=== PATIENT | male | born 1945 | race Asian ===

== ENCOUNTER 2017-04-21 18:05 | Inpatient (IN) | payer MEDICARE, MEDICAID ==
[~2017-04-21] VITALS: Ht 165.1 cm; Wt 61.7 kg
[2017-04-21 18:40] VITALS: BP 142/82
[2017-04-21 20:00] VITALS: BP 122/78
[2017-04-21 20:40] LABS: ABG PCO2 181.2 mmHg (35.0-45.0)
[2017-04-21 20:41] LABS: ABG ALLEN TEST POSITIVE; ABG BASE EXCESS 16.6
[2017-04-21 20:57] LABS: APPEARANCE,URINE CLEAR; KETONES,URINE NEGATIVE (NEGATIVE); LEUKOCYTE ESTERASE ,URINE NEGATIVE (NEGATIVE); NITRITE,URINE NEGATIVE (NEGATIVE); PH,URINE 6.5 (4.5-8.0); PROTEIN,URINE NEGATIVE (NEGATIVE); UROBILINOGEN,URINE NORMAL MG/DL (0.0-1.0)
[2017-04-21 21:00] VITALS: BP 136/78
[2017-04-21 21:08] LABS: CALCIUM 9.2 MG/DL (8.5-10.1); CHLORIDE 95 MMOL/L (98-107); CREATININE 0.5 MG/DL (0.55-1.30); POTASSIUM 5.2 MMOL/L (3.5-5.1); SODIUM 143 MMOL/L (136-145)
[2017-04-21 21:12] LABS: CARBON DIOXIDE 51 MMOL/L (21-32)
[2017-04-21 21:23] LABS: ALANINE AMINOTRANSFERASE 14 U/L (12-78); ALBUMIN/GLOBULIN RATIO 0.8 (1.0-2.7); ASPARTATE AMINO TRANSFERASE 25 U/L (15-37); CKMB 1.3 NG/ML (0.0-3.6)
[2017-04-21 21:45] VITALS: BP 105/60
[2017-04-21 22:07] LABS: MEAN CORPUSCULAR HEMOGLOBIN 33.1 PG (27.0-31.0); MEAN CORPUSCULAR HGB CONC 30.4 G/DL (32.0-36.0); MEAN CORPUSCULAR VOLUME 109 FL (80-99); MEAN PLATELET VOLUME 7.3 FL (6.5-10.1); PLATELET COUNT 98 K/UL (150-450); RED BLOOD COUNT 4.02 M/UL (4.70-6.10); RED CELL DISTRIBUTION WIDTH 11.5 % (11.6-14.8); WHITE BLOOD COUNT 8.6 K/UL (4.8-10.8)
[2017-04-21 22:10] LABS: NEUTROPHILS % (AUTO) 89.2 % (45.0-75.0)
[2017-04-21 22:11] LABS: BASOPHILS % (AUTO) 0.4 % (0.0-2.0); EOSINOPHILS % (AUTO) 0.2 % (0.0-3.0); LYMPHOCYTES % (AUTO) 5.7 % (20.0-45.0); MONOCYTES % (AUTO) 4.4 % (1.0-10.0)
[2017-04-21 22:22] LABS: ABG BASE EXCESS 11.6; ABG PCO2 85.7 mmHg (35.0-45.0)
[2017-04-21 22:23] LABS: ABG ALLEN TEST POSITIVE
[2017-04-21 22:30] VITALS: BP 91/58
[2017-04-21] MEDS ORDERED: Etomidate 40mg/20ml Inj IV ONE (22:52)
[2017-04-21] MEDS ORDERED: Zemuron 50mg/5ml Inj IV ONE (22:52)
--- NOTE | 2017-04-21 23:02 | Emergency Room Report ---
History of Present Illness General Chief Complaint: Altered Level of Consciousness Source: EMS Present Illness HPI 72-year-old male presents ED for evaluation. Patient brought by EMS for altered level of consciousness x1 day. Patient has history of COPD. Per EMS patient is more altered than usual x1 day. Patient hypoxic; EMS placed on oxygen. Upon arrival patient unable to provide any additional history at this time. No fever or chills. No reported chest pain or shortness of breath. No other aggravating or relieving factors. No other associated symptoms Allergies: Coded Allergies: No Known Allergies (Unverified , 04/21/17) Patient History Past Medical History: HTN, COPD, CVA/TIA Past Surgical History: none Pertinent Family History: none Social History: Denies: smoking, alcohol use, drug use Immunizations: UTD Reviewed Nursing Documentation: PMH: Agreed, PSxH: Agreed Nursing Documentation-PMH Hx Hypertension: Yes Hx COPD: No - PNA Hx Cerebrovascular Accident: Yes Review of Systems All Other Systems: limited Physical Exam Vital Signs Date Time Temp Pulse Resp B/P (MAP) Pulse Ox O2 Delivery O2 Flow Rate FiO2 04/21/17 18:19 97.3 104 10 140/88 98 Non-Rebreather 15.0 04/21/17 21:05 100 Sp02 EP Interpretation: reviewed, normal General Appearance: lethargic, thin Head: normocephalic Eyes: bilateral eye normal inspection, bilateral eye PERRL ENT: normal ENT inspection Neck: normal inspection Respiratory: decreased breath sounds, accessory muscle use Cardiovascular #1: regular rate, rhythm, no edema Gastrointestinal: normal inspection Rectal: deferred Genitourinary: no CVA tenderness Musculoskeletal: back normal Neurologic: other - lethargic Psychiatric: other - lethargic Skin: normal inspection Lymphatic: normal inspection Procedures Critical Care Time Critical Care Time i. I feel this is a highly complex case requiring extensive working including EKG/Rhythm strip, Xray/CT/US, Blood/urine lab work, repeat exams while in ED, and administration of strong opiates/narcotics for pain control, admission to hospital or close patient follow up. Total time: 30 min bedside evaluation and treatment excludes procedures (EKG). Reason for critical care: ALOC, hypercapnia Possible complications: hypotension, hypertension, TN, shock, arrhythmias, metabolic acidosis, end organ damage, respiratory failure. Interventions: Labs IV fluids EKG chest x-ray. ABG. Intubation. abx Course: Patient brought in with increased altered consciousness. History of COPD. ABG shows significant hypercapnia with pH of 7.1 and PCO2 greater than 180. Patient intubated. Repeat ABG shows improvement. Antibiotics given. Consultations: nursing staff, EMS, family Performed by: Dr Kirk Tolerated well condition = critical j. because of unstable vital signs this patient had a condition that could potentially threaten life or limb. I feel this is a critical patient who required my full attention while patient was considered critical. Total Critical Care Time excluding procedures was greater than 35 minutes Intubation Intubation : Consent: Emergent Intubation Method: orotracheal Tube Size (cm): 7.5 Medications: Etomidate, Rocuronium Breath Sounds after Intubation: equal Intubation Complications: no complications Post Intubation Xray: Yes Attempts: One Patient Tolerated: Well Complications: None Medical Decision Making Diagnostic Impression: Primary Impression: Altered level of consciousness Additional Impressions: COPD exacerbation Hypercapnia ER Course Hospital Course 72-year-old male presents ED with increased confusion. History of COPD Differential diagnoses include: CVA/TIA, sepsis, dehydration Clinical course Patient placed on stretcher. On quality assurance monitor body. After initial history and physical I ordered labs, IV fluids, EKG, chest x-ray, CT head. ABG. Labs - no leukocytosis, hb/hct stable, trop negative ABG - pH 7.1, pCO2 181 CXR - RLL infiltrate CT Head unremarkable Patient had difficult IV access. peripheral EJ line placed Patient intubated. Repeat ABG shows improvement. Antibiotics given Case discussed with Dr. Sams and he agreed to the patient to his service for further care and support I feel this is a highly complex case requiring extensive working including EKG/ Rhythm strip, Xray/CT/US, Blood/urine lab work, repeat exams while in ED, and administration of strong opiates/narcotics for pain control, admission to hospital or close patient follow up. Diagnosis - ALOC, COPD exacerbation, hypercapnia Patient admitted to ICU in critical condition Labs Test 04/21/17 20:15 04/21/17 20:20 04/21/17 21:45 04/21/17 22:11 Urine Color Pale yellow Urine Appearance Clear Urine pH 6.5 (4.5-8.0) Urine Specific [place] 1.005 (1.005-1.035) Urine Protein Negative (NEGATIVE) Urine Glucose (UA) Negative (NEGATIVE) Urine Ketones Negative (NEGATIVE) Urine Occult Blood Negative (NEGATIVE) Urine Nitrite Negative (NEGATIVE) Urine Bilirubin Negative (NEGATIVE) Urine Urobilinogen Normal MG/DL (0.0-1.0) Urine Leukocyte Esterase Negative (NEGATIVE) Sodium Level 143 MMOL/L (136-145) Potassium Level 5.2 MMOL/L (3.5-5.1) Chloride Level 95 MMOL/L (98-107) Carbon Dioxide Level 51 MMOL/L (21-32) Blood Urea Nitrogen 12 mg/dL (7-18) Creatinine 0.5 MG/DL (0.55-1.30) Estimat Glomerular Filtration Rate mL/min (>60) Glucose Level 157 MG/DL (74-106) Lactic Acid Level 0.70 mmol/L (0.66-2.22) Calcium Level 9.2 MG/DL (8.5-10.1) Total Bilirubin 0.6 MG/DL (0.2-1.0) Aspartate Amino Transf (AST/SGOT) 25 U/L (15-37) Alanine Aminotransferase (ALT/SGPT) 14 U/L (12-78) Alkaline Phosphatase 60 U/L (46-116) Total Creatine Kinase 63 U/L (26-140) Creatine Kinase MB 1.3 NG/ML (0.0-3.6) Creatine Kinase MB Relative Index 2.0 Troponin I 0.000 ng/mL (0.000-0.056) Pro-B-Type Natriuretic Peptide 51 pg/mL (0-125) Total Protein 9.0 G/DL (6.4-8.2) Albumin 4.0 G/DL (3.4-5.0) Globulin 5.0 g/dL Albumin/Globulin Ratio 0.8 (1.0-2.7) Arterial Blood pH 7.100 (7.350-7.450) 7.308 (7.350-7.450) Arterial Blood Partial Pressure CO2 181.2 mmHg (35.0-45.0) 85.7 mmHg (35.0-45.0) Arterial Blood Partial Pressure O2 141.8 mmHg (75.0-100.0) 99.1 mmHg (75.0-100.0) Arterial Blood HCO3 55.5 mmol/L (22.0-26.0) 42.0 mmol/L (22.0-26.0) Arterial Blood Oxygen Saturation 98.3 % (92.0-98.0) 97.4 % (92.0-98.0) Arterial Blood Base Excess 16.6 11.6 Pineda Test Positive Positive White Blood Count 8.6 K/UL (4.8-10.8) Red Blood Count 4.02 M/UL (4.70-6.10) Hemoglobin 13.3 G/DL (14.2-18.0) Hematocrit 43.8 % (42.0-52.0) Mean Corpuscular Volume 109 FL (80-99) Mean Corpuscular Hemoglobin 33.1 PG (27.0-31.0) Mean Corpuscular Hemoglobin Concent 30.4 G/DL (32.0-36.0) Red Cell Distribution Width 11.5 % (11.6-14.8) Platelet Count 98 K/UL (150-450) Mean Platelet Volume 7.3 FL (6.5-10.1) Neutrophils (%) (Auto) 89.2 % (45.0-75.0) Lymphocytes (%) (Auto) 5.7 % (20.0-45.0) Monocytes (%) (Auto) 4.4 % (1.0-10.0) Eosinophils (%) (Auto) 0.2 % (0.0-3.0) Basophils (%) (Auto) 0.4 % (0.0-2.0) EKG Diagnostic Results Rate: normal Rhythm: NSR ST Segments: no acute changes ASA given to the pt in ED: No Rhythm Strip Diag. Results EP Interpretation: yes Rhythm: NSR, no PVC's, no ectopy Chest X-Ray Diagnostic Results Chest X-Ray Diagnostic Results : Chest X-Ray Ordered: Yes # of Views/Limited/Complete: 1 View Indication: Shortness of Breath EP Interpretation: Yes Interpretation: no pneumothorax, no acute cardiopulmonary disease, other - infiltrate Impression: Other - COPD/infilrtate Electronically Signed by: Electronically signed by Deacon Kirk MD CT/MRI/US Diagnostic Results CT/MRI/US Diagnostic Results : Imaging Test Ordered: CT head Impression no acute process Last Vital Signs Date Time Temp Pulse Resp B/P (MAP) Pulse Ox O2 Delivery O2 Flow Rate FiO2 04/21/17 22:42 101 21 60 04/21/17 22:15 15.0 04/21/17 18:40 142/82 100 Non-Rebreather 04/21/17 18:19 97.3 Status: improved Disposition: ADMITTED INPATIENT Condition: Critical Referrals: NON PHYSICIAN (PCP) DEACON KIRK M.D. Apr 21, 2017 23:02
[2017-04-21] MEDS ORDERED: ATORVASTATIN CA10 MG ORAL (23:15)
[2017-04-21] MEDS ORDERED: TAMSULOSIN HCL0.4 MG ORAL (23:15)
[2017-04-21] MEDS ORDERED: METOPROLOL SUCC50 MG ORAL (23:15)
[2017-04-21] MEDS ORDERED: COLACE100 MG ORAL (23:15)
[2017-04-21] MEDS ORDERED: SENOKOT8.6 MG PO (23:15)
[2017-04-21] MEDS ORDERED: VITAMIN D400 INTLU ORAL (23:15)
[2017-04-21] MEDS ORDERED: PRO-STAT LIQUID30 ML ORAL (23:15)
[2017-04-21 23:30] VITALS: BP 96/61
[2017-04-22] VITALS (23 sets, daily range): BP systolic 86–133; BP diastolic 56–70
[2017-04-22] MEDS ORDERED: Sodium Chloride 500ML 500 ML IVPB ONE (01:30)
[2017-04-22] MEDS ORDERED: Vancomycin 1.5gm/D5W 250ml 250 ML IVPB ONE (02:00)
[2017-04-22] MEDS ORDERED: Vancomycin 1 GM in D5W 275 ML IVPB ONE (02:00)
[2017-04-22] MEDS ORDERED: Vancomycin 1gm inj IVPB ONE (02:25)
[2017-04-22] MEDS ORDERED: Zosyn 3.375gm inj ONE (02:26)
[2017-04-22] MEDS: Albuterol/Ipratropium 3ml neb HHN SCH ×4 (03:39→19:53)
[2017-04-22 04:56] LABS: MEAN CORPUSCULAR HEMOGLOBIN 35.8 PG (27.0-31.0); MEAN CORPUSCULAR HGB CONC 33.9 G/DL (32.0-36.0); MEAN CORPUSCULAR VOLUME 106 FL (80-99); MEAN PLATELET VOLUME 8.1 FL (6.5-10.1); PLATELET COUNT 92 K/UL (150-450); RED BLOOD COUNT 3.43 M/UL (4.70-6.10); RED CELL DISTRIBUTION WIDTH 11.5 % (11.6-14.8); WHITE BLOOD COUNT 7.7 K/UL (4.8-10.8)
[2017-04-22] MEDS: Piperacillin/Tazobactam 3.375 GM in D5W 55 ML IVPB SCH ×3 (05:35→21:56)
[2017-04-22 05:50] LABS: ALANINE AMINOTRANSFERASE 10 U/L (12-78); ALBUMIN/GLOBULIN RATIO 0.8 (1.0-2.7); ANION GAP 3 mmol/L (5-15); ASPARTATE AMINO TRANSFERASE 11 U/L (15-37); CALCIUM 7.9 MG/DL (8.5-10.1); CARBON DIOXIDE 37 MMOL/L (21-32); CHLORIDE 102 MMOL/L (98-107); CREATININE 0.6 MG/DL (0.55-1.30); MAGNESIUM 1.5 MG/DL (1.8-2.4); POTASSIUM 3.7 MMOL/L (3.5-5.1); SODIUM 141 MMOL/L (136-145); THYROID STIMULATING HORMONE 0.615 uiU/mL (0.358-3.740); TOTAL PROTEIN 5.8 G/DL (6.4-8.2)
[2017-04-22] MEDS: Solu-MEDROL 40mg Inj IVP SCH ×3 (09:24→21:55)
[2017-04-22] MEDS: LORazepam Inj 2mg/ml 1ml IV PRN ×2 (09:30→18:50)
[2017-04-22 09:37] LABS: ABG BASE EXCESS 4.7
[2017-04-22 09:38] LABS: ABG ALLEN TEST POSITIVE
--- NOTE | 2017-04-22 10:28 | Consultation ---
Consult Note Consult Note 72-year-old male presents to the emergency room for evaluation. Patient brought in for alteration in level of consciousness x1 day. Patient has history of COPD. He was noted to be significantly hypoxic; Patient unable to give any history. Patient required intubation and presently in the ICU. Patient is currently on the ventilator. no fevers or chills. events acute in nature overall. findings discussed and SNF care reviewed. Patient is a full code. Allergies: No Known Allergies (Unverified , 04/21/17) Patient History Past Medical History: HTN, COPD, CVA/TIA, pneumonia Past Surgical History: none Pertinent Family History: none Social History: No smoking, alcohol use, drug use; SNF patient Reviewed of systems: unable Physical exam WDWN NAD reduced breath sounds bilaterally with occasional rhonchi [id number] without MRG NABS nontender no HSM no CC mild edema poor LOC nonfocal skin noted lines noted Laboratory Tests Test 04/21/17 20:15 04/21/17 20:20 04/21/17 21:45 04/21/17 22:11 Urine Color Pale yellow Urine Appearance Clear Urine pH 6.5 (4.5-8.0) Urine Specific [place] 1.005 (1.005-1.035) Urine Protein Negative (NEGATIVE) Urine Glucose (UA) Negative (NEGATIVE) Urine Ketones Negative (NEGATIVE) Urine Occult Blood Negative (NEGATIVE) Urine Nitrite Negative (NEGATIVE) Urine Bilirubin Negative (NEGATIVE) Urine Urobilinogen Normal MG/DL (0.0-1.0) Urine Leukocyte Esterase Negative (NEGATIVE) Sodium Level 143 MMOL/L (136-145) Potassium Level 5.2 MMOL/L (3.5-5.1) H Chloride Level 95 MMOL/L (98-107) L Carbon Dioxide Level 51 MMOL/L (21-32) *H Blood Urea Nitrogen 12 mg/dL (7-18) Creatinine 0.5 MG/DL (0.55-1.30) L Estimat Glomerular Filtration Rate mL/min (>60) Glucose Level 157 MG/DL (74-106) H Lactic Acid Level 0.70 mmol/L (0.66-2.22) Calcium Level 9.2 MG/DL (8.5-10.1) Total Bilirubin 0.6 MG/DL (0.2-1.0) Aspartate Amino Transf (AST/SGOT) 25 U/L (15-37) Alanine Aminotransferase (ALT/SGPT) 14 U/L (12-78) Alkaline Phosphatase 60 U/L (46-116) Total Creatine Kinase 63 U/L (26-140) Creatine Kinase MB 1.3 NG/ML (0.0-3.6) Creatine Kinase MB Relative Index 2.0 Troponin I 0.000 ng/mL (0.000-0.056) Pro-B-Type Natriuretic Peptide 51 pg/mL (0-125) Total Protein 9.0 G/DL (6.4-8.2) H Albumin 4.0 G/DL (3.4-5.0) Globulin 5.0 g/dL Albumin/Globulin Ratio 0.8 (1.0-2.7) L Arterial Blood pH 7.100 (7.350-7.450) 7.308 (7.350-7.450) Arterial Blood Partial Pressure CO2 181.2 mmHg (35.0-45.0) *H 85.7 mmHg (35.0-45.0) *H Arterial Blood Partial Pressure O2 141.8 mmHg (75.0-100.0) H 99.1 mmHg (75.0-100.0) Arterial Blood HCO3 55.5 mmol/L (22.0-26.0) H 42.0 mmol/L (22.0-26.0) H Arterial Blood Oxygen Saturation 98.3 % (92.0-98.0) H 97.4 % (92.0-98.0) Arterial Blood Base Excess 16.6 11.6 Pineda Test Positive Positive White Blood Count 8.6 K/UL (4.8-10.8) Red Blood Count 4.02 M/UL (4.70-6.10) L Hemoglobin 13.3 G/DL (14.2-18.0) L Hematocrit 43.8 % (42.0-52.0) Mean Corpuscular Volume 109 FL (80-99) H Mean Corpuscular Hemoglobin 33.1 PG (27.0-31.0) H Mean Corpuscular Hemoglobin Concent 30.4 G/DL (32.0-36.0) L Red Cell Distribution Width 11.5 % (11.6-14.8) L Platelet Count 98 K/UL (150-450) L Mean Platelet Volume 7.3 FL (6.5-10.1) Neutrophils (%) (Auto) 89.2 % (45.0-75.0) H Lymphocytes (%) (Auto) 5.7 % (20.0-45.0) L Monocytes (%) (Auto) 4.4 % (1.0-10.0) Eosinophils (%) (Auto) 0.2 % (0.0-3.0) Basophils (%) (Auto) 0.4 % (0.0-2.0) Test 04/22/17 03:15 04/22/17 09:20 White Blood Count 7.7 K/UL (4.8-10.8) Red Blood Count 3.43 M/UL (4.70-6.10) L Hemoglobin 12.3 G/DL (14.2-18.0) L Hematocrit 36.3 % (42.0-52.0) L Mean Corpuscular Volume 106 FL (80-99) H Mean Corpuscular Hemoglobin 35.8 PG (27.0-31.0) H Mean Corpuscular Hemoglobin Concent 33.9 G/DL (32.0-36.0) Red Cell Distribution Width 11.5 % (11.6-14.8) L Platelet Count 92 K/UL (150-450) L Mean Platelet Volume 8.1 FL (6.5-10.1) Neutrophils (%) (Auto) % (45.0-75.0) Lymphocytes (%) (Auto) % (20.0-45.0) Monocytes (%) (Auto) % (1.0-10.0) Eosinophils (%) (Auto) % (0.0-3.0) Basophils (%) (Auto) % (0.0-2.0) Sodium Level 141 MMOL/L (136-145) Potassium Level 3.7 MMOL/L (3.5-5.1) Chloride Level 102 MMOL/L (98-107) Carbon Dioxide Level 37 MMOL/L (21-32) H Anion Gap 3 mmol/L (5-15) L Blood Urea Nitrogen 16 mg/dL (7-18) Creatinine 0.6 MG/DL (0.55-1.30) Estimat Glomerular Filtration Rate mL/min (>60) Glucose Level 123 MG/DL (74-106) H Calcium Level 7.9 MG/DL (8.5-10.1) L Magnesium Level 1.5 MG/DL (1.8-2.4) L Total Bilirubin 0.8 MG/DL (0.2-1.0) Aspartate Amino Transf (AST/SGOT) 11 U/L (15-37) L Alanine Aminotransferase (ALT/SGPT) 10 U/L (12-78) L Alkaline Phosphatase 40 U/L (46-116) L Total Protein 5.8 G/DL (6.4-8.2) #L Albumin 2.5 G/DL (3.4-5.0) L Globulin 3.3 g/dL Albumin/Globulin Ratio 0.8 (1.0-2.7) L Vitamin B12 Level 328 PG/ML (193-986) Folate 8.0 NG/ML (3.1-17.5) Thyroid Stimulating Hormone (TSH) 0.615 uiU/mL (0.358-3.740) Arterial Blood pH 7.410 (7.350-7.450) Arterial Blood Partial Pressure CO2 48.0 mmHg (35.0-45.0) H Arterial Blood Partial Pressure O2 83.0 mmHg (75.0-100.0) Arterial Blood HCO3 30.0 mmol/L (22.0-26.0) H Arterial Blood Oxygen Saturation 96.6 % (92.0-98.0) Arterial Blood Base Excess 4.7 Pineda Test Positive IMPRESSION respiratory failure COPD possible Pneumonia acute respiratory acidosis thrombocytopenia history of CVA history of TIA hypertension per history PLAN agree with management IV steroids IV antibiotics respiratory care oxygen ventilator management maintain SNF meds impression, plan, and exam edited and reviewed in detail care discussed with HUSSEIN OSBORNE Apr 22, 2017 10:28
--- NOTE | 2017-04-22 10:31 | Diagnostic Imaging Report ---
Indications: Altered mental status Technique: Spiral acquisitions obtained through the brain. Angled axial and coronal 5 x 5 mm slices were reconstructed. Total dose length product 1463 mGycm. CTDI vol(s) 70 mGy. Dose reduction achieved using automated exposure control Comparison: None Findings: There is a subtle area of encephalomalacia in left basal ganglia laterally, consistent with large lacunar infarct. This results in ex vacuo dilatation of the body of the left lateral ventricle. A smaller lacunar infarct is seen medially. There is bilateral deep white matter low attenuation, consistent with chronic the white matter ischemic change. This is asymmetric on the left, indicating likely underlying large deep white matter infarct on the left as well. Old lacunar infarcts are also seen in the left basal ganglia and convexity deep white matter. There is marked age-related enlargement of the ventricles and extra axial CSF spaces. No acute intracranial bleed or edema, mass effect or midline shift. There is right-sided ethmoid and frontal sinus disease. There is minimal left mastoid disease. Mastoids are somewhat underpneumatized. Impression: Chronic and age-related changes, as described, including multiple old infarcts Sinus disease Negative for acute intracranial bleed or mass effect This agrees with the preliminary interpretation provided overnight by [facility] teleradiology service. The CT scanner at [facility] is accredited by the [employer] and the scans are performed using protocols designed to limit radiation exposure to as low as reasonably achievable to attain images of sufficient resolution adequate for diagnostic evaluation.
--- NOTE | 2017-04-22 10:37 | Diagnostic Imaging Report ---
Indication: AMS, shortness of breath Technique: One view of the chest Comparison: none Findings: There is retrocardiac consolidation. There is a small left pleural effusion. There may be some hazy right infrahilar opacity as well. The heart is borderline enlarged. There is an old healed fracture deformity of the right humerus. Is inferior subluxation of the humeral Impression: Retrocardiac consolidation, possible right infrahilar consolidation Suspect small left pleural effusion Borderline cardiomegaly Other findings as noted
[2017-04-22] MEDS: Heparin 5000 units/ml inj SUBQ SCH ×2 (11:00→21:00)
--- NOTE | 2017-04-22 11:13 | Diagnostic Imaging Report ---
Indication: Status post intubation Technique: One view of the chest Comparison: 3 hours earlier Findings: Interim endotracheal intubation, endotracheal tube tip in good position approximately 6 cm above the [place]. There is interim marked increased in parenchymal disease bilaterally, predominantly in the mid and lower lungs. This is mostly reticulonodular change. There is a left-sided pleural effusion again demonstrated. There is now suggestion of a small right-sided pleural effusion as well. Retrocardiac consolidation persists. Impression: Satisfactory endotracheal intubation Rapidly increasing bilateral pulmonary parenchymal disease, infiltrates versus edema
--- NOTE | 2017-04-22 11:48 | Wound Care Consultation ---
Wound Assessment Wound Assessment : Wound Number: 1 Wound Present on Admission: Yes New Wound: No Status Change of Wound: No Wound Location Body Site: other - sacrococcygeal Wound Type: pressure ulcer Lucila Test: Does not Lucila Pressure Ulcer Stage: III Wound Thickness: Full Thickness Wound Length: 1.0 Wound Width: 1.0 Wound Depth: 0.2 Percent of Wound [place]/Red: 100 Other Colors Identified: scattered scabs to right sacral noted with reddened area Wound Drainage Description: Serosanguineous Wound Drainage Amount: Scant Wound Drainage Odor: None/Absent Tissue Surrounding Wound: Erythemic Wound General Appearance: Reddened Wound Comment #1 Sacrococcygeal pressure ulcer stage 3 with full thickness scar tissue to surrounding site 3.0cmx 1.5cm , scattered scabs to right sacral with redness. #2 left cubital fossa discoloration. Recommendation. -Local wound care as ordered. -Turn and reposition. -Keep clean and dry. -Optimize nutrition. -Heel protectors. -Avoid shear and friction. -Apply low air loss SPR mattress for wound care and skin management. -Assess and follow up with MD for any further changes of condition with skin. ALYSIA FLORES Apr 22, 2017 11:48
[2017-04-22] MEDS ORDERED: Vancomycin 750 MG in D5W 275 ML IVPB SCH (13:00)
[2017-04-22] MEDS ORDERED: Vancomycin 1 GM in D5W 275 ML IVPB SCH (13:00)
[2017-04-22] MEDS: Vancomycin 750mg/NS 250ml 250 ML IVPB SCH (14:57)
--- NOTE | 2017-04-22 16:31 | History and Physical Report ---
DATE OF ADMISSION: 04/21/2017 CHIEF COMPLAINT: Respiratory failure. HISTORY OF PRESENT ILLNESS: The patient is a 72-year-old male. He has a prior history of stroke with right-sided hemiparesis, hypertension, and possible diabetes. He has a history of COPD. [facility] after he was noted to be altered and lethargic for a day. On evaluation in the emergency room, the patient had a chest x-ray that showed a right lower lobe infiltrate. ABG showed severe hypercapnic respiratory failure with a pCO2 of 180. He was intubated. He is now admitted to the intensive care unit. He is apparently awake and alert, does follow simple commands. PAST MEDICAL HISTORY: As above. PAST SURGICAL HISTORY: Some type of surgical procedure for bleeding according to family members, but they are unclear exactly what the surgery was. MEDICATIONS: Reconciled and reviewed. ALLERGIES: None. FAMILY HISTORY: Significant for history of lung cancer. SOCIAL HISTORY: Significant for long history of smoking, but the patient quit. No alcohol. No drugs. REVIEW OF SYSTEMS: Unobtainable, as the patient is currently intubated. PHYSICAL EXAMINATION: VITAL SIGNS: Temperature 98 degrees, pulse 82, respirations 20, and blood pressure 104/64. GENERAL: The patient is a well-developed male, in no apparent distress, currently orally intubated. NECK: Supple. There is no jugular venous distention. HEART: Regular rate and rhythm. LUNGS: Clear. ABDOMEN: Soft, nontender, and nondistended. EXTREMITIES: Without clubbing, cyanosis, or edema. LABORATORY DATA: ABG showed a pH of 7.1 with a pCO2 of 181 and pO2 of 140, bicarbonate of 55, and O2 saturation of 98. White count 7, hemoglobin 12, and hematocrit 36. Sodium 143, potassium 5.2, chloride 95, bicarbonate 51, BUN 12, and creatinine was 0.5. UA was clear. ASSESSMENT: This is a 72-year-old male with a prior history of stroke, hypertension, and diabetes, admitted with chronic obstructive pulmonary disease exacerbation and hypercapnic respiratory failure. He also has healthcare-associated pneumonia. PLAN: Continue vent support, respiratory treatments, intravenous steroids, respiratory treatments [id number], empiric antibiotic therapy for healthcare-associated pneumonia. Pulmonary, Infectious Disease, and Cardiology consultations have been obtained. The patient will be hydrated. Check a venous duplex of the lower extremities. DVT and stress ulcer prophylaxis will also be instituted. Plan of care was discussed with the patient's sister. Onofre Smith M.D. DR: JEF JOB#: [id number] CC:
[2017-04-22] MEDS: Morphine Sulfate 2mg/ml Inj IVP PRN (21:56)
[2017-04-23] VITALS (24 sets, daily range): BP systolic 105–151; BP diastolic 44–73
[2017-04-23] MEDS: LORazepam Inj 2mg/ml 1ml IV PRN ×4 (00:25→21:05)
[2017-04-23] MEDS: Vancomycin 750mg/NS 250ml 250 ML IVPB SCH (00:58)
[2017-04-23] MEDS: Albuterol/Ipratropium 3ml neb HHN SCH ×4 (01:31→19:05)
--- NOTE | 2017-04-23 03:16 | Consultation ---
DATE OF CONSULTATION: 04/21/2017 CARDIOLOGY CONSULTATION CONSULTING PHYSICIAN: Shayne Sams M.D. REQUESTING PHYSICIAN: Onofre Smith M.D. REASON FOR CONSULTATION: Severe respiratory acidosis with compensatory metabolic alkalosis. HISTORY OF PRESENT ILLNESS: This is a 72-year-old [place] male with a longstanding history of chronic obstructive pulmonary disease and prior respiratory failure, who resides at a residential facility. He was noted by staff to be increasingly altered and withdrawn over the past day. He was noted to be hypoxic by paramedics and brought to the emergency room for assessment. On arrival, the case was discussed with the emergency room physician and based on his historical data, I suggested an ABG be performed urgently. The results of that study revealed a pH of 7.10, pCO2 181, and pO2 of 141. Commitment laboratory studies also were notable for sodium 143, potassium 5.2, chloride 95, bicarbonate 51, BUN 12, creatinine 0.5, and glucose 157. Pro-natriuretic peptide of 51. Troponin 0. White count 8.6, hemoglobin 13.3, and chest x-ray revealing retrocardiac consolidation. The EKG revealed sinus tachycardia and nonspecific ST changes. These results were reviewed with the emergency room physician and decision was made for intubation, mechanical ventilation, and intensive care unit admission. PAST MEDICAL HISTORY: Hypertension, chronic obstructive pulmonary disease, and cerebrovascular disease with history of cerebrovascular accident. ALLERGIES: None. MEDICATIONS: Prior to admission, reviewed and reconciled. SOCIAL HISTORY: Not obtainable. FAMILY HISTORY: Not known. REVIEW OF SYSTEMS: Presently not obtainable. Pertinent data is based on prior evaluations of this patient and discussions with staff at the residential facility. PHYSICAL EXAMINATION: VITAL SIGNS: Afebrile, blood pressure 140/88, pulse 104, and respirations 10 prior to intubation. HEENT: Temporal wasting. Pale conjunctivae. Orally intubated. LUNGS: Bilateral breath sounds. Scattered rhonchi. Thin secretions. HEART: Regular rhythm. Rapid rate. Normal S1, S2. ABDOMEN: Soft. EXTREMITIES: With decreased capillary refill. No edema. IMPRESSION: 1. Critical condition and guarded prognosis. 2. Acute respiratory failure with hypoxemia. 3. Acute on chronic respiratory acidosis. 4. Severe metabolic alkalosis. 5. Healthcare-acquired pneumonia. 6. Metabolic encephalopathy. 7. Probable sepsis. 8. Hypovolemia. PLAN: 1. Antimicrobials. 2. Bronchodilators. 3. Ventilator support. 4. Acetazolamide for metabolic alkalosis. 5. Volume support. 6. DVT and stress ulcer prophylaxes. Shayne Sams M.D. DR: JUMANA JOB#: [id number] CC:
[2017-04-23 04:36] LABS: MEAN CORPUSCULAR HEMOGLOBIN 35.7 PG (27.0-31.0); MEAN CORPUSCULAR HGB CONC 34.1 G/DL (32.0-36.0); MEAN CORPUSCULAR VOLUME 105 FL (80-99); MEAN PLATELET VOLUME 7.8 FL (6.5-10.1); PLATELET COUNT 77 K/UL (150-450); RED BLOOD COUNT 3.08 M/UL (4.70-6.10); RED CELL DISTRIBUTION WIDTH 11.4 % (11.6-14.8); WHITE BLOOD COUNT 8.1 K/UL (4.8-10.8)
[2017-04-23 05:14] LABS: ALANINE AMINOTRANSFERASE 11 U/L (12-78); ALBUMIN/GLOBULIN RATIO 0.8 (1.0-2.7); ANION GAP 5 mmol/L (5-15); ASPARTATE AMINO TRANSFERASE 11 U/L (15-37); CALCIUM 8.2 MG/DL (8.5-10.1); CARBON DIOXIDE 26 MMOL/L (21-32); CHLORIDE 106 MMOL/L (98-107); CREATININE 0.7 MG/DL (0.55-1.30); POTASSIUM 2.9 MMOL/L (3.5-5.1); SODIUM 137 MMOL/L (136-145); TOTAL PROTEIN 5.6 G/DL (6.4-8.2)
--- NOTE | 2017-04-23 05:45 | Progress Note ---
DATE: 04/22/2017 CARDIOLOGY PROGRESS NOTE SUBJECTIVE: The patient remains orally intubated, mechanically ventilated. He developed hypotension last night. Fluid challenges were ordered. OBJECTIVE: VITAL SIGNS: Blood pressure 86/59, earlier this morning prior to fluid challenges, now 114/64, heart rate 88, respiratory rate 20, temperature 99.2. HEENT: Temporal wasting. Orally intubated. LUNGS: Thin trach secretions. Bilateral rhonchi. HEART: Regular rhythm and rate. Normal S1, S2 with no appreciable murmur. ABDOMEN: Soft. No guarding or rebound. EXTREMITIES: Without edema. Capillary refill is diminished. LABORATORY AND DIAGNOSTIC DATA: Sodium 141, potassium 3.7, bicarb 37, BUN 16, creatinine 0.6, magnesium 1.5. Albumin 2.5. White count 7.7, hemoglobin 12.3. Chest x-ray reveals worsening bilateral infiltrates. IMPRESSION: 1. Hypomagnesemia. 2. Respiratory failure. 3. Acute on chronic respiratory acidosis. 4. Compensatory metabolic alkalosis. 5. Healthcare acquired pneumonia. 6. Shock due to hypovolemia and sepsis. 7. Chronic obstructive pulmonary disease with chronic CO2 retention. PLAN: 1. Ventilator support. 2. Antimicrobials. 3. Acetazolamide for elevated bicarb levels. 4. IV magnesium. 5. Pain control as needed. 6. DVT and stress ulcer prophylaxis. 7. Fluid challenge as needed for blood pressure if needed. We will continue efforts to avoid pressors. 8. Nutrition by NG tube will be initiated. Shayne Sams M.D. DR: RADHA JOB#: [id number] CC:
[2017-04-23] MEDS: Piperacillin/Tazobactam 3.375 GM in D5W 55 ML IVPB SCH ×3 (06:11→21:57)
[2017-04-23] MEDS: Solu-MEDROL 40mg Inj IVP SCH ×3 (06:11→21:57)
--- NOTE | 2017-04-23 07:44 | General Progress Note ---
Assessment/Plan Problem List: (1) Altered level of consciousness ICD Codes: R40.4 - Transient alteration of awareness SNOMED: 1321119 (2) COPD exacerbation ICD Codes: J44.1 - Chronic obstructive pulmonary disease with (acute) exacerbation SNOMED: 303050791831891 (3) Hypercapnia ICD Codes: R06.89 - Other abnormalities of breathing SNOMED: 30253604 Status: stable Assessment/Plan wean vent resp rx iv abx ngt feeds Subjective ROS Limited/Unobtainable: No Constitutional: Reports: malaise, weakness HEENT: Reports: no symptoms Cardiovascular: Reports: no symptoms Respiratory: Reports: cough, shortness of breath Gastrointestinal/Abdominal: Reports: difficulty swallowing Genitourinary: Reports: no symptoms Neurologic/Psychiatric: Reports: pre-existing deficit Endocrine: Reports: no symptoms Hematologic/Lymphatic: Reports: anemia Allergies: Coded Allergies: No Known Allergies (Unverified , 04/21/17) All Systems: reviewed and negative except above Subjective on the vent. poorly responsive. no fevers. tolerating feeds. Objective Last 24 Hour Vital Signs Date Time Temp Pulse Resp B/P (MAP) Pulse Ox O2 Delivery O2 Flow Rate FiO2 04/23/17 07:10 91 24 100 Mechanical Ventilator 40 04/23/17 07:03 79 20 100 Mechanical Ventilator 40 04/23/17 07:01 88 23 40 04/23/17 07:00 87 21 131/58 100 Mechanical Ventilator 40 04/23/17 06:00 80 23 127/59 100 Mechanical Ventilator 40 04/23/17 05:00 82 21 141/62 100 Mechanical Ventilator 40 04/23/17 04:45 81 21 40 04/23/17 04:00 86 04/23/17 04:00 98.3 81 21 113/56 100 Mechanical Ventilator 40 04/23/17 04:00 40 04/23/17 03:09 70 24 40 04/23/17 03:00 72 20 107/54 99 Mechanical Ventilator 40 04/23/17 02:00 69 20 105/54 98 Mechanical Ventilator 40 04/23/17 01:32 68 25 100 Mechanical Ventilator 40 04/23/17 01:32 64 25 98 Mechanical Ventilator 40 04/23/17 01:28 69 25 40 04/23/17 01:00 65 20 113/58 98 Mechanical Ventilator 40 04/23/17 00:00 98.3 80 20 123/63 100 Mechanical Ventilator 40 04/23/17 00:00 80 04/23/17 00:00 40 04/22/17 23:05 74 22 40 04/22/17 23:00 71 22 133/63 99 Mechanical Ventilator 40 04/22/17 22:26 98.7 04/22/17 22:00 79 20 120/62 99 Mechanical Ventilator 40 04/22/17 21:13 82 23 40 04/22/17 21:00 89 20 128/70 99 Mechanical Ventilator 40 04/22/17 20:00 98.7 83 20 124/66 99 Mechanical Ventilator 50 04/22/17 20:00 40 04/22/17 20:00 84 04/22/17 19:54 79 24 100 Mechanical Ventilator 40 04/22/17 19:45 79 20 99 Mechanical Ventilator 40 04/22/17 19:30 83 21 40 04/22/17 19:00 93 20 113/65 99 Mechanical Ventilator 40 04/22/17 18:00 81 20 119/68 100 Mechanical Ventilator 40 04/22/17 17:00 84 20 125/64 100 Mechanical Ventilator 40 04/22/17 16:37 92 21 45 04/22/17 16:00 45 04/22/17 16:00 97.0 90 20 124/60 99 Mechanical Ventilator 50 04/22/17 16:00 85 20 45 04/22/17 16:00 91 04/22/17 15:00 92 20 120/56 98 Mechanical Ventilator 50 04/22/17 14:04 82 23 99 Endotracheal Tube 45 04/22/17 14:00 45 04/22/17 14:00 87 20 109/59 98 Mechanical Ventilator 50 04/22/17 13:53 82 20 99 Endotracheal Tube 45 04/22/17 13:32 85 20 45 04/22/17 13:00 78 20 131/62 98 Mechanical Ventilator 50 04/22/17 12:00 45 04/22/17 12:00 84 04/22/17 12:00 97.8 91 21 121/62 98 Mechanical Ventilator 50 04/22/17 11:48 83 20 50 04/22/17 11:00 90 20 115/61 98 Mechanical Ventilator 50 04/22/17 10:00 88 20 114/64 99 Mechanical Ventilator 50 04/22/17 09:03 89 20 50 04/22/17 09:00 90 20 115/58 96 Mechanical Ventilator 50 04/22/17 08:00 50 04/22/17 08:00 99.2 86 20 132/66 98 Mechanical Ventilator 50 04/22/17 08:00 87 Laboratory Tests 04/22/17 09:20: Arterial Blood pH 7.410, Arterial Blood Partial Pressure CO2 48.0H, Arterial Blood Partial Pressure O2 83.0, Arterial Blood HCO3 30.0H, Arterial Blood Oxygen Saturation 96.6, Arterial Blood Base Excess 4.7, Pineda Test Positive 04/23/17 02:50: White Blood Count 8.1, Red Blood Count 3.08L, Hemoglobin 11.0L, Hematocrit 32.3L , Mean Corpuscular Volume 105H, Mean Corpuscular Hemoglobin 35.7H, Mean Corpuscular Hemoglobin Concent 34.1, Red Cell Distribution Width 11.4L, Platelet Count 77L, Mean Platelet Volume 7.8, Neutrophils (%) (Auto) , Lymphocytes (%) (Auto) , Monocytes (%) (Auto) , Eosinophils (%) (Auto) , Basophils (%) (Auto) , Sodium Level 137, Potassium Level 2.9L, Chloride Level 106, Carbon Dioxide Level 26, Anion Gap 5, Blood Urea Nitrogen 13, Creatinine 0.7, Estimat Glomerular Filtration Rate , Glucose Level 190H, Calcium Level 8.2L , Total Bilirubin 0.6, Aspartate Amino Transf (AST/SGOT) 11L, Alanine Aminotransferase (ALT/SGPT) 11L, Alkaline Phosphatase 38L, Pro-B-Type Natriuretic Peptide 56, Total Protein 5.6L, Albumin 2.4L, Globulin 3.2, Albumin/ Globulin Ratio 0.8L Height (Feet): 5 Height (Inches): 5.00 Weight (Pounds): 96 General Appearance: lethargic, confused Neck: supple Cardiovascular: normal rate Respiratory/Chest: lungs clear, normal breath sounds, no respiratory distress Abdomen: normal bowel sounds, non tender, soft, no organomegaly Edema: no edema noted Arm (L), no edema noted Arm (R), no edema noted Leg (L), no edema noted Leg (R), no edema noted Pedal (L), no edema noted Pedal (R), no edema noted Generalized Neurologic: disoriented MARTIN HERNÁNDEZ Apr 23, 2017 07:44
[2017-04-23] MEDS ORDERED: KCl 10% 40mEq/30ml liquid NG ONE ×2 (07:45→08:30)
--- NOTE | 2017-04-23 08:16 | Critical Care Progress Note ---
Assessment/Plan Assessment/Plan IMPRESSION respiratory failure COPD possible Pneumonia acute respiratory acidosis thrombocytopenia history of CVA history of TIA hypertension per history PLAN agree with management IV steroids as is IV antibiotics and titrate to cultures respiratory care oxygen ventilator management maintain SNF meds medications/laboratory data/nursing notes/ICU care reviewed in detail note reviewed and edited care discussed with RN and RT ICU time spent 36 minutes Critical Care - Subjective Interval Events: overall care noted and reviewed care and findings reviewed ICU noted in detail Condition: critical EKG Rhythm: Sinus Rhythm I&O: Intake and Output 04/23/17 04/24/17 19:00 07:00 Intake Total 45 ml Output Total 0 ml Balance 45 ml Tube Feeding 45 ml Output Urine Total 0 ml Critical Care - Objective ET-Tube: 7.5 ET Position: 23 Last 24 Hour Vital Signs Date Time Temp Pulse Resp B/P (MAP) Pulse Ox O2 Delivery O2 Flow Rate FiO2 04/23/17 08:00 90 20 113/46 100 Mechanical Ventilator 40 04/23/17 07:10 91 24 100 Mechanical Ventilator 40 04/23/17 07:03 79 20 100 Mechanical Ventilator 40 04/23/17 07:01 88 23 40 04/23/17 07:00 87 21 131/58 100 Mechanical Ventilator 40 04/23/17 06:00 80 23 127/59 100 Mechanical Ventilator 40 04/23/17 05:00 82 21 141/62 100 Mechanical Ventilator 40 04/23/17 04:45 81 21 40 04/23/17 04:00 86 04/23/17 04:00 98.3 81 21 113/56 100 Mechanical Ventilator 40 04/23/17 04:00 40 04/23/17 03:09 70 24 40 04/23/17 03:00 72 20 107/54 99 Mechanical Ventilator 40 04/23/17 02:00 69 20 105/54 98 Mechanical Ventilator 40 04/23/17 01:32 68 25 100 Mechanical Ventilator 40 04/23/17 01:32 64 25 98 Mechanical Ventilator 40 04/23/17 01:28 69 25 40 04/23/17 01:00 65 20 113/58 98 Mechanical Ventilator 40 04/23/17 00:00 98.3 80 20 123/63 100 Mechanical Ventilator 40 04/23/17 00:00 80 04/23/17 00:00 40 04/22/17 23:05 74 22 40 04/22/17 23:00 71 22 133/63 99 Mechanical Ventilator 40 04/22/17 22:26 98.7 04/22/17 22:00 79 20 120/62 99 Mechanical Ventilator 40 04/22/17 21:13 82 23 40 04/22/17 21:00 89 20 128/70 99 Mechanical Ventilator 40 04/22/17 20:00 98.7 83 20 124/66 99 Mechanical Ventilator 50 04/22/17 20:00 40 04/22/17 20:00 84 04/22/17 19:54 79 24 100 Mechanical Ventilator 40 04/22/17 19:45 79 20 99 Mechanical Ventilator 40 04/22/17 19:30 83 21 40 04/22/17 19:00 93 20 113/65 99 Mechanical Ventilator 40 04/22/17 18:00 81 20 119/68 100 Mechanical Ventilator 40 04/22/17 17:00 84 20 125/64 100 Mechanical Ventilator 40 04/22/17 16:37 92 21 45 04/22/17 16:00 45 04/22/17 16:00 97.0 90 20 124/60 99 Mechanical Ventilator 50 04/22/17 16:00 85 20 45 04/22/17 16:00 91 04/22/17 15:00 92 20 120/56 98 Mechanical Ventilator 50 04/22/17 14:04 82 23 99 Endotracheal Tube 45 04/22/17 14:00 45 04/22/17 14:00 87 20 109/59 98 Mechanical Ventilator 50 04/22/17 13:53 82 20 99 Endotracheal Tube 45 04/22/17 13:32 85 20 45 04/22/17 13:00 78 20 131/62 98 Mechanical Ventilator 50 04/22/17 12:00 45 04/22/17 12:00 84 04/22/17 12:00 97.8 91 21 121/62 98 Mechanical Ventilator 50 04/22/17 11:48 83 20 50 04/22/17 11:00 90 20 115/61 98 Mechanical Ventilator 50 04/22/17 10:00 88 20 114/64 99 Mechanical Ventilator 50 04/22/17 09:03 89 20 50 04/22/17 09:00 90 20 115/58 96 Mechanical Ventilator 50 Labs: reviewed in detail cultures noted and reviewed in detail Objective: WDWN NAD reduced breath sounds bilaterally with occasional rhonchi [id number] without MRG NABS nontender no HSM no CC mild edema poor LOC nonfocal skin noted lines noted Micro: Microbiology Date/Time Source Procedure Growth Status 04/21/17 22:00 Blood Blood Culture - Preliminary NO GROWTH AFTER 24 HOURS Resulted 04/21/17 21:45 Blood Blood Culture - Preliminary NO GROWTH AFTER 24 HOURS Resulted 04/21/17 23:30 Nasal Nares MRSA Culture - Final Staphylococcus Aureus - Mrsa Complete HUSSEIN MARTINEZ Apr 23, 2017 08:16
[2017-04-23] MEDS: Heparin 5000 units/ml inj SUBQ SCH ×2 (08:46→20:32)
[2017-04-23 09:55] LABS: ABG ALLEN TEST POSITIVE; ABG BASE EXCESS -0.3; ABG PCO2 39.9 mmHg (35.0-45.0)
--- NOTE | 2017-04-23 10:09 | Diagnostic Imaging Report ---
Indication: COPD Technique: XRAY CHEST 1 V Comparison:04/21/2017 Findings: Compared to previous study there is decreased infiltrate in the right lower lobe. Extensive infiltrates remain in the right upper lobe and in the left lower lobe. Endotracheal tube remains. Nasogastric tube has been placed with the tip in the stomach. No other change. Impression: Decreased right lower lobe infiltrate with no change in mixed bilateral infiltrates otherwise. Endotracheal tube in adequate position. Placement of nasogastric tube with the tip in the stomach.
[2017-04-23 12:01] LABS: ABG ALLEN TEST POSITIVE; ABG BASE EXCESS -0.3; ABG PCO2 43.3 mmHg (35.0-45.0)
--- NOTE | 2017-04-23 13:15 | Progress Note ---
DATE: 04/23/2017 CARDIOLOGY PROGRESS NOTE SUBJECTIVE: The patient is sedated, as he tries to pull out his ET tube without sedation. ET tube secretions are thin. PHYSICAL EXAMINATION: VITAL SIGNS: Blood pressure 131/58, pulse 87, and respiratory rate 21. LUNGS: Bilateral breath sounds, few rhonchi. HEART: Regular rate and rhythm. S1, S2. ABDOMEN: Soft. No edema. LABORATORY DATA: White count 8.1, hemoglobin 11. Pro-natriuretic peptide is 56. Sodium 137, potassium 3.9, bicarb 26, BUN 13, creatinine 0.7, and albumin 2.4. IMPRESSION: 1. Respiratory failure, chronic obstructive pulmonary disease exacerbation. 2. Healthcare-acquired pneumonia. 3. Hypokalemia. 4. Severe protein-calorie malnutrition. 5. Steroid-induced hyperglycemia. 6. Acute on chronic respiratory acidosis, resolved. 7. Metabolic alkalosis. 8. Resolved shock due to sepsis and hypovolemia. PLAN: Discontinue Diamox. Replace potassium. Antimicrobials. Follow up sputum cultures. Weaning efforts. Shayne Sams M.D. DR: Brian JOB#: [id number] CC:
[2017-04-23] MEDS: Vancomycin 1gm in D5W 275ml IVPB SCH (15:09)
[2017-04-23] MEDS: Morphine Sulfate 2mg/ml Inj IVP PRN ×2 (15:30→19:45)
[2017-04-23] MEDS ORDERED: Tubing IV Secondary IV ONE (15:42)
[2017-04-23] MEDS ORDERED: D5W 275ml ONE (15:42)
[2017-04-23] MEDS ORDERED: NS 275ml ONE (15:42)
[2017-04-23] MEDS ORDERED: Sterile Water Irrig 1000ml IRRIG ONE (15:42)
[2017-04-23] MEDS ORDERED: NS 500ML ONE (15:42)
[2017-04-23] MEDS ORDERED: KCl 10% 20 mEq/15ml liquid NG ONE (17:00)
[2017-04-24] VITALS (24 sets, daily range): BP systolic 101–161; BP diastolic 50–75
[2017-04-24] MEDS: Albuterol/Ipratropium 3ml neb HHN SCH ×4 (01:33→19:02)
[2017-04-24] MEDS: LORazepam Inj 2mg/ml 1ml IV PRN (01:37)
[2017-04-24] MEDS: Vancomycin 1gm in D5W 275ml IVPB SCH ×2 (02:01→14:37)
[2017-04-24 05:00] LABS: ALANINE AMINOTRANSFERASE 16 U/L (12-78); ALBUMIN/GLOBULIN RATIO 0.8 (1.0-2.7); ANION GAP 1 mmol/L (5-15); ASPARTATE AMINO TRANSFERASE 14 U/L (15-37); CALCIUM 8.4 MG/DL (8.5-10.1); CARBON DIOXIDE 31 MMOL/L (21-32); CHLORIDE 109 MMOL/L (98-107); CREATININE 0.5 MG/DL (0.55-1.30); SODIUM 141 MMOL/L (136-145); TOTAL PROTEIN 7.1 G/DL (6.4-8.2)
[2017-04-24] MEDS: Solu-MEDROL 40mg Inj IVP SCH (05:29)
[2017-04-24] MEDS: Piperacillin/Tazobactam 3.375 GM in D5W 55 ML IVPB SCH ×3 (05:30→21:56)
[2017-04-24] MEDS: Heparin 5000 units/ml inj SUBQ SCH ×2 (09:00→20:51)
--- NOTE | 2017-04-24 10:22 | Critical Care Progress Note ---
Assessment/Plan Assessment/Plan IMPRESSION respiratory failure COPD Pneumonia acute respiratory acidosis thrombocytopenia history of CVA history of TIA hypertension per history PLAN agree with management IV steroids- may dc IV antibiotics reviewed respiratory care oxygen ventilator management off titrate oxygen SNF meds medications/laboratory data/nursing notes/ICU care reviewed in detail note reviewed and edited care discussed with RN and RT ICU time spent 35 minutes Critical Care - Subjective Interval Events: extubated comfortable on NC oxygen ROS Limited/Unobtainable: Yes Condition: critical EKG Rhythm: Sinus Rhythm Residuals: minimal Tube Feeding Tolerated: yes I&O: Intake and Output 04/24/17 04/25/17 19:00 07:00 Intake Total 334.75 ml Balance 334.75 ml Intake IV Total 164.75 ml Tube Feeding 110 ml Other 60 ml Critical Care - Objective CXR: improved pneumonia ET-Tube: 7.5 ET Position: 23 Last 24 Hour Vital Signs Date Time Temp Pulse Resp B/P (MAP) Pulse Ox O2 Delivery O2 Flow Rate FiO2 04/24/17 09:00 114 20 140/50 98 Nasal Cannula 4.0 04/24/17 08:00 119 04/24/17 08:00 97.6 119 16 147/53 96 Nasal Cannula 4.0 04/24/17 07:00 122 18 150/52 97 Nasal Cannula 4.0 04/24/17 06:51 123 20 98 Nasal Cannula 3.0 32 04/24/17 06:48 122 20 98 Nasal Cannula 3.0 32 04/24/17 06:47 Nasal Cannula 3.0 32 04/24/17 06:47 97 Nasal Cannula 3.0 32 04/24/17 06:00 125 19 149/54 95 Nasal Cannula 4.0 04/24/17 05:00 132 21 150/50 92 Nasal Cannula 4.0 04/24/17 04:00 98.7 127 24 143/50 93 Nasal Cannula 4.0 04/24/17 04:00 127 04/24/17 03:00 115 27 160/53 98 Nasal Cannula 4.0 04/24/17 02:00 114 28 141/66 100 Nasal Cannula 4.0 04/24/17 01:41 121 20 100 Nasal Cannula 4.0 36 04/24/17 01:31 116 22 98 Nasal Cannula 4.0 36 04/24/17 01:00 103 23 161/71 100 Nasal Cannula 4.0 04/24/17 00:00 98.0 113 23 148/67 98 Nasal Cannula 4.0 04/24/17 00:00 117 04/23/17 23:00 124 26 151/54 96 Nasal Cannula 4.0 04/23/17 22:00 119 31 134/61 98 Nasal Cannula 4.0 04/23/17 21:00 132 28 137/73 96 Nasal Cannula 4.0 04/23/17 20:00 98.0 130 23 136/64 95 Nasal Cannula 4.0 04/23/17 20:00 130 04/23/17 19:15 118 23 97 Nasal Cannula 4.0 36 04/23/17 19:05 96 Nasal Cannula 4.0 36 04/23/17 19:05 115 20 96 Nasal Cannula 4.0 36 04/23/17 19:05 Nasal Cannula 4.0 36 04/23/17 19:00 118 19 136/64 100 Nasal Cannula 4.0 04/23/17 18:00 119 20 135/65 100 Nasal Cannula 4.0 04/23/17 17:00 121 20 132/61 100 Nasal Cannula 4.0 04/23/17 16:00 118 04/23/17 16:00 99.0 120 20 132/61 99 Nasal Cannula 4.0 04/23/17 15:00 133 20 138/46 100 Nasal Cannula 4.0 04/23/17 14:00 131 20 117/55 100 Nasal Cannula 4.0 04/23/17 13:00 130 20 114/44 100 Nasal Cannula 4.0 04/23/17 12:45 116 22 98 Nasal Cannula 2.0 28 04/23/17 12:41 Nasal Cannula 4.0 36 04/23/17 12:38 Nasal Cannula 4.0 36 04/23/17 12:36 112 20 97 Nasal Cannula 4.0 36 04/23/17 12:25 97 Nasal Cannula 4.0 36 04/23/17 12:02 111 04/23/17 12:00 97.9 107 20 138/64 100 Mechanical Ventilator 40 04/23/17 11:00 112 20 142/69 100 Mechanical Ventilator 40 04/23/17 10:40 35 04/23/17 10:39 123 24 Labs: Laboratory Tests Test 04/23/17 11:55 04/23/17 12:15 04/24/17 04:20 Arterial Blood pH 7.379 (7.350-7.450) Arterial Blood Partial Pressure CO2 43.3 mmHg (35.0-45.0) Arterial Blood Partial Pressure O2 83.0 mmHg (75.0-100.0) Arterial Blood HCO3 25.0 mmol/L (22.0-26.0) Arterial Blood Oxygen Saturation 95.6 % (92.0-98.0) Arterial Blood Base Excess -0.3 Pineda Test Positive Vancomycin Level Trough 9.5 ug/mL (5.0-12.0) Sodium Level 141 MMOL/L (136-145) Potassium Level 4.0 MMOL/L (3.5-5.1) Chloride Level 109 MMOL/L (98-107) H Carbon Dioxide Level 31 MMOL/L (21-32) Anion Gap 1 mmol/L (5-15) L Blood Urea Nitrogen 11 mg/dL (7-18) Creatinine 0.5 MG/DL (0.55-1.30) L Estimat Glomerular Filtration Rate mL/min (>60) Glucose Level 191 MG/DL (74-106) H Calcium Level 8.4 MG/DL (8.5-10.1) L Total Bilirubin 0.4 MG/DL (0.2-1.0) Aspartate Amino Transf (AST/SGOT) 14 U/L (15-37) L Alanine Aminotransferase (ALT/SGPT) 16 U/L (12-78) Alkaline Phosphatase 44 U/L (46-116) L Total Protein 7.1 G/DL (6.4-8.2) Albumin 3.1 G/DL (3.4-5.0) L Globulin 4.0 g/dL Albumin/Globulin Ratio 0.8 (1.0-2.7) L Objective: WDWN now extubated NAD reduced breath sounds bilaterally with scattered rhonchi [id number] without MRG NABS nontender no HSM no CC mild edema poor LOC nonfocal skin noted lines noted Micro: Microbiology Date/Time Source Procedure Growth Status 04/21/17 22:00 Blood Blood Culture - Preliminary NO GROWTH AFTER 48 HOURS Resulted 04/21/17 21:45 Blood Blood Culture - Preliminary NO GROWTH AFTER 48 HOURS Resulted 04/21/17 23:30 Nasal Nares MRSA Culture - Final Staphylococcus Aureus - Mrsa Complete 04/21/17 23:30 Rectum VRE Culture - Final NO VANCOMYCIN RESISTANT ENTEROCOCCUS ... Complete HUSSEIN MARTINEZ Apr 24, 2017 10:22
--- NOTE | 2017-04-24 10:38 | General Progress Note ---
Assessment/Plan Problem List: (1) Altered level of consciousness ICD Codes: R40.4 - Transient alteration of awareness SNOMED: 7755464 (2) COPD exacerbation ICD Codes: J44.1 - Chronic obstructive pulmonary disease with (acute) exacerbation SNOMED: 641429633845585 (3) Hypercapnia ICD Codes: R06.89 - Other abnormalities of breathing SNOMED: 85401147 Status: stable Assessment/Plan dc sedation resp rx o2 iv abx ngt feeds ST eval when more alert. keep in icu until mental status better Subjective ROS Limited/Unobtainable: Yes Constitutional: Reports: malaise, weakness HEENT: Reports: no symptoms Cardiovascular: Reports: no symptoms Respiratory: Reports: cough, shortness of breath Gastrointestinal/Abdominal: Reports: difficulty swallowing Genitourinary: Reports: no symptoms Neurologic/Psychiatric: Reports: pre-existing deficit Endocrine: Reports: no symptoms Hematologic/Lymphatic: Reports: no symptoms Allergies: Coded Allergies: No Known Allergies (Unverified , 04/21/17) All Systems: reviewed and negative except above Subjective extubated. given ativan. unable to arouse. +sob. abg noted. ST unable to do evaluation as pt unarousable Objective Last 24 Hour Vital Signs Date Time Temp Pulse Resp B/P (MAP) Pulse Ox O2 Delivery O2 Flow Rate FiO2 04/24/17 09:00 114 20 140/50 98 Nasal Cannula 4.0 04/24/17 08:00 119 04/24/17 08:00 97.6 119 16 147/53 96 Nasal Cannula 4.0 04/24/17 07:00 122 18 150/52 97 Nasal Cannula 4.0 04/24/17 06:51 123 20 98 Nasal Cannula 3.0 32 04/24/17 06:48 122 20 98 Nasal Cannula 3.0 32 04/24/17 06:47 Nasal Cannula 3.0 32 04/24/17 06:47 97 Nasal Cannula 3.0 32 04/24/17 06:00 125 19 149/54 95 Nasal Cannula 4.0 04/24/17 05:00 132 21 150/50 92 Nasal Cannula 4.0 04/24/17 04:00 98.7 127 24 143/50 93 Nasal Cannula 4.0 04/24/17 04:00 127 04/24/17 03:00 115 27 160/53 98 Nasal Cannula 4.0 04/24/17 02:00 114 28 141/66 100 Nasal Cannula 4.0 04/24/17 01:41 121 20 100 Nasal Cannula 4.0 36 04/24/17 01:31 116 22 98 Nasal Cannula 4.0 36 04/24/17 01:00 103 23 161/71 100 Nasal Cannula 4.0 04/24/17 00:00 98.0 113 23 148/67 98 Nasal Cannula 4.0 04/24/17 00:00 117 04/23/17 23:00 124 26 151/54 96 Nasal Cannula 4.0 04/23/17 22:00 119 31 134/61 98 Nasal Cannula 4.0 04/23/17 21:00 132 28 137/73 96 Nasal Cannula 4.0 04/23/17 20:00 98.0 130 23 136/64 95 Nasal Cannula 4.0 04/23/17 20:00 130 04/23/17 19:15 118 23 97 Nasal Cannula 4.0 36 04/23/17 19:05 96 Nasal Cannula 4.0 36 04/23/17 19:05 115 20 96 Nasal Cannula 4.0 36 04/23/17 19:05 Nasal Cannula 4.0 36 04/23/17 19:00 118 19 136/64 100 Nasal Cannula 4.0 04/23/17 18:00 119 20 135/65 100 Nasal Cannula 4.0 04/23/17 17:00 121 20 132/61 100 Nasal Cannula 4.0 04/23/17 16:00 118 04/23/17 16:00 99.0 120 20 132/61 99 Nasal Cannula 4.0 04/23/17 15:00 133 20 138/46 100 Nasal Cannula 4.0 04/23/17 14:00 131 20 117/55 100 Nasal Cannula 4.0 04/23/17 13:00 130 20 114/44 100 Nasal Cannula 4.0 04/23/17 12:45 116 22 98 Nasal Cannula 2.0 28 04/23/17 12:41 Nasal Cannula 4.0 36 04/23/17 12:38 Nasal Cannula 4.0 36 04/23/17 12:36 112 20 97 Nasal Cannula 4.0 36 04/23/17 12:25 97 Nasal Cannula 4.0 36 04/23/17 12:02 111 04/23/17 12:00 97.9 107 20 138/64 100 Mechanical Ventilator 40 04/23/17 11:00 112 20 142/69 100 Mechanical Ventilator 40 04/23/17 10:40 35 04/23/17 10:39 123 24 Intake and Output 04/24/17 04/25/17 19:00 07:00 Intake Total 334.75 ml Balance 334.75 ml Intake IV Total 164.75 ml Tube Feeding 110 ml Other 60 ml Laboratory Tests 04/23/17 11:55: Arterial Blood pH 7.379, Arterial Blood Partial Pressure CO2 43.3, Arterial Blood Partial Pressure O2 83.0, Arterial Blood HCO3 25.0, Arterial Blood Oxygen Saturation 95.6, Arterial Blood Base Excess -0.3, Pineda Test Positive 04/23/17 12:15: Vancomycin Level Trough 9.5 04/24/17 04:20: Sodium Level 141, Potassium Level 4.0, Chloride Level 109H, Carbon Dioxide Level 31, Anion Gap 1L, Blood Urea Nitrogen 11, Creatinine 0.5L, Estimat Glomerular Filtration Rate , Glucose Level 191H, Calcium Level 8.4L, Total Bilirubin 0.4, Aspartate Amino Transf (AST/SGOT) 14L, Alanine Aminotransferase ( ALT/SGPT) 16, Alkaline Phosphatase 44L, Total Protein 7.1, Albumin 3.1L, Globulin 4.0, Albumin/Globulin Ratio 0.8L Height (Feet): 5 Height (Inches): 5.00 Weight (Pounds): 119 Objective General Appearance: lethargic, confused Neck: supple Cardiovascular: normal rate Respiratory/Chest: lungs clear, normal breath sounds, no respiratory distress Abdomen: normal bowel sounds, non tender, soft, no organomegaly Edema: no edema noted Arm (L), no edema noted Arm (R), no edema noted Leg (L), no edema noted Leg (R), no edema noted Pedal (L), no edema noted Pedal (R), no edema noted Generalized Neurologic: disoriented MARTIN HERNÁNDEZ Apr 24, 2017 10:38
[2017-04-24 10:52] LABS: ABG ALLEN TEST POSITIVE; ABG PCO2 189.3 mmHg (35.0-45.0)
--- NOTE | 2017-04-24 12:26 | Emergency Room Report ---
History of Present Illness General Chief Complaint: Altered Level of Consciousness Source: Medical Record Present Illness Allergies: Coded Allergies: No Known Allergies (Unverified , 04/21/17) Nursing Documentation-PMH Hx Cardiac Problems: Yes Hx Hypertension: Yes Hx COPD: Yes Hx Cancer: No Hx Gastrointestinal Problems: Yes - retroperitoneal bleeding Hx Neurological Problems: Yes - aphasic, with dysphagia oropharengeal phase Hx Cerebrovascular Accident: Yes Hx Paralysis: Yes - right hemiplegia Hx Speech Problem: Yes - aphasic Physical Exam Vital Signs Date Time Temp Pulse Resp B/P (MAP) Pulse Ox O2 Delivery O2 Flow Rate FiO2 04/21/17 18:19 97.3 104 10 140/88 98 Non-Rebreather 15.0 04/21/17 21:05 100 Procedures Intubation Intubation : Consent: Emergent Intubation Method: orotracheal Tube Size (cm): 8.0 Medications: Etomidate, Succinylcholine Breath Sounds after Intubation: equal Intubation Complications: no complications Post Intubation Xray: Yes Attempts: One Patient Tolerated: Well Complications: None Medical Decision Making Diagnostic Impression: Primary Impression: Hypercapnia Additional Impressions: COPD exacerbation Respiratory failure ER Course I was called to ICU Patient's ABG has worsened I was requested by admitting physician for airway intubation At this time patient has extremely diminished gag reflex Is in respiratory failure and did require airway intubation Please refer to the intubation note for specifics However after RSI medication, patient did have ET tube placed appropriately without any incidents Chest x-ray as noted below And care is handed back to lead burner Chest X-Ray Diagnostic Results Chest X-Ray Diagnostic Results : Chest X-Ray Ordered: Yes Indication: Shortness of Breath EP Interpretation: Yes Interpretation: other - ET tube mildly high riding, bilateral infiltrates, no acute bony abnormalities Impression: Other - as above Electronically Signed by: Cruz Arreola DO Last Vital Signs Date Time Temp Pulse Resp B/P (MAP) Pulse Ox O2 Delivery O2 Flow Rate FiO2 04/24/17 11:15 82 20 100 04/24/17 11:00 101/54 100 Nasal Cannula 4.0 04/24/17 08:00 97.6 Disposition: ADMITTED INPATIENT Condition: Critical Referrals: NON PHYSICIAN (PCP) CRUZ ARREOLA D.O. Apr 24, 2017 12:26
[2017-04-24 12:54] LABS: ABG ALLEN TEST POSITIVE; ABG BASE EXCESS 0.2; ABG PCO2 71.5 mmHg (35.0-45.0)
--- NOTE | 2017-04-24 13:24 | Diagnostic Imaging Report ---
Indication: Post intubation Technique: One view of the chest Comparison: 04/23/2017 Findings: Endotracheal tube tip projects approximately 8 cm above the [place], just below the thoracic inlet. Nasogastric tube remains, tip in the gastric fundus. Bilateral mixed interstitial and airspace disease is again demonstrated, appears worse at the right lung base, unchanged elsewhere. There is slightly increased left and new right pleural fluid. Heart size is normal Impression: Satisfactory reintubation Worsening parenchymal disease at the right lung base. Increasing bilateral pleural effusions
[2017-04-24] MEDS: D5NS 1,000 ML IV SCH (17:18)
[2017-04-25] VITALS (24 sets, daily range): BP systolic 103–153; BP diastolic 56–124
[2017-04-25] MEDS: Albuterol/Ipratropium 3ml neb HHN SCH ×4 (00:53→19:08)
[2017-04-25] MEDS: Vancomycin 1gm in D5W 275ml IVPB SCH ×2 (02:29→14:01)
[2017-04-25] MEDS: D5NS 1,000 ML IV SCH ×2 (04:23→16:39)
[2017-04-25] MEDS: Piperacillin/Tazobactam 3.375 GM in D5W 55 ML IVPB SCH ×3 (05:28→21:23)
--- NOTE | 2017-04-25 08:17 | Critical Care Progress Note ---
Assessment/Plan Assessment/Plan IMPRESSION respiratory failure COPD Pneumonia acute respiratory acidosis thrombocytopenia history of CVA history of TIA hypertension per history encephalopathy PLAN ventilator management repeat ABG- with noted acidemia IV antibiotics reviewed respiratory care oxygen ventilator management with hyperventilation titrate oxygen SNF meds medications/laboratory data/nursing notes/ICU care reviewed in detail note reviewed and edited care discussed with RN and RT ICU time spent 37 minutes Critical Care - Subjective Interval Events: events noted RN noted reviewed required repeat intubation ROS Limited/Unobtainable: Yes Condition: critical EKG Rhythm: Sinus Tachycardia Critical Care - Objective CXR: worsening right infiltrate ET-Tube: 8.0 ET Position: 22 Last 24 Hour Vital Signs Date Time Temp Pulse Resp B/P (MAP) Pulse Ox O2 Delivery O2 Flow Rate FiO2 04/25/17 08:00 98.7 80 20 115/62 100 Mechanical Ventilator 40 04/25/17 08:00 40 04/25/17 07:20 79 19 100 Mechanical Ventilator 40 04/25/17 07:10 81 20 40 04/25/17 07:10 73 20 100 Mechanical Ventilator 40 04/25/17 07:00 79 20 115/62 100 Mechanical Ventilator 40 04/25/17 06:00 69 20 124/68 100 Mechanical Ventilator 40 04/25/17 05:00 70 20 118/62 100 Mechanical Ventilator 60 04/25/17 04:47 70 20 40 04/25/17 04:00 69 04/25/17 04:00 97.9 74 20 136/62 100 Mechanical Ventilator 60 04/25/17 04:00 60 04/25/17 03:00 72 20 136/73 100 Mechanical Ventilator 60 04/25/17 02:54 75 20 50 04/25/17 02:00 73 20 103/56 100 Mechanical Ventilator 60 04/25/17 01:03 72 20 100 Mechanical Ventilator 60 04/25/17 01:00 73 20 115/60 100 Mechanical Ventilator 70 04/25/17 00:54 78 20 60 04/25/17 00:53 78 20 100 Mechanical Ventilator 60 04/25/17 00:00 98.1 70 20 119/66 100 Mechanical Ventilator 70 04/25/17 00:00 70 04/25/17 00:00 70 04/24/17 23:00 71 20 118/64 100 Mechanical Ventilator 70 04/24/17 22:58 71 20 70 04/24/17 22:00 72 20 133/71 100 Mechanical Ventilator 70 04/24/17 21:01 83 20 70 04/24/17 21:00 70 04/24/17 21:00 81 20 134/68 100 Mechanical Ventilator 80 04/24/17 20:00 78 04/24/17 20:00 97.9 79 22 137/75 100 Mechanical Ventilator 70 04/24/17 19:16 74 20 70 04/24/17 19:12 74 20 100 Mechanical Ventilator 70 04/24/17 19:05 69 20 80 04/24/17 19:00 75 20 124/63 100 Mechanical Ventilator 80 04/24/17 19:00 100 Mechanical Ventilator 80 04/24/17 19:00 115 20 96 Mechanical Ventilator 80 04/24/17 19:00 Mechanical Ventilator 80 04/24/17 18:00 74 20 110/59 100 Mechanical Ventilator 80 04/24/17 17:00 83 20 120/63 100 Mechanical Ventilator 80 04/24/17 16:58 80 04/24/17 16:56 82 20 80 04/24/17 16:00 78 04/24/17 16:00 97.9 78 22 106/63 100 Mechanical Ventilator 100 04/24/17 16:00 100 04/24/17 15:00 82 21 104/51 100 Mechanical Ventilator 100 04/24/17 14:57 89 20 100 04/24/17 14:00 97 20 117/71 100 Mechanical Ventilator 100 04/24/17 13:05 95 22 100 Nasal Cannula 3.0 32 04/24/17 13:03 92 22 100 Mechanical Ventilator 100 04/24/17 13:01 91 20 100 04/24/17 13:00 89 20 115/75 100 Mechanical Ventilator 100 04/24/17 12:00 97.8 95 20 146/70 100 Mechanical Ventilator 100 04/24/17 12:00 100 04/24/17 12:00 86 04/24/17 11:15 82 20 100 04/24/17 11:08 100 04/24/17 11:00 87 20 101/54 100 Nasal Cannula 4.0 04/24/17 10:00 117 20 140/56 98 Nasal Cannula 4.0 04/24/17 09:00 114 20 140/50 98 Nasal Cannula 4.0 Labs: Labs Test 04/22/17 09:20 04/23/17 02:50 04/23/17 09:50 04/23/17 11:55 Arterial Blood pH 7.410 (7.350-7.450) 7.404 (7.350-7.450) 7.379 (7.350-7.450) Arterial Blood Partial Pressure CO2 48.0 mmHg (35.0-45.0) 39.9 mmHg (35.0-45.0) 43.3 mmHg (35.0-45.0) Arterial Blood Partial Pressure O2 83.0 mmHg (75.0-100.0) 80.9 mmHg (75.0-100.0) 83.0 mmHg (75.0-100.0) Arterial Blood HCO3 30.0 mmol/L (22.0-26.0) 24.4 mmol/L (22.0-26.0) 25.0 mmol/L (22.0-26.0) Arterial Blood Oxygen Saturation 96.6 % (92.0-98.0) 95.3 % (92.0-98.0) 95.6 % (92.0-98.0) Arterial Blood Base Excess 4.7 -0.3 -0.3 Pineda Test Positive Positive Positive White Blood Count 8.1 K/UL (4.8-10.8) Red Blood Count 3.08 M/UL (4.70-6.10) Hemoglobin 11.0 G/DL (14.2-18.0) Hematocrit 32.3 % (42.0-52.0) Mean Corpuscular Volume 105 FL (80-99) Mean Corpuscular Hemoglobin 35.7 PG (27.0-31.0) Mean Corpuscular Hemoglobin Concent 34.1 G/DL (32.0-36.0) Red Cell Distribution Width 11.4 % (11.6-14.8) Platelet Count 77 K/UL (150-450) Mean Platelet Volume 7.8 FL (6.5-10.1) Neutrophils (%) (Auto) % (45.0-75.0) Lymphocytes (%) (Auto) % (20.0-45.0) Monocytes (%) (Auto) % (1.0-10.0) Eosinophils (%) (Auto) % (0.0-3.0) Basophils (%) (Auto) % (0.0-2.0) Sodium Level 137 MMOL/L (136-145) Potassium Level 2.9 MMOL/L (3.5-5.1) Chloride Level 106 MMOL/L (98-107) Carbon Dioxide Level 26 MMOL/L (21-32) Anion Gap 5 mmol/L (5-15) Blood Urea Nitrogen 13 mg/dL (7-18) Creatinine 0.7 MG/DL (0.55-1.30) Estimat Glomerular Filtration Rate mL/min (>60) Glucose Level 190 MG/DL (74-106) Calcium Level 8.2 MG/DL (8.5-10.1) Total Bilirubin 0.6 MG/DL (0.2-1.0) Aspartate Amino Transf (AST/SGOT) 11 U/L (15-37) Alanine Aminotransferase (ALT/SGPT) 11 U/L (12-78) Alkaline Phosphatase 38 U/L (46-116) Pro-B-Type Natriuretic Peptide 56 pg/mL (0-125) Total Protein 5.6 G/DL (6.4-8.2) Albumin 2.4 G/DL (3.4-5.0) Globulin 3.2 g/dL Albumin/Globulin Ratio 0.8 (1.0-2.7) Test 04/23/17 12:15 04/24/17 04:20 04/24/17 10:45 04/24/17 12:48 Vancomycin Level Trough 9.5 ug/mL (5.0-12.0) Sodium Level 141 MMOL/L (136-145) Potassium Level 4.0 MMOL/L (3.5-5.1) Chloride Level 109 MMOL/L (98-107) Carbon Dioxide Level 31 MMOL/L (21-32) Anion Gap 1 mmol/L (5-15) Blood Urea Nitrogen 11 mg/dL (7-18) Creatinine 0.5 MG/DL (0.55-1.30) Estimat Glomerular Filtration Rate mL/min (>60) Glucose Level 191 MG/DL (74-106) Calcium Level 8.4 MG/DL (8.5-10.1) Total Bilirubin 0.4 MG/DL (0.2-1.0) Aspartate Amino Transf (AST/SGOT) 14 U/L (15-37) Alanine Aminotransferase (ALT/SGPT) 16 U/L (12-78) Alkaline Phosphatase 44 U/L (46-116) Total Protein 7.1 G/DL (6.4-8.2) Albumin 3.1 G/DL (3.4-5.0) Globulin 4.0 g/dL Albumin/Globulin Ratio 0.8 (1.0-2.7) Arterial Blood pH 6.910 (7.350-7.450) 7.230 (7.350-7.450) Arterial Blood Partial Pressure CO2 189.3 mmHg (35.0-45.0) 71.5 mmHg (35.0-45.0) Arterial Blood Partial Pressure O2 87.5 mmHg (75.0-100.0) 102.1 mmHg (75.0-100.0) Arterial Blood HCO3 37.1 mmol/L (22.0-26.0) 29.5 mmol/L (22.0-26.0) Arterial Blood Oxygen Saturation 94.1 % (92.0-98.0) 97.8 % (92.0-98.0) Arterial Blood Base Excess -1.0 0.2 Pineda Test Positive Positive Test 04/24/17 13:05 Vancomycin Level Trough 13.0 ug/mL (5.0-12.0) Objective: WDWN intubated NAD coarse breath sounds bilaterally with scattered rhonchi- intubated [id number] without MRG NABS nontender no HSM no CC mild edema poor LOC; somewhat obtunded nonfocal skin noted lines noted HUSSEIN MARTINEZ Apr 25, 2017 08:16
--- NOTE | 2017-04-25 08:24 | General Progress Note ---
Assessment/Plan Problem List: (1) Altered level of consciousness ICD Codes: R40.4 - Transient alteration of awareness SNOMED: 5062347 (2) COPD exacerbation ICD Codes: J44.1 - Chronic obstructive pulmonary disease with (acute) exacerbation SNOMED: 947017873871188 (3) Hypercapnia ICD Codes: R06.89 - Other abnormalities of breathing SNOMED: 20353348 Status: stable, progressing Assessment/Plan dc sedation resp rx vent support o2 iv abx ngt feeds abx monitor cxr critical and guarded Subjective ROS Limited/Unobtainable: Yes Constitutional: Reports: malaise, weakness HEENT: Reports: no symptoms Cardiovascular: Reports: no symptoms Respiratory: Reports: no symptoms Gastrointestinal/Abdominal: Reports: no symptoms Genitourinary: Reports: no symptoms Neurologic/Psychiatric: Reports: pre-existing deficit Endocrine: Reports: no symptoms Hematologic/Lymphatic: Reports: no symptoms Allergies: Coded Allergies: No Known Allergies (Unverified , 04/21/17) All Systems: reviewed and negative except above Subjective re-intubated for hypercapneic resp failure. sedation dcd. abg pending. on ngt feeds. Objective Last 24 Hour Vital Signs Date Time Temp Pulse Resp B/P (MAP) Pulse Ox O2 Delivery O2 Flow Rate FiO2 04/25/17 08:00 98.7 80 20 115/62 100 Mechanical Ventilator 40 04/25/17 08:00 40 04/25/17 07:20 79 19 100 Mechanical Ventilator 40 04/25/17 07:10 81 20 40 04/25/17 07:10 73 20 100 Mechanical Ventilator 40 04/25/17 07:00 79 20 115/62 100 Mechanical Ventilator 40 04/25/17 06:00 69 20 124/68 100 Mechanical Ventilator 40 04/25/17 05:00 70 20 118/62 100 Mechanical Ventilator 60 04/25/17 04:47 70 20 40 04/25/17 04:00 69 04/25/17 04:00 97.9 74 20 136/62 100 Mechanical Ventilator 60 04/25/17 04:00 60 04/25/17 03:00 72 20 136/73 100 Mechanical Ventilator 60 04/25/17 02:54 75 20 50 04/25/17 02:00 73 20 103/56 100 Mechanical Ventilator 60 04/25/17 01:03 72 20 100 Mechanical Ventilator 60 04/25/17 01:00 73 20 115/60 100 Mechanical Ventilator 70 04/25/17 00:54 78 20 60 04/25/17 00:53 78 20 100 Mechanical Ventilator 60 04/25/17 00:00 98.1 70 20 119/66 100 Mechanical Ventilator 70 04/25/17 00:00 70 04/25/17 00:00 70 04/24/17 23:00 71 20 118/64 100 Mechanical Ventilator 70 04/24/17 22:58 71 20 70 04/24/17 22:00 72 20 133/71 100 Mechanical Ventilator 70 04/24/17 21:01 83 20 70 04/24/17 21:00 70 04/24/17 21:00 81 20 134/68 100 Mechanical Ventilator 80 04/24/17 20:00 78 04/24/17 20:00 97.9 79 22 137/75 100 Mechanical Ventilator 70 04/24/17 19:16 74 20 70 04/24/17 19:12 74 20 100 Mechanical Ventilator 70 04/24/17 19:05 69 20 80 04/24/17 19:00 75 20 124/63 100 Mechanical Ventilator 80 04/24/17 19:00 100 Mechanical Ventilator 80 04/24/17 19:00 115 20 96 Mechanical Ventilator 80 04/24/17 19:00 Mechanical Ventilator 80 04/24/17 18:00 74 20 110/59 100 Mechanical Ventilator 80 04/24/17 17:00 83 20 120/63 100 Mechanical Ventilator 80 04/24/17 16:58 80 04/24/17 16:56 82 20 80 04/24/17 16:00 78 04/24/17 16:00 97.9 78 22 106/63 100 Mechanical Ventilator 100 04/24/17 16:00 100 04/24/17 15:00 82 21 104/51 100 Mechanical Ventilator 100 04/24/17 14:57 89 20 100 04/24/17 14:00 97 20 117/71 100 Mechanical Ventilator 100 04/24/17 13:05 95 22 100 Nasal Cannula 3.0 32 04/24/17 13:03 92 22 100 Mechanical Ventilator 100 04/24/17 13:01 91 20 100 04/24/17 13:00 89 20 115/75 100 Mechanical Ventilator 100 04/24/17 12:00 97.8 95 20 146/70 100 Mechanical Ventilator 100 04/24/17 12:00 100 04/24/17 12:00 86 04/24/17 11:15 82 20 100 04/24/17 11:08 100 04/24/17 11:00 87 20 101/54 100 Nasal Cannula 4.0 04/24/17 10:00 117 20 140/56 98 Nasal Cannula 4.0 04/24/17 09:00 114 20 140/50 98 Nasal Cannula 4.0 Laboratory Tests 04/24/17 10:45: Arterial Blood pH 6.910*L, Arterial Blood Partial Pressure CO2 189.3*H, Arterial Blood Partial Pressure O2 87.5, Arterial Blood HCO3 37.1H, Arterial Blood Oxygen Saturation 94.1, Arterial Blood Base Excess -1.0, Pineda Test Positive 04/24/17 12:48: Arterial Blood pH 7.230*L, Arterial Blood Partial Pressure CO2 71.5*H, Arterial Blood Partial Pressure O2 102.1H, Arterial Blood HCO3 29.5H, Arterial Blood Oxygen Saturation 97.8, Arterial Blood Base Excess 0.2, Pineda Test Positive 04/24/17 13:05: Vancomycin Level Trough 13.0H Height (Feet): 5 Height (Inches): 5.00 Weight (Pounds): 120 Objective General Appearance: lethargic, confused Neck: supple Cardiovascular: normal rate Respiratory/Chest: lungs clear, normal breath sounds, no respiratory distress Abdomen: normal bowel sounds, non tender, soft, no organomegaly Edema: no edema noted Arm (L), no edema noted Arm (R), no edema noted Leg (L), no edema noted Leg (R), no edema noted Pedal (L), no edema noted Pedal (R), no edema noted Generalized Neurologic: disoriented MARTIN HERNÁNDEZ Apr 25, 2017 08:24
[2017-04-25 08:59] LABS: ABG ALLEN TEST POSITIVE; ABG BASE EXCESS 2.1; ABG PCO2 43.9 mmHg (35.0-45.0)
[2017-04-25] MEDS: Heparin 5000 units/ml inj SUBQ SCH ×2 (09:00→20:55)
--- NOTE | 2017-04-25 11:13 | Diagnostic Imaging Report ---
Indication: Abdominal distention Technique: Supine views of the abdomen Comparison: None Findings: Nasogastric tube is within the stomach. Bowel gas pattern is nonspecific. Stool and gas are noted in the colon. Coils project over the right pelvis. Atherosclerotic changes are present. Calcifications project over the right upper abdomen. Degenerative changes of the spine are seen. There is mild height loss of T12. Please refer to separate dictation of the chest for findings regarding the chest. Impression: Nasogastric tube within the stomach. Nonspecific bowel gas pattern with gas and stool in the colon. Clinical correlation recommended. Calcifications projecting over the right upper abdomen. Gallstones not excluded.
[2017-04-25] MEDS ORDERED: Miralax 17gm pkt ORAL PRN (12:00)
[2017-04-25] MEDS: Artificial Tears 1.4% Op Soln BOTH EYES SCH ×2 (14:02→21:22)
[2017-04-25] MEDS ORDERED: D5NS 1000ml IV ONE (15:11)
[2017-04-26] VITALS (23 sets, daily range): BP systolic 104–142; BP diastolic 62–102
[2017-04-26] MEDS: Albuterol/Ipratropium 3ml neb HHN SCH ×4 (01:09→20:15)
[2017-04-26] MEDS: Vancomycin 1gm in D5W 275ml IVPB SCH ×2 (01:35→14:57)
[2017-04-26] MEDS: D5NS 1,000 ML IV SCH ×2 (04:05→15:04)
[2017-04-26 05:17] LABS: MEAN CORPUSCULAR HEMOGLOBIN 34.6 PG (27.0-31.0); MEAN CORPUSCULAR HGB CONC 32.8 G/DL (32.0-36.0); MEAN CORPUSCULAR VOLUME 105 FL (80-99); MEAN PLATELET VOLUME 9.3 FL (6.5-10.1); PLATELET COUNT 83 K/UL (150-450); RED BLOOD COUNT 3.27 M/UL (4.70-6.10); RED CELL DISTRIBUTION WIDTH 11.5 % (11.6-14.8); WHITE BLOOD COUNT 8.1 K/UL (4.8-10.8)
[2017-04-26] MEDS: Piperacillin/Tazobactam 3.375 GM in D5W 55 ML IVPB SCH ×3 (05:41→22:05)
[2017-04-26] MEDS: Artificial Tears 1.4% Op Soln BOTH EYES SCH ×3 (05:41→22:04)
[2017-04-26 05:56] LABS: ALANINE AMINOTRANSFERASE 9 U/L (12-78); ALBUMIN/GLOBULIN RATIO 0.8 (1.0-2.7); ANION GAP 4 mmol/L (5-15); ASPARTATE AMINO TRANSFERASE 9 U/L (15-37); CARBON DIOXIDE 28 MMOL/L (21-32); CHLORIDE 108 MMOL/L (98-107); CREATININE 0.7 MG/DL (0.55-1.30); POTASSIUM 3.1 MMOL/L (3.5-5.1); SODIUM 140 MMOL/L (136-145); TOTAL PROTEIN 5.3 G/DL (6.4-8.2)
[2017-04-26 07:55] LABS: BAND NEUTROPHILS % (MANUAL) 0 % (0-8); BASOPHILS % (MANUAL) 0 % (0-2); EOSINOPHILS % (MANUAL) 0 % (0-3); LYMPHOCYTES % (MANUAL) 17 % (20-45); NEUTROPHILS % (MANUAL) 72 % (45-75); PLATELET ESTIMATE DECREASED; PLATELET MORPHOLOGY NORMAL; TOTAL CELLS COUNTED 100
--- NOTE | 2017-04-26 07:58 | Critical Care Progress Note ---
Assessment/Plan Assessment/Plan IMPRESSION respiratory failure COPD Pneumonia acute respiratory acidosis thrombocytopenia history of CVA history of TIA hypertension per history encephalopathy PLAN ventilator management repeat ABG- improved IV antibiotics reviewed respiratory care and suction oxygen ventilator management with hyperventilation titrate oxygen SNF meds monitor LOC- may have difficulty with protection of airway hydration and monitor fluid status nutrition and monitor residuals medications/laboratory data/nursing notes/ICU care reviewed in detail note reviewed and edited care discussed with RN and RT ICU time spent 37 minutes Critical Care - Subjective Interval Events: on the ventilator orders reviewed acid base noted ROS Limited/Unobtainable: Yes Condition: critical EKG Rhythm: Sinus Rhythm Residuals: minimal Tube Feeding Tolerated: yes Critical Care - Objective CXR: worsening right base ET-Tube: 8.0 ET Position: 23 Last 24 Hour Vital Signs Date Time Temp Pulse Resp B/P (MAP) Pulse Ox O2 Delivery O2 Flow Rate FiO2 04/26/17 07:02 64 20 100 Mechanical Ventilator 40 04/26/17 06:55 67 20 100 Mechanical Ventilator 40 04/26/17 06:55 67 20 40 04/26/17 06:00 81 21 118/66 100 Mechanical Ventilator 40 04/26/17 05:29 98 25 40 04/26/17 05:00 93 25 112/70 100 Mechanical Ventilator 40 04/26/17 04:00 98.0 84 21 142/65 100 Mechanical Ventilator 40 04/26/17 04:00 84 04/26/17 04:00 40 04/26/17 03:32 72 20 40 04/26/17 03:00 70 20 121/62 100 Mechanical Ventilator 40 04/26/17 02:00 73 20 131/69 100 Mechanical Ventilator 40 04/26/17 01:25 73 20 100 Mechanical Ventilator 40 04/26/17 01:10 77 20 100 Mechanical Ventilator 40 04/26/17 01:09 77 20 40 04/26/17 01:00 79 20 141/72 100 Mechanical Ventilator 40 04/26/17 00:00 75 04/26/17 00:00 97.7 75 20 125/64 100 Mechanical Ventilator 40 04/26/17 00:00 40 04/25/17 23:23 80 22 40 04/25/17 23:00 82 22 139/80 100 Mechanical Ventilator 40 04/25/17 22:00 82 21 128/68 100 Mechanical Ventilator 40 04/25/17 21:12 83 23 40 04/25/17 21:00 86 23 128/69 100 Mechanical Ventilator 40 04/25/17 20:00 98.8 87 22 147/68 100 Mechanical Ventilator 40 04/25/17 20:00 40 04/25/17 20:00 75 04/25/17 19:23 77 20 100 Mechanical Ventilator 40 04/25/17 19:09 86 21 100 Mechanical Ventilator 40 04/25/17 19:06 100 22 40 04/25/17 19:05 97 22 133/62 100 Mechanical Ventilator 40 04/25/17 18:00 82 21 131/64 100 Mechanical Ventilator 40 04/25/17 17:18 100 25 40 04/25/17 17:00 97.7 93 21 142/71 100 Mechanical Ventilator 40 04/25/17 16:00 80 20 122/62 100 Mechanical Ventilator 40 04/25/17 16:00 78 04/25/17 16:00 40 04/25/17 15:07 79 20 122/62 100 Mechanical Ventilator 40 04/25/17 14:53 78 20 40 04/25/17 14:00 93 21 140/76 100 Mechanical Ventilator 40 04/25/17 13:00 90 20 126/65 100 Mechanical Ventilator 40 04/25/17 12:51 81 20 100 Mechanical Ventilator 40 04/25/17 12:39 81 20 40 04/25/17 12:38 87 20 100 Mechanical Ventilator 40 04/25/17 12:00 98.9 98 22 127/68 100 Mechanical Ventilator 40 04/25/17 12:00 40 04/25/17 12:00 75 04/25/17 11:42 86 21 40 04/25/17 11:00 74 20 127/68 100 Mechanical Ventilator 40 04/25/17 10:00 78 20 153/124 100 Mechanical Ventilator 40 04/25/17 09:00 74 20 128/69 100 Mechanical Ventilator 40 04/25/17 08:48 76 20 40 04/25/17 08:00 98.7 80 20 115/62 100 Mechanical Ventilator 40 04/25/17 08:00 40 04/25/17 08:00 82 Labs: Labs Test 04/23/17 09:50 04/23/17 11:55 04/23/17 12:15 04/24/17 04:20 Arterial Blood pH 7.404 (7.350-7.450) 7.379 (7.350-7.450) Arterial Blood Partial Pressure CO2 39.9 mmHg (35.0-45.0) 43.3 mmHg (35.0-45.0) Arterial Blood Partial Pressure O2 80.9 mmHg (75.0-100.0) 83.0 mmHg (75.0-100.0) Arterial Blood HCO3 24.4 mmol/L (22.0-26.0) 25.0 mmol/L (22.0-26.0) Arterial Blood Oxygen Saturation 95.3 % (92.0-98.0) 95.6 % (92.0-98.0) Arterial Blood Base Excess -0.3 -0.3 Pineda Test Positive Positive Vancomycin Level Trough 9.5 ug/mL (5.0-12.0) Sodium Level 141 MMOL/L (136-145) Potassium Level 4.0 MMOL/L (3.5-5.1) Chloride Level 109 MMOL/L (98-107) Carbon Dioxide Level 31 MMOL/L (21-32) Anion Gap 1 mmol/L (5-15) Blood Urea Nitrogen 11 mg/dL (7-18) Creatinine 0.5 MG/DL (0.55-1.30) Estimat Glomerular Filtration Rate mL/min (>60) Glucose Level 191 MG/DL (74-106) Calcium Level 8.4 MG/DL (8.5-10.1) Total Bilirubin 0.4 MG/DL (0.2-1.0) Aspartate Amino Transf (AST/SGOT) 14 U/L (15-37) Alanine Aminotransferase (ALT/SGPT) 16 U/L (12-78) Alkaline Phosphatase 44 U/L (46-116) Total Protein 7.1 G/DL (6.4-8.2) Albumin 3.1 G/DL (3.4-5.0) Globulin 4.0 g/dL Albumin/Globulin Ratio 0.8 (1.0-2.7) Test 04/24/17 10:45 04/24/17 12:48 04/24/17 13:05 04/25/17 08:55 Arterial Blood pH 6.910 (7.350-7.450) 7.230 (7.350-7.450) 7.408 (7.350-7.450) Arterial Blood Partial Pressure CO2 189.3 mmHg (35.0-45.0) 71.5 mmHg (35.0-45.0) 43.9 mmHg (35.0-45.0) Arterial Blood Partial Pressure O2 87.5 mmHg (75.0-100.0) 102.1 mmHg (75.0-100.0) 73.7 mmHg (75.0-100.0) Arterial Blood HCO3 37.1 mmol/L (22.0-26.0) 29.5 mmol/L (22.0-26.0) 21.1 mmol/L (22.0-26.0) Arterial Blood Oxygen Saturation 94.1 % (92.0-98.0) 97.8 % (92.0-98.0) 95.3 % (92.0-98.0) Arterial Blood Base Excess -1.0 0.2 2.1 Pineda Test Positive Positive Positive Vancomycin Level Trough 13.0 ug/mL (5.0-12.0) Test 04/26/17 04:00 White Blood Count 8.1 K/UL (4.8-10.8) Red Blood Count 3.27 M/UL (4.70-6.10) Hemoglobin 11.3 G/DL (14.2-18.0) Hematocrit 34.4 % (42.0-52.0) Mean Corpuscular Volume 105 FL (80-99) Mean Corpuscular Hemoglobin 34.6 PG (27.0-31.0) Mean Corpuscular Hemoglobin Concent 32.8 G/DL (32.0-36.0) Red Cell Distribution Width 11.5 % (11.6-14.8) Platelet Count 83 K/UL (150-450) Mean Platelet Volume 9.3 FL (6.5-10.1) Neutrophils (%) (Auto) % (45.0-75.0) Lymphocytes (%) (Auto) % (20.0-45.0) Monocytes (%) (Auto) % (1.0-10.0) Eosinophils (%) (Auto) % (0.0-3.0) Basophils (%) (Auto) % (0.0-2.0) Differential Total Cells Counted 100 Neutrophils % (Manual) 72 % (45-75) Lymphocytes % (Manual) 17 % (20-45) Monocytes % (Manual) 11 % (1-10) Eosinophils % (Manual) 0 % (0-3) Basophils % (Manual) 0 % (0-2) Band Neutrophils 0 % (0-8) Platelet Estimate Decreased Platelet Morphology Normal Sodium Level 140 MMOL/L (136-145) Potassium Level 3.1 MMOL/L (3.5-5.1) Chloride Level 108 MMOL/L (98-107) Carbon Dioxide Level 28 MMOL/L (21-32) Anion Gap 4 mmol/L (5-15) Blood Urea Nitrogen 15 mg/dL (7-18) Creatinine 0.7 MG/DL (0.55-1.30) Estimat Glomerular Filtration Rate mL/min (>60) Glucose Level 125 MG/DL (74-106) Calcium Level 8.0 MG/DL (8.5-10.1) Total Bilirubin 0.6 MG/DL (0.2-1.0) Aspartate Amino Transf (AST/SGOT) 9 U/L (15-37) Alanine Aminotransferase (ALT/SGPT) 9 U/L (12-78) Alkaline Phosphatase 32 U/L (46-116) Total Protein 5.3 G/DL (6.4-8.2) Albumin 2.3 G/DL (3.4-5.0) Globulin 3.0 g/dL Albumin/Globulin Ratio 0.8 (1.0-2.7) Objective: WDWN intubated NAD coarse breath sounds bilaterally with scattered rhonchi- intubated [id number] without MRG NABS nontender no HSM no CC mild edema poor LOC; somewhat obtunded nonfocal skin noted lines noted reviewed and edited HUSSEIN MARTINEZ Apr 26, 2017 07:58
[2017-04-26] MEDS ORDERED: LORazepam 1mg tab ORAL PRN (09:00)
[2017-04-26] MEDS: Heparin 5000 units/ml inj SUBQ SCH ×2 (09:00→20:40)
[2017-04-26] MEDS ORDERED: D5NS 1000ml IV ONE ×3 (09:13→15:17)
[2017-04-26] MEDS ORDERED: NS 500ML ONE ×2 (09:13→15:17)
[2017-04-26] MEDS ORDERED: KCl 10% 40mEq/30ml liquid NG ONE (10:30)
[2017-04-26 11:33] LABS: ABG BASE EXCESS 0.7; ABG PCO2 41.6 mmHg (35.0-45.0)
[2017-04-26 11:34] LABS: ABG ALLEN TEST POSITIVE
--- NOTE | 2017-04-26 13:13 | General Progress Note ---
Assessment/Plan Problem List: (1) Altered level of consciousness ICD Codes: R40.4 - Transient alteration of awareness SNOMED: 6444109 (2) COPD exacerbation ICD Codes: J44.1 - Chronic obstructive pulmonary disease with (acute) exacerbation SNOMED: 728284693170268 (3) Hypercapnia ICD Codes: R06.89 - Other abnormalities of breathing SNOMED: 18610400 (4) PNA (pneumonia) ICD Codes: J18.9 - Pneumonia, unspecified organism SNOMED: 608549618 (5) Respiratory failure ICD Codes: J96.90 - Respiratory failure, unspecified, unspecified whether with hypoxia or hypercapnia SNOMED: 706037644 Status: stable Assessment/Plan resume ativan prn for agitation resp rx vent support o2 iv abx id called dvt/stress ulcer prophylaxis ngt feeds abx monitor cxr critical and guarded Subjective Allergies: Coded Allergies: No Known Allergies (Unverified , 04/21/17) Subjective no events, remains intubated. per staff agitated and anxious at times. no fevers or chills on iv abx. on ngt feeds Objective Last 24 Hour Vital Signs Date Time Temp Pulse Resp B/P (MAP) Pulse Ox O2 Delivery O2 Flow Rate FiO2 04/26/17 13:00 99.3 112 26 122/74 99 Nasal Cannula 2.0 04/26/17 12:55 108 20 96 Nasal Cannula 28 04/26/17 12:50 109 20 97 Nasal Cannula 28 04/26/17 12:48 Nasal Cannula 2.0 28 04/26/17 12:45 2.0 04/26/17 12:00 98 24 113/68 100 Mechanical Ventilator 40 04/26/17 12:00 40 04/26/17 12:00 96 04/26/17 11:00 82 19 114/78 100 Mechanical Ventilator 40 04/26/17 10:40 89 21 40 04/26/17 10:00 80 20 109/66 100 Mechanical Ventilator 40 04/26/17 09:40 77 19 40 04/26/17 09:38 99 04/26/17 09:05 80 20 40 04/26/17 09:00 85 24 104/66 98 Mechanical Ventilator 40 04/26/17 08:00 98.3 101 23 128/77 100 Mechanical Ventilator 04/26/17 08:00 97 04/26/17 08:00 40 04/26/17 07:02 64 20 100 Mechanical Ventilator 40 04/26/17 06:55 67 20 100 Mechanical Ventilator 40 04/26/17 06:55 67 20 40 04/26/17 06:00 81 21 118/66 100 Mechanical Ventilator 40 04/26/17 05:29 98 25 40 04/26/17 05:00 93 25 112/70 100 Mechanical Ventilator 40 04/26/17 04:00 98.0 84 21 142/65 100 Mechanical Ventilator 40 04/26/17 04:00 84 04/26/17 04:00 40 04/26/17 03:32 72 20 40 04/26/17 03:00 70 20 121/62 100 Mechanical Ventilator 40 04/26/17 02:00 73 20 131/69 100 Mechanical Ventilator 40 04/26/17 01:25 73 20 100 Mechanical Ventilator 40 04/26/17 01:10 77 20 100 Mechanical Ventilator 40 04/26/17 01:09 77 20 40 04/26/17 01:00 79 20 141/72 100 Mechanical Ventilator 40 04/26/17 00:00 75 04/26/17 00:00 97.7 75 20 125/64 100 Mechanical Ventilator 40 04/26/17 00:00 40 04/25/17 23:23 80 22 40 04/25/17 23:00 82 22 139/80 100 Mechanical Ventilator 40 04/25/17 22:00 82 21 128/68 100 Mechanical Ventilator 40 04/25/17 21:12 83 23 40 04/25/17 21:00 86 23 128/69 100 Mechanical Ventilator 40 04/25/17 20:00 98.8 87 22 147/68 100 Mechanical Ventilator 40 04/25/17 20:00 40 04/25/17 20:00 75 04/25/17 19:23 77 20 100 Mechanical Ventilator 40 04/25/17 19:09 86 21 100 Mechanical Ventilator 40 04/25/17 19:06 100 22 40 04/25/17 19:05 97 22 133/62 100 Mechanical Ventilator 40 04/25/17 18:00 82 21 131/64 100 Mechanical Ventilator 40 04/25/17 17:18 100 25 40 04/25/17 17:00 97.7 93 21 142/71 100 Mechanical Ventilator 40 04/25/17 16:00 80 20 122/62 100 Mechanical Ventilator 40 04/25/17 16:00 78 04/25/17 16:00 40 04/25/17 15:07 79 20 122/62 100 Mechanical Ventilator 40 04/25/17 14:53 78 20 40 04/25/17 14:00 93 21 140/76 100 Mechanical Ventilator 40 Intake and Output 04/26/17 04/27/17 19:00 07:00 Intake Total 990 ml Output Total 1200 ml Balance -210 ml Intake Free Water 95 ml IV Total 425 ml Tube Feeding 350 ml Other 120 ml Output Urine Total 1200 ml # Bowel Movements 1 Laboratory Tests 04/26/17 04:00: White Blood Count 8.1, Red Blood Count 3.27L, Hemoglobin 11.3L, Hematocrit 34.4L , Mean Corpuscular Volume 105H, Mean Corpuscular Hemoglobin 34.6H, Mean Corpuscular Hemoglobin Concent 32.8, Red Cell Distribution Width 11.5L, Platelet Count 83L, Mean Platelet Volume 9.3, Neutrophils (%) (Auto) , Lymphocytes (%) (Auto) , Monocytes (%) (Auto) , Eosinophils (%) (Auto) , Basophils (%) (Auto) , Differential Total Cells Counted 100, Neutrophils % ( Manual) 72, Lymphocytes % (Manual) 17L, Monocytes % (Manual) 11H, Eosinophils % (Manual) 0, Basophils % (Manual) 0, Band Neutrophils 0, Platelet Estimate DecreasedL, Platelet Morphology Normal, Sodium Level 140, Potassium Level 3.1L, Chloride Level 108H, Carbon Dioxide Level 28, Anion Gap 4L, Blood Urea Nitrogen 15, Creatinine 0.7, Estimat Glomerular Filtration Rate , Glucose Level 125H, Calcium Level 8.0L, Total Bilirubin 0.6, Aspartate Amino Transf (AST/SGOT) 9L, Alanine Aminotransferase (ALT/SGPT) 9L, Alkaline Phosphatase 32L, Total Protein 5.3L, Albumin 2.3L, Globulin 3.0, Albumin/Globulin Ratio 0.8L 04/26/17 11:28: Arterial Blood pH 7.406, Arterial Blood Partial Pressure CO2 41.6, Arterial Blood Partial Pressure O2 80.1, Arterial Blood HCO3 25.5, Arterial Blood Oxygen Saturation 95.7, Arterial Blood Base Excess 0.7, Pineda Test Positive Height (Feet): 5 Height (Inches): 5.00 Weight (Pounds): 151 General Appearance: WD/WN, alert Neck: supple Cardiovascular: normal rate, regular rhythm Respiratory/Chest: chest wall non-tender, lungs clear, normal breath sounds, no respiratory distress, no accessory muscle use Abdomen: normal bowel sounds, non tender, soft, no organomegaly, no mass Edema: no edema noted Arm (L), no edema noted Arm (R), no edema noted Leg (L), no edema noted Leg (R), no edema noted Pedal (L), no edema noted Pedal (R), no edema noted Generalized Objective General Appearance: lethargic, confused Neck: supple Cardiovascular: normal rate Respiratory/Chest: lungs clear, normal breath sounds, no respiratory distress Abdomen: normal bowel sounds, non tender, soft, no organomegaly Edema: no edema noted Arm (L), no edema noted Arm (R), no edema noted Leg (L), no edema noted Leg (R), no edema noted Pedal (L), no edema noted Pedal (R), no edema noted Generalized Neurologic: disoriented MARTIN HERNÁNDEZ Apr 26, 2017 13:13
[2017-04-26] MEDS ORDERED: Tubing IV Secondary IV ONE (15:17)
--- NOTE | 2017-04-26 21:00 | Consultation ---
DATE OF CONSULTATION: 04/26/2017 INFECTIOUS DISEASE CONSULTATION This consult is for coverage of Dr. Kang. PRIMARY ATTENDING PHYSICIAN: Shayne Sams M.D. REASON FOR CONSULT: COPD, pneumonia. HISTORY OF PRESENT ILLNESS: The patient is a 72-year-old male admitted on 04/21/2017 from halfway facility because of altered mental status. He was found to have hypercapnia and respiratory failure, was intubated. He had no fever or leukocytosis, but has infiltrate in chest x-ray. PAST MEDICAL HISTORY: Significant for COPD, hypertension, CVA and right hemiparesis. MEDICATIONS: Artificial tears, MiraLAX, vancomycin, heparin, Tylenol, Ranitidine, Diamox, Zosyn, and DuoNeb inhaler. ALLERGIES: No known drug allergy. SOCIAL HISTORY: longterm resident, , [place]. REVIEW OF SYSTEMS: Unobtainable. The patient is in restrain. PHYSICAL EXAMINATION: GENERAL APPEARANCE: Seems awake, tries to communicate, on restrain in the left upper extremity. VITAL SIGNS: Temperature 98 degrees, pulse 64, and blood pressure 118/66. HEAD AND NECK: [place] conjunctivae. He has NG tube, orally intubated. HEART: Normal rate and regular. LUNGS: On ventilator, clear. ABDOMEN: Soft and nontender. EXTREMITIES: No edema. NEUROLOGIC: Cannot move the right arm. Awake, alert. LABORATORY AND DIAGNOSTIC DATA: WBC 8.1, hemoglobin 11.3, hematocrit 34.4 and platelet is 83. Sodium 140, potassium 3.1, chloride 108, bicarbonate 28, and glucose 125. Albumin is 2.3. CT scan of the head showed multiple old infarct, right ethmoidal and frontal sinus disease. Chest x-ray parenchymal disease on right base, has bilateral pleural effusion. MRSA screen was positive. Blood culture x2 are negative. VRE screen negative. IMPRESSION: 1. Pneumonia. 2. Chronic obstructive pulmonary disease. 3. Hypercapnic respiratory failure. 4. history of CVA. 5. Methicillin-resistant Staphylococcus aureus colonization. 6. 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 7. Right ethmoidal and frontal sinus disease. RECOMMENDATION: 1. We will continue with vancomycin and Zosyn. 2. We will ask for sputum culture and try to narrow antibiotics. I thank, Dr. Smith and Dr. Sams for involving me in the care of this patient. Bowen Granados M.D. DR: REMBERTO JOB#: [id number] CC: ANGELICA
[2017-04-27] VITALS (17 sets, daily range): BP systolic 104–134; BP diastolic 62–81
[2017-04-27] MEDS: Albuterol/Ipratropium 3ml neb HHN SCH (01:00)
[2017-04-27] MEDS: Vancomycin 1gm in D5W 275ml IVPB SCH ×2 (01:51→14:24)
[2017-04-27 05:03] LABS: BASOPHILS % (AUTO) 0.7 % (0.0-2.0); EOSINOPHILS % (AUTO) 1.8 % (0.0-3.0); LYMPHOCYTES % (AUTO) 17.6 % (20.0-45.0); MEAN CORPUSCULAR HGB CONC 33.3 G/DL (32.0-36.0); MEAN CORPUSCULAR VOLUME 105 FL (80-99); MEAN PLATELET VOLUME 7.9 FL (6.5-10.1); MONOCYTES % (AUTO) 9.1 % (1.0-10.0); NEUTROPHILS % (AUTO) 70.9 % (45.0-75.0); PLATELET COUNT 111 K/UL (150-450); RED BLOOD COUNT 3.38 M/UL (4.70-6.10); RED CELL DISTRIBUTION WIDTH 11.9 % (11.6-14.8); WHITE BLOOD COUNT 6.6 K/UL (4.8-10.8)
[2017-04-27 05:32] LABS: ALANINE AMINOTRANSFERASE 13 U/L (12-78); ALBUMIN/GLOBULIN RATIO 0.8 (1.0-2.7); ANION GAP 4 mmol/L (5-15); ASPARTATE AMINO TRANSFERASE 11 U/L (15-37); CALCIUM 8.4 MG/DL (8.5-10.1); CARBON DIOXIDE 27 MMOL/L (21-32); CHLORIDE 109 MMOL/L (98-107); CREATININE 0.5 MG/DL (0.55-1.30); POTASSIUM 3.3 MMOL/L (3.5-5.1); SODIUM 140 MMOL/L (136-145)
[2017-04-27] MEDS: Artificial Tears 1.4% Op Soln BOTH EYES SCH ×3 (05:49→21:51)
[2017-04-27] MEDS: D5NS 1,000 ML IV SCH ×2 (05:49→17:15)
--- NOTE | 2017-04-27 07:41 | General Progress Note ---
Assessment/Plan Problem List: (1) Altered level of consciousness ICD Codes: R40.4 - Transient alteration of awareness SNOMED: 6187655 (2) COPD exacerbation ICD Codes: J44.1 - Chronic obstructive pulmonary disease with (acute) exacerbation SNOMED: 411049380932853 (3) Hypercapnia ICD Codes: R06.89 - Other abnormalities of breathing SNOMED: 47012377 (4) PNA (pneumonia) ICD Codes: J18.9 - Pneumonia, unspecified organism SNOMED: 123107447 (5) Respiratory failure ICD Codes: J96.90 - Respiratory failure, unspecified, unspecified whether with hypoxia or hypercapnia SNOMED: 279088452 Status: stable, progressing Assessment/Plan check swallow resp rx vent support o2 iv abx id called dvt/stress ulcer prophylaxis ngt feeds abx monitor cxr critical and guarded but improved Subjective ROS Limited/Unobtainable: Yes Constitutional: Reports: malaise, weakness HEENT: Reports: no symptoms Cardiovascular: Reports: no symptoms Respiratory: Reports: no symptoms Gastrointestinal/Abdominal: Reports: no symptoms Genitourinary: Reports: no symptoms Neurologic/Psychiatric: Reports: pre-existing deficit Endocrine: Reports: no symptoms Hematologic/Lymphatic: Reports: no symptoms Allergies: Coded Allergies: No Known Allergies (Unverified , 04/21/17) All Systems: reviewed and negative except above Subjective extubated. alert. no complaints. still with ngt. Objective Last 24 Hour Vital Signs Date Time Temp Pulse Resp B/P (MAP) Pulse Ox O2 Delivery O2 Flow Rate FiO2 04/27/17 06:00 88 19 126/67 99 Nasal Cannula 2.0 04/27/17 05:00 91 23 112/68 96 Nasal Cannula 2.0 04/27/17 04:00 102 04/27/17 04:00 98.0 102 21 115/67 97 Nasal Cannula 2.0 04/27/17 03:00 90 20 115/67 98 Nasal Cannula 2.0 04/27/17 02:00 106 21 113/66 95 Nasal Cannula 2.0 04/27/17 01:00 84 23 124/75 100 Nasal Cannula 2.0 04/27/17 01:00 90 20 100 Nasal Cannula 2.0 28 04/27/17 01:00 84 20 99 Nasal Cannula 2.0 28 04/27/17 00:00 85 04/27/17 00:00 97.9 85 21 118/77 100 Nasal Cannula 2.0 04/26/17 23:00 84 22 121/71 99 Nasal Cannula 2.0 04/26/17 22:00 91 22 121/67 98 Nasal Cannula 2.0 04/26/17 21:00 92 23 116/68 98 Nasal Cannula 2.0 04/26/17 20:00 89 20 100 Nasal Cannula 2.0 28 04/26/17 20:00 Nasal Cannula 2.0 28 04/26/17 20:00 90 04/26/17 20:00 98.6 90 23 124/74 99 Nasal Cannula 2.0 04/26/17 20:00 87 20 98 Nasal Cannula 2.0 28 04/26/17 20:00 97 Nasal Cannula 2.0 28 04/26/17 19:00 87 23 140/102 100 Nasal Cannula 2.0 04/26/17 18:00 104 20 123/78 100 Nasal Cannula 2.0 04/26/17 17:00 100 17 117/73 100 Nasal Cannula 2.0 04/26/17 16:00 98 04/26/17 16:00 2.0 04/26/17 16:00 99.3 99 24 113/76 100 Nasal Cannula 2.0 04/26/17 15:00 105 24 113/67 99 Nasal Cannula 2.0 04/26/17 14:00 105 23 114/65 98 Nasal Cannula 2.0 04/26/17 13:00 99.3 112 26 122/74 99 Nasal Cannula 2.0 04/26/17 12:55 108 20 96 Nasal Cannula 28 04/26/17 12:50 109 20 97 Nasal Cannula 28 04/26/17 12:48 Nasal Cannula 2.0 28 04/26/17 12:45 2.0 04/26/17 12:00 98 24 113/68 100 Mechanical Ventilator 40 04/26/17 12:00 40 04/26/17 12:00 96 04/26/17 11:00 82 19 114/78 100 Mechanical Ventilator 40 04/26/17 10:40 89 21 40 04/26/17 10:00 80 20 109/66 100 Mechanical Ventilator 40 04/26/17 09:40 77 19 40 04/26/17 09:38 99 04/26/17 09:05 80 20 40 04/26/17 09:00 85 24 104/66 98 Mechanical Ventilator 40 04/26/17 08:00 98.3 101 23 128/77 100 Mechanical Ventilator 04/26/17 08:00 97 04/26/17 08:00 40 Laboratory Tests 04/26/17 11:28: Arterial Blood pH 7.406, Arterial Blood Partial Pressure CO2 41.6, Arterial Blood Partial Pressure O2 80.1, Arterial Blood HCO3 25.5, Arterial Blood Oxygen Saturation 95.7, Arterial Blood Base Excess 0.7, Pineda Test Positive 04/27/17 03:30: White Blood Count 6.6, Red Blood Count 3.38L, Hemoglobin 11.8L, Hematocrit 35.4L , Mean Corpuscular Volume 105H, Mean Corpuscular Hemoglobin 35.0H, Mean Corpuscular Hemoglobin Concent 33.3, Red Cell Distribution Width 11.9, Platelet Count 111L, Mean Platelet Volume 7.9, Neutrophils (%) (Auto) 70.9, Lymphocytes ( %) (Auto) 17.6L, Monocytes (%) (Auto) 9.1, Eosinophils (%) (Auto) 1.8, Basophils (%) (Auto) 0.7, Sodium Level 140, Potassium Level 3.3L, Chloride Level 109H, Carbon Dioxide Level 27, Anion Gap 4L, Blood Urea Nitrogen 12, Creatinine 0.5L, Estimat Glomerular Filtration Rate , Glucose Level 137H, Calcium Level 8.4L, Total Bilirubin 0.6, Aspartate Amino Transf (AST/SGOT) 11L, Alanine Aminotransferase (ALT/SGPT) 13, Alkaline Phosphatase 38L, Total Protein 6.0L, Albumin 2.6L, Globulin 3.4, Albumin/Globulin Ratio 0.8L Height (Feet): 5 Height (Inches): 5.00 Weight (Pounds): 130 Objective General Appearance: lethargic, confused. on nasal cannula Neck: supple Cardiovascular: normal rate Respiratory/Chest: lungs clear, normal breath sounds, no respiratory distress Abdomen: normal bowel sounds, non tender, soft, no organomegaly Edema: no edema noted Arm (L), no edema noted Arm (R), no edema noted Leg (L), no edema noted Leg (R), no edema noted Pedal (L), no edema noted Pedal (R), no edema noted Generalized Neurologic: disoriented MARTIN HERNÁNDEZ Apr 27, 2017 07:41
[2017-04-27] MEDS ORDERED: KCl 10% 40mEq/30ml liquid NG ONE (07:45)
--- NOTE | 2017-04-27 08:11 | Critical Care Progress Note ---
Assessment/Plan Assessment/Plan IMPRESSION respiratory failure COPD Pneumonia acute respiratory acidosis thrombocytopenia history of CVA history of TIA hypertension per history encephalopathy PLAN ventilator management off repeat ABG- improved and stable acid base IV antibiotics reviewed respiratory care and suction oxygen ventilator management with hyperventilation titrate oxygen SNF meds monitor LOC- monitor airway hydration and monitor fluid status nutrition and monitor residuals medications/laboratory data/nursing notes/ICU care reviewed in detail note reviewed and edited care discussed with RN and RT ICU time spent 38 minutes Critical Care - Subjective Interval Events: stable off ventilator minimal secretions on low flow oxygen ROS Limited/Unobtainable: Yes Condition: critical EKG Rhythm: Sinus Rhythm Critical Care - Objective ET-Tube: 8.0 ET Position: 22 Last 24 Hour Vital Signs Date Time Temp Pulse Resp B/P (MAP) Pulse Ox O2 Delivery O2 Flow Rate FiO2 04/27/17 07:44 Nasal Cannula 2.0 28 04/27/17 07:42 97 Nasal Cannula 2.0 28 04/27/17 07:00 92 20 122/66 99 Nasal Cannula 2.0 04/27/17 06:00 88 19 126/67 99 Nasal Cannula 2.0 04/27/17 05:00 91 23 112/68 96 Nasal Cannula 2.0 04/27/17 04:00 102 04/27/17 04:00 98.0 102 21 115/67 97 Nasal Cannula 2.0 04/27/17 03:00 90 20 115/67 98 Nasal Cannula 2.0 04/27/17 02:00 106 21 113/66 95 Nasal Cannula 2.0 04/27/17 01:00 84 23 124/75 100 Nasal Cannula 2.0 04/27/17 01:00 90 20 100 Nasal Cannula 2.0 28 04/27/17 01:00 84 20 99 Nasal Cannula 2.0 28 04/27/17 00:00 85 04/27/17 00:00 97.9 85 21 118/77 100 Nasal Cannula 2.0 04/26/17 23:00 84 22 121/71 99 Nasal Cannula 2.0 04/26/17 22:00 91 22 121/67 98 Nasal Cannula 2.0 04/26/17 21:00 92 23 116/68 98 Nasal Cannula 2.0 04/26/17 20:00 89 20 100 Nasal Cannula 2.0 28 04/26/17 20:00 Nasal Cannula 2.0 28 04/26/17 20:00 90 04/26/17 20:00 98.6 90 23 124/74 99 Nasal Cannula 2.0 04/26/17 20:00 87 20 98 Nasal Cannula 2.0 28 04/26/17 20:00 97 Nasal Cannula 2.0 28 04/26/17 19:00 87 23 140/102 100 Nasal Cannula 2.0 04/26/17 18:00 104 20 123/78 100 Nasal Cannula 2.0 04/26/17 17:00 100 17 117/73 100 Nasal Cannula 2.0 04/26/17 16:00 98 04/26/17 16:00 2.0 04/26/17 16:00 99.3 99 24 113/76 100 Nasal Cannula 2.0 04/26/17 15:00 105 24 113/67 99 Nasal Cannula 2.0 04/26/17 14:00 105 23 114/65 98 Nasal Cannula 2.0 04/26/17 13:00 99.3 112 26 122/74 99 Nasal Cannula 2.0 04/26/17 12:55 108 20 96 Nasal Cannula 28 04/26/17 12:50 109 20 97 Nasal Cannula 28 04/26/17 12:48 Nasal Cannula 2.0 28 04/26/17 12:45 2.0 04/26/17 12:00 98 24 113/68 100 Mechanical Ventilator 40 04/26/17 12:00 40 04/26/17 12:00 96 04/26/17 11:00 82 19 114/78 100 Mechanical Ventilator 40 04/26/17 10:40 89 21 40 04/26/17 10:00 80 20 109/66 100 Mechanical Ventilator 40 04/26/17 09:40 77 19 40 04/26/17 09:38 99 04/26/17 09:05 80 20 40 04/26/17 09:00 85 24 104/66 98 Mechanical Ventilator 40 Labs: Labs Test 04/24/17 10:45 04/24/17 12:48 04/24/17 13:05 04/25/17 08:55 Arterial Blood pH 6.910 (7.350-7.450) 7.230 (7.350-7.450) 7.408 (7.350-7.450) Arterial Blood Partial Pressure CO2 189.3 mmHg (35.0-45.0) 71.5 mmHg (35.0-45.0) 43.9 mmHg (35.0-45.0) Arterial Blood Partial Pressure O2 87.5 mmHg (75.0-100.0) 102.1 mmHg (75.0-100.0) 73.7 mmHg (75.0-100.0) Arterial Blood HCO3 37.1 mmol/L (22.0-26.0) 29.5 mmol/L (22.0-26.0) 21.1 mmol/L (22.0-26.0) Arterial Blood Oxygen Saturation 94.1 % (92.0-98.0) 97.8 % (92.0-98.0) 95.3 % (92.0-98.0) Arterial Blood Base Excess -1.0 0.2 2.1 Pineda Test Positive Positive Positive Vancomycin Level Trough 13.0 ug/mL (5.0-12.0) Test 04/26/17 04:00 04/26/17 11:28 04/27/17 03:30 White Blood Count 8.1 K/UL (4.8-10.8) 6.6 K/UL (4.8-10.8) Red Blood Count 3.27 M/UL (4.70-6.10) 3.38 M/UL (4.70-6.10) Hemoglobin 11.3 G/DL (14.2-18.0) 11.8 G/DL (14.2-18.0) Hematocrit 34.4 % (42.0-52.0) 35.4 % (42.0-52.0) Mean Corpuscular Volume 105 FL (80-99) 105 FL (80-99) Mean Corpuscular Hemoglobin 34.6 PG (27.0-31.0) 35.0 PG (27.0-31.0) Mean Corpuscular Hemoglobin Concent 32.8 G/DL (32.0-36.0) 33.3 G/DL (32.0-36.0) Red Cell Distribution Width 11.5 % (11.6-14.8) 11.9 % (11.6-14.8) Platelet Count 83 K/UL (150-450) 111 K/UL (150-450) Mean Platelet Volume 9.3 FL (6.5-10.1) 7.9 FL (6.5-10.1) Neutrophils (%) (Auto) % (45.0-75.0) 70.9 % (45.0-75.0) Lymphocytes (%) (Auto) % (20.0-45.0) 17.6 % (20.0-45.0) Monocytes (%) (Auto) % (1.0-10.0) 9.1 % (1.0-10.0) Eosinophils (%) (Auto) % (0.0-3.0) 1.8 % (0.0-3.0) Basophils (%) (Auto) % (0.0-2.0) 0.7 % (0.0-2.0) Differential Total Cells Counted 100 Neutrophils % (Manual) 72 % (45-75) Lymphocytes % (Manual) 17 % (20-45) Monocytes % (Manual) 11 % (1-10) Eosinophils % (Manual) 0 % (0-3) Basophils % (Manual) 0 % (0-2) Band Neutrophils 0 % (0-8) Platelet Estimate Decreased Platelet Morphology Normal Sodium Level 140 MMOL/L (136-145) 140 MMOL/L (136-145) Potassium Level 3.1 MMOL/L (3.5-5.1) 3.3 MMOL/L (3.5-5.1) Chloride Level 108 MMOL/L (98-107) 109 MMOL/L (98-107) Carbon Dioxide Level 28 MMOL/L (21-32) 27 MMOL/L (21-32) Anion Gap 4 mmol/L (5-15) 4 mmol/L (5-15) Blood Urea Nitrogen 15 mg/dL (7-18) 12 mg/dL (7-18) Creatinine 0.7 MG/DL (0.55-1.30) 0.5 MG/DL (0.55-1.30) Estimat Glomerular Filtration Rate mL/min (>60) mL/min (>60) Glucose Level 125 MG/DL (74-106) 137 MG/DL (74-106) Calcium Level 8.0 MG/DL (8.5-10.1) 8.4 MG/DL (8.5-10.1) Total Bilirubin 0.6 MG/DL (0.2-1.0) 0.6 MG/DL (0.2-1.0) Aspartate Amino Transf (AST/SGOT) 9 U/L (15-37) 11 U/L (15-37) Alanine Aminotransferase (ALT/SGPT) 9 U/L (12-78) 13 U/L (12-78) Alkaline Phosphatase 32 U/L (46-116) 38 U/L (46-116) Total Protein 5.3 G/DL (6.4-8.2) 6.0 G/DL (6.4-8.2) Albumin 2.3 G/DL (3.4-5.0) 2.6 G/DL (3.4-5.0) Globulin 3.0 g/dL 3.4 g/dL Albumin/Globulin Ratio 0.8 (1.0-2.7) 0.8 (1.0-2.7) Arterial Blood pH 7.406 (7.350-7.450) Arterial Blood Partial Pressure CO2 41.6 mmHg (35.0-45.0) Arterial Blood Partial Pressure O2 80.1 mmHg (75.0-100.0) Arterial Blood HCO3 25.5 mmol/L (22.0-26.0) Arterial Blood Oxygen Saturation 95.7 % (92.0-98.0) Arterial Blood Base Excess 0.7 Pineda Test Positive Objective: WDWN extubated NAD coarse breath sounds bilaterally with scattered rhonchi- intubated [id number] without MRG NABS nontender no HSM no CC mild edema poor LOC; somewhat obtunded nonfocal skin noted lines noted reviewed and edited HUSSEIN MARTINEZ Apr 27, 2017 08:11
[2017-04-27] MEDS: Heparin 5000 units/ml inj SUBQ SCH ×2 (09:21→21:00)
[2017-04-27 09:22] LABS: ABG ALLEN TEST POSITIVE; ABG BASE EXCESS 0.2; ABG PCO2 53.5 mmHg (35.0-45.0)
--- NOTE | 2017-04-27 10:14 | Diagnostic Imaging Report ---
APPROVED REPORT CPT Code: 36300 Present Symptoms Lower Extremity Pain: Bilateral BILATERAL: Imaging reveals a patent deep venous system bilaterally. There is no evidence of thrombus within the femoral, popliteal or tibial segments. The greater saphenous veins are also within normal limits. Doppler indicates normal spontaneous flow within these segments.
--- NOTE | 2017-04-27 12:14 | Infectious Diseases Prog Note ---
Assessment/Plan Assessment/Plan antibiotics : vancomycin in , levoquin A 1. pneumonia 2. COPD 3. MRSA nasal colonization 4. CVA 5. sinusitis P 1. continue vancomycin iv 2. d/c levoquin 3. start zosyn 4. will follow up cultures Subjective ROS Limited/Unobtainable: Yes Allergies: Coded Allergies: No Known Allergies (Unverified , 04/21/17) Objective Vital Signs Last 24 Hour Vital Signs Date Time Temp Pulse Resp B/P (MAP) Pulse Ox O2 Delivery O2 Flow Rate FiO2 04/27/17 11:00 90 20 104/62 98 Nasal Cannula 2.0 04/27/17 11:00 92 21 104/62 99 Nasal Cannula 2.0 04/27/17 10:00 101 20 121/64 98 Nasal Cannula 2.0 04/27/17 09:00 92 22 134/64 97 Nasal Cannula 2.0 04/27/17 08:00 98.6 96 20 121/63 98 Nasal Cannula 2.0 04/27/17 08:00 101 04/27/17 07:44 Nasal Cannula 2.0 28 04/27/17 07:42 97 Nasal Cannula 2.0 28 04/27/17 07:00 92 20 122/66 99 Nasal Cannula 2.0 04/27/17 06:00 88 19 126/67 99 Nasal Cannula 2.0 04/27/17 05:00 91 23 112/68 96 Nasal Cannula 2.0 04/27/17 04:00 102 04/27/17 04:00 98.0 102 21 115/67 97 Nasal Cannula 2.0 04/27/17 03:00 90 20 115/67 98 Nasal Cannula 2.0 04/27/17 02:00 106 21 113/66 95 Nasal Cannula 2.0 04/27/17 01:00 84 23 124/75 100 Nasal Cannula 2.0 04/27/17 01:00 90 20 100 Nasal Cannula 2.0 28 04/27/17 01:00 84 20 99 Nasal Cannula 2.0 28 04/27/17 00:00 85 04/27/17 00:00 97.9 85 21 118/77 100 Nasal Cannula 2.0 04/26/17 23:00 84 22 121/71 99 Nasal Cannula 2.0 04/26/17 22:00 91 22 121/67 98 Nasal Cannula 2.0 04/26/17 21:00 92 23 116/68 98 Nasal Cannula 2.0 04/26/17 20:00 89 20 100 Nasal Cannula 2.0 28 04/26/17 20:00 Nasal Cannula 2.0 28 04/26/17 20:00 90 04/26/17 20:00 98.6 90 23 124/74 99 Nasal Cannula 2.0 04/26/17 20:00 87 20 98 Nasal Cannula 2.0 28 04/26/17 20:00 97 Nasal Cannula 2.0 28 04/26/17 19:00 87 23 140/102 100 Nasal Cannula 2.0 04/26/17 18:00 104 20 123/78 100 Nasal Cannula 2.0 04/26/17 17:00 100 17 117/73 100 Nasal Cannula 2.0 04/26/17 16:00 98 04/26/17 16:00 2.0 04/26/17 16:00 99.3 99 24 113/76 100 Nasal Cannula 2.0 04/26/17 15:00 105 24 113/67 99 Nasal Cannula 2.0 04/26/17 14:00 105 23 114/65 98 Nasal Cannula 2.0 04/26/17 13:00 99.3 112 26 122/74 99 Nasal Cannula 2.0 04/26/17 12:55 108 20 96 Nasal Cannula 28 04/26/17 12:50 109 20 97 Nasal Cannula 28 04/26/17 12:48 Nasal Cannula 2.0 28 04/26/17 12:45 2.0 Height (Feet): 5 Height (Inches): 5.00 Weight (Pounds): 130 Respiratory/Chest: lungs clear Cardiovascular: normal rate, regular rhythm, no gallop/murmur Abdomen: soft, non tender Extremities: no edema Microbiology Date/Time Source Procedure Growth Status 04/26/17 11:25 Sputum Gram Stain - Final Resulted 04/26/17 11:25 Sputum Sputum Culture Pending Resulted Laboratory Tests Test 04/27/17 03:30 04/27/17 09:05 White Blood Count 6.6 K/UL (4.8-10.8) Red Blood Count 3.38 M/UL (4.70-6.10) L Hemoglobin 11.8 G/DL (14.2-18.0) L Hematocrit 35.4 % (42.0-52.0) L Mean Corpuscular Volume 105 FL (80-99) H Mean Corpuscular Hemoglobin 35.0 PG (27.0-31.0) H Mean Corpuscular Hemoglobin Concent 33.3 G/DL (32.0-36.0) Red Cell Distribution Width 11.9 % (11.6-14.8) Platelet Count 111 K/UL (150-450) L Mean Platelet Volume 7.9 FL (6.5-10.1) Neutrophils (%) (Auto) 70.9 % (45.0-75.0) Lymphocytes (%) (Auto) 17.6 % (20.0-45.0) L Monocytes (%) (Auto) 9.1 % (1.0-10.0) Eosinophils (%) (Auto) 1.8 % (0.0-3.0) Basophils (%) (Auto) 0.7 % (0.0-2.0) Sodium Level 140 MMOL/L (136-145) Potassium Level 3.3 MMOL/L (3.5-5.1) L Chloride Level 109 MMOL/L (98-107) H Carbon Dioxide Level 27 MMOL/L (21-32) Anion Gap 4 mmol/L (5-15) L Blood Urea Nitrogen 12 mg/dL (7-18) Creatinine 0.5 MG/DL (0.55-1.30) L Estimat Glomerular Filtration Rate mL/min (>60) Glucose Level 137 MG/DL (74-106) H Calcium Level 8.4 MG/DL (8.5-10.1) L Total Bilirubin 0.6 MG/DL (0.2-1.0) Aspartate Amino Transf (AST/SGOT) 11 U/L (15-37) L Alanine Aminotransferase (ALT/SGPT) 13 U/L (12-78) Alkaline Phosphatase 38 U/L (46-116) L Total Protein 6.0 G/DL (6.4-8.2) L Albumin 2.6 G/DL (3.4-5.0) L Globulin 3.4 g/dL Albumin/Globulin Ratio 0.8 (1.0-2.7) L Arterial Blood pH 7.320 (7.350-7.450) Arterial Blood Partial Pressure CO2 53.5 mmHg (35.0-45.0) H Arterial Blood Partial Pressure O2 89.1 mmHg (75.0-100.0) Arterial Blood HCO3 27.1 mmol/L (22.0-26.0) H Arterial Blood Oxygen Saturation 96.6 % (92.0-98.0) Arterial Blood Base Excess 0.2 Pineda Test Positive JENNY CHAN Apr 27, 2017 12:14
[2017-04-27] MEDS ORDERED: Piperacillin/Tazobactam 3.375 GM in D5W 55 ML IVPB SCH (14:00)
--- NOTE | 2017-04-27 15:21 | Diagnostic Imaging Report ---
Indication: SOB Technique: One view of the chest Comparison: 06/24/2016 Findings: Interim removal of endotracheal tube. There is improved but somewhat persistent interstitial and airspace disease in the right lower lobe. Considerable reticular interstitial and airspace disease persists elsewhere in both lungs. Bilateral pleural effusions persist. Nasogastric tube remains in good position. Hyperlucency of the upper lobes is again demonstrated Impression: Improved right lower lobe parenchymal disease, over 3 days Other stable findings as described
[2017-04-27] MEDS ORDERED: Tubing IV Secondary IV ONE (16:01)
[2017-04-27] MEDS ORDERED: NS 500ML ONE (16:01)
[2017-04-27] MEDS: Docusate 100mg/10ml Liq GT SCH (17:09)
[2017-04-27] MEDS ORDERED: Miralax 17gm pkt GT PRN (18:00)
[2017-04-27] MEDS ORDERED: LORazepam 1mg tab GT PRN (18:00)
[2017-04-27] MEDS ORDERED: Docusate 100mg cap ORAL SCH (18:00)
[2017-04-27] MEDS: Tamsulosin 0.4mg cap ORAL SCH (21:45)
[2017-04-27] MEDS: Sennosides 8.6mg GT SCH (21:45)
[2017-04-27] MEDS: Piperacillin/Tazobactam 3.375 GM in D5W 55 ML IVPB SCH (21:53)
[2017-04-28] MEDS: Vancomycin 1 GM in D5W 275 ML IVPB SCH ×2 (02:16→13:13)
[2017-04-28] MEDS ORDERED: KCl 10% 20 mEq/15ml liquid NG ONE (03:00)
[2017-04-28] MEDS ORDERED: Zosyn 3.375gm inj ONE (06:18)
[2017-04-28] MEDS: Piperacillin/Tazobactam 3.375 GM in D5W 55 ML IVPB SCH ×3 (06:21→21:08)
[2017-04-28] MEDS: Artificial Tears 1.4% Op Soln BOTH EYES SCH ×3 (06:21→21:08)
[2017-04-28] MEDS: D5NS 1,000 ML IV SCH ×2 (06:21→17:25)
--- NOTE | 2017-04-28 06:30 | Progress Note ---
DATE: 04/27/2017 CARDIOLOGY PROGRESS NOTE SUBJECTIVE: The patient is on ventilator support. He is interactive, no respiratory distress noted. Swallow evaluation is pending. OBJECTIVE: VITAL SIGNS: Blood pressure 126/67, pulse 88, and respirations 19. Monitored sinus and sinus tachycardia. LUNGS: Coarse breath sounds. No wheezing. HEART: Regular rhythm and rate. Normal S1 and S2 with a fourth heart sound. ABDOMEN: Soft and nontender. EXTREMITIES: No edema. NG tube in place. LABORATORY DATA: White count 6.6, hemoglobin 11.8. Potassium 3.3, BUN 12, and creatinine 0.5. Albumin 3.6. ABG 7.32, 53, and 89. IMPRESSION: 1. Status post respiratory failure. 2. Status post acute on chronic respiratory acidosis, now improved. 3. Paroxysmal atrial ectopy. 4. Secondary sinus tachycardia. 5. Macrocytic anemia. 6. Hypokalemia. 7. Moderate to severe protein-calorie malnutrition. PLAN: 1. Respiratory hygiene. 2. Nutrition by NG tube, pending swallow evaluation. 3. Potassium replacement. 4. Continue baseline cardiovascular regimen. 5. Check magnesium level. 6. Continue cautious hydration. 7. Discontinue Diamox at this time due to corrected metabolic alkalosis. Shayne Sams M.D. DR: HEATHER JOB#: [id number] CC:
--- NOTE | 2017-04-28 08:06 | Critical Care Progress Note ---
Assessment/Plan Assessment/Plan IMPRESSION respiratory failure COPD Pneumonia acute respiratory acidosis thrombocytopenia history of CVA history of TIA hypertension per history encephalopathy PLAN ventilator management off repeat ABG- with noted acidemia IV antibiotics reviewed respiratory care and suction oxygen ventilator management off titrate oxygen SNF meds monitor LOC- monitor airway nutrition and monitor residuals medications/laboratory data/nursing notes reviewed in detail note reviewed and edited care discussed with RN and RT Critical Care - Subjective Interval Events: noted and reviewed off the ventilator on oxygen EKG Rhythm: Sinus Rhythm Critical Care - Objective CXR: improved RLL ET-Tube: 8.0 ET Position: 22 Last 24 Hour Vital Signs Date Time Temp Pulse Resp B/P (MAP) Pulse Ox O2 Delivery O2 Flow Rate FiO2 04/28/17 04:00 88 04/28/17 00:00 89 04/27/17 20:00 93 04/27/17 19:30 97 Nasal Cannula 2.0 28 04/27/17 19:30 Nasal Cannula 2.0 28 04/27/17 16:43 97.9 96 20 126/81 97 04/27/17 16:00 94 04/27/17 15:00 92 22 116/73 98 Nasal Cannula 2.0 04/27/17 14:00 92 20 115/69 98 Nasal Cannula 2.0 04/27/17 13:00 90 23 119/72 100 Nasal Cannula 2.0 04/27/17 12:00 98.4 98 25 128/72 99 Nasal Cannula 2.0 04/27/17 12:00 91 04/27/17 11:00 90 20 104/62 98 Nasal Cannula 2.0 04/27/17 11:00 92 21 104/62 99 Nasal Cannula 2.0 04/27/17 10:00 101 20 121/64 98 Nasal Cannula 2.0 04/27/17 09:00 92 22 134/64 97 Nasal Cannula 2.0 Labs: Labs Test 04/25/17 08:55 04/26/17 04:00 04/26/17 11:28 04/27/17 03:30 Arterial Blood pH 7.408 (7.350-7.450) 7.406 (7.350-7.450) Arterial Blood Partial Pressure CO2 43.9 mmHg (35.0-45.0) 41.6 mmHg (35.0-45.0) Arterial Blood Partial Pressure O2 73.7 mmHg (75.0-100.0) 80.1 mmHg (75.0-100.0) Arterial Blood HCO3 21.1 mmol/L (22.0-26.0) 25.5 mmol/L (22.0-26.0) Arterial Blood Oxygen Saturation 95.3 % (92.0-98.0) 95.7 % (92.0-98.0) Arterial Blood Base Excess 2.1 0.7 Pineda Test Positive Positive White Blood Count 8.1 K/UL (4.8-10.8) 6.6 K/UL (4.8-10.8) Red Blood Count 3.27 M/UL (4.70-6.10) 3.38 M/UL (4.70-6.10) Hemoglobin 11.3 G/DL (14.2-18.0) 11.8 G/DL (14.2-18.0) Hematocrit 34.4 % (42.0-52.0) 35.4 % (42.0-52.0) Mean Corpuscular Volume 105 FL (80-99) 105 FL (80-99) Mean Corpuscular Hemoglobin 34.6 PG (27.0-31.0) 35.0 PG (27.0-31.0) Mean Corpuscular Hemoglobin Concent 32.8 G/DL (32.0-36.0) 33.3 G/DL (32.0-36.0) Red Cell Distribution Width 11.5 % (11.6-14.8) 11.9 % (11.6-14.8) Platelet Count 83 K/UL (150-450) 111 K/UL (150-450) Mean Platelet Volume 9.3 FL (6.5-10.1) 7.9 FL (6.5-10.1) Neutrophils (%) (Auto) % (45.0-75.0) 70.9 % (45.0-75.0) Lymphocytes (%) (Auto) % (20.0-45.0) 17.6 % (20.0-45.0) Monocytes (%) (Auto) % (1.0-10.0) 9.1 % (1.0-10.0) Eosinophils (%) (Auto) % (0.0-3.0) 1.8 % (0.0-3.0) Basophils (%) (Auto) % (0.0-2.0) 0.7 % (0.0-2.0) Differential Total Cells Counted 100 Neutrophils % (Manual) 72 % (45-75) Lymphocytes % (Manual) 17 % (20-45) Monocytes % (Manual) 11 % (1-10) Eosinophils % (Manual) 0 % (0-3) Basophils % (Manual) 0 % (0-2) Band Neutrophils 0 % (0-8) Platelet Estimate Decreased Platelet Morphology Normal Sodium Level 140 MMOL/L (136-145) 140 MMOL/L (136-145) Potassium Level 3.1 MMOL/L (3.5-5.1) 3.3 MMOL/L (3.5-5.1) Chloride Level 108 MMOL/L (98-107) 109 MMOL/L (98-107) Carbon Dioxide Level 28 MMOL/L (21-32) 27 MMOL/L (21-32) Anion Gap 4 mmol/L (5-15) 4 mmol/L (5-15) Blood Urea Nitrogen 15 mg/dL (7-18) 12 mg/dL (7-18) Creatinine 0.7 MG/DL (0.55-1.30) 0.5 MG/DL (0.55-1.30) Estimat Glomerular Filtration Rate mL/min (>60) mL/min (>60) Glucose Level 125 MG/DL (74-106) 137 MG/DL (74-106) Calcium Level 8.0 MG/DL (8.5-10.1) 8.4 MG/DL (8.5-10.1) Total Bilirubin 0.6 MG/DL (0.2-1.0) 0.6 MG/DL (0.2-1.0) Aspartate Amino Transf (AST/SGOT) 9 U/L (15-37) 11 U/L (15-37) Alanine Aminotransferase (ALT/SGPT) 9 U/L (12-78) 13 U/L (12-78) Alkaline Phosphatase 32 U/L (46-116) 38 U/L (46-116) Total Protein 5.3 G/DL (6.4-8.2) 6.0 G/DL (6.4-8.2) Albumin 2.3 G/DL (3.4-5.0) 2.6 G/DL (3.4-5.0) Globulin 3.0 g/dL 3.4 g/dL Albumin/Globulin Ratio 0.8 (1.0-2.7) 0.8 (1.0-2.7) Test 04/27/17 09:05 Arterial Blood pH 7.320 (7.350-7.450) Arterial Blood Partial Pressure CO2 53.5 mmHg (35.0-45.0) Arterial Blood Partial Pressure O2 89.1 mmHg (75.0-100.0) Arterial Blood HCO3 27.1 mmol/L (22.0-26.0) Arterial Blood Oxygen Saturation 96.6 % (92.0-98.0) Arterial Blood Base Excess 0.2 Pineda Test Positive Objective: WDWN extubated NAD coarse breath sounds bilaterally with scattered rhonchi- intubated [id number] without MRG NABS nontender no HSM no CC mild edema poor LOC; nonfocal skin noted lines noted reviewed and edited Micro: Microbiology Date/Time Source Procedure Growth Status 04/26/17 11:25 Sputum Gram Stain - Final Resulted 04/26/17 11:25 Sputum Culture - Preliminary Staphylococcus Aureus Resulted HUSSEIN MARTINEZ Apr 28, 2017 08:06
[2017-04-28 08:27] VITALS: BP 124/78
[2017-04-28 08:46] LABS: BASOPHILS % (AUTO) 0.6 % (0.0-2.0); EOSINOPHILS % (AUTO) 3.5 % (0.0-3.0); LYMPHOCYTES % (AUTO) 12.3 % (20.0-45.0); MEAN CORPUSCULAR HGB CONC 32.3 G/DL (32.0-36.0); MEAN CORPUSCULAR VOLUME 105 FL (80-99); MEAN PLATELET VOLUME 7.6 FL (6.5-10.1); MONOCYTES % (AUTO) 6.4 % (1.0-10.0); NEUTROPHILS % (AUTO) 77.2 % (45.0-75.0); PLATELET COUNT 153 K/UL (150-450); RED BLOOD COUNT 3.81 M/UL (4.70-6.10); WHITE BLOOD COUNT 9.3 K/UL (4.8-10.8)
[2017-04-28 08:49] LABS: ABG ALLEN TEST POSITIVE; ABG BASE EXCESS 1.3; ABG PCO2 59.6 mmHg (35.0-45.0)
[2017-04-28] MEDS ORDERED: Metoprolol Succinate XL 50mg tab ORAL SCH (09:00)
--- NOTE | 2017-04-28 09:04 | General Progress Note ---
Assessment/Plan Problem List: (1) Altered level of consciousness ICD Codes: R40.4 - Transient alteration of awareness SNOMED: 8089202 (2) COPD exacerbation ICD Codes: J44.1 - Chronic obstructive pulmonary disease with (acute) exacerbation SNOMED: 620992395084846 (3) Hypercapnia ICD Codes: R06.89 - Other abnormalities of breathing SNOMED: 23608084 (4) PNA (pneumonia) ICD Codes: J18.9 - Pneumonia, unspecified organism SNOMED: 026307048 (5) Respiratory failure ICD Codes: J96.90 - Respiratory failure, unspecified, unspecified whether with hypoxia or hypercapnia SNOMED: 638782901 Status: stable, progressing Assessment/Plan check swallow resp rx o2 iv abx dvt/stress ulcer prophylaxis ngt feeds abx monitor cxr Subjective ROS Limited/Unobtainable: No Constitutional: Reports: malaise, weakness HEENT: Reports: no symptoms Cardiovascular: Reports: no symptoms Respiratory: Reports: cough Gastrointestinal/Abdominal: Reports: difficulty swallowing Genitourinary: Reports: no symptoms Neurologic/Psychiatric: Reports: pre-existing deficit Endocrine: Reports: no symptoms Hematologic/Lymphatic: Reports: anemia Allergies: Coded Allergies: No Known Allergies (Unverified , 04/21/17) All Systems: reviewed and negative except above Subjective no events. w/o complaints. remains on ngt feeds. Objective Last 24 Hour Vital Signs Date Time Temp Pulse Resp B/P (MAP) Pulse Ox O2 Delivery O2 Flow Rate FiO2 04/28/17 08:27 97.2 104 20 124/78 95 04/28/17 04:00 88 04/28/17 00:00 89 04/27/17 20:00 93 04/27/17 19:30 97 Nasal Cannula 2.0 28 04/27/17 19:30 Nasal Cannula 2.0 28 04/27/17 16:43 97.9 96 20 126/81 97 04/27/17 16:00 94 04/27/17 15:00 92 22 116/73 98 Nasal Cannula 2.0 04/27/17 14:00 92 20 115/69 98 Nasal Cannula 2.0 04/27/17 13:00 90 23 119/72 100 Nasal Cannula 2.0 04/27/17 12:00 98.4 98 25 128/72 99 Nasal Cannula 2.0 04/27/17 12:00 91 04/27/17 11:00 90 20 104/62 98 Nasal Cannula 2.0 04/27/17 11:00 92 21 104/62 99 Nasal Cannula 2.0 04/27/17 10:00 101 20 121/64 98 Nasal Cannula 2.0 Intake and Output 04/28/17 04/29/17 19:00 07:00 Output Total 300 ml Balance -300 ml Output Urine Total 300 ml Laboratory Tests 04/27/17 09:05: Arterial Blood pH 7.320L, Arterial Blood Partial Pressure CO2 53.5H, Arterial Blood Partial Pressure O2 89.1, Arterial Blood HCO3 27.1H, Arterial Blood Oxygen Saturation 96.6, Arterial Blood Base Excess 0.2, Pineda Test Positive 04/28/17 08:04: Arterial Blood pH 7.310L, Arterial Blood Partial Pressure CO2 59.6*H, Arterial Blood Partial Pressure O2 69.4L, Arterial Blood HCO3 29.3H, Arterial Blood Oxygen Saturation 93.3, Arterial Blood Base Excess 1.3, Pineda Test Positive 04/28/17 08:15: White Blood Count 9.3, Red Blood Count 3.81L, Hemoglobin 12.9L, Hematocrit 40.0L , Mean Corpuscular Volume 105H, Mean Corpuscular Hemoglobin 34.0H, Mean Corpuscular Hemoglobin Concent 32.3, Red Cell Distribution Width 12.0, Platelet Count 153, Mean Platelet Volume 7.6, Neutrophils (%) (Auto) 77.2H, Lymphocytes ( %) (Auto) 12.3L, Monocytes (%) (Auto) 6.4, Eosinophils (%) (Auto) 3.5H, Basophils (%) (Auto) 0.6, Sodium Level [Pending], Potassium Level [Pending], Chloride Level [Pending], Carbon Dioxide Level [Pending], Blood Urea Nitrogen [ Pending], Creatinine [Pending], Estimat Glomerular Filtration Rate [Pending], Glucose Level [Pending], Calcium Level [Pending], Magnesium Level [Pending], Total Bilirubin [Pending], Aspartate Amino Transf (AST/SGOT) [Pending], Alanine Aminotransferase (ALT/SGPT) [Pending], Alkaline Phosphatase [Pending], Pro-B- Type Natriuretic Peptide [Pending], Total Protein [Pending], Albumin [Pending], Globulin [Pending] Height (Feet): 5 Height (Inches): 5.00 Weight (Pounds): 145 Objective General Appearance: lethargic, confused. on nasal cannula Neck: supple Cardiovascular: normal rate Respiratory/Chest: lungs clear, normal breath sounds, no respiratory distress Abdomen: normal bowel sounds, non tender, soft, no organomegaly Edema: no edema noted Arm (L), no edema noted Arm (R), no edema noted Leg (L), no edema noted Leg (R), no edema noted Pedal (L), no edema noted Pedal (R), no edema noted Generalized Neurologic: disoriented MARTIN HERNÁNDEZ Apr 28, 2017 09:04
--- NOTE | 2017-04-28 09:38 | Wound Nurse Progress Note ---
Wound RN Progress Note Wound Consult Reassessment #1 Sacrococcygeal pressure ulcer stage 3 with full thickness scar tissue to surrounding site 3.0cmx 1.5cm , scattered scabs to right sacral with redness.- Upon reassessment noted good progress to sacrococcygeal site stage 3 resolved. full thickness scar tissue is present. scattered scabs to right side sacral with redness noted good progress, no further deterioration present. #2 left cubital fossa discoloration.-intact. assessment done to right ischial tuberosity as seen on picture file, site is intact no redness present, skin tone within normal limits to site. Recommendation. -Local wound care as ordered. -Turn and reposition. -Keep clean and dry. -Optimize nutrition. -Heel protectors. -Avoid shear and friction. -Apply low air loss SPR mattress for wound care and skin management. -Assess and follow up with MD for any further changes of condition with skin. ALYSIA FLORES Apr 28, 2017 09:38
[2017-04-28] MEDS: Docusate 100mg/10ml Liq GT SCH ×2 (09:48→17:19)
[2017-04-28] MEDS: Metoprolol Tartrate 50mg tab GT SCH ×2 (09:49→21:06)
[2017-04-28] MEDS: Heparin 5000 units/ml inj SUBQ SCH ×2 (09:49→21:13)
[2017-04-28 10:22] LABS: ALANINE AMINOTRANSFERASE 12 U/L (12-78); ALBUMIN/GLOBULIN RATIO 0.9 (1.0-2.7); ANION GAP 5 mmol/L (5-15); ASPARTATE AMINO TRANSFERASE 8 U/L (15-37); CALCIUM 8.6 MG/DL (8.5-10.1); CARBON DIOXIDE 31 MMOL/L (21-32); CHLORIDE 106 MMOL/L (98-107); CREATININE 0.5 MG/DL (0.55-1.30); POTASSIUM 3.8 MMOL/L (3.5-5.1); SODIUM 142 MMOL/L (136-145); TOTAL PROTEIN 6.4 G/DL (6.4-8.2)
--- NOTE | 2017-04-28 11:22 | Infectious Diseases Prog Note ---
Assessment/Plan Assessment/Plan A: 1 pneumonia, Staph aureus in culture 2. COPD 3. MRSA nasal colonization 4. CVA 5. sinusitis P 1. continue vancomycin & Zosyn 2. will follow up cultures Subjective ROS Limited/Unobtainable: Yes Neurologic: Reports: other - more alert Musculoskeletal: Reports: pain, other - generalized Allergies: Coded Allergies: No Known Allergies (Unverified , 04/21/17) Objective Vital Signs Last 24 Hour Vital Signs Date Time Temp Pulse Resp B/P (MAP) Pulse Ox O2 Delivery O2 Flow Rate FiO2 04/28/17 09:49 104 124/78 04/28/17 08:27 97.2 104 20 124/78 95 04/28/17 07:50 Nasal Cannula 2.0 28 04/28/17 07:50 96 Nasal Cannula 2.0 28 04/28/17 04:00 88 04/28/17 00:00 89 04/27/17 20:00 93 04/27/17 19:30 97 Nasal Cannula 2.0 28 04/27/17 19:30 Nasal Cannula 2.0 28 04/27/17 16:43 97.9 96 20 126/81 97 04/27/17 16:00 94 04/27/17 15:00 92 22 116/73 98 Nasal Cannula 2.0 04/27/17 14:00 92 20 115/69 98 Nasal Cannula 2.0 04/27/17 13:00 90 23 119/72 100 Nasal Cannula 2.0 04/27/17 12:00 98.4 98 25 128/72 99 Nasal Cannula 2.0 04/27/17 12:00 91 Height (Feet): 5 Height (Inches): 5.00 Weight (Pounds): 145 General Appearance: no acute distress HEENT: other - NG tube Respiratory/Chest: lungs clear Cardiovascular: tachycardia Abdomen: soft, non tender Extremities: no edema Neurologic/Psychiatric: alert, responsive, other - right hemiplegia Microbiology Date/Time Source Procedure Growth Status 04/26/17 11:25 Sputum Gram Stain - Final Resulted 04/26/17 11:25 Sputum Culture - Preliminary Staphylococcus Aureus Resulted Laboratory Tests Test 04/28/17 08:04 04/28/17 08:15 Arterial Blood pH 7.310 (7.350-7.450) Arterial Blood Partial Pressure CO2 59.6 mmHg (35.0-45.0) *H Arterial Blood Partial Pressure O2 69.4 mmHg (75.0-100.0) L Arterial Blood HCO3 29.3 mmol/L (22.0-26.0) H Arterial Blood Oxygen Saturation 93.3 % (92.0-98.0) Arterial Blood Base Excess 1.3 Pineda Test Positive White Blood Count 9.3 K/UL (4.8-10.8) Red Blood Count 3.81 M/UL (4.70-6.10) L Hemoglobin 12.9 G/DL (14.2-18.0) L Hematocrit 40.0 % (42.0-52.0) L Mean Corpuscular Volume 105 FL (80-99) H Mean Corpuscular Hemoglobin 34.0 PG (27.0-31.0) H Mean Corpuscular Hemoglobin Concent 32.3 G/DL (32.0-36.0) Red Cell Distribution Width 12.0 % (11.6-14.8) Platelet Count 153 K/UL (150-450) Mean Platelet Volume 7.6 FL (6.5-10.1) Neutrophils (%) (Auto) 77.2 % (45.0-75.0) H Lymphocytes (%) (Auto) 12.3 % (20.0-45.0) L Monocytes (%) (Auto) 6.4 % (1.0-10.0) Eosinophils (%) (Auto) 3.5 % (0.0-3.0) H Basophils (%) (Auto) 0.6 % (0.0-2.0) Sodium Level 142 MMOL/L (136-145) Potassium Level 3.8 MMOL/L (3.5-5.1) Chloride Level 106 MMOL/L (98-107) Carbon Dioxide Level 31 MMOL/L (21-32) Anion Gap 5 mmol/L (5-15) Blood Urea Nitrogen 8 mg/dL (7-18) Creatinine 0.5 MG/DL (0.55-1.30) L Estimat Glomerular Filtration Rate mL/min (>60) Glucose Level 116 MG/DL (74-106) H Calcium Level 8.6 MG/DL (8.5-10.1) Magnesium Level 2.0 MG/DL (1.8-2.4) Total Bilirubin 0.8 MG/DL (0.2-1.0) Aspartate Amino Transf (AST/SGOT) 8 U/L (15-37) L Alanine Aminotransferase (ALT/SGPT) 12 U/L (12-78) Alkaline Phosphatase 41 U/L (46-116) L Pro-B-Type Natriuretic Peptide 214 pg/mL (0-125) H Total Protein 6.4 G/DL (6.4-8.2) Albumin 3.0 G/DL (3.4-5.0) L Globulin 3.4 g/dL Albumin/Globulin Ratio 0.9 (1.0-2.7) L Current Medications Medications (Trade) Dose Ordered Sig/Regino Route PRN Reason Start Time Stop Time Status Last Admin Dose Admin Acetaminophen (Tylenol) 650 mg Q6H PRN ORAL Mild Pain/Temp > 100.5 04/27/17 18:00 05/22/17 17:59 Artificial Tears (Akwa-Tears) 2 drop Q8HR BOTH EYES 04/27/17 22:00 05/25/17 13:59 04/28/17 06:21 Atorvastatin Calcium (Lipitor) 10 mg BEDTIME GT 04/27/17 21:00 05/27/17 20:59 04/27/17 21:45 Dextrose/Sodium Chloride 1,000 ml @ 85 mls/hr [id number] IV 04/27/17 18:00 05/24/17 17:59 04/28/17 06:21 Docusate Sodium (Colace) 100 mg BID GT 04/27/17 18:00 05/27/17 17:59 04/28/17 09:48 Heparin Sodium (Porcine) (Heparin 5000 units/ml) 5,000 units EVERY 12 HOURS SUBQ 04/27/17 21:00 05/22/17 10:59 04/28/17 09:49 Metoprolol Tartrate (Lopressor) 50 mg Q12HR GT 04/28/17 09:30 05/28/17 09:29 04/28/17 09:49 Piperacillin Sod/ Tazobactam Sod 3.375 gm/Dextrose 55 ml @ 13.75 mls/ hr EVERY 8 HOURS IVPB 04/27/17 22:00 05/04/17 13:59 04/28/17 06:21 Polyethylene Glycol (Miralax) 17 gm DAILYPRN PRN GT Constipation 04/27/17 18:00 05/27/17 17:59 Ranitidine HCl (Zantac) 150 mg TWICE A DAY GT 04/27/17 18:00 05/22/17 08:59 04/28/17 09:49 Sennosides (Senokot) 8.6 mg BEDTIME GT 04/27/17 21:00 05/27/17 20:59 04/27/17 21:45 Tamsulosin HCl (Flomax) 0.4 mg BEDTIME ORAL 04/27/17 21:00 05/27/17 20:59 04/27/17 21:45 Vancomycin HCl (Vanco rx to dose) 1 ea DAILY PRN MISC Per rx protocol 04/27/17 18:00 05/27/17 17:59 Vancomycin HCl 1 gm/Dextrose 275 ml @ 183.708 mls/hr Q12H IVPB 04/28/17 02:00 05/02/17 13:59 04/28/17 02:16 KELI SALAS Apr 28, 2017 11:22
[2017-04-28 11:37] VITALS: BP 128/73
[2017-04-28 16:03] VITALS: BP 130/86
[2017-04-28 20:02] VITALS: BP 114/76
[2017-04-28] MEDS: Sennosides 8.6mg GT SCH (21:00)
[2017-04-28] MEDS: Tamsulosin 0.4mg cap ORAL SCH (21:07)
--- NOTE | 2017-04-28 23:30 | Progress Note ---
DATE: 04/26/2017 CARDIOLOGY PROGRESS NOTE SUBJECTIVE: The patient remains intubated, agitated and anxious and has required resumption of sedation. OBJECTIVE: VITAL SIGNS: Blood pressure 122/74, pulse 112, respiratory rate 26 and temperature 99.3 degrees. LUNGS: Coarse breath sounds. Scattered rhonchi. HEART: Regular rhythm. Rapid rate. Normal S1 and S2. ABDOMEN: Soft. No edema. LABORATORY AND DIAGNOSTIC DATA: White count 8.1 and hemoglobin 11.3. ABG, pH 7.40, pCO2 41, and pO2 80. Potassium 3.1. Albumin 2.3. IMPRESSION: 1. Respiratory failure, acute on chronic respiratory acidosis. 2. Hypokalemia. 3. Severe protein-calorie malnutrition. 4. Anemia. 5. Secondary sinus tachycardia. 6. Dementia with agitation. 7. Metabolic encephalopathy. 8. Toxic encephalopathy. 9. Healthcare-acquired pneumonia. 10. Recovered shock due to sepsis. PLAN: 1. Antimicrobials. 2. Weaning efforts. 3. Potassium replacement. 4. Protein supplement by feeding tube. 5. DVT and stress ulcer prophylaxis. 6. Adjust hydration by IV route based on clinical parameters. Shayne Sams M.D. DR: CHANDRAKANT JOB#: [id number] CC:
--- NOTE | 2017-04-28 23:45 | Progress Note ---
DATE: 04/25/2017 SUBJECTIVE: The patient required re-intubation due to worsening respiratory acidosis and is off sedation. OBJECTIVE: VITAL SIGNS: Blood pressure 115/62, pulse 80, respiratory rate 20, and afebrile. LUNGS: Coarse breath sounds. No wheezing. HEART: Regular rhythm and rate. Normal S1, S2. ABDOMEN: Soft. EXTREMITIES: No edema. LABORATORY DATA: ABG today, 7.40/43/73. IMPRESSION: 1. Chronic obstructive pulmonary disease exacerbation. 2. Respiratory failure. 3. Acute on chronic respiratory acidosis, recovered. 4. Shock due to sepsis. 5. Severe protein-calorie malnutrition. PLAN: 1. Continue weaning efforts. No sedation. 2. Check lytes/Mg levels. 3. Nutrition by NG tube. 4. DVT and stress ulcer prophylaxis. 5. Monitor volume status and cardiorenal parameters. 6. Continue acetazolamide to help stimulate respiratory drive in the setting of metabolic alkalosis. Patsy Thomas JOB#: [id number] CC: ANGELICA
--- NOTE | 2017-04-28 23:45 | Progress Note ---
DATE: 04/28/2017 CARDIOLOGY PROGRESS NOTE SUBJECTIVE: The patient remains extubated. No respiratory distress. ABG today, 7.31, 60 and 69. Swallow evaluation pending. He is on NG-tube feeds. OBJECTIVE: VITAL SIGNS: Blood pressure 124/78, pulse 104, respiratory rate 20 and afebrile. LUNGS: Slightly diminished breath sounds. No wheezing. HEART: Regular rhythm rate. Normal S1 and S2. ABDOMEN: Soft. No edema. LABORATORY AND DIAGNOSTIC DATA: Pro-natriuretic peptide 214. Sputum is positive for Staph aureus. Nares had MRSA. Magnesium 2. Potassium 3.8, BUN 8, and creatinine 0.5. Albumin 3. IMPRESSION: 1. Methicillin resistant Staphylococcus aureus pneumonia. 2. Acute on chronic respiratory acidosis. 3. Status post respiratory failure. 4. Chronic obstructive pulmonary disease exacerbation. 5. Hypokalemia corrected. 6. [id number] protein calorie malnutrition. PLAN: 1. Await swallow evaluation. 2. Monitor acid-base parameters. 3. May need BiPAP intermittently. 4. DVT prophylaxis. 5. Antimicrobials per Infectious Disease eligibility consultant. Shayne Sams M.D. DR: CHANDRAKANT JOB#: [id number] CC:
[2017-04-29] VITALS: BP 102/72
--- NOTE | 2017-04-29 | Progress Note ---
DATE: 04/24/2017 CARDIOLOGY PROGRESS NOTE SUBJECTIVE: The patient was extubated. He received Ativan last evening for agitation. He remains quite sedated. He cannot be aroused. ABG reviewed, pH 7.23, pCO2 71, pO2 102. PHYSICAL EXAMINATION: VITAL SIGNS: Blood pressure 147/53, pulse 119, and respirations 16. Monitor, sinus tachycardia. No fever. GENERAL: Poorly responsive. LUNGS: Coarse breath sounds. HEART: Regular rhythm. Rapid rate. Normal S1, S2. ABDOMEN: Soft. No edema. IMPRESSION: 1. Respiratory failure. 2. Acute on chronic respiratory acidosis. 3. Chronic obstructive pulmonary disease exacerbation. 4. Sinus tachycardia. 5. Recovered shock, remains critical and guarded. PLAN: 1. Discontinue all sedation. 2. BiPAP support. May need re-intubation. 3. Nutrition by NG tube. 4. Antimicrobials. 5. Respiratory hygiene. 6. DVT and stress ulcer prophylaxis. Shayne Sams M.D. DR: HEATHER JOB#: [id number] CC:
[2017-04-29] MEDS: Vancomycin 1 GM in D5W 275 ML IVPB SCH ×2 (03:04→14:17)
[2017-04-29 04:00] VITALS: BP 118/75
[2017-04-29] MEDS: D5NS 1,000 ML IV SCH (05:11)
[2017-04-29] MEDS: Artificial Tears 1.4% Op Soln BOTH EYES SCH ×3 (05:42→21:52)
[2017-04-29] MEDS: Piperacillin/Tazobactam 3.375 GM in D5W 55 ML IVPB SCH (05:42)
[2017-04-29 08:06] VITALS: BP 117/77
--- NOTE | 2017-04-29 08:24 | Critical Care Progress Note ---
Assessment/Plan Assessment/Plan IMPRESSION respiratory failure COPD Pneumonia acute respiratory acidosis thrombocytopenia history of CVA history of TIA hypertension per history encephalopathy PLAN ventilator management off repeat ABG- with noted acidemia IV antibiotics reviewed respiratory care and suction oxygen ventilator management off titrate oxygen SNF meds monitor LOC- monitor airway nutrition and monitor residuals BIPAP QHS and PRN follow up acid base medications/laboratory data/nursing notes reviewed in detail note reviewed and edited care discussed with RN and RT Critical Care - Subjective Interval Events: overnight events noted some co2 retention BIPAP written ROS Limited/Unobtainable: Yes EKG Rhythm: Sinus Rhythm I&O: Intake and Output 04/29/17 04/30/17 19:00 07:00 Output Total 120 ml Balance -120 ml Output Urine Total 120 ml # Voids 1 Critical Care - Objective ET-Tube: 8.0 ET Position: 22 Last 24 Hour Vital Signs Date Time Temp Pulse Resp B/P (MAP) Pulse Ox O2 Delivery O2 Flow Rate FiO2 04/29/17 08:06 97.2 77 20 117/77 98 04/29/17 06:57 86 Bi-pap 30 04/29/17 06:52 86 20 98 Full Face 30 04/29/17 06:51 Bi-pap 30 04/29/17 06:50 98 Bi-pap 30 04/29/17 05:17 78 20 100 Full Face 30 04/29/17 04:01 20 99 Bi-pap 30 04/29/17 04:00 97.2 84 20 118/75 97 15.0 30 04/29/17 04:00 82 04/29/17 03:25 80 20 100 Full Face 30 04/29/17 01:06 82 20 100 Full Face 30 04/29/17 00:00 97.2 76 20 102/72 99 Bi-pap 15.0 30 04/29/17 00:00 78 04/29/17 00:00 Bi-pap 30 04/28/17 23:14 79 23 100 Full Face 30 04/28/17 21:25 80 20 98 Full Face 30 04/28/17 21:06 81 114/76 04/28/17 20:02 97.5 81 20 114/76 99 Bi-pap 15.0 30 04/28/17 20:00 20 99 Bi-pap 30 04/28/17 20:00 82 04/28/17 19:58 99 Bi-pap 2.0 30 04/28/17 19:58 82 20 99 Full Face 30 04/28/17 19:58 Bi-pap 2.0 30 04/28/17 16:03 97.5 92 20 130/86 97 04/28/17 16:00 79 04/28/17 14:55 77 20 98 Full Face 15.0 30 04/28/17 12:00 71 04/28/17 11:37 97.0 75 20 128/73 98 04/28/17 09:49 104 124/78 04/28/17 08:27 97.2 104 20 124/78 95 Labs: Laboratory Tests Test 04/28/17 12:55 Vancomycin Level Trough 15.6 ug/mL (5.0-12.0) H Objective: WDWN extubated NAD coarse breath sounds bilaterally with some rhonchi [id number] without MRG NABS nontender no HSM no CC mild edema poor LOC; nonfocal skin noted lines noted reviewed and edited Micro: Microbiology Date/Time Source Procedure Growth Status 04/26/17 11:25 Sputum Gram Stain - Final Complete 04/26/17 11:25 Sputum Culture - Final Staphylococcus Aureus - Mrsa Latoya Albicans Complete HUSSEIN MARTINEZ Apr 29, 2017 08:24
--- NOTE | 2017-04-29 08:29 | General Progress Note ---
Assessment/Plan Problem List: (1) Altered level of consciousness ICD Codes: R40.4 - Transient alteration of awareness SNOMED: 6752479 (2) COPD exacerbation ICD Codes: J44.1 - Chronic obstructive pulmonary disease with (acute) exacerbation SNOMED: 711392289183473 (3) Hypercapnia ICD Codes: R06.89 - Other abnormalities of breathing SNOMED: 54734744 (4) PNA (pneumonia) ICD Codes: J18.9 - Pneumonia, unspecified organism SNOMED: 893508502 (5) Respiratory failure ICD Codes: J96.90 - Respiratory failure, unspecified, unspecified whether with hypoxia or hypercapnia SNOMED: 031001059 Status: stable Assessment/Plan resp rx o2 iv abx dvt/stress ulcer prophylaxis ngt feeds abx monitor cxr family deciding on GT Subjective ROS Limited/Unobtainable: No Constitutional: Reports: malaise, weakness HEENT: Reports: no symptoms Cardiovascular: Reports: no symptoms Respiratory: Reports: cough, sputum Gastrointestinal/Abdominal: Reports: difficulty swallowing Genitourinary: Reports: no symptoms Neurologic/Psychiatric: Reports: pre-existing deficit Endocrine: Reports: no symptoms Hematologic/Lymphatic: Reports: anemia Allergies: Coded Allergies: No Known Allergies (Unverified , 04/21/17) All Systems: reviewed and negative except above Subjective no events. w/o complaints. remains on ngt feeds. failed swallow eval. per ST high risk for aspiration Objective Last 24 Hour Vital Signs Date Time Temp Pulse Resp B/P (MAP) Pulse Ox O2 Delivery O2 Flow Rate FiO2 04/29/17 08:06 97.2 77 20 117/77 98 04/29/17 06:57 86 Bi-pap 30 04/29/17 06:52 86 20 98 Full Face 30 04/29/17 06:51 Bi-pap 30 04/29/17 06:50 98 Bi-pap 30 04/29/17 05:17 78 20 100 Full Face 30 04/29/17 04:01 20 99 Bi-pap 30 04/29/17 04:00 97.2 84 20 118/75 97 15.0 30 04/29/17 04:00 82 04/29/17 03:25 80 20 100 Full Face 30 04/29/17 01:06 82 20 100 Full Face 30 04/29/17 00:00 97.2 76 20 102/72 99 Bi-pap 15.0 30 04/29/17 00:00 78 04/29/17 00:00 Bi-pap 30 04/28/17 23:14 79 23 100 Full Face 30 04/28/17 21:25 80 20 98 Full Face 30 04/28/17 21:06 81 114/76 04/28/17 20:02 97.5 81 20 114/76 99 Bi-pap 15.0 30 04/28/17 20:00 20 99 Bi-pap 30 04/28/17 20:00 82 04/28/17 19:58 99 Bi-pap 2.0 30 04/28/17 19:58 82 20 99 Full Face 30 04/28/17 19:58 Bi-pap 2.0 30 04/28/17 16:03 97.5 92 20 130/86 97 04/28/17 16:00 79 04/28/17 14:55 77 20 98 Full Face 15.0 30 04/28/17 12:00 71 04/28/17 11:37 97.0 75 20 128/73 98 04/28/17 09:49 104 124/78 04/28/17 08:27 97.2 104 20 124/78 95 Intake and Output 04/29/17 04/30/17 19:00 07:00 Output Total 120 ml Balance -120 ml Output Urine Total 120 ml # Voids 1 Laboratory Tests 04/28/17 12:55: Vancomycin Level Trough 15.6H Height (Feet): 5 Height (Inches): 5.00 Weight (Pounds): 140 Objective General Appearance: lethargic, confused. on nasal cannula Neck: supple Cardiovascular: normal rate Respiratory/Chest: lungs clear, normal breath sounds, no respiratory distress Abdomen: normal bowel sounds, non tender, soft, no organomegaly Edema: no edema noted Arm (L), no edema noted Arm (R), no edema noted Leg (L), no edema noted Leg (R), no edema noted Pedal (L), no edema noted Pedal (R), no edema noted Generalized Neurologic: disoriented MARTIN HERNÁNDEZ Apr 29, 2017 08:29
[2017-04-29] MEDS: Metoprolol Tartrate 50mg tab GT SCH ×2 (09:26→21:24)
[2017-04-29] MEDS: Docusate 100mg/10ml Liq GT SCH ×2 (09:26→17:39)
[2017-04-29] MEDS: Heparin 5000 units/ml inj SUBQ SCH ×2 (09:29→21:34)
[2017-04-29 10:18] LABS: ABG PCO2 56.2 mmHg (35.0-45.0)
[2017-04-29 10:19] LABS: ABG ALLEN TEST POSITIVE; ABG BASE EXCESS 6.1
[2017-04-29 11:47] VITALS: BP 110/67
--- NOTE | 2017-04-29 12:01 | Diagnostic Imaging Report ---
Indication: SOB Technique: One view of the chest Comparison: 04/27/2017 Findings: There is slight improvement of parenchymal disease in the inferior right upper lobe and within the right lower lobe, although disease persists. Mostly reticular interstitial changes in the left lung persists, unchanged. Left-sided pleural effusion persists. Nasogastric tube is again demonstrated. Heart size is normal. Aorta is tortuous and calcified Impression: Slight improvement but persistence of parenchymal disease on the right. Unchanged pleural and parenchymal disease on the left, over 2 days Other findings as noted
--- NOTE | 2017-04-29 12:04 | Infectious Diseases Prog Note ---
Assessment/Plan Assessment/Plan antibiotics : vancomycin in , zosyn A 1. MRSA pneumonia 2. COPD 3. MRSA nasal colonization 4. CVA 5. sinusitis 6. respiratory failure P 1. continue vancomycin iv 2. d/c zosyn 3. will follow up cultures Subjective ROS Limited/Unobtainable: Yes Allergies: Coded Allergies: No Known Allergies (Unverified , 04/21/17) Objective Vital Signs Last 24 Hour Vital Signs Date Time Temp Pulse Resp B/P (MAP) Pulse Ox O2 Delivery O2 Flow Rate FiO2 04/29/17 11:47 97.5 72 20 110/67 98 04/29/17 10:58 77 21 99 Full Face 30 04/29/17 09:26 82 117/77 04/29/17 08:59 82 21 99 Full Face 30 04/29/17 08:06 97.2 77 20 117/77 98 04/29/17 08:00 83 04/29/17 06:57 86 Bi-pap 30 04/29/17 06:52 86 20 98 Full Face 30 04/29/17 06:51 Bi-pap 30 04/29/17 06:50 98 Bi-pap 30 04/29/17 05:17 78 20 100 Full Face 30 04/29/17 04:01 20 99 Bi-pap 30 04/29/17 04:00 97.2 84 20 118/75 97 15.0 30 04/29/17 04:00 82 04/29/17 03:25 80 20 100 Full Face 30 04/29/17 01:06 82 20 100 Full Face 30 04/29/17 00:00 97.2 76 20 102/72 99 Bi-pap 15.0 30 04/29/17 00:00 78 04/29/17 00:00 Bi-pap 30 04/28/17 23:14 79 23 100 Full Face 30 04/28/17 21:25 80 20 98 Full Face 30 04/28/17 21:06 81 114/76 04/28/17 20:02 97.5 81 20 114/76 99 Bi-pap 15.0 30 04/28/17 20:00 20 99 Bi-pap 30 04/28/17 20:00 82 04/28/17 19:58 99 Bi-pap 2.0 30 04/28/17 19:58 82 20 99 Full Face 30 04/28/17 19:58 Bi-pap 2.0 30 04/28/17 16:03 97.5 92 20 130/86 97 04/28/17 16:00 79 04/28/17 14:55 77 20 98 Full Face 15.0 30 Height (Feet): 5 Height (Inches): 5.00 Weight (Pounds): 140 HEENT: other - on bipap Respiratory/Chest: lungs clear Cardiovascular: normal rate, regular rhythm, no gallop/murmur Abdomen: soft, non tender Extremities: no edema Laboratory Tests Test 04/28/17 12:55 04/29/17 10:06 Vancomycin Level Trough 15.6 ug/mL (5.0-12.0) H Arterial Blood pH 7.380 (7.350-7.450) Arterial Blood Partial Pressure CO2 56.2 mmHg (35.0-45.0) *H Arterial Blood Partial Pressure O2 81.1 mmHg (75.0-100.0) Arterial Blood HCO3 32.6 mmol/L (22.0-26.0) H Arterial Blood Oxygen Saturation 96.0 % (92.0-98.0) Arterial Blood Base Excess 6.1 Pineda Test Positive JENNY CHAN Apr 29, 2017 12:04
[2017-04-29 15:45] VITALS: BP 123/74
[2017-04-29] MEDS ORDERED: D5NS 1000ml IV ONE (16:36)
--- NOTE | 2017-04-29 17:17 | Cardiology Report ---
APPROVED REPORT EKG Measurement Heart [id number] Sinus tachycardia Biatrial enlargement Abnormal ECG
[2017-04-29 20:50] VITALS: BP 140/80
[2017-04-29] MEDS: Sennosides 8.6mg GT SCH (21:24)
[2017-04-29] MEDS: Tamsulosin 0.4mg cap ORAL SCH (21:24)
[2017-04-29] MEDS: NS w/KCl 20mEq 1,000 ML IV SCH (21:51)
--- NOTE | 2017-04-29 23:45 | Progress Note ---
DATE: 04/29/2017 CARDIOLOGY PROGRESS NOTE SUBJECTIVE: The patient remains at high risk for aspiration failing a swallow evaluation. He is on NG-tube feedings. Family members are considering G-tube. OBJECTIVE: VITAL SIGNS: Afebrile, blood pressure 117/77, pulse 77, and respirations 20. LUNGS: Coarse breath sounds. No wheezing. HEART: Regular rhythm and rate. Normal S1 and S2. ABDOMEN: Soft. EXTREMITIES: No edema. LABORATORY DATA: Arterial blood gas today pH 7.38, pCO2 56, and pO2 81. IMPRESSION: 1. Status post respiratory failure. 2. Acute on chronic respiratory acidosis, resolved. 3. Compensatory metabolic alkalosis, resolved. 4. Dysphagia. 5. Chronic obstructive pulmonary disease with exacerbation. 6. Dementia. PLAN: 1. Maintain hydration and G-tube feeds. 2. Aspiration precautions. 3. Speech therapy. 4. Monitor acid-base parameters. 5. Monitor volume status. 6. Adjust IV fluids. 7. DVT and stress ulcer prophylaxes. Shayne Sams M.D. DR: DUSTIN JOB#: [id number] CC:
[2017-04-30] VITALS: BP 123/73
[2017-04-30] MEDS: Vancomycin 1 GM in D5W 275 ML IVPB SCH ×2 (02:20→14:11)
[2017-04-30 04:00] VITALS: BP 136/81
[2017-04-30] MEDS: Artificial Tears 1.4% Op Soln BOTH EYES SCH ×3 (06:12→21:29)
[2017-04-30 08:00] VITALS: BP 120/74
--- NOTE | 2017-04-30 08:09 | General Progress Note ---
Assessment/Plan Problem List: (1) Altered level of consciousness ICD Codes: R40.4 - Transient alteration of awareness SNOMED: 2238575 (2) COPD exacerbation ICD Codes: J44.1 - Chronic obstructive pulmonary disease with (acute) exacerbation SNOMED: 653526288719895 (3) Hypercapnia ICD Codes: R06.89 - Other abnormalities of breathing SNOMED: 84849300 (4) PNA (pneumonia) ICD Codes: J18.9 - Pneumonia, unspecified organism SNOMED: 892083953 (5) Respiratory failure ICD Codes: J96.90 - Respiratory failure, unspecified, unspecified whether with hypoxia or hypercapnia SNOMED: 492692623 Status: stable, progressing Assessment/Plan resp rx bipap o2 iv abx dvt/stress ulcer prophylaxis ngt feeds abx monitor cxr family ok with gt when stable Subjective ROS Limited/Unobtainable: Yes Constitutional: Reports: malaise, weakness HEENT: Reports: no symptoms Cardiovascular: Reports: no symptoms Respiratory: Reports: shortness of breath Gastrointestinal/Abdominal: Reports: difficulty swallowing Genitourinary: Reports: no symptoms Neurologic/Psychiatric: Reports: pre-existing deficit Endocrine: Reports: no symptoms Hematologic/Lymphatic: Reports: no symptoms Allergies: Coded Allergies: No Known Allergies (Unverified , 04/21/17) All Systems: reviewed and negative except above Subjective back on bipap for resp acidosis. alert. opens eyes. smiles. d/w family- pt's sister who want to proceed with gt placement when stable Objective Last 24 Hour Vital Signs Date Time Temp Pulse Resp B/P (MAP) Pulse Ox O2 Delivery O2 Flow Rate FiO2 04/30/17 05:06 62 19 97 Facial 30 04/30/17 04:00 98.0 98 20 136/81 98 Bi-pap 04/30/17 04:00 Bi-pap 30 04/30/17 04:00 70 04/30/17 02:35 72 20 96 Facial 30 04/30/17 00:59 68 21 97 Facial 30 04/30/17 00:00 67 04/30/17 00:00 97.3 64 18 123/73 97 Bi-pap 30 04/29/17 22:31 64 26 96 Facial 30 04/29/17 21:24 83 140/80 04/29/17 20:50 98.0 83 20 140/80 98 Bi-pap 04/29/17 20:48 84 20 97 Facial 30 04/29/17 20:00 Bi-pap 04/29/17 19:40 81 22 96 Full Face 30 04/29/17 17:03 73 22 98 Full Face 30 04/29/17 16:00 85 04/29/17 15:45 97.0 75 20 123/74 98 04/29/17 15:08 75 22 98 Full Face 30 04/29/17 12:55 72 21 98 Full Face 30 04/29/17 12:00 65 04/29/17 11:47 97.5 72 20 110/67 98 04/29/17 10:58 77 21 99 Full Face 30 04/29/17 09:26 82 117/77 04/29/17 08:59 82 21 99 Full Face 30 Laboratory Tests 04/29/17 10:06: Arterial Blood pH 7.380, Arterial Blood Partial Pressure CO2 56.2*H, Arterial Blood Partial Pressure O2 81.1, Arterial Blood HCO3 32.6H, Arterial Blood Oxygen Saturation 96.0, Arterial Blood Base Excess 6.1, Pineda Test Positive Height (Feet): 5 Height (Inches): 5.00 Weight (Pounds): 146 Objective General Appearance: lethargic, confused. on bipap Neck: supple Cardiovascular: normal rate Respiratory/Chest: lungs clear, normal breath sounds, no respiratory distress Abdomen: normal bowel sounds, non tender, soft, no organomegaly Edema: no edema noted Arm (L), no edema noted Arm (R), no edema noted Leg (L), no edema noted Leg (R), no edema noted Pedal (L), no edema noted Pedal (R), no edema noted Generalized Neurologic: disoriented MARTIN HERNÁNDEZ Apr 30, 2017 08:09
--- NOTE | 2017-04-30 08:35 | Critical Care Progress Note ---
Assessment/Plan Assessment/Plan IMPRESSION respiratory failure COPD Pneumonia acute respiratory acidosis thrombocytopenia history of CVA history of TIA hypertension per history encephalopathy PLAN ventilator management off repeat ABG- noted IV antibiotics per ID respiratory care and suction oxygen titrate oxygen SNF meds monitor LOC- monitor airway nutrition and monitor residuals BIPAP QHS and PRN follow up acid base as needed medications/laboratory data/nursing notes reviewed in detail note reviewed and edited care discussed with RN and RT Critical Care - Subjective Interval Events: abg noted care reviewed vital signs noted Condition: stable EKG Rhythm: Sinus Rhythm Critical Care - Objective CXR: some improvement ET-Tube: 8.0 ET Position: 22 Last 24 Hour Vital Signs Date Time Temp Pulse Resp B/P (MAP) Pulse Ox O2 Delivery O2 Flow Rate FiO2 04/30/17 08:00 98.0 73 20 120/74 96 Bi-pap 04/30/17 05:06 62 19 97 Facial 30 04/30/17 04:00 98.0 98 20 136/81 98 Bi-pap 04/30/17 04:00 Bi-pap 30 04/30/17 04:00 70 04/30/17 02:35 72 20 96 Facial 30 04/30/17 00:59 68 21 97 Facial 30 04/30/17 00:00 67 04/30/17 00:00 97.3 64 18 123/73 97 Bi-pap 30 04/29/17 22:31 64 26 96 Facial 30 04/29/17 21:24 83 140/80 04/29/17 20:50 98.0 83 20 140/80 98 Bi-pap 04/29/17 20:48 84 20 97 Facial 30 04/29/17 20:00 Bi-pap 04/29/17 19:40 81 22 96 Full Face 30 04/29/17 17:03 73 22 98 Full Face 30 04/29/17 16:00 85 04/29/17 15:45 97.0 75 20 123/74 98 04/29/17 15:08 75 22 98 Full Face 30 04/29/17 12:55 72 21 98 Full Face 30 04/29/17 12:00 65 04/29/17 11:47 97.5 72 20 110/67 98 04/29/17 10:58 77 21 99 Full Face 30 04/29/17 09:26 82 117/77 04/29/17 08:59 82 21 99 Full Face 30 Labs: Laboratory Tests Test 04/29/17 10:06 Arterial Blood pH 7.380 (7.350-7.450) Arterial Blood Partial Pressure CO2 56.2 mmHg (35.0-45.0) *H Arterial Blood Partial Pressure O2 81.1 mmHg (75.0-100.0) Arterial Blood HCO3 32.6 mmol/L (22.0-26.0) H Arterial Blood Oxygen Saturation 96.0 % (92.0-98.0) Arterial Blood Base Excess 6.1 Pineda Test Positive Objective: WDWN extubated NAD coarse breath sounds bilaterally with minimal rhonchi [id number] without MRG NABS nontender no HSM no CC mild edema poor LOC; nonfocal skin noted lines noted reviewed and edited HUSSEIN MARTINEZ Apr 30, 2017 08:35
[2017-04-30] MEDS: Docusate 100mg/10ml Liq GT SCH ×2 (09:08→18:07)
[2017-04-30] MEDS: Metoprolol Tartrate 50mg tab GT SCH ×2 (09:09→21:21)
[2017-04-30] MEDS: Heparin 5000 units/ml inj SUBQ SCH ×2 (09:09→21:29)
--- NOTE | 2017-04-30 11:09 | Infectious Diseases Prog Note ---
Assessment/Plan Assessment/Plan A: 1 pneumonia, Staph aureus in culture 2. COPD 3. MRSA nasal colonization 4. CVA 5. sinusitis 6. respiratory failure on BIPAP P 1. continue vancomycin 2. will follow up cultures Subjective ROS Limited/Unobtainable: Yes Allergies: Coded Allergies: No Known Allergies (Unverified , 04/21/17) Objective Vital Signs Last 24 Hour Vital Signs Date Time Temp Pulse Resp B/P (MAP) Pulse Ox O2 Delivery O2 Flow Rate FiO2 04/30/17 09:09 73 120/74 04/30/17 08:00 98.0 73 20 120/74 96 Bi-pap 04/30/17 08:00 75 04/30/17 05:06 62 19 97 Facial 30 04/30/17 04:00 98.0 98 20 136/81 98 Bi-pap 04/30/17 04:00 Bi-pap 30 04/30/17 04:00 70 04/30/17 02:35 72 20 96 Facial 30 04/30/17 00:59 68 21 97 Facial 30 04/30/17 00:00 67 04/30/17 00:00 97.3 64 18 123/73 97 Bi-pap 30 04/29/17 22:31 64 26 96 Facial 30 04/29/17 21:24 83 140/80 04/29/17 20:50 98.0 83 20 140/80 98 Bi-pap 04/29/17 20:48 84 20 97 Facial 30 04/29/17 20:00 Bi-pap 04/29/17 19:40 81 22 96 Full Face 30 04/29/17 17:03 73 22 98 Full Face 30 04/29/17 16:00 85 04/29/17 15:45 97.0 75 20 123/74 98 04/29/17 15:08 75 22 98 Full Face 30 04/29/17 12:55 72 21 98 Full Face 30 04/29/17 12:00 65 04/29/17 11:47 97.5 72 20 110/67 98 Height (Feet): 5 Height (Inches): 5.00 Weight (Pounds): 146 HEENT: mucous membranes moist Respiratory/Chest: decreased breath sounds, other - on BIPAP Cardiovascular: normal rate Abdomen: soft, non tender, other - NG tube feeding Extremities: no edema Neurologic/Psychiatric: alert, responsive Current Medications Medications (Trade) Dose Ordered Sig/Regino Route PRN Reason Start Time Stop Time Status Last Admin Dose Admin Acetaminophen (Tylenol) 650 mg Q6H PRN ORAL Mild Pain/Temp > 100.5 04/27/17 18:00 05/22/17 17:59 Artificial Tears (Akwa-Tears) 2 drop Q8HR BOTH EYES 04/27/17 22:00 05/25/17 13:59 04/30/17 06:12 Atorvastatin Calcium (Lipitor) 10 mg BEDTIME GT 04/27/17 21:00 05/27/17 20:59 04/29/17 21:25 Docusate Sodium (Colace) 100 mg BID GT 04/27/17 18:00 05/27/17 17:59 04/30/17 09:08 Heparin Sodium (Porcine) (Heparin 5000 units/ml) 5,000 units EVERY 12 HOURS SUBQ 04/27/17 21:00 05/22/17 10:59 04/30/17 09:09 Metoprolol Tartrate (Lopressor) 50 mg Q12HR GT 04/28/17 09:30 05/28/17 09:29 04/30/17 09:09 Polyethylene Glycol (Miralax) 17 gm DAILYPRN PRN GT Constipation 04/27/17 18:00 05/27/17 17:59 Ranitidine HCl (Zantac) 150 mg TWICE A DAY GT 04/27/17 18:00 05/22/17 08:59 04/30/17 09:09 Sennosides (Senokot) 8.6 mg BEDTIME GT 04/27/17 21:00 05/27/17 20:59 04/29/17 21:24 Sodium Chloride 1,000 ml @ 75 mls/hr [id number] IV 04/29/17 21:15 05/29/17 21:14 04/29/17 21:51 Tamsulosin HCl (Flomax) 0.4 mg BEDTIME ORAL 04/27/17 21:00 05/27/17 20:59 04/29/17 21:24 Vancomycin HCl (Vanco rx to dose) 1 ea DAILY PRN MISC Per rx protocol 04/27/17 18:00 05/27/17 17:59 Vancomycin HCl 1 gm/Dextrose 275 ml @ 183.708 mls/hr Q12H IVPB 04/28/17 02:00 05/02/17 13:59 04/30/17 02:20 KELI SALAS Apr 30, 2017 11:09
[2017-04-30 11:26] LABS: BASOPHILS % (AUTO) 0.7 % (0.0-2.0); EOSINOPHILS % (AUTO) 3.1 % (0.0-3.0); LYMPHOCYTES % (AUTO) 11.6 % (20.0-45.0); MEAN CORPUSCULAR HEMOGLOBIN 33.7 PG (27.0-31.0); MEAN CORPUSCULAR HGB CONC 32.2 G/DL (32.0-36.0); MEAN CORPUSCULAR VOLUME 105 FL (80-99); MEAN PLATELET VOLUME 6.3 FL (6.5-10.1); MONOCYTES % (AUTO) 8.7 % (1.0-10.0); NEUTROPHILS % (AUTO) 75.9 % (45.0-75.0); PLATELET COUNT 184 K/UL (150-450); RED BLOOD COUNT 3.35 M/UL (4.70-6.10); RED CELL DISTRIBUTION WIDTH 11.9 % (11.6-14.8); WHITE BLOOD COUNT 7.8 K/UL (4.8-10.8)
[2017-04-30 12:00] VITALS: BP 122/73
[2017-04-30] MEDS: NS w/KCl 20mEq 1,000 ML IV SCH (12:00)
[2017-04-30 12:04] LABS: ALANINE AMINOTRANSFERASE 16 U/L (12-78); ALBUMIN/GLOBULIN RATIO 0.8 (1.0-2.7); ANION GAP 2 mmol/L (5-15); ASPARTATE AMINO TRANSFERASE 11 U/L (15-37); CALCIUM 8.6 MG/DL (8.5-10.1); CARBON DIOXIDE 34 MMOL/L (21-32); CHLORIDE 104 MMOL/L (98-107); CREATININE 0.4 MG/DL (0.55-1.30); POTASSIUM 3.9 MMOL/L (3.5-5.1); SODIUM 139 MMOL/L (136-145); TOTAL PROTEIN 6.1 G/DL (6.4-8.2)
[2017-04-30] MEDS ORDERED: Sterile Water Irrig 1000ml IRRIG ONE (13:35)
[2017-04-30] MEDS ORDERED: D5NS 1000ml IV ONE (13:35)
[2017-04-30 16:27] VITALS: BP 137/77
[2017-04-30 20:03] VITALS: BP 138/80
[2017-04-30] MEDS: Tamsulosin 0.4mg cap ORAL SCH (21:20)
[2017-04-30] MEDS: Sennosides 8.6mg GT SCH (21:21)
[2017-04-30] MEDS ORDERED: acetaZOLAMIDE 500mg Inj IVP SCH (23:00)
--- NOTE | 2017-04-30 23:15 | Progress Note ---
DATE: 04/30/2017 CARDIOLOGY PROGRESS NOTE SUBJECTIVE: The patient remains on BiPAP support due to worsening acid-base parameters. Prior history obtained from skilled nursing staff revealing that the patient has had prolonged weaning problems in the past and was at [facility] for sometime. OBJECTIVE: VITAL SIGNS: Blood pressure 120/74, pulse 73, respirations 20, and afebrile. LUNGS: Bilateral breath sounds. No wheezing. HEART: Regular rhythm and rate. Normal S1 and S2. ABDOMEN: Soft. No edema. LABORATORY DATA: White count 7.8, hemoglobin 11.3. Sodium 139, potassium 3.9, bicarbonate 34, BUN 13, and creatinine 0.4. Albumin 2.7. IMPRESSION: 1. Acute on chronic respiratory acidosis. 2. Respiratory failure. 3. Metabolic alkalosis, compensatory. 4. Cerebrovascular disease. 5. Dysphagia. 6. Moderate protein-calorie malnutrition. PLAN: 1. BiPAP support. 2. Wean as able. 3. Resume acetazolamide to stimulate respiratory drive further. 4. Feedings by NG-tube. 5. Restraints for safety. 6. Monitor volume status and cardiorenal parameters closely. 7. Continue DVT and stress ulcer prophylaxes. 8. He will need permanent feeding tube once respiratory parameters were stable. If fails to improve over the next several days, may have to consider transfer to an LTAC. Shayne Sams M.D. DR: JUMANA JOB#: [id number] CC:
[2017-05-01] VITALS (7 sets, daily range): BP systolic 116–137; BP diastolic 70–82
[2017-05-01] MEDS: NS w/KCl 20mEq 1,000 ML IV SCH ×2 (00:05→13:12)
[2017-05-01] MEDS: Vancomycin 1 GM in D5W 275 ML IVPB SCH ×2 (01:40→14:01)
[2017-05-01] MEDS: Artificial Tears 1.4% Op Soln BOTH EYES SCH ×3 (06:53→19:55)
[2017-05-01 07:00] LABS: EOSINOPHILS % (AUTO) 3.6 % (0.0-3.0); LYMPHOCYTES % (AUTO) 14.7 % (20.0-45.0); MEAN CORPUSCULAR HEMOGLOBIN 34.2 PG (27.0-31.0); MEAN CORPUSCULAR HGB CONC 32.8 G/DL (32.0-36.0); MEAN CORPUSCULAR VOLUME 104 FL (80-99); NEUTROPHILS % (AUTO) 72.7 % (45.0-75.0); PLATELET COUNT 179 K/UL (150-450); RED BLOOD COUNT 3.49 M/UL (4.70-6.10); RED CELL DISTRIBUTION WIDTH 12.1 % (11.6-14.8); WHITE BLOOD COUNT 7.4 K/UL (4.8-10.8)
[2017-05-01 07:22] LABS: ALANINE AMINOTRANSFERASE 20 U/L (12-78); ALBUMIN/GLOBULIN RATIO 0.8 (1.0-2.7); ANION GAP 4 mmol/L (5-15); ASPARTATE AMINO TRANSFERASE 20 U/L (15-37); CALCIUM 8.8 MG/DL (8.5-10.1); CARBON DIOXIDE 32 MMOL/L (21-32); CHLORIDE 105 MMOL/L (98-107); CREATININE 0.5 MG/DL (0.55-1.30); POTASSIUM 4.1 MMOL/L (3.5-5.1); SODIUM 141 MMOL/L (136-145); TOTAL PROTEIN 6.7 G/DL (6.4-8.2)
--- NOTE | 2017-05-01 08:15 | Critical Care Progress Note ---
Assessment/Plan Assessment/Plan IMPRESSION respiratory failure COPD Pneumonia acute respiratory acidosis thrombocytopenia history of CVA history of TIA hypertension per history encephalopathy PLAN ventilator management off repeat ABG- noted IV antibiotics per ID respiratory care and suction oxygen titrate oxygen SNF meds monitor LOC- monitor airway nutrition and monitor residuals BIPAP QHS and PRN follow up acid base as needed medications/laboratory data/nursing notes reviewed in detail note reviewed and edited care discussed with RN and RT Critical Care - Subjective Interval Events: overall care noted no distress care as is EKG Rhythm: Sinus Rhythm Critical Care - Objective ET-Tube: 8.0 ET Position: 22 Last 24 Hour Vital Signs Date Time Temp Pulse Resp B/P (MAP) Pulse Ox O2 Delivery O2 Flow Rate FiO2 05/01/17 04:09 98.0 66 20 136/80 98 05/01/17 04:00 76 05/01/17 00:02 97.5 64 20 134/82 97 05/01/17 00:00 73 04/30/17 22:05 96 Nasal Cannula 2.0 28 04/30/17 22:05 Nasal Cannula 2.0 28 04/30/17 22:04 74 18 96 04/30/17 21:21 75 138/80 04/30/17 20:03 97.9 75 20 138/80 99 04/30/17 20:00 93 04/30/17 16:27 97.7 68 18 137/77 98 04/30/17 16:00 65 04/30/17 12:00 97.7 70 20 122/73 98 Bi-pap 04/30/17 12:00 68 04/30/17 09:09 73 120/74 Labs: Labs Test 04/28/17 08:15 04/28/17 12:55 04/29/17 10:06 04/30/17 11:15 White Blood Count 9.3 K/UL (4.8-10.8) 7.8 K/UL (4.8-10.8) Red Blood Count 3.81 M/UL (4.70-6.10) 3.35 M/UL (4.70-6.10) Hemoglobin 12.9 G/DL (14.2-18.0) 11.3 G/DL (14.2-18.0) Hematocrit 40.0 % (42.0-52.0) 35.0 % (42.0-52.0) Mean Corpuscular Volume 105 FL (80-99) 105 FL (80-99) Mean Corpuscular Hemoglobin 34.0 PG (27.0-31.0) 33.7 PG (27.0-31.0) Mean Corpuscular Hemoglobin Concent 32.3 G/DL (32.0-36.0) 32.2 G/DL (32.0-36.0) Red Cell Distribution Width 12.0 % (11.6-14.8) 11.9 % (11.6-14.8) Platelet Count 153 K/UL (150-450) 184 K/UL (150-450) Mean Platelet Volume 7.6 FL (6.5-10.1) 6.3 FL (6.5-10.1) Neutrophils (%) (Auto) 77.2 % (45.0-75.0) 75.9 % (45.0-75.0) Lymphocytes (%) (Auto) 12.3 % (20.0-45.0) 11.6 % (20.0-45.0) Monocytes (%) (Auto) 6.4 % (1.0-10.0) 8.7 % (1.0-10.0) Eosinophils (%) (Auto) 3.5 % (0.0-3.0) 3.1 % (0.0-3.0) Basophils (%) (Auto) 0.6 % (0.0-2.0) 0.7 % (0.0-2.0) Sodium Level 142 MMOL/L (136-145) 139 MMOL/L (136-145) Potassium Level 3.8 MMOL/L (3.5-5.1) 3.9 MMOL/L (3.5-5.1) Chloride Level 106 MMOL/L (98-107) 104 MMOL/L (98-107) Carbon Dioxide Level 31 MMOL/L (21-32) 34 MMOL/L (21-32) Anion Gap 5 mmol/L (5-15) 2 mmol/L (5-15) Blood Urea Nitrogen 8 mg/dL (7-18) 13 mg/dL (7-18) Creatinine 0.5 MG/DL (0.55-1.30) 0.4 MG/DL (0.55-1.30) Estimat Glomerular Filtration Rate mL/min (>60) mL/min (>60) Glucose Level 116 MG/DL (74-106) 131 MG/DL (74-106) Calcium Level 8.6 MG/DL (8.5-10.1) 8.6 MG/DL (8.5-10.1) Magnesium Level 2.0 MG/DL (1.8-2.4) 2.0 MG/DL (1.8-2.4) Total Bilirubin 0.8 MG/DL (0.2-1.0) 0.6 MG/DL (0.2-1.0) Aspartate Amino Transf (AST/SGOT) 8 U/L (15-37) 11 U/L (15-37) Alanine Aminotransferase (ALT/SGPT) 12 U/L (12-78) 16 U/L (12-78) Alkaline Phosphatase 41 U/L (46-116) 41 U/L (46-116) Pro-B-Type Natriuretic Peptide 214 pg/mL (0-125) Total Protein 6.4 G/DL (6.4-8.2) 6.1 G/DL (6.4-8.2) Albumin 3.0 G/DL (3.4-5.0) 2.7 G/DL (3.4-5.0) Globulin 3.4 g/dL 3.4 g/dL Albumin/Globulin Ratio 0.9 (1.0-2.7) 0.8 (1.0-2.7) Vancomycin Level Trough 15.6 ug/mL (5.0-12.0) Arterial Blood pH 7.380 (7.350-7.450) Arterial Blood Partial Pressure CO2 56.2 mmHg (35.0-45.0) Arterial Blood Partial Pressure O2 81.1 mmHg (75.0-100.0) Arterial Blood HCO3 32.6 mmol/L (22.0-26.0) Arterial Blood Oxygen Saturation 96.0 % (92.0-98.0) Arterial Blood Base Excess 6.1 Pineda Test Positive Test 05/01/17 06:15 White Blood Count 7.4 K/UL (4.8-10.8) Red Blood Count 3.49 M/UL (4.70-6.10) Hemoglobin 11.9 G/DL (14.2-18.0) Hematocrit 36.4 % (42.0-52.0) Mean Corpuscular Volume 104 FL (80-99) Mean Corpuscular Hemoglobin 34.2 PG (27.0-31.0) Mean Corpuscular Hemoglobin Concent 32.8 G/DL (32.0-36.0) Red Cell Distribution Width 12.1 % (11.6-14.8) Platelet Count 179 K/UL (150-450) Mean Platelet Volume 7.0 FL (6.5-10.1) Neutrophils (%) (Auto) 72.7 % (45.0-75.0) Lymphocytes (%) (Auto) 14.7 % (20.0-45.0) Monocytes (%) (Auto) 8.0 % (1.0-10.0) Eosinophils (%) (Auto) 3.6 % (0.0-3.0) Basophils (%) (Auto) 1.0 % (0.0-2.0) Sodium Level 141 MMOL/L (136-145) Potassium Level 4.1 MMOL/L (3.5-5.1) Chloride Level 105 MMOL/L (98-107) Carbon Dioxide Level 32 MMOL/L (21-32) Anion Gap 4 mmol/L (5-15) Blood Urea Nitrogen 12 mg/dL (7-18) Creatinine 0.5 MG/DL (0.55-1.30) Estimat Glomerular Filtration Rate mL/min (>60) Glucose Level 107 MG/DL (74-106) Calcium Level 8.8 MG/DL (8.5-10.1) Total Bilirubin 0.6 MG/DL (0.2-1.0) Aspartate Amino Transf (AST/SGOT) 20 U/L (15-37) Alanine Aminotransferase (ALT/SGPT) 20 U/L (12-78) Alkaline Phosphatase 46 U/L (46-116) Total Protein 6.7 G/DL (6.4-8.2) Albumin 2.9 G/DL (3.4-5.0) Globulin 3.8 g/dL Albumin/Globulin Ratio 0.8 (1.0-2.7) Objective: WDWN off oxygen NAD coarse breath sounds bilaterally with minimal rhonchi [id number] without MRG NABS nontender no HSM no CC mild edema poor LOC; nonfocal skin noted lines noted reviewed and edited HUSSEIN MARTINEZ May 01, 2017 08:15
[2017-05-01] MEDS: Docusate 100mg/10ml Liq GT SCH (08:40)
[2017-05-01] MEDS: Metoprolol Tartrate 50mg tab GT SCH (08:40)
[2017-05-01] MEDS: Heparin 5000 units/ml inj SUBQ SCH ×2 (08:46→19:56)
[2017-05-01] MEDS ORDERED: Metoprolol Tartrate 50mg tab NG SCH (09:00)
--- NOTE | 2017-05-01 10:18 | General Progress Note ---
Assessment/Plan Problem List: (1) Altered level of consciousness ICD Codes: R40.4 - Transient alteration of awareness SNOMED: 4219664 (2) COPD exacerbation ICD Codes: J44.1 - Chronic obstructive pulmonary disease with (acute) exacerbation SNOMED: 510738177760993 (3) Hypercapnia ICD Codes: R06.89 - Other abnormalities of breathing SNOMED: 60019860 (4) PNA (pneumonia) ICD Codes: J18.9 - Pneumonia, unspecified organism SNOMED: 258296462 (5) Respiratory failure ICD Codes: J96.90 - Respiratory failure, unspecified, unspecified whether with hypoxia or hypercapnia SNOMED: 431010734 Status: stable, progressing Assessment/Plan resp rx bipap o2 iv abx dvt/stress ulcer prophylaxis ngt feeds abx monitor cxr family ok with gt when stable Subjective ROS Limited/Unobtainable: Yes Constitutional: Reports: malaise, weakness HEENT: Reports: no symptoms Cardiovascular: Reports: no symptoms Respiratory: Reports: no symptoms Gastrointestinal/Abdominal: Reports: difficulty swallowing Genitourinary: Reports: no symptoms Neurologic/Psychiatric: Reports: anxiety, pre-existing deficit Endocrine: Reports: no symptoms Hematologic/Lymphatic: Reports: anemia Allergies: Coded Allergies: No Known Allergies (Unverified , 04/21/17) All Systems: reviewed and negative except above Subjective no longer needing bipap. alert but confused. on ngt feeds. Objective Last 24 Hour Vital Signs Date Time Temp Pulse Resp B/P (MAP) Pulse Ox O2 Delivery O2 Flow Rate FiO2 05/01/17 08:40 83 137/82 05/01/17 08:00 77 05/01/17 08:00 97.3 83 21 137/82 95 05/01/17 07:22 97 Nasal Cannula 2.0 28 05/01/17 07:22 Nasal Cannula 2.0 28 05/01/17 04:09 98.0 66 20 136/80 98 05/01/17 04:00 76 05/01/17 00:02 97.5 64 20 134/82 97 05/01/17 00:00 73 04/30/17 22:05 96 Nasal Cannula 2.0 28 04/30/17 22:05 Nasal Cannula 2.0 28 04/30/17 22:04 74 18 96 04/30/17 21:21 75 138/80 04/30/17 20:03 97.9 75 20 138/80 99 04/30/17 20:00 93 04/30/17 16:27 97.7 68 18 137/77 98 04/30/17 16:00 65 04/30/17 12:00 97.7 70 20 122/73 98 Bi-pap 04/30/17 12:00 68 Intake and Output 05/01/17 05/02/17 19:00 07:00 Intake Total 320 ml Balance 320 ml Intake Free Water 60 ml IV Total 150 ml Tube Feeding 110 ml Laboratory Tests 04/30/17 11:15: White Blood Count 7.8, Red Blood Count 3.35L, Hemoglobin 11.3L, Hematocrit 35.0L , Mean Corpuscular Volume 105H, Mean Corpuscular Hemoglobin 33.7H, Mean Corpuscular Hemoglobin Concent 32.2, Red Cell Distribution Width 11.9, Platelet Count 184, Mean Platelet Volume 6.3L, Neutrophils (%) (Auto) 75.9H, Lymphocytes (%) (Auto) 11.6L, Monocytes (%) (Auto) 8.7, Eosinophils (%) (Auto) 3.1H, Basophils (%) (Auto) 0.7, Sodium Level 139, Potassium Level 3.9, Chloride Level 104, Carbon Dioxide Level 34H, Anion Gap 2L, Blood Urea Nitrogen 13, Creatinine 0.4L, Estimat Glomerular Filtration Rate , Glucose Level 131H, Calcium Level 8.6 , Magnesium Level 2.0, Total Bilirubin 0.6, Aspartate Amino Transf (AST/SGOT) 11L, Alanine Aminotransferase (ALT/SGPT) 16, Alkaline Phosphatase 41L, Total Protein 6.1L, Albumin 2.7L, Globulin 3.4, Albumin/Globulin Ratio 0.8L 05/01/17 06:15: White Blood Count 7.4, Red Blood Count 3.49L, Hemoglobin 11.9L, Hematocrit 36.4L , Mean Corpuscular Volume 104H, Mean Corpuscular Hemoglobin 34.2H, Mean Corpuscular Hemoglobin Concent 32.8, Red Cell Distribution Width 12.1, Platelet Count 179, Mean Platelet Volume 7.0, Neutrophils (%) (Auto) 72.7, Lymphocytes (% ) (Auto) 14.7L, Monocytes (%) (Auto) 8.0, Eosinophils (%) (Auto) 3.6H, Basophils (%) (Auto) 1.0, Sodium Level 141, Potassium Level 4.1, Chloride Level 105, Carbon Dioxide Level 32, Anion Gap 4L, Blood Urea Nitrogen 12, Creatinine 0.5L, Estimat Glomerular Filtration Rate , Glucose Level 107H, Calcium Level 8.8 , Total Bilirubin 0.6, Aspartate Amino Transf (AST/SGOT) 20, Alanine Aminotransferase (ALT/SGPT) 20, Alkaline Phosphatase 46, Total Protein 6.7, Albumin 2.9L, Globulin 3.8, Albumin/Globulin Ratio 0.8L Height (Feet): 5 Height (Inches): 5.00 Weight (Pounds): 145 Objective General Appearance: lethargic, confused. on NC Neck: supple Cardiovascular: normal rate Respiratory/Chest: lungs clear, normal breath sounds, no respiratory distress Abdomen: normal bowel sounds, non tender, soft, no organomegaly Edema: no edema noted Arm (L), no edema noted Arm (R), no edema noted Leg (L), no edema noted Leg (R), no edema noted Pedal (L), no edema noted Pedal (R), no edema noted Generalized Neurologic: disoriented MARTIN HERNÁNDEZ May 01, 2017 10:18
[2017-05-01] MEDS ORDERED: Miralax 17gm pkt NG PRN (11:30)
--- NOTE | 2017-05-01 12:36 | Infectious Diseases Prog Note ---
Assessment/Plan Assessment/Plan antibiotics : vancomycin in A 1. MRSA pneumonia 2. COPD 3. MRSA nasal colonization 4. CVA 5. sinusitis 6. respiratory failure resolved P 1. continue vancomycin iv 4 more days 2. will follow up cultures Subjective ROS Limited/Unobtainable: Yes Allergies: Coded Allergies: No Known Allergies (Unverified , 04/21/17) Objective Vital Signs Last 24 Hour Vital Signs Date Time Temp Pulse Resp B/P (MAP) Pulse Ox O2 Delivery O2 Flow Rate FiO2 05/01/17 11:56 97.9 73 20 116/70 96 05/01/17 11:51 97.9 73 20 116/70 96 Nasal Cannula 2.0 05/01/17 08:40 83 137/82 05/01/17 08:00 77 05/01/17 08:00 97.3 83 21 137/82 95 05/01/17 07:22 97 Nasal Cannula 2.0 28 05/01/17 07:22 Nasal Cannula 2.0 28 05/01/17 04:09 98.0 66 20 136/80 98 05/01/17 04:00 76 05/01/17 00:02 97.5 64 20 134/82 97 05/01/17 00:00 73 04/30/17 22:05 96 Nasal Cannula 2.0 28 04/30/17 22:05 Nasal Cannula 2.0 28 04/30/17 22:04 74 18 96 04/30/17 21:21 75 138/80 04/30/17 20:03 97.9 75 20 138/80 99 04/30/17 20:00 93 04/30/17 16:27 97.7 68 18 137/77 98 04/30/17 16:00 65 Height (Feet): 5 Height (Inches): 5.00 Weight (Pounds): 145 Respiratory/Chest: lungs clear Cardiovascular: normal rate, regular rhythm, no gallop/murmur Abdomen: soft, non tender Extremities: no edema Laboratory Tests Test 05/01/17 06:15 White Blood Count 7.4 K/UL (4.8-10.8) Red Blood Count 3.49 M/UL (4.70-6.10) L Hemoglobin 11.9 G/DL (14.2-18.0) L Hematocrit 36.4 % (42.0-52.0) L Mean Corpuscular Volume 104 FL (80-99) H Mean Corpuscular Hemoglobin 34.2 PG (27.0-31.0) H Mean Corpuscular Hemoglobin Concent 32.8 G/DL (32.0-36.0) Red Cell Distribution Width 12.1 % (11.6-14.8) Platelet Count 179 K/UL (150-450) Mean Platelet Volume 7.0 FL (6.5-10.1) Neutrophils (%) (Auto) 72.7 % (45.0-75.0) Lymphocytes (%) (Auto) 14.7 % (20.0-45.0) L Monocytes (%) (Auto) 8.0 % (1.0-10.0) Eosinophils (%) (Auto) 3.6 % (0.0-3.0) H Basophils (%) (Auto) 1.0 % (0.0-2.0) Sodium Level 141 MMOL/L (136-145) Potassium Level 4.1 MMOL/L (3.5-5.1) Chloride Level 105 MMOL/L (98-107) Carbon Dioxide Level 32 MMOL/L (21-32) Anion Gap 4 mmol/L (5-15) L Blood Urea Nitrogen 12 mg/dL (7-18) Creatinine 0.5 MG/DL (0.55-1.30) L Estimat Glomerular Filtration Rate mL/min (>60) Glucose Level 107 MG/DL (74-106) H Calcium Level 8.8 MG/DL (8.5-10.1) Total Bilirubin 0.6 MG/DL (0.2-1.0) Aspartate Amino Transf (AST/SGOT) 20 U/L (15-37) Alanine Aminotransferase (ALT/SGPT) 20 U/L (12-78) Alkaline Phosphatase 46 U/L (46-116) Total Protein 6.7 G/DL (6.4-8.2) Albumin 2.9 G/DL (3.4-5.0) L Globulin 3.8 g/dL Albumin/Globulin Ratio 0.8 (1.0-2.7) L JENNY CHAN May 01, 2017 12:36
[2017-05-01] MEDS: Docusate 100mg/10ml Liq NG SCH (17:18)
[2017-05-01] MEDS: Metoprolol Tartrate 50mg tab NG SCH (19:54)
[2017-05-01] MEDS: Sennosides 8.6mg NG SCH (19:55)
[2017-05-01] MEDS: Tamsulosin 0.4mg cap ORAL SCH (19:58)
[2017-05-02 00:48] VITALS: BP 116/71
--- NOTE | 2017-05-02 01:15 | Progress Note ---
DATE: 05/01/2017 CARDIOLOGY PROGRESS NOTE SUBJECTIVE: The patient is off BiPAP. No distress noted. He continues to require p.r.n. however. OBJECTIVE: VITAL SIGNS: Blood pressure 136/80, pulse 66, respiratory rate 20. Monitored rhythm sinus. LUNGS: Diminished breath sounds. HEART: Regular rhythm and rate. Normal S1, S2. ABDOMEN: Soft. EXTREMITIES: No edema. LABORATORY DATA: White count 7 and hemoglobin 11.9. Potassium 4.1, sodium 141, bicarb 32, BUN 12, and creatinine 0.5. Albumin 2.9. IMPRESSION: 1. Chronic obstructive pulmonary disease exacerbation. 2. [id number] respiratory acidosis. 3. Compensatory metabolic alkalosis. 4. Moderate protein-calorie malnutrition. 5. History of hypertension. 6. Chronic diastolic congestive heart failure. PLAN: 1. Monitor respiratory parameters, acid-base parameters, and oxygenation. 2. Continue cardiac monitoring. 3. Protein supplement by NG-tube feeding. 4. Aspiration precautions. 5. Continue acetazolamide to improve respiratory drive. 6. Anticipate G-tube once if respiratory parameters continue to remain stable for the next 48 hours. No role for additional diuretic therapy presently. Shayne Sams M.D. DR: JOYCE JOB#: [id number] CC:
[2017-05-02] MEDS: NS w/KCl 20mEq 1,000 ML IV SCH ×2 (01:25→16:17)
[2017-05-02] MEDS: Vancomycin 1 GM in D5W 275 ML IVPB SCH ×2 (01:28→14:59)
[2017-05-02 04:43] VITALS: BP 112/71
[2017-05-02] MEDS: Artificial Tears 1.4% Op Soln BOTH EYES SCH ×3 (05:17→21:36)
[2017-05-02 08:26] VITALS: BP_SYST 114; BP_SYST 118; BP_DIAS 60; BP_DIAS 72
[2017-05-02] MEDS: Docusate 100mg/10ml Liq NG SCH ×2 (09:02→18:14)
[2017-05-02] MEDS: Metoprolol Tartrate 50mg tab NG SCH ×2 (09:05→20:55)
[2017-05-02] MEDS: Heparin 5000 units/ml inj SUBQ SCH ×2 (09:06→20:49)
--- NOTE | 2017-05-02 09:16 | Critical Care Progress Note ---
Assessment/Plan Assessment/Plan IMPRESSION respiratory failure COPD Pneumonia acute respiratory acidosis thrombocytopenia history of CVA history of TIA hypertension per history encephalopathy PLAN ventilator management off repeat ABG- as needed IV antibiotics per ID respiratory care and suction oxygen titrate oxygen SNF meds monitor airway nutrition and monitor residuals BIPAP QHS and PRN follow up acid base as needed medications/laboratory data/nursing notes reviewed in detail note reviewed and edited care discussed with RN and RT Critical Care - Subjective ROS Limited/Unobtainable: Yes EKG Rhythm: Sinus Rhythm Critical Care - Objective ET-Tube: 8.0 ET Position: 22 Last 24 Hour Vital Signs Date Time Temp Pulse Resp B/P (MAP) Pulse Ox O2 Delivery O2 Flow Rate FiO2 05/02/17 09:05 80 118/72 05/02/17 08:26 97.7 80 20 118/72 94 05/02/17 04:43 97.0 73 18 112/71 96 Nasal Cannula 05/02/17 04:00 69 05/02/17 00:48 97.2 70 18 116/71 96 Nasal Cannula 05/02/17 00:00 70 05/01/17 20:37 97.5 75 18 119/78 96 Nasal Cannula 05/01/17 20:10 Nasal Cannula 2.0 28 05/01/17 20:10 97 Nasal Cannula 2.0 28 05/01/17 20:00 74 05/01/17 19:54 75 119/78 05/01/17 16:00 97.7 78 19 126/71 97 Nasal Cannula 2.0 05/01/17 16:00 71 05/01/17 12:00 69 05/01/17 11:56 97.9 73 20 116/70 96 05/01/17 11:51 97.9 73 20 116/70 96 Nasal Cannula 2.0 Labs: Labs Test 04/29/17 10:06 04/30/17 11:15 05/01/17 06:15 Arterial Blood pH 7.380 (7.350-7.450) Arterial Blood Partial Pressure CO2 56.2 mmHg (35.0-45.0) Arterial Blood Partial Pressure O2 81.1 mmHg (75.0-100.0) Arterial Blood HCO3 32.6 mmol/L (22.0-26.0) Arterial Blood Oxygen Saturation 96.0 % (92.0-98.0) Arterial Blood Base Excess 6.1 Pineda Test Positive White Blood Count 7.8 K/UL (4.8-10.8) 7.4 K/UL (4.8-10.8) Red Blood Count 3.35 M/UL (4.70-6.10) 3.49 M/UL (4.70-6.10) Hemoglobin 11.3 G/DL (14.2-18.0) 11.9 G/DL (14.2-18.0) Hematocrit 35.0 % (42.0-52.0) 36.4 % (42.0-52.0) Mean Corpuscular Volume 105 FL (80-99) 104 FL (80-99) Mean Corpuscular Hemoglobin 33.7 PG (27.0-31.0) 34.2 PG (27.0-31.0) Mean Corpuscular Hemoglobin Concent 32.2 G/DL (32.0-36.0) 32.8 G/DL (32.0-36.0) Red Cell Distribution Width 11.9 % (11.6-14.8) 12.1 % (11.6-14.8) Platelet Count 184 K/UL (150-450) 179 K/UL (150-450) Mean Platelet Volume 6.3 FL (6.5-10.1) 7.0 FL (6.5-10.1) Neutrophils (%) (Auto) 75.9 % (45.0-75.0) 72.7 % (45.0-75.0) Lymphocytes (%) (Auto) 11.6 % (20.0-45.0) 14.7 % (20.0-45.0) Monocytes (%) (Auto) 8.7 % (1.0-10.0) 8.0 % (1.0-10.0) Eosinophils (%) (Auto) 3.1 % (0.0-3.0) 3.6 % (0.0-3.0) Basophils (%) (Auto) 0.7 % (0.0-2.0) 1.0 % (0.0-2.0) Sodium Level 139 MMOL/L (136-145) 141 MMOL/L (136-145) Potassium Level 3.9 MMOL/L (3.5-5.1) 4.1 MMOL/L (3.5-5.1) Chloride Level 104 MMOL/L (98-107) 105 MMOL/L (98-107) Carbon Dioxide Level 34 MMOL/L (21-32) 32 MMOL/L (21-32) Anion Gap 2 mmol/L (5-15) 4 mmol/L (5-15) Blood Urea Nitrogen 13 mg/dL (7-18) 12 mg/dL (7-18) Creatinine 0.4 MG/DL (0.55-1.30) 0.5 MG/DL (0.55-1.30) Estimat Glomerular Filtration Rate mL/min (>60) mL/min (>60) Glucose Level 131 MG/DL (74-106) 107 MG/DL (74-106) Calcium Level 8.6 MG/DL (8.5-10.1) 8.8 MG/DL (8.5-10.1) Magnesium Level 2.0 MG/DL (1.8-2.4) Total Bilirubin 0.6 MG/DL (0.2-1.0) 0.6 MG/DL (0.2-1.0) Aspartate Amino Transf (AST/SGOT) 11 U/L (15-37) 20 U/L (15-37) Alanine Aminotransferase (ALT/SGPT) 16 U/L (12-78) 20 U/L (12-78) Alkaline Phosphatase 41 U/L (46-116) 46 U/L (46-116) Total Protein 6.1 G/DL (6.4-8.2) 6.7 G/DL (6.4-8.2) Albumin 2.7 G/DL (3.4-5.0) 2.9 G/DL (3.4-5.0) Globulin 3.4 g/dL 3.8 g/dL Albumin/Globulin Ratio 0.8 (1.0-2.7) 0.8 (1.0-2.7) Objective: WDWN off oxygen NAD coarse breath sounds bilaterally with minimal rhonchi [id number] without MRG NABS nontender no HSM no CC mild edema poor LOC; nonfocal skin noted lines noted reviewed and edited HUSSEIN MARTINEZ May 02, 2017 09:16
--- NOTE | 2017-05-02 10:53 | Infectious Diseases Prog Note ---
Assessment/Plan Assessment/Plan antibiotics : vancomycin in A 1. MRSA pneumonia 2. COPD 3. MRSA nasal colonization 4. CVA 5. sinusitis 6. respiratory failure resolved P 1. continue vancomycin iv 3 more days 2. will follow up cultures Subjective ROS Limited/Unobtainable: Yes Allergies: Coded Allergies: No Known Allergies (Unverified , 04/21/17) Objective Vital Signs Last 24 Hour Vital Signs Date Time Temp Pulse Resp B/P (MAP) Pulse Ox O2 Delivery O2 Flow Rate FiO2 05/02/17 09:29 96 Nasal Cannula 2.0 28 05/02/17 09:29 Nasal Cannula 2.0 28 05/02/17 09:05 80 118/72 05/02/17 08:26 97.7 80 20 118/72 94 05/02/17 08:00 86 05/02/17 04:43 97.0 73 18 112/71 96 Nasal Cannula 05/02/17 04:00 69 05/02/17 00:48 97.2 70 18 116/71 96 Nasal Cannula 05/02/17 00:00 70 05/01/17 20:37 97.5 75 18 119/78 96 Nasal Cannula 05/01/17 20:10 Nasal Cannula 2.0 28 05/01/17 20:10 97 Nasal Cannula 2.0 28 05/01/17 20:00 74 05/01/17 19:54 75 119/78 05/01/17 16:00 97.7 78 19 126/71 97 Nasal Cannula 2.0 05/01/17 16:00 71 05/01/17 12:00 69 05/01/17 11:56 97.9 73 20 116/70 96 05/01/17 11:51 97.9 73 20 116/70 96 Nasal Cannula 2.0 Height (Feet): 5 Height (Inches): 5.00 Weight (Pounds): 146 Respiratory/Chest: lungs clear Cardiovascular: normal rate, regular rhythm, no gallop/murmur Abdomen: soft, non tender Extremities: no edema JENNY CHAN May 02, 2017 10:53
[2017-05-02 11:52] VITALS: BP 102/66
--- NOTE | 2017-05-02 13:33 | General Progress Note ---
Assessment/Plan Problem List: (1) Altered level of consciousness ICD Codes: R40.4 - Transient alteration of awareness SNOMED: 9690524 (2) COPD exacerbation ICD Codes: J44.1 - Chronic obstructive pulmonary disease with (acute) exacerbation SNOMED: 216620450123371 (3) Hypercapnia ICD Codes: R06.89 - Other abnormalities of breathing SNOMED: 70027092 (4) PNA (pneumonia) ICD Codes: J18.9 - Pneumonia, unspecified organism SNOMED: 477293256 (5) Respiratory failure ICD Codes: J96.90 - Respiratory failure, unspecified, unspecified whether with hypoxia or hypercapnia SNOMED: 934070366 Status: stable, progressing Assessment/Plan resp rx bipap prn o2 iv abx dvt/stress ulcer prophylaxis ngt feeds abx monitor cxr family ok with gt when stable gi called Subjective ROS Limited/Unobtainable: Yes Constitutional: Reports: malaise, weakness HEENT: Reports: no symptoms Cardiovascular: Reports: no symptoms Respiratory: Reports: cough Gastrointestinal/Abdominal: Reports: no symptoms Genitourinary: Reports: no symptoms Neurologic/Psychiatric: Reports: pre-existing deficit Endocrine: Reports: no symptoms Hematologic/Lymphatic: Reports: anemia Allergies: Coded Allergies: No Known Allergies (Unverified , 04/21/17) All Systems: reviewed and negative except above Subjective off bipap. confused. still with ngt. on nasal cannula Objective Last 24 Hour Vital Signs Date Time Temp Pulse Resp B/P (MAP) Pulse Ox O2 Delivery O2 Flow Rate FiO2 05/02/17 11:52 97.3 73 20 102/66 97 05/02/17 09:29 96 Nasal Cannula 2.0 28 05/02/17 09:29 Nasal Cannula 2.0 28 05/02/17 09:05 80 118/72 05/02/17 08:26 97.7 80 20 118/72 94 05/02/17 08:00 86 05/02/17 04:43 97.0 73 18 112/71 96 Nasal Cannula 05/02/17 04:00 69 05/02/17 00:48 97.2 70 18 116/71 96 Nasal Cannula 05/02/17 00:00 70 05/01/17 20:37 97.5 75 18 119/78 96 Nasal Cannula 05/01/17 20:10 Nasal Cannula 2.0 28 05/01/17 20:10 97 Nasal Cannula 2.0 28 05/01/17 20:00 74 05/01/17 19:54 75 119/78 05/01/17 16:00 97.7 78 19 126/71 97 Nasal Cannula 2.0 05/01/17 16:00 71 Intake and Output 05/02/17 05/03/17 19:00 07:00 Intake Total 520 ml Output Total 200 ml Balance 320 ml IV Total 300 ml Tube Feeding 220 ml Output Urine Total 200 ml Height (Feet): 5 Height (Inches): 5.00 Weight (Pounds): 146 Objective General Appearance: lethargic, confused. on NC Neck: supple Cardiovascular: normal rate Respiratory/Chest: lungs clear, normal breath sounds, no respiratory distress Abdomen: normal bowel sounds, non tender, soft, no organomegaly Edema: no edema noted Arm (L), no edema noted Arm (R), no edema noted Leg (L), no edema noted Leg (R), no edema noted Pedal (L), no edema noted Pedal (R), no edema noted Generalized Neurologic: disoriented MARTIN HERNÁNDEZ May 02, 2017 13:33
[2017-05-02 15:49] VITALS: BP 109/70
--- NOTE | 2017-05-02 19:47 | General Progress Note ---
Assessment/Plan Assessment/Plan GI CONSULT Dictated ATSP for PEG placement Discussed with sister. Will place Thursday am, if OK with pulmonray Thank you Obdulio Palacio MD Subjective Allergies: Coded Allergies: No Known Allergies (Unverified , 04/21/17) Objective Last 24 Hour Vital Signs Date Time Temp Pulse Resp B/P (MAP) Pulse Ox O2 Delivery O2 Flow Rate FiO2 05/02/17 16:00 72 05/02/17 15:49 97.7 68 20 109/70 97 05/02/17 12:00 74 05/02/17 11:52 97.3 73 20 102/66 97 05/02/17 09:29 96 Nasal Cannula 2.0 28 05/02/17 09:29 Nasal Cannula 2.0 28 05/02/17 09:05 80 118/72 05/02/17 08:26 97.7 80 20 118/72 94 05/02/17 08:00 86 05/02/17 04:43 97.0 73 18 112/71 96 Nasal Cannula 05/02/17 04:00 69 05/02/17 00:48 97.2 70 18 116/71 96 Nasal Cannula 05/02/17 00:00 70 05/01/17 20:37 97.5 75 18 119/78 96 Nasal Cannula 05/01/17 20:10 Nasal Cannula 2.0 28 05/01/17 20:10 97 Nasal Cannula 2.0 28 05/01/17 20:00 74 05/01/17 19:54 75 119/78 Intake and Output 05/02/17 05/03/17 19:00 07:00 Intake Total 795 ml Output Total 2073 ml Balance -1278 ml IV Total 575 ml Tube Feeding 220 ml Output Urine Total 2073 ml # Voids 6 Height (Feet): 5 Height (Inches): 5.00 Weight (Pounds): 146 OBDULIO PALACIO May 02, 2017 19:47
[2017-05-02 20:00] VITALS: BP 103/66
[2017-05-02] MEDS ORDERED: NS Irrig 1000ml ONE (20:15)
[2017-05-02] MEDS ORDERED: NS Irrig 2000ml IRRIG ONE (20:15)
[2017-05-02] MEDS: Tamsulosin 0.4mg cap ORAL SCH (20:48)
[2017-05-02] MEDS: Sennosides 8.6mg NG SCH (20:54)
--- NOTE | 2017-05-02 22:30 | Progress Note ---
DATE: 05/02/2017 CARDIOLOGY PROGRESS NOTE SUBJECTIVE: The patient is off BiPAP. He remains on NG-tube feedings. He remains on nasal cannula. Frequently confused. PHYSICAL EXAMINATION: VITAL SIGNS: Blood pressure 102/66, heart rate 72, respiratory rate 20, and afebrile. LUNGS: Bilateral breath sounds. No wheezing. HEART: Regular rhythm and rate. Normal S1, S2. ABDOMEN: Soft. EXTREMITIES: No edema. LABORATORY DATA: No new labs today. IMPRESSION: 1. Chronic obstructive pulmonary disease with exacerbation. 2. Acute on chronic respiratory acidosis. 3. Dysphagia. 4. Cerebrovascular disease. PLAN: 1. Permanent feeding tube planned by PEG placement. 2. Monitor acid-base and respiratory parameters. 3. Continue acetazolamide to help stimulate respiratory drive. 4. Cardiac monitoring. 5. Respiratory hygiene. Shayne Sams M.D. DR: Betty JOB#: [id number] CC:
[2017-05-03] VITALS: BP 107/67
--- NOTE | 2017-05-03 00:01 | Consultation ---
DATE OF CONSULTATION: 05/02/2017 GASTROENTEROLOGY CONSULTATION CONSULTING PHYSICIAN: Obdulio Palacio M.D. REFERRING PHYSICIAN: Shayne Sams M.D., and Onofre Smith M.D. CHIEF COMPLAINT: I was asked to see this patient by Dr. Shayne Sams and Dr. Onofre Smith for evaluation of gastrostomy tube placement. HISTORY OF PRESENT ILLNESS: The patient is an unfortunate 72-year-old man with history of stroke and right-sided hemiparesis and multiple medical problems, who came to the hospital from a half-way due to respiratory failure. He is admitted to intensive care unit now and had been weaned down on his BiPAP device. He now uses the BiPAP at night only and as needed. The patient is being fed via nasogastric tube and he has not been able to be a good candidate for speech therapy evaluation at this time. The indications, risks, alternatives, and possible complications of the gastrostomy tube placement were discussed with the patient's sister by me and all questions were answered and she agreed to proceed. The patient is awake and somewhat responsive, but unable to comprehend the magnitude of his illness. PAST MEDICAL HISTORY: History of stroke, right-sided hemiparesis, hypertension, diabetes, COPD, respiratory failure, dysphagia, status post some type of surgical procedure for bleeding. MEDICATIONS: See chart list for details. ALLERGIES: None. SOCIAL HISTORY: The patient lives in [place] but his family lives in [place]. FAMILY HISTORY: Significant for history of lung cancer. REVIEW OF SYSTEMS: Otherwise unobtainable. PHYSICAL EXAMINATION: GENERAL: A pleasant man, seen in his room. HEENT: Normocephalic and atraumatic. He has some temporal wasting. Nasogastric tube is in place. NECK: Supple. CHEST: Coarse breath sounds. CARDIOVASCULAR: Regular rate. ABDOMEN: Soft and scaphoid. There is some midline scar. EXTREMITIES: No edema. NEUROLOGIC: The patient appeared to be confused. LABORATORY DATA: Noted. ASSESSMENT: This patient is recovering from respiratory failure and is being fed via nasogastric tube. He is confused, weak, and unable to be fed using oral treatment and therefore, he should undergo endoscopy with gastrostomy tube placement for enteral access and nutrition. Once he has recovered at a later date, oral trials can be reconsidered. RECOMMENDATIONS: 1. Continue nasogastric tube feeding. 2. Respiratory toilet. 3. Gastrostomy tube on Thursday if cleared by pulmonary. 4. Restart aspirin for history of stroke after gastrostomy tube placement. Thank you for asking me to participate in the care of this patient. Obdulio Palacio M.D. DR: RADHA JOB#: [id number] CC: ANGELICA
[2017-05-03] MEDS: Vancomycin 1 GM in D5W 275 ML IVPB SCH ×2 (02:30→14:50)
[2017-05-03 04:00] VITALS: BP 115/63
[2017-05-03] MEDS: NS w/KCl 20mEq 1,000 ML IV SCH ×2 (05:45→18:05)
[2017-05-03] MEDS: Artificial Tears 1.4% Op Soln BOTH EYES SCH ×3 (06:00→21:30)
--- NOTE | 2017-05-03 06:20 | Critical Care Progress Note ---
Assessment/Plan Assessment/Plan IMPRESSION respiratory failure COPD Pneumonia acute respiratory acidosis thrombocytopenia history of CVA history of TIA hypertension per history encephalopathy PLAN ventilator management off repeat ABG- as needed IV antibiotics per ID respiratory care and suction titrate oxygen SNF meds monitor airway nutrition and monitor residuals BIPAP QHS and PRN follow up acid base as needed medications/laboratory data/nursing notes reviewed in detail note reviewed and edited care discussed with RN and RT Critical Care - Subjective Interval Events: CARE NOTED SAME OVERALL NO DISTRESS ROS Limited/Unobtainable: Yes Condition: stable EKG Rhythm: Sinus Rhythm Critical Care - Objective ET-Tube: 8.0 ET Position: 22 Last 24 Hour Vital Signs Date Time Temp Pulse Resp B/P (MAP) Pulse Ox O2 Delivery O2 Flow Rate FiO2 05/03/17 04:00 97.9 96 22 115/63 97 Nasal Cannula 05/03/17 04:00 97 05/03/17 00:00 90 05/03/17 00:00 97.5 86 20 107/67 97 Nasal Cannula 05/02/17 20:55 Nasal Cannula 2.0 28 05/02/17 20:55 83 103/66 05/02/17 20:55 98 Nasal Cannula 2.0 28 05/02/17 20:00 74 05/02/17 20:00 97.7 83 22 103/66 97 Nasal Cannula 05/02/17 16:00 72 05/02/17 15:49 97.7 68 20 109/70 97 05/02/17 12:00 74 05/02/17 11:52 97.3 73 20 102/66 97 05/02/17 09:29 96 Nasal Cannula 2.0 28 05/02/17 09:29 Nasal Cannula 2.0 28 05/02/17 09:05 80 118/72 05/02/17 08:26 97.7 80 20 118/72 94 05/02/17 08:00 86 Labs: Labs Test 04/30/17 11:15 05/01/17 06:15 White Blood Count 7.8 K/UL (4.8-10.8) 7.4 K/UL (4.8-10.8) Red Blood Count 3.35 M/UL (4.70-6.10) 3.49 M/UL (4.70-6.10) Hemoglobin 11.3 G/DL (14.2-18.0) 11.9 G/DL (14.2-18.0) Hematocrit 35.0 % (42.0-52.0) 36.4 % (42.0-52.0) Mean Corpuscular Volume 105 FL (80-99) 104 FL (80-99) Mean Corpuscular Hemoglobin 33.7 PG (27.0-31.0) 34.2 PG (27.0-31.0) Mean Corpuscular Hemoglobin Concent 32.2 G/DL (32.0-36.0) 32.8 G/DL (32.0-36.0) Red Cell Distribution Width 11.9 % (11.6-14.8) 12.1 % (11.6-14.8) Platelet Count 184 K/UL (150-450) 179 K/UL (150-450) Mean Platelet Volume 6.3 FL (6.5-10.1) 7.0 FL (6.5-10.1) Neutrophils (%) (Auto) 75.9 % (45.0-75.0) 72.7 % (45.0-75.0) Lymphocytes (%) (Auto) 11.6 % (20.0-45.0) 14.7 % (20.0-45.0) Monocytes (%) (Auto) 8.7 % (1.0-10.0) 8.0 % (1.0-10.0) Eosinophils (%) (Auto) 3.1 % (0.0-3.0) 3.6 % (0.0-3.0) Basophils (%) (Auto) 0.7 % (0.0-2.0) 1.0 % (0.0-2.0) Sodium Level 139 MMOL/L (136-145) 141 MMOL/L (136-145) Potassium Level 3.9 MMOL/L (3.5-5.1) 4.1 MMOL/L (3.5-5.1) Chloride Level 104 MMOL/L (98-107) 105 MMOL/L (98-107) Carbon Dioxide Level 34 MMOL/L (21-32) 32 MMOL/L (21-32) Anion Gap 2 mmol/L (5-15) 4 mmol/L (5-15) Blood Urea Nitrogen 13 mg/dL (7-18) 12 mg/dL (7-18) Creatinine 0.4 MG/DL (0.55-1.30) 0.5 MG/DL (0.55-1.30) Estimat Glomerular Filtration Rate mL/min (>60) mL/min (>60) Glucose Level 131 MG/DL (74-106) 107 MG/DL (74-106) Calcium Level 8.6 MG/DL (8.5-10.1) 8.8 MG/DL (8.5-10.1) Magnesium Level 2.0 MG/DL (1.8-2.4) Total Bilirubin 0.6 MG/DL (0.2-1.0) 0.6 MG/DL (0.2-1.0) Aspartate Amino Transf (AST/SGOT) 11 U/L (15-37) 20 U/L (15-37) Alanine Aminotransferase (ALT/SGPT) 16 U/L (12-78) 20 U/L (12-78) Alkaline Phosphatase 41 U/L (46-116) 46 U/L (46-116) Total Protein 6.1 G/DL (6.4-8.2) 6.7 G/DL (6.4-8.2) Albumin 2.7 G/DL (3.4-5.0) 2.9 G/DL (3.4-5.0) Globulin 3.4 g/dL 3.8 g/dL Albumin/Globulin Ratio 0.8 (1.0-2.7) 0.8 (1.0-2.7) Objective: WDWN off oxygen NAD coarse breath sounds bilaterally with minimal rhonchi [id number] without MRG NABS nontender no HSM no CC mild edema poor LOC; nonfocal skin noted lines noted reviewed and edited HUSSEIN MARTINEZ May 03, 2017 06:20
[2017-05-03 07:52] LABS: BASOPHILS % (AUTO) 1.1 % (0.0-2.0); LYMPHOCYTES % (AUTO) 13.2 % (20.0-45.0); MEAN CORPUSCULAR HEMOGLOBIN 34.5 PG (27.0-31.0); MEAN CORPUSCULAR HGB CONC 32.6 G/DL (32.0-36.0); MEAN CORPUSCULAR VOLUME 106 FL (80-99); MEAN PLATELET VOLUME 6.5 FL (6.5-10.1); MONOCYTES % (AUTO) 7.8 % (1.0-10.0); NEUTROPHILS % (AUTO) 74.9 % (45.0-75.0); PLATELET COUNT 174 K/UL (150-450); RED BLOOD COUNT 3.71 M/UL (4.70-6.10); RED CELL DISTRIBUTION WIDTH 12.1 % (11.6-14.8); WHITE BLOOD COUNT 6.8 K/UL (4.8-10.8)
[2017-05-03 07:59] LABS: INR 0.9 (0.9-1.1); PROTHROMBIN TIME 9.7 SEC (9.30-11.50)
--- NOTE | 2017-05-03 08:13 | General Progress Note ---
Assessment/Plan Problem List: (1) Altered level of consciousness ICD Codes: R40.4 - Transient alteration of awareness SNOMED: 9610607 (2) COPD exacerbation ICD Codes: J44.1 - Chronic obstructive pulmonary disease with (acute) exacerbation SNOMED: 896186158576614 (3) Hypercapnia ICD Codes: R06.89 - Other abnormalities of breathing SNOMED: 33251125 (4) PNA (pneumonia) ICD Codes: J18.9 - Pneumonia, unspecified organism SNOMED: 940396042 (5) Respiratory failure ICD Codes: J96.90 - Respiratory failure, unspecified, unspecified whether with hypoxia or hypercapnia SNOMED: 449471710 Status: stable, progressing Assessment/Plan resp rx bipap prn o2 iv abx dvt/stress ulcer prophylaxis ngt feeds abx monitor cxr family ok with gt when stable gt placement when cleared by pulm Subjective ROS Limited/Unobtainable: No Constitutional: Reports: malaise, weakness HEENT: Reports: no symptoms Cardiovascular: Reports: no symptoms Respiratory: Reports: cough Gastrointestinal/Abdominal: Reports: difficulty swallowing Genitourinary: Reports: no symptoms Neurologic/Psychiatric: Reports: anxiety Endocrine: Reports: no symptoms Hematologic/Lymphatic: Reports: anemia Allergies: Coded Allergies: No Known Allergies (Unverified , 04/21/17) All Systems: reviewed and negative except above Subjective remains off bipap. confused. still with ngt. on nasal cannula. no events. gi noted. Objective Last 24 Hour Vital Signs Date Time Temp Pulse Resp B/P (MAP) Pulse Ox O2 Delivery O2 Flow Rate FiO2 05/03/17 08:06 Nasal Cannula 2.0 05/03/17 08:05 97 Nasal Cannula 2.0 05/03/17 04:00 97.9 96 22 115/63 97 Nasal Cannula 05/03/17 04:00 97 05/03/17 00:00 90 05/03/17 00:00 97.5 86 20 107/67 97 Nasal Cannula 05/02/17 20:55 Nasal Cannula 2.0 28 05/02/17 20:55 83 103/66 05/02/17 20:55 98 Nasal Cannula 2.0 28 05/02/17 20:00 74 05/02/17 20:00 97.7 83 22 103/66 97 Nasal Cannula 05/02/17 16:00 72 05/02/17 15:49 97.7 68 20 109/70 97 05/02/17 12:00 74 05/02/17 11:52 97.3 73 20 102/66 97 05/02/17 09:29 96 Nasal Cannula 2.0 28 05/02/17 09:29 Nasal Cannula 2.0 28 05/02/17 09:05 80 118/72 05/02/17 08:26 97.7 80 20 118/72 94 Laboratory Tests 05/03/17 07:10: White Blood Count 6.8, Red Blood Count 3.71L, Hemoglobin 12.8L, Hematocrit 39.3L , Mean Corpuscular Volume 106H, Mean Corpuscular Hemoglobin 34.5H, Mean Corpuscular Hemoglobin Concent 32.6, Red Cell Distribution Width 12.1, Platelet Count 174, Mean Platelet Volume 6.5, Neutrophils (%) (Auto) 74.9, Lymphocytes (% ) (Auto) 13.2L, Monocytes (%) (Auto) 7.8, Eosinophils (%) (Auto) 3.0, Basophils (%) (Auto) 1.1, Prothrombin Time 9.7, Prothromb Time International Ratio 0.9, Sodium Level [Pending], Potassium Level [Pending], Chloride Level [Pending], Carbon Dioxide Level [Pending], Blood Urea Nitrogen [Pending], Creatinine [ Pending], Estimat Glomerular Filtration Rate [Pending], Glucose Level [Pending] , Calcium Level [Pending], Magnesium Level [Pending], Total Bilirubin [Pending] , Aspartate Amino Transf (AST/SGOT) [Pending], Alanine Aminotransferase (ALT/ SGPT) [Pending], Alkaline Phosphatase [Pending], Pro-B-Type Natriuretic Peptide [Pending], Total Protein [Pending], Albumin [Pending], Globulin [Pending] Height (Feet): 5 Height (Inches): 5.00 Weight (Pounds): 147 Objective General Appearance: lethargic, confused. on NC Neck: supple Cardiovascular: normal rate Respiratory/Chest: lungs clear, normal breath sounds, no respiratory distress Abdomen: normal bowel sounds, non tender, soft, no organomegaly Edema: no edema noted Arm (L), no edema noted Arm (R), no edema noted Leg (L), no edema noted Leg (R), no edema noted Pedal (L), no edema noted Pedal (R), no edema noted Generalized Neurologic: disoriented MARTIN HERNÁNDEZ May 03, 2017 08:13
[2017-05-03 08:14] VITALS: BP 113/65
[2017-05-03 08:16] LABS: ALANINE AMINOTRANSFERASE 45 U/L (12-78); ALBUMIN/GLOBULIN RATIO 0.8 (1.0-2.7); ANION GAP 2 mmol/L (5-15); ASPARTATE AMINO TRANSFERASE 31 U/L (15-37); CALCIUM 8.9 MG/DL (8.5-10.1); CARBON DIOXIDE 33 MMOL/L (21-32); CHLORIDE 104 MMOL/L (98-107); CREATININE 0.6 MG/DL (0.55-1.30); MAGNESIUM 2.2 MG/DL (1.8-2.4); POTASSIUM 4.4 MMOL/L (3.5-5.1); SODIUM 139 MMOL/L (136-145); TOTAL PROTEIN 7.1 G/DL (6.4-8.2)
[2017-05-03 08:59] LABS: ABG ALLEN TEST POSITIVE; ABG BASE EXCESS 5.7; ABG PCO2 74.7 mmHg (35.0-45.0)
[2017-05-03] MEDS: Docusate 100mg/10ml Liq NG SCH ×2 (08:59→17:30)
[2017-05-03] MEDS: Metoprolol Tartrate 50mg tab NG SCH ×2 (08:59→21:00)
[2017-05-03] MEDS: Heparin 5000 units/ml inj SUBQ SCH ×2 (09:00→21:34)
--- NOTE | 2017-05-03 09:17 | Infectious Diseases Prog Note ---
Assessment/Plan Assessment/Plan A: 1 pneumonia with MRSA 2. COPD 3. MRSA nasal colonization 4. CVA 5. sinusitis 6. dysphagia P 1. continue IV vancomycin x2 days 2. waiting for PEG placement Subjective ROS Limited/Unobtainable: Yes Allergies: Coded Allergies: No Known Allergies (Unverified , 04/21/17) Objective Vital Signs Last 24 Hour Vital Signs Date Time Temp Pulse Resp B/P (MAP) Pulse Ox O2 Delivery O2 Flow Rate FiO2 05/03/17 08:59 88 113/65 05/03/17 08:14 97.7 88 21 113/65 97 Nasal Cannula 2.0 05/03/17 08:06 Nasal Cannula 2.0 28 05/03/17 08:05 97 Nasal Cannula 2.0 28 05/03/17 04:00 97.9 96 22 115/63 97 Nasal Cannula 05/03/17 04:00 97 05/03/17 00:00 90 05/03/17 00:00 97.5 86 20 107/67 97 Nasal Cannula 05/02/17 20:55 Nasal Cannula 2.0 28 05/02/17 20:55 83 103/66 05/02/17 20:55 98 Nasal Cannula 2.0 28 05/02/17 20:00 74 05/02/17 20:00 97.7 83 22 103/66 97 Nasal Cannula 05/02/17 16:00 72 05/02/17 15:49 97.7 68 20 109/70 97 05/02/17 12:00 74 05/02/17 11:52 97.3 73 20 102/66 97 05/02/17 09:29 96 Nasal Cannula 2.0 28 05/02/17 09:29 Nasal Cannula 2.0 28 Height (Feet): 5 Height (Inches): 5.00 Weight (Pounds): 147 General Appearance: no acute distress HEENT: mucous membranes moist Respiratory/Chest: lungs clear, other - O2 by nasal cannula Cardiovascular: normal rate Abdomen: soft, non tender, other - NG tube feeding Extremities: no edema Neurologic/Psychiatric: alert, responsive, other - R hemiplegia Laboratory Tests Test 05/03/17 07:10 05/03/17 08:30 White Blood Count 6.8 K/UL (4.8-10.8) Red Blood Count 3.71 M/UL (4.70-6.10) L Hemoglobin 12.8 G/DL (14.2-18.0) L Hematocrit 39.3 % (42.0-52.0) L Mean Corpuscular Volume 106 FL (80-99) H Mean Corpuscular Hemoglobin 34.5 PG (27.0-31.0) H Mean Corpuscular Hemoglobin Concent 32.6 G/DL (32.0-36.0) Red Cell Distribution Width 12.1 % (11.6-14.8) Platelet Count 174 K/UL (150-450) Mean Platelet Volume 6.5 FL (6.5-10.1) Neutrophils (%) (Auto) 74.9 % (45.0-75.0) Lymphocytes (%) (Auto) 13.2 % (20.0-45.0) L Monocytes (%) (Auto) 7.8 % (1.0-10.0) Eosinophils (%) (Auto) 3.0 % (0.0-3.0) Basophils (%) (Auto) 1.1 % (0.0-2.0) Prothrombin Time 9.7 SEC (9.30-11.50) Prothromb Time International Ratio 0.9 (0.9-1.1) Sodium Level 139 MMOL/L (136-145) Potassium Level 4.4 MMOL/L (3.5-5.1) Chloride Level 104 MMOL/L (98-107) Carbon Dioxide Level 33 MMOL/L (21-32) H Anion Gap 2 mmol/L (5-15) L Blood Urea Nitrogen 15 mg/dL (7-18) Creatinine 0.6 MG/DL (0.55-1.30) Estimat Glomerular Filtration Rate mL/min (>60) Glucose Level 121 MG/DL (74-106) H Calcium Level 8.9 MG/DL (8.5-10.1) Magnesium Level 2.2 MG/DL (1.8-2.4) Total Bilirubin 0.4 MG/DL (0.2-1.0) Aspartate Amino Transf (AST/SGOT) 31 U/L (15-37) Alanine Aminotransferase (ALT/SGPT) 45 U/L (12-78) Alkaline Phosphatase 54 U/L (46-116) Pro-B-Type Natriuretic Peptide 108 pg/mL (0-125) Total Protein 7.1 G/DL (6.4-8.2) Albumin 3.1 G/DL (3.4-5.0) L Globulin 4.0 g/dL Albumin/Globulin Ratio 0.8 (1.0-2.7) L Arterial Blood pH 7.285 (7.350-7.450) Arterial Blood Partial Pressure CO2 74.7 mmHg (35.0-45.0) *H Arterial Blood Partial Pressure O2 102.7 mmHg (75.0-100.0) H Arterial Blood HCO3 34.7 mmol/L (22.0-26.0) H Arterial Blood Oxygen Saturation 97.1 % (92.0-98.0) Arterial Blood Base Excess 5.7 Pineda Test Positive Current Medications Medications (Trade) Dose Ordered Sig/Regino Route PRN Reason Start Time Stop Time Status Last Admin Dose Admin Acetaminophen (Tylenol) 650 mg Q6H PRN ORAL Mild Pain/Temp > 100.5 04/27/17 18:00 05/22/17 17:59 Acetazolamide (Diamox) 250 mg EVERY 12 HOURS NG 05/01/17 21:00 05/31/17 20:59 05/03/17 08:59 Artificial Tears (Akwa-Tears) 2 drop Q8HR BOTH EYES 04/27/17 22:00 05/25/17 13:59 05/03/17 06:00 Atorvastatin Calcium (Lipitor) 10 mg BEDTIME NG 05/01/17 21:00 05/31/17 20:59 05/02/17 20:47 Cefazolin Sodium 1 gm/Dextrose 55 ml @ 110 mls/hr ONCE ONCE IVPB 05/04/17 08:30 05/04/17 08:59 Docusate Sodium (Colace) 100 mg BID NG 05/01/17 18:00 05/31/17 17:59 05/03/17 08:59 Heparin Sodium (Porcine) (Heparin 5000 units/ml) 5,000 units EVERY 12 HOURS SUBQ 04/27/17 21:00 05/22/17 10:59 05/02/17 20:49 Metoprolol Tartrate (Lopressor) 50 mg Q12HR NG 05/01/17 21:00 05/31/17 20:59 05/03/17 08:59 Polyethylene Glycol (Miralax) 17 gm DAILYPRN PRN NG Constipation 05/01/17 11:30 05/31/17 11:29 Ranitidine HCl (Zantac) 150 mg TWICE A DAY NG 05/01/17 18:00 05/31/17 17:59 05/03/17 08:59 Sennosides (Senokot) 8.6 mg BEDTIME NG 05/01/17 21:00 05/31/17 20:59 05/02/17 20:54 Sodium Chloride 1,000 ml @ 75 mls/hr [id number] IV 04/29/17 21:15 05/29/17 21:14 05/03/17 05:45 Tamsulosin HCl (Flomax) 0.4 mg BEDTIME ORAL 05/01/17 21:00 05/31/17 20:59 05/02/17 20:48 Vancomycin HCl (Vanco rx to dose) 1 ea DAILY PRN MISC Per rx protocol 04/27/17 18:00 05/27/17 17:59 Vancomycin HCl 1 gm/Dextrose 275 ml @ 183.708 mls/hr Q12H IVPB 05/01/17 14:00 05/05/17 13:59 05/03/17 02:30 KELI SALAS May 03, 2017 09:16
[2017-05-03 12:00] VITALS: BP 100/61
[2017-05-03 16:00] VITALS: BP 118/71
--- NOTE | 2017-05-03 19:02 | General Progress Note ---
Assessment/Plan Assessment/Plan Assessment - resp failure / COPD - NGT dependent - AMS/ CVA Recommendations - continue current Rx - Abx - BIPAP PRN - EGD/PEG in am Subjective Allergies: Coded Allergies: No Known Allergies (Unverified , 04/21/17) Subjective above noted no events overnight for PEG in am Objective Last 24 Hour Vital Signs Date Time Temp Pulse Resp B/P (MAP) Pulse Ox O2 Delivery O2 Flow Rate FiO2 05/03/17 17:36 66 18 98 Facial 30 05/03/17 16:00 97.7 74 18 118/71 96 Nasal Cannula 2.0 05/03/17 16:00 78 05/03/17 12:00 80 05/03/17 12:00 97.7 75 18 100/61 95 Nasal Cannula 2.0 05/03/17 08:59 88 113/65 05/03/17 08:14 97.7 88 21 113/65 97 Nasal Cannula 2.0 05/03/17 08:06 Nasal Cannula 2.0 28 05/03/17 08:05 97 Nasal Cannula 2.0 28 05/03/17 08:00 86 05/03/17 04:00 97.9 96 22 115/63 97 Nasal Cannula 05/03/17 04:00 97 05/03/17 00:00 90 05/03/17 00:00 97.5 86 20 107/67 97 Nasal Cannula 05/02/17 20:55 Nasal Cannula 2.0 28 05/02/17 20:55 83 103/66 05/02/17 20:55 98 Nasal Cannula 2.0 28 05/02/17 20:00 74 05/02/17 20:00 97.7 83 22 103/66 97 Nasal Cannula Intake and Output 05/03/17 05/04/17 19:00 07:00 Intake Total 1341.216 ml Output Total 1100 ml Balance 241.216 ml IV Total 1341.216 ml Output Urine Total 1100 ml # Bowel Movements 1 Laboratory Tests 05/03/17 07:10: White Blood Count 6.8, Red Blood Count 3.71L, Hemoglobin 12.8L, Hematocrit 39.3L , Mean Corpuscular Volume 106H, Mean Corpuscular Hemoglobin 34.5H, Mean Corpuscular Hemoglobin Concent 32.6, Red Cell Distribution Width 12.1, Platelet Count 174, Mean Platelet Volume 6.5, Neutrophils (%) (Auto) 74.9, Lymphocytes (% ) (Auto) 13.2L, Monocytes (%) (Auto) 7.8, Eosinophils (%) (Auto) 3.0, Basophils (%) (Auto) 1.1, Prothrombin Time 9.7, Prothromb Time International Ratio 0.9, Sodium Level 139, Potassium Level 4.4, Chloride Level 104, Carbon Dioxide Level 33H, Anion Gap 2L, Blood Urea Nitrogen 15, Creatinine 0.6, Estimat Glomerular Filtration Rate , Glucose Level 121H, Calcium Level 8.9, Magnesium Level 2.2, Total Bilirubin 0.4, Aspartate Amino Transf (AST/SGOT) 31, Alanine Aminotransferase (ALT/SGPT) 45, Alkaline Phosphatase 54, Pro-B-Type Natriuretic Peptide 108, Total Protein 7.1, Albumin 3.1L, Globulin 4.0, Albumin/Globulin Ratio 0.8L 05/03/17 08:30: Arterial Blood pH 7.285L, Arterial Blood Partial Pressure CO2 74.7*H, Arterial Blood Partial Pressure O2 102.7H, Arterial Blood HCO3 34.7H, Arterial Blood Oxygen Saturation 97.1, Arterial Blood Base Excess 5.7, Pineda Test Positive Height (Feet): 5 Height (Inches): 5.00 Weight (Pounds): 147 Objective Thin man NCAT supple Chest coarse BS RR soft ND NT no edema confused MADDIE JEFFERSON May 03, 2017 19:02
[2017-05-03 20:00] VITALS: BP 102/57
[2017-05-03] MEDS: Sennosides 8.6mg NG SCH (21:00)
[2017-05-03] MEDS: Tamsulosin 0.4mg cap ORAL SCH (21:30)
--- NOTE | 2017-05-03 21:45 | Progress Note ---
DATE: 05/03/2017 CARDIOLOGY PROGRESS NOTE SUBJECTIVE: The patient is afebrile. He is off BiPAP. He remains confused. He requires restraints because of his NG-tube being pulled out. OBJECTIVE: VITAL SIGNS: Blood pressure is 115/63, pulse rate 96, and respiratory rate 22. LUNGS: Diminished breath sounds. No wheezing. HEART: Regular rhythm and rate. Normal S1 and S2 with no murmur. ABDOMEN: Soft. EXTREMITIES: No edema. LABORATORY DATA: White count is 6.8 and hemoglobin 12.8. Sodium is 139, potassium 4.4, bicarbonate 33, BUN 15, and creatinine 0.6. Albumin 3.1. ABG, pH 7.28, pCO2 75, and pO2 102. IMPRESSION: 1. Acute on chronic respiratory acidosis. 2. Dysphagia. 3. Mild protein-calorie malnutrition. 4. Cerebrovascular disease, status post respiratory failure. 5. Hypertensive heart disease. PLAN: 1. He will need close monitoring of respiratory parameters for endoscopy and PEG placement. 2. May require intubation and ventilation. 3. The patient is at high risk due to chronic pulmonary disease. 4. He continues on acetazolamide to help stimulate respiratory drive. Shayne Sams M.D. DR: Milagro JOB#: [id number] CC:
[2017-05-04] VITALS (10 sets, daily range): BP systolic 111–133; BP diastolic 70–86
[2017-05-04] MEDS: Vancomycin 1 GM in D5W 275 ML IVPB SCH ×2 (02:09→13:42)
[2017-05-04 05:24] LABS: ABG ALLEN TEST POSITIVE; ABG BASE EXCESS 5.1; ABG PCO2 69.8 mmHg (35.0-45.0)
[2017-05-04] MEDS: Artificial Tears 1.4% Op Soln BOTH EYES SCH ×3 (05:25→22:00)
--- NOTE | 2017-05-04 07:51 | General Progress Note ---
Assessment/Plan Problem List: (1) Altered level of consciousness ICD Codes: R40.4 - Transient alteration of awareness SNOMED: 9145412 (2) COPD exacerbation ICD Codes: J44.1 - Chronic obstructive pulmonary disease with (acute) exacerbation SNOMED: 829165302250647 (3) Hypercapnia ICD Codes: R06.89 - Other abnormalities of breathing SNOMED: 82775477 (4) PNA (pneumonia) ICD Codes: J18.9 - Pneumonia, unspecified organism SNOMED: 838576845 (5) Respiratory failure ICD Codes: J96.90 - Respiratory failure, unspecified, unspecified whether with hypoxia or hypercapnia SNOMED: 256571311 Status: stable Assessment/Plan resp rx bipap prn o2 iv abx dvt/stress ulcer prophylaxis ngt feeds abx monitor cxr family ok with gt when stable gt placement when cleared by pulm may need bipap at night Subjective ROS Limited/Unobtainable: No Constitutional: Reports: malaise, weakness HEENT: Reports: no symptoms Cardiovascular: Reports: no symptoms Respiratory: Reports: cough, sputum Gastrointestinal/Abdominal: Reports: difficulty swallowing Genitourinary: Reports: no symptoms Neurologic/Psychiatric: Reports: pre-existing deficit Endocrine: Reports: no symptoms Hematologic/Lymphatic: Reports: no symptoms Allergies: Coded Allergies: No Known Allergies (Unverified , 04/21/17) All Systems: reviewed and negative except above Subjective off bipap. abg noted. still with resp acidosis. npo for gt Objective Last 24 Hour Vital Signs Date Time Temp Pulse Resp B/P (MAP) Pulse Ox O2 Delivery O2 Flow Rate FiO2 05/04/17 04:00 97.5 85 16 120/74 96 Nasal Cannula 05/04/17 03:41 87 05/04/17 00:10 88 05/04/17 00:00 97.5 85 17 111/70 95 Nasal Cannula 2.0 05/03/17 21:31 Nasal Cannula 2.0 28 05/03/17 21:31 96 Nasal Cannula 2.0 28 05/03/17 21:00 87 102/57 05/03/17 20:34 78 05/03/17 20:00 98.1 78 16 102/57 97 Nasal Cannula 2.0 05/03/17 17:36 66 18 98 Facial 30 05/03/17 16:00 97.7 74 18 118/71 96 Nasal Cannula 2.0 05/03/17 16:00 78 05/03/17 12:00 80 05/03/17 12:00 97.7 75 18 100/61 95 Nasal Cannula 2.0 05/03/17 08:59 88 113/65 05/03/17 08:14 97.7 88 21 113/65 97 Nasal Cannula 2.0 05/03/17 08:06 Nasal Cannula 2.0 28 05/03/17 08:05 97 Nasal Cannula 2.0 28 05/03/17 08:00 86 Laboratory Tests 05/03/17 08:30: Arterial Blood pH 7.285L, Arterial Blood Partial Pressure CO2 74.7*H, Arterial Blood Partial Pressure O2 102.7H, Arterial Blood HCO3 34.7H, Arterial Blood Oxygen Saturation 97.1, Arterial Blood Base Excess 5.7, Pineda Test Positive 05/04/17 04:00: Arterial Blood pH 7.298L, Arterial Blood Partial Pressure CO2 69.8*H, Arterial Blood Partial Pressure O2 95.5, Arterial Blood HCO3 33.4H, Arterial Blood Oxygen Saturation 96.5, Arterial Blood Base Excess 5.1, Pineda Test Positive Height (Feet): 5 Height (Inches): 5.00 Weight (Pounds): 143 General Appearance: WD/WN, alert Neck: supple Cardiovascular: normal rate, regular rhythm Respiratory/Chest: chest wall non-tender, lungs clear, normal breath sounds Abdomen: normal bowel sounds, non tender, soft, no organomegaly Edema: no edema noted Arm (L), no edema noted Arm (R), no edema noted Leg (L), no edema noted Leg (R), no edema noted Pedal (L), no edema noted Pedal (R), no edema noted Generalized Neurologic: responsive Objective General Appearance: lethargic, confused. on NC Neck: supple Cardiovascular: normal rate Respiratory/Chest: lungs clear, normal breath sounds, no respiratory distress Abdomen: normal bowel sounds, non tender, soft, no organomegaly Edema: no edema noted Arm (L), no edema noted Arm (R), no edema noted Leg (L), no edema noted Leg (R), no edema noted Pedal (L), no edema noted Pedal (R), no edema noted Generalized Neurologic: disoriented MARTIN HERNÁNDEZ May 04, 2017 07:51
[2017-05-04] MEDS ORDERED: ceFAZolin sod 1 GM in D5W 55 ML IVPB ONE (08:30)
[2017-05-04] MEDS: NS w/KCl 20mEq 1,000 ML IV SCH ×2 (08:40→21:22)
[2017-05-04] MEDS: Docusate 100mg/10ml Liq NG SCH ×3 (09:00→19:22)
[2017-05-04] MEDS: Heparin 5000 units/ml inj SUBQ SCH ×2 (09:00→21:24)
[2017-05-04] MEDS: Metoprolol Tartrate 50mg tab NG SCH ×3 (09:00→21:00)
[2017-05-04] MEDS ORDERED: NS 500ML ONE (10:30)
[2017-05-04] MEDS ORDERED: Ketamine 500mg Inj ONE (10:30)
[2017-05-04] MEDS ORDERED: NS 500ML IV ONE (10:30)
--- NOTE | 2017-05-04 10:38 | General Progress Note ---
Assessment/Plan Assessment/Plan Assessment - resp failure / COPD - acidosis - CO2 retention - higher anesthesia risk - may need intubation for EGD/PEG - NGT dependent - AMS/ CVA Recommendations - NPO for GT - Ketamine anesthesia, will try to avoid intubation - Abx - BIPAP PRN - EGD/PEG today Subjective Allergies: Coded Allergies: No Known Allergies (Unverified , 04/21/17) Subjective above noted no events overnight for PEG today d/w pulmonary re resp status - not exected to improve further with pulm care d/w anesthesia re ABG and CO2 retention anesthesia options reviewed - will consider ketamine sedation no events overnight patient refusing BIPAP at nights Objective Last 24 Hour Vital Signs Date Time Temp Pulse Resp B/P (MAP) Pulse Ox O2 Delivery O2 Flow Rate FiO2 05/04/17 08:00 97.2 84 20 122/74 97 05/04/17 04:00 97.5 85 16 120/74 96 Nasal Cannula 05/04/17 03:41 87 05/04/17 00:10 88 05/04/17 00:00 97.5 85 17 111/70 95 Nasal Cannula 2.0 05/03/17 21:31 Nasal Cannula 2.0 28 05/03/17 21:31 96 Nasal Cannula 2.0 28 05/03/17 21:00 87 102/57 05/03/17 20:34 78 05/03/17 20:00 98.1 78 16 102/57 97 Nasal Cannula 2.0 05/03/17 17:36 66 18 98 Facial 30 05/03/17 16:00 97.7 74 18 118/71 96 Nasal Cannula 2.0 05/03/17 16:00 78 05/03/17 12:00 80 05/03/17 12:00 97.7 75 18 100/61 95 Nasal Cannula 2.0 Laboratory Tests 05/04/17 04:00: Arterial Blood pH 7.298L, Arterial Blood Partial Pressure CO2 69.8*H, Arterial Blood Partial Pressure O2 95.5, Arterial Blood HCO3 33.4H, Arterial Blood Oxygen Saturation 96.5, Arterial Blood Base Excess 5.1, Pineda Test Positive Height (Feet): 5 Height (Inches): 5.00 Weight (Pounds): 143 Objective Thin man NCAT supple Chest coarse BS RR soft ND NT no edema confused MADDIE JEFFERSON May 04, 2017 10:38
--- NOTE | 2017-05-04 10:45 | Anethesia Preoperative Eval ---
Anesthesia Pre-op PMH/ROS General Date of Evaluation: May 04, 2017 Time of Evaluation: 10:31 Anesthesiologist: Sadie ASA Score: ASA 4 Mallampati Score Class I : Soft palate, uvula, fauces, pillars visible Class II: Soft palate, uvula, fauces visible Class III: Soft palate, base of uvula visible Class IV: Only hard plate visible Mallampati Classification: Class II Surgeon: Hakeem Diagnosis: Failure to thrive Surgical Procedure: PEG Allergies: Coded Allergies: No Known Allergies (Unverified , 04/21/17) Past Medical History Pulmonary: Reports: COPD - Hypercapneic, other - Aspiration pneumonia, respiratory failure Neurologic/Psychiatric: Reports: dementia, CVA, other - Alzheimers, aphasia, right sided weakness PMH Narrative: COPD, hypercapneic, oxygen dependent, aspiration pneumonia, CVA (aphasic and right sided ximena), failure to thrive. Anesthesia Pre-op Phys. Exam Physician Exam Last Vital Signs Date Time Temp Pulse Resp B/P (MAP) Pulse Ox O2 Delivery O2 Flow Rate FiO2 05/04/17 10:32 Nasal Cannula 2.0 28 05/04/17 10:32 95 05/04/17 08:00 97.2 84 20 122/74 Constitutional: other - Unable to communicate Neurologic: other - right sided weakness Cardiovascular: other - Rhonchi Respiratory: CTA Gastrointestinal: S/NT/ND Airway Exam Mallampati Score: Class II MO: full ROM: full Teeth: intact Anesthesia Pre-op A/P Studies Pre-op Studies: EKG - Sinus tach Risk Assessment & Plan Assessment: Respiratory compromised patient in need of a PEG. Plan: MAC (Ketamine) Status Change Before Surgery: No Pre-Antibiotics Drug: None BIRGIT CONCEPCION M.D. May 04, 2017 10:45
--- NOTE | 2017-05-04 10:45 | Immediate Post-Op Evaluation ---
Immediate Post-Op Evalulation Immediate Post-Op Evalulation Procedure: PEG Date of Evaluation: May 04, 2017 Time of Evaluation: 11:30 IV Fluids: 200 Blood Pressure Systolic: 121 Blood Pressure Diastolic: 87 Pulse Rate: 98 Respiratory Rate: 20 O2 Sat by Pulse Oximetry: 97 Temperature (Fahrenheit): 97.0 Pain Score (1-10): 0 Nausea: No Vomiting: No Complications No complication Patient Status: awake, patent, none Hydration Status: adequate Drug: None BIRGIT CONCEPCION M.D. May 04, 2017 10:45
--- NOTE | 2017-05-04 10:46 | Pre-Procedure Note/Attestation ---
Pre-Procedure Note/Attestation Complete Prior to Procedure Planned Procedure: not applicable Procedure Narrative: EGD / PEG Indications for Procedure Pre-Operative Diagnosis: Assessment dysphagia Respiratory failure CO2 retention / acidosis DVA OBS [place] Px Recommendations NPO IVF EGD/PEG today watch resp status closely Attestation I attest that I discussed the nature of the procedure; its benefits; risks and complications; and alternatives (and the risks and benefits of such alternatives ), prior to the procedure, with the patient (or the patient's legal customer solutions representative). I attest that, if there was a reasonable possibility of needing a blood transfusion, the patient (or the patient's legal customer solutions representative) was given the [place] Department of Health Services standardized written summary, pursuant to the [place] Blood Safety Act ([place] Health and Safety Code # 1645, as amended). I attest that I re-evaluated the patient just prior to the surgery and that there has been no change in the patient's H&P, except as documented below: MADDIE JEFFERSON May 04, 2017 10:46
--- NOTE | 2017-05-04 10:50 | Pre-Procedure Note/Attestation ---
Pre-Procedure Note/Attestation Complete Prior to Procedure Planned Procedure: not applicable Procedure Narrative: EGD/PEG Indications for Procedure Pre-Operative Diagnosis: Resp failure, dysphagia Attestation I attest that I discussed the nature of the procedure; its benefits; risks and complications; and alternatives (and the risks and benefits of such alternatives ), prior to the procedure, with the patient (or the patient's legal banking representative). I attest that, if there was a reasonable possibility of needing a blood transfusion, the patient (or the patient's legal banking representative) was given the [facility] standardized written summary, pursuant to the [place] Blood Safety Act ([place] Health and Safety Code # 1645, as amended). I attest that I re-evaluated the patient just prior to the surgery and that there has been no change in the patient's H&P, except as documented below: MADDIE JEFFERSON May 04, 2017 10:50
--- NOTE | 2017-05-04 11:24 | Endoscopy Procedure Note ---
Endoscopy Procedure Note Indication for Procedure: dyspaghia Procedures Performed: EGD, PEG Operative Findings/Diagnosis: erosive gastritis / duodenitis Specimen: yes Pt Tolerated Procedure Well: Yes Estimated Blood Loss: none Anesthesiologist: see report Anesthesia: MAC Medication Given: fentanyl, see anesthesia record PEG: placed Implant(s) used?: Yes 50 yrs or older w/o bx or poly: Not Applicable 10yrs. F/U not recommended: Not Applicable If not recommended, why?: MADDIE JEFFERSON May 04, 2017 11:24
--- NOTE | 2017-05-04 11:27 | Brief Operative Note ---
Immediate Post Operative Note Operative Note Chief Complaint: dysphagia Pre-op Diagnosis: Resp failure, dysphagia Procedure: EGD/Bx, PEG Post-op Diagnosis: erosive gastritis and duodenitis, bx body Surgeon: toro Anesthesiologist: See report Anesthesia: MAC Specimen: yes Complications: none Condition: stable Fluids: see report Estimated Blood Loss: none Drains: none Implant(s) used?: No MADDIE JEFFERSON May 04, 2017 11:27
--- NOTE | 2017-05-04 12:23 | Infectious Diseases Prog Note ---
Assessment/Plan Assessment/Plan antibiotics : vancomycin in A 1. MRSA pneumonia 2. COPD 3. MRSA nasal colonization 4. CVA 5. sinusitis 6. respiratory failure resolved P 1. continue vancomycin iv 1 more day 2. will follow up cultures Subjective ROS Limited/Unobtainable: Yes Allergies: Coded Allergies: No Known Allergies (Unverified , 04/21/17) Objective Vital Signs Last 24 Hour Vital Signs Date Time Temp Pulse Resp B/P (MAP) Pulse Ox O2 Delivery O2 Flow Rate FiO2 05/04/17 11:40 82 22 124/77 99 Nasal Cannula 2.0 05/04/17 11:30 92 22 133/86 99 Nasal Cannula 2.0 05/04/17 11:25 88 22 124/76 98 Nasal Cannula 2.0 05/04/17 11:23 98 20 97 05/04/17 11:20 97.9 93 22 126/76 99 Nasal Cannula 2.0 05/04/17 10:32 Nasal Cannula 2.0 28 05/04/17 10:32 95 Nasal Cannula 2.0 28 05/04/17 08:00 97.2 84 20 122/74 97 05/04/17 04:00 97.5 85 16 120/74 96 Nasal Cannula 05/04/17 03:41 87 05/04/17 00:10 88 05/04/17 00:00 97.5 85 17 111/70 95 Nasal Cannula 2.0 05/03/17 21:31 Nasal Cannula 2.0 28 05/03/17 21:31 96 Nasal Cannula 2.0 28 05/03/17 21:00 87 102/57 05/03/17 20:34 78 05/03/17 20:00 98.1 78 16 102/57 97 Nasal Cannula 2.0 05/03/17 17:36 66 18 98 Facial 30 05/03/17 16:00 97.7 74 18 118/71 96 Nasal Cannula 2.0 05/03/17 16:00 78 Height (Feet): 5 Height (Inches): 5.00 Weight (Pounds): 143 Respiratory/Chest: lungs clear Cardiovascular: normal rate, regular rhythm, no gallop/murmur Abdomen: soft, non tender Extremities: no edema Laboratory Tests Test 05/04/17 04:00 Arterial Blood pH 7.298 (7.350-7.450) Arterial Blood Partial Pressure CO2 69.8 mmHg (35.0-45.0) *H Arterial Blood Partial Pressure O2 95.5 mmHg (75.0-100.0) Arterial Blood HCO3 33.4 mmol/L (22.0-26.0) H Arterial Blood Oxygen Saturation 96.5 % (92.0-98.0) Arterial Blood Base Excess 5.1 Pineda Test Positive JENNY CHAN May 04, 2017 12:23
--- NOTE | 2017-05-04 16:52 | Critical Care Progress Note ---
Assessment/Plan Assessment/Plan IMPRESSION respiratory failure COPD Pneumonia acute respiratory acidosis thrombocytopenia history of CVA history of TIA hypertension per history encephalopathy PLAN ventilator management off increasingly acidotic IV antibiotics per ID respiratory care and suction titrate oxygen SNF meds monitor airway nutrition and monitor residuals BIPAP QHS and PRN GT placement hope to avoid trach- monitor closely repeat imaging follow up acid base as needed medications/laboratory data/nursing notes reviewed in detail note reviewed and edited care discussed with RN and RT Critical Care - Subjective ROS Limited/Unobtainable: Yes Condition: stable EKG Rhythm: Sinus Rhythm I&O: Intake and Output 05/04/17 05/05/17 19:00 07:00 Intake Total 500 ml Output Total 203 ml Balance 297 ml IV Total 500 ml Output Urine Total 200 ml Estimated Blood Loss 3 ml Critical Care - Objective ET-Tube: 8.0 ET Position: 22 Last 24 Hour Vital Signs Date Time Temp Pulse Resp B/P (MAP) Pulse Ox O2 Delivery O2 Flow Rate FiO2 05/04/17 16:00 97.0 70 20 122/75 97 05/04/17 13:05 96.8 91 20 130/85 99 05/04/17 12:42 91 130/85 05/04/17 11:40 82 22 124/77 99 Nasal Cannula 2.0 05/04/17 11:30 92 22 133/86 99 Nasal Cannula 2.0 05/04/17 11:25 88 22 124/76 98 Nasal Cannula 2.0 05/04/17 11:23 98 20 97 05/04/17 11:20 97.9 93 22 126/76 99 Nasal Cannula 2.0 05/04/17 10:32 Nasal Cannula 2.0 05/04/17 10:32 95 Nasal Cannula 2.0 05/04/17 08:00 83 05/04/17 08:00 97.2 84 20 122/74 97 05/04/17 04:00 97.5 85 16 120/74 96 Nasal Cannula 05/04/17 03:41 87 05/04/17 00:10 88 05/04/17 00:00 97.5 85 17 111/70 95 Nasal Cannula 2.0 05/03/17 21:31 Nasal Cannula 2.0 28 05/03/17 21:31 96 Nasal Cannula 2.0 28 05/03/17 21:00 87 102/57 05/03/17 20:34 78 05/03/17 20:00 98.1 78 16 102/57 97 Nasal Cannula 2.0 05/03/17 17:36 66 18 98 Facial 30 Labs: Labs Test 05/03/17 07:10 05/03/17 08:30 05/04/17 04:00 White Blood Count 6.8 K/UL (4.8-10.8) Red Blood Count 3.71 M/UL (4.70-6.10) Hemoglobin 12.8 G/DL (14.2-18.0) Hematocrit 39.3 % (42.0-52.0) Mean Corpuscular Volume 106 FL (80-99) Mean Corpuscular Hemoglobin 34.5 PG (27.0-31.0) Mean Corpuscular Hemoglobin Concent 32.6 G/DL (32.0-36.0) Red Cell Distribution Width 12.1 % (11.6-14.8) Platelet Count 174 K/UL (150-450) Mean Platelet Volume 6.5 FL (6.5-10.1) Neutrophils (%) (Auto) 74.9 % (45.0-75.0) Lymphocytes (%) (Auto) 13.2 % (20.0-45.0) Monocytes (%) (Auto) 7.8 % (1.0-10.0) Eosinophils (%) (Auto) 3.0 % (0.0-3.0) Basophils (%) (Auto) 1.1 % (0.0-2.0) Prothrombin Time 9.7 SEC (9.30-11.50) Prothromb Time International Ratio 0.9 (0.9-1.1) Sodium Level 139 MMOL/L (136-145) Potassium Level 4.4 MMOL/L (3.5-5.1) Chloride Level 104 MMOL/L (98-107) Carbon Dioxide Level 33 MMOL/L (21-32) Anion Gap 2 mmol/L (5-15) Blood Urea Nitrogen 15 mg/dL (7-18) Creatinine 0.6 MG/DL (0.55-1.30) Estimat Glomerular Filtration Rate mL/min (>60) Glucose Level 121 MG/DL (74-106) Calcium Level 8.9 MG/DL (8.5-10.1) Magnesium Level 2.2 MG/DL (1.8-2.4) Total Bilirubin 0.4 MG/DL (0.2-1.0) Aspartate Amino Transf (AST/SGOT) 31 U/L (15-37) Alanine Aminotransferase (ALT/SGPT) 45 U/L (12-78) Alkaline Phosphatase 54 U/L (46-116) Pro-B-Type Natriuretic Peptide 108 pg/mL (0-125) Total Protein 7.1 G/DL (6.4-8.2) Albumin 3.1 G/DL (3.4-5.0) Globulin 4.0 g/dL Albumin/Globulin Ratio 0.8 (1.0-2.7) Arterial Blood pH 7.285 (7.350-7.450) 7.298 (7.350-7.450) Arterial Blood Partial Pressure CO2 74.7 mmHg (35.0-45.0) 69.8 mmHg (35.0-45.0) Arterial Blood Partial Pressure O2 102.7 mmHg (75.0-100.0) 95.5 mmHg (75.0-100.0) Arterial Blood HCO3 34.7 mmol/L (22.0-26.0) 33.4 mmol/L (22.0-26.0) Arterial Blood Oxygen Saturation 97.1 % (92.0-98.0) 96.5 % (92.0-98.0) Arterial Blood Base Excess 5.7 5.1 Pineda Test Positive Positive Objective: WDWN on BIPAP NAD coarse breath sounds bilaterally with minimal rhonchi [id number] without MRG NABS nontender no HSM no CC mild edema poor LOC; nonfocal skin noted lines noted reviewed and edited HUSSEIN MARTINEZ May 04, 2017 16:52
[2017-05-04] MEDS: Tamsulosin 0.4mg cap ORAL SCH (21:18)
[2017-05-04] MEDS: Sennosides 8.6mg NG SCH (21:19)
--- NOTE | 2017-05-04 23:15 | Operative Note - Dictated ---
DATE OF OPERATION: 05/04/2017 PROCEDURE: Upper gastroendoscopy with biopsy as well as gastrostomy tube placement. SURGEON: Obdulio Palacio M.D. ANESTHESIA: Please see the separate anesthesiologist notes for details. PRE-ENDOSCOPIC DIAGNOSES: Dysphagia. POST-ENDOSCOPIC DIAGNOSES: 1. Erosive gastritis status post biopsy from mid body. 2. Status post gastrostomy tube placement. PROCEDURE: The procedure, its risks, indications, and alternatives have been explained to the patient's family including complications and informed consent was obtained. The patient was then sedated in the supine position and diagnostic upper endoscope was introduced through the oropharynx and advanced to the duodenum. The endoscope was then gradually withdrawn and the mucosa was examined carefully. Examination of the upper gastrointestinal mucosa revealed erosive gastritis. Biopsy of the midbody was sent to pathology for review. Thereafter, the location for placement of gastrostomy tube was identified by palpation and transillumination techniques. The outside skin was sterilely prepared, anesthetized, and incised and the gastrostomy tube was placed using a standard pull technique. Position was verified endoscopically. The endoscope was removed. The patient was sent to Recovery in good condition. COMPLICATIONS: None. RECOMMENDATIONS: 1. Observe overnight. 2. Begin tube feedings tomorrow. 3. Check and treat for Helicobacter pylori if positive. 4. Proton pump inhibitor. 5. Okay to restart aspirin for history of cerebrovascular disease. Obdulio Palacio M.D. DR: Jasper JOB#: [id number] CC:
[2017-05-05] VITALS (7 sets, daily range): BP systolic 91–122; BP diastolic 58–70
[2017-05-05] MEDS: Vancomycin 1 GM in D5W 275 ML IVPB SCH ×2 (02:12→14:50)
--- NOTE | 2017-05-05 05:00 | Progress Note ---
DATE: 05/04/2017 CARDIOLOGY PROGRESS NOTE SUBJECTIVE: The patient is status post EGD and gastrostomy tube placement today without complications. Gastritis was noted as well. Postoperatively, the patient developed respiratory acidosis that was stabilized. OBJECTIVE: VITAL SIGNS: Blood pressure is 122/74, pulse 84, and respiratory rate 20. LUNGS: Bilateral breath sounds. HEART: Regular rhythm and rate. Normal S1 and S2. ABDOMEN: Slightly distended, but soft. PEG site is intact. EXTREMITIES: No edema. LABORATORIES: ABG, pH is 7.3, pCO2 70, and pO2 95. IMPRESSION: 1. Status post percutaneous endoscopic gastrostomy tube. 2. Acute on chronic respiratory acidosis. 3. Chronic obstructive pulmonary disease. 4. [id number] protein-calorie malnutrition. PLAN: 1. Monitor respiratory parameters as a base status and oxygenation. 2. IV fluids. 3. Pending initiation of G-tube feedings. 4. DVT and stress ulcer prophylaxis. 5. BiPAP for worsening respiratory acidosis. Shayne Sams M.D. DR: Milagro JOB#: [id number] CC:
[2017-05-05] MEDS: Artificial Tears 1.4% Op Soln BOTH EYES SCH ×3 (05:32→21:44)
--- NOTE | 2017-05-05 08:11 | General Progress Note ---
Assessment/Plan Problem List: (1) Altered level of consciousness ICD Codes: R40.4 - Transient alteration of awareness SNOMED: 7185649 (2) COPD exacerbation ICD Codes: J44.1 - Chronic obstructive pulmonary disease with (acute) exacerbation SNOMED: 090241189483070 (3) Hypercapnia ICD Codes: R06.89 - Other abnormalities of breathing SNOMED: 91663458 (4) PNA (pneumonia) ICD Codes: J18.9 - Pneumonia, unspecified organism SNOMED: 025600984 (5) Respiratory failure ICD Codes: J96.90 - Respiratory failure, unspecified, unspecified whether with hypoxia or hypercapnia SNOMED: 901287404 Status: stable, progressing Assessment/Plan resp rx bipap prn o2 check abg iv abx dvt/stress ulcer prophylaxis ngt feeds abx monitor cxr family ok with gt when stable gt placement when cleared by pulm may need bipap at night Subjective ROS Limited/Unobtainable: No Constitutional: Reports: malaise, weakness HEENT: Reports: no symptoms Cardiovascular: Reports: no symptoms Respiratory: Reports: cough, sputum Gastrointestinal/Abdominal: Reports: no symptoms Genitourinary: Reports: no symptoms Neurologic/Psychiatric: Reports: pre-existing deficit Endocrine: Reports: no symptoms Hematologic/Lymphatic: Reports: no symptoms Allergies: Coded Allergies: No Known Allergies (Unverified , 04/21/17) All Systems: reviewed and negative except above Subjective off bipap. on nasal cannula. somnolent but arousable. no fevers. Objective Last 24 Hour Vital Signs Date Time Temp Pulse Resp B/P (MAP) Pulse Ox O2 Delivery O2 Flow Rate FiO2 05/05/17 07:17 Nasal Cannula 2.0 28 05/05/17 07:16 96 Nasal Cannula 2.0 28 05/05/17 04:00 90 05/05/17 04:00 97.9 89 19 119/68 98 05/05/17 00:00 70 05/05/17 00:00 97.2 74 18 122/67 98 05/04/17 21:00 69 125/74 05/04/17 20:34 99 Nasal Cannula 2.0 28 05/04/17 20:34 Nasal Cannula 2.0 28 05/04/17 20:00 80 05/04/17 20:00 97.7 70 19 129/78 98 05/04/17 16:00 97.0 70 20 122/75 97 05/04/17 16:00 89 05/04/17 13:05 96.8 91 20 130/85 99 05/04/17 12:42 91 130/85 05/04/17 11:40 82 22 124/77 99 Nasal Cannula 2.0 05/04/17 11:30 92 22 133/86 99 Nasal Cannula 2.0 05/04/17 11:25 88 22 124/76 98 Nasal Cannula 2.0 05/04/17 11:23 98 20 97 05/04/17 11:20 97.9 93 22 126/76 99 Nasal Cannula 2.0 05/04/17 10:32 Nasal Cannula 2.0 28 05/04/17 10:32 95 Nasal Cannula 2.0 28 Height (Feet): 5 Height (Inches): 5.00 Weight (Pounds): 131 Objective General Appearance: lethargic, confused. on NC Neck: supple Cardiovascular: normal rate Respiratory/Chest: lungs clear, normal breath sounds, no respiratory distress Abdomen: normal bowel sounds, non tender, soft, no organomegaly Edema: no edema noted Arm (L), no edema noted Arm (R), no edema noted Leg (L), no edema noted Leg (R), no edema noted Pedal (L), no edema noted Pedal (R), no edema noted Generalized Neurologic: disoriented MARTIN HERNÁNDEZ May 05, 2017 08:11
--- NOTE | 2017-05-05 08:18 | Critical Care Progress Note ---
Assessment/Plan Assessment/Plan IMPRESSION respiratory failure COPD Pneumonia acute respiratory acidosis thrombocytopenia history of CVA history of TIA hypertension per history encephalopathy PLAN ventilator management off IV antibiotics per ID check BNP respiratory care and suction titrate oxygen SNF meds monitor airway nutrition and monitor residuals BIPAP QHS and PRN repeat imaging and ABG pending follow up acid base as needed medications/laboratory data/nursing notes reviewed in detail note reviewed and edited care discussed with RN and RT Critical Care - Subjective Interval Events: appears more comfortable on NC o2 no distress ROS Limited/Unobtainable: Yes Condition: stable EKG Rhythm: Sinus Rhythm Critical Care - Objective ET-Tube: 8.0 ET Position: 22 Last 24 Hour Vital Signs Date Time Temp Pulse Resp B/P (MAP) Pulse Ox O2 Delivery O2 Flow Rate FiO2 05/05/17 07:17 Nasal Cannula 2.0 28 05/05/17 07:16 96 Nasal Cannula 2.0 28 05/05/17 04:00 90 05/05/17 04:00 97.9 89 19 119/68 98 05/05/17 00:00 70 05/05/17 00:00 97.2 74 18 122/67 98 05/04/17 21:00 69 125/74 05/04/17 20:34 99 Nasal Cannula 2.0 28 05/04/17 20:34 Nasal Cannula 2.0 28 05/04/17 20:00 80 05/04/17 20:00 97.7 70 19 129/78 98 05/04/17 16:00 97.0 70 20 122/75 97 05/04/17 16:00 89 05/04/17 13:05 96.8 91 20 130/85 99 05/04/17 12:42 91 130/85 05/04/17 11:40 82 22 124/77 99 Nasal Cannula 2.0 05/04/17 11:30 92 22 133/86 99 Nasal Cannula 2.0 05/04/17 11:25 88 22 124/76 98 Nasal Cannula 2.0 05/04/17 11:23 98 20 97 05/04/17 11:20 97.9 93 22 126/76 99 Nasal Cannula 2.0 05/04/17 10:32 Nasal Cannula 2.0 28 05/04/17 10:32 95 Nasal Cannula 2.0 28 Objective: WDWN off BIPAP NAD coarse breath sounds bilaterally with minimal rhonchi without change [id number] without MRG NABS nontender no HSM no CC mild edema poor LOC; nonfocal skin noted lines noted reviewed and edited HUSSEIN MARTINEZ May 05, 2017 08:18
[2017-05-05 09:08] LABS: ABG BASE EXCESS 2.2; ABG PCO2 79.1 mmHg (35.0-45.0)
[2017-05-05 09:09] LABS: ABG ALLEN TEST POSITIVE
[2017-05-05] MEDS: Docusate 100mg/10ml Liq NG SCH ×2 (09:10→17:17)
[2017-05-05] MEDS: Metoprolol Tartrate 50mg tab NG SCH ×2 (09:10→21:00)
[2017-05-05] MEDS: Heparin 5000 units/ml inj SUBQ SCH ×2 (09:11→21:28)
[2017-05-05 10:04] LABS: BASOPHILS % (AUTO) 1.1 % (0.0-2.0); EOSINOPHILS % (AUTO) 1.6 % (0.0-3.0); LYMPHOCYTES % (AUTO) 12.5 % (20.0-45.0); MEAN CORPUSCULAR HEMOGLOBIN 32.9 PG (27.0-31.0); MEAN CORPUSCULAR HGB CONC 31.4 G/DL (32.0-36.0); MEAN CORPUSCULAR VOLUME 105 FL (80-99); MEAN PLATELET VOLUME 6.2 FL (6.5-10.1); MONOCYTES % (AUTO) 5.4 % (1.0-10.0); NEUTROPHILS % (AUTO) 79.3 % (45.0-75.0); PLATELET COUNT 170 K/UL (150-450); RED BLOOD COUNT 3.76 M/UL (4.70-6.10); RED CELL DISTRIBUTION WIDTH 11.6 % (11.6-14.8); WHITE BLOOD COUNT 7.9 K/UL (4.8-10.8)
[2017-05-05 10:10] LABS: ALANINE AMINOTRANSFERASE 41 U/L (12-78); ALBUMIN/GLOBULIN RATIO 0.8 (1.0-2.7); ANION GAP 3 mmol/L (5-15); ASPARTATE AMINO TRANSFERASE 21 U/L (15-37); CALCIUM 8.6 MG/DL (8.5-10.1); CARBON DIOXIDE 32 MMOL/L (21-32); CHLORIDE 103 MMOL/L (98-107); CREATININE 0.6 MG/DL (0.55-1.30); MAGNESIUM 2.2 MG/DL (1.8-2.4); POTASSIUM 4.2 MMOL/L (3.5-5.1); SODIUM 138 MMOL/L (136-145); TOTAL PROTEIN 6.9 G/DL (6.4-8.2)
--- NOTE | 2017-05-05 10:35 | Infectious Diseases Prog Note ---
Assessment/Plan Assessment/Plan antibiotics : vancomycin iv A 1. MRSA pneumonia 2. COPD 3. MRSA nasal colonization 4. CVA 5. sinusitis 6. respiratory failure resolved P 1. continue vancomycin iv 4 more days 2. will follow up cultures Subjective ROS Limited/Unobtainable: Yes Allergies: Coded Allergies: No Known Allergies (Unverified , 04/21/17) Objective Vital Signs Last 24 Hour Vital Signs Date Time Temp Pulse Resp B/P (MAP) Pulse Ox O2 Delivery O2 Flow Rate FiO2 05/05/17 09:10 86 122/61 05/05/17 08:00 96.7 86 20 122/61 97 05/05/17 08:00 86 05/05/17 07:17 Nasal Cannula 2.0 28 05/05/17 07:16 96 Nasal Cannula 2.0 28 05/05/17 04:00 90 05/05/17 04:00 97.9 89 19 119/68 98 05/05/17 00:00 70 05/05/17 00:00 97.2 74 18 122/67 98 05/04/17 21:00 69 125/74 05/04/17 20:34 99 Nasal Cannula 2.0 28 05/04/17 20:34 Nasal Cannula 2.0 28 05/04/17 20:00 80 05/04/17 20:00 97.7 70 19 129/78 98 05/04/17 16:00 97.0 70 20 122/75 97 05/04/17 16:00 89 05/04/17 13:05 96.8 91 20 130/85 99 05/04/17 12:42 91 130/85 05/04/17 11:40 82 22 124/77 99 Nasal Cannula 2.0 05/04/17 11:30 92 22 133/86 99 Nasal Cannula 2.0 05/04/17 11:25 88 22 124/76 98 Nasal Cannula 2.0 05/04/17 11:23 98 20 97 05/04/17 11:20 97.9 93 22 126/76 99 Nasal Cannula 2.0 Height (Feet): 5 Height (Inches): 5.00 Weight (Pounds): 131 HEENT: other - on bipap Respiratory/Chest: lungs clear Cardiovascular: normal rate, regular rhythm, no gallop/murmur Abdomen: soft, non tender, other - GT Extremities: no edema Laboratory Tests Test 05/05/17 08:59 05/05/17 09:05 Arterial Blood pH 7.226 (7.350-7.450) Arterial Blood Partial Pressure CO2 79.1 mmHg (35.0-45.0) *H Arterial Blood Partial Pressure O2 83.3 mmHg (75.0-100.0) Arterial Blood HCO3 32.1 mmol/L (22.0-26.0) H Arterial Blood Oxygen Saturation 94.7 % (92.0-98.0) Arterial Blood Base Excess 2.2 Pineda Test Positive White Blood Count 7.9 K/UL (4.8-10.8) Red Blood Count 3.76 M/UL (4.70-6.10) L Hemoglobin 12.4 G/DL (14.2-18.0) L Hematocrit 39.4 % (42.0-52.0) L Mean Corpuscular Volume 105 FL (80-99) H Mean Corpuscular Hemoglobin 32.9 PG (27.0-31.0) H Mean Corpuscular Hemoglobin Concent 31.4 G/DL (32.0-36.0) L Red Cell Distribution Width 11.6 % (11.6-14.8) Platelet Count 170 K/UL (150-450) Mean Platelet Volume 6.2 FL (6.5-10.1) L Neutrophils (%) (Auto) 79.3 % (45.0-75.0) H Lymphocytes (%) (Auto) 12.5 % (20.0-45.0) L Monocytes (%) (Auto) 5.4 % (1.0-10.0) Eosinophils (%) (Auto) 1.6 % (0.0-3.0) Basophils (%) (Auto) 1.1 % (0.0-2.0) Sodium Level 138 MMOL/L (136-145) Potassium Level 4.2 MMOL/L (3.5-5.1) Chloride Level 103 MMOL/L (98-107) Carbon Dioxide Level 32 MMOL/L (21-32) Anion Gap 3 mmol/L (5-15) L Blood Urea Nitrogen 10 mg/dL (7-18) Creatinine 0.6 MG/DL (0.55-1.30) Estimat Glomerular Filtration Rate mL/min (>60) Glucose Level 115 MG/DL (74-106) H Calcium Level 8.6 MG/DL (8.5-10.1) Magnesium Level 2.2 MG/DL (1.8-2.4) Total Bilirubin 0.5 MG/DL (0.2-1.0) Aspartate Amino Transf (AST/SGOT) 21 U/L (15-37) Alanine Aminotransferase (ALT/SGPT) 41 U/L (12-78) Alkaline Phosphatase 61 U/L (46-116) Pro-B-Type Natriuretic Peptide 122 pg/mL (0-125) Total Protein 6.9 G/DL (6.4-8.2) Albumin 3.1 G/DL (3.4-5.0) L Globulin 3.8 g/dL Albumin/Globulin Ratio 0.8 (1.0-2.7) L JENNY CHAN May 05, 2017 10:35
[2017-05-05] MEDS: NS w/KCl 20mEq 1,000 ML IV SCH (10:40)
[2017-05-05 11:34] LABS: ABG ALLEN TEST POSITIVE; ABG BASE EXCESS 3.8; ABG PCO2 59.9 mmHg (35.0-45.0)
--- NOTE | 2017-05-05 11:35 | Wound Nurse Progress Note ---
Wound RN Progress Note Wound Consult #1 Sacrococcygeal pressure ulcer stage 3 with full thickness scar tissue to surrounding site 3.0cmx 1.5cm , scar tissue and skin remains intact, bony area palpable,but NOT visible. #2 scattered scabs to right sacral with redness.- full thickness scar tissue is present. scattered scabs to right side sacral with redness,denuded skin pink in color and scabs present. CONTINUE to offload, apply large BIATAIN SILICONE to sacrococcygeal site. with recommended wound care. OFFLOAD SACRAL AREA. AVOID SHEAR OR FRICTION Recommendation. -Local wound care as ordered. -Turn and reposition. -Keep clean and dry. -Optimize nutrition. -Heel protectors. -Avoid shear and friction. -Apply low air loss SPR mattress for wound care and skin management. -Assess and follow up with MD for any further changes of condition with skin. ALYSIA FLORES May 05, 2017 11:35
--- NOTE | 2017-05-05 16:34 | General Progress Note ---
Assessment/Plan Assessment/Plan Assessment - resp failure / COPD - acidosis - CO2 retention - s/p EGD, PEG - AMS/ CVA Recommendations - Begin TF - GT care - Abx - BIPAP PRN - BID H2B - f/u path and Rx HP if (+) - OK for BBy ASA for h/o CVA Subjective Allergies: Coded Allergies: No Known Allergies (Unverified , 04/21/17) Subjective above noted no events overnight s/p PEG Objective Last 24 Hour Vital Signs Date Time Temp Pulse Resp B/P (MAP) Pulse Ox O2 Delivery O2 Flow Rate FiO2 05/05/17 16:00 97.0 72 21 106/70 95 05/05/17 12:13 95/59 98 Bi-pap 05/05/17 12:00 96.8 64 21 91/58 98 05/05/17 12:00 68 05/05/17 09:10 86 122/61 05/05/17 08:00 96.7 86 20 122/61 97 05/05/17 08:00 86 05/05/17 07:17 Nasal Cannula 2.0 28 05/05/17 07:16 96 Nasal Cannula 2.0 28 05/05/17 04:00 90 05/05/17 04:00 97.9 89 19 119/68 98 05/05/17 00:00 70 05/05/17 00:00 97.2 74 18 122/67 98 05/04/17 21:00 69 125/74 05/04/17 20:34 99 Nasal Cannula 2.0 28 05/04/17 20:34 Nasal Cannula 2.0 28 05/04/17 20:00 80 05/04/17 20:00 97.7 70 19 129/78 98 Intake and Output 05/05/17 05/06/17 19:00 07:00 Intake Total 1140.000 ml Balance 1140.000 ml Intake Free Water 190 ml IV Total 650.000 ml Tube Feeding 300 ml Laboratory Tests 05/05/17 08:59: Arterial Blood pH 7.226*L, Arterial Blood Partial Pressure CO2 79.1*H, Arterial Blood Partial Pressure O2 83.3, Arterial Blood HCO3 32.1H, Arterial Blood Oxygen Saturation 94.7, Arterial Blood Base Excess 2.2, Pineda Test Positive 05/05/17 09:05: White Blood Count 7.9, Red Blood Count 3.76L, Hemoglobin 12.4L, Hematocrit 39.4L , Mean Corpuscular Volume 105H, Mean Corpuscular Hemoglobin 32.9H, Mean Corpuscular Hemoglobin Concent 31.4L, Red Cell Distribution Width 11.6, Platelet Count 170, Mean Platelet Volume 6.2L, Neutrophils (%) (Auto) 79.3H, Lymphocytes (%) (Auto) 12.5L, Monocytes (%) (Auto) 5.4, Eosinophils (%) (Auto) 1.6, Basophils (%) (Auto) 1.1, Sodium Level 138, Potassium Level 4.2, Chloride Level 103, Carbon Dioxide Level 32, Anion Gap 3L, Blood Urea Nitrogen 10, Creatinine 0.6, Estimat Glomerular Filtration Rate , Glucose Level 115H, Calcium Level 8.6, Magnesium Level 2.2, Total Bilirubin 0.5, Aspartate Amino Transf (AST/SGOT) 21, Alanine Aminotransferase (ALT/SGPT) 41, Alkaline Phosphatase 61, Pro-B-Type Natriuretic Peptide 122, Total Protein 6.9, Albumin 3.1L, Globulin 3.8, Albumin/Globulin Ratio 0.8L 05/05/17 11:15: Arterial Blood pH 7.335L, Arterial Blood Partial Pressure CO2 59.9*H, Arterial Blood Partial Pressure O2 75.9, Arterial Blood HCO3 31.0H, Arterial Blood Oxygen Saturation 75.9L, Arterial Blood Base Excess 3.8, Pineda Test Positive Height (Feet): 5 Height (Inches): 5.00 Weight (Pounds): 131 Objective Thin man NCAT supple Chest coarse BS RR soft ND NT no edema confused MADDIE JEFFERSON May 05, 2017 16:34
[2017-05-05] MEDS ORDERED: Tubing IV Secondary IV ONE (20:42)
[2017-05-05] MEDS ORDERED: Sterile Water Irrig 1000ml IRRIG ONE (20:42)
[2017-05-05] MEDS ORDERED: NS 500ML ONE (20:42)
[2017-05-05] MEDS: Tamsulosin 0.4mg cap ORAL SCH (21:23)
[2017-05-05] MEDS: Sennosides 8.6mg NG SCH (21:23)
[2017-05-06] VITALS: BP 117/79
[2017-05-06] MEDS: NS w/KCl 20mEq 1,000 ML IV SCH ×2 (00:07→14:00)
[2017-05-06] MEDS: Vancomycin 1 GM in D5W 275 ML IVPB SCH ×2 (02:08→13:51)
[2017-05-06 04:00] VITALS: BP 116/70
--- NOTE | 2017-05-06 04:00 | Progress Note ---
DATE: 05/05/2017 CARDIOLOGY PROGRESS NOTE SUBJECTIVE: The patient is status post G-tube. Feedings as tolerated. No distress. At times, lethargic. OBJECTIVE: VITAL SIGNS: Blood pressure 119/68, pulse 89, respiratory rate 19, and afebrile. LUNGS: Diminished breath sounds. HEART: Regular rhythm and rate. Normal S1, S2. ABDOMEN: Soft. G-tube intact. EXTREMITIES: Trace edema. LABORATORY DATA: White count 7.9, hemoglobin 12.4. ABG, 7.23, 79, 83 earlier this morning. Sodium 139, potassium 4.2, BUN 10, and creatinine 0.6. Pro-natriuretic peptide 122. IMPRESSION: 1. Acute on chronic respiratory acidosis. 2. No signs of congestive heart failure. 3. Dysphagia, and protein calorie malnutrition, status post gastrostomy tube. 4. Cerebrovascular disease, status post cerebrovascular accident. PLAN: 1. Respiratory support. 2. BiPAP trial. 3. Continue Diamox to stimulate respiratory drive. 4. G-tube feedings. 5. DVT and stress ulcer prophylaxes. 6. Antiplatelet therapy with aspirin. Shayne Sams M.D. DR: HEATHER JOB#: [id number] CC:
[2017-05-06] MEDS: Artificial Tears 1.4% Op Soln BOTH EYES SCH ×3 (05:58→21:26)
--- NOTE | 2017-05-06 07:31 | Critical Care Progress Note ---
Assessment/Plan Assessment/Plan IMPRESSION respiratory failure COPD Pneumonia acute respiratory acidosis thrombocytopenia history of CVA history of TIA hypertension per history encephalopathy PLAN IV antibiotics per ID check BNP respiratory care and suction titrate oxygen SNF meds monitor airway nutrition and monitor residuals BIPAP QHS and PRN repeat imaging and ABG today follow up acid base - seems improved at present medications/laboratory data/nursing notes reviewed in detail note reviewed and edited care discussed with RN and RT Critical Care - Subjective Interval Events: care noted and reviewed on BIPAP currently comfortable at present EKG Rhythm: Sinus Rhythm Critical Care - Objective ET-Tube: 8.0 ET Position: 22 Last 24 Hour Vital Signs Date Time Temp Pulse Resp B/P (MAP) Pulse Ox O2 Delivery O2 Flow Rate FiO2 05/06/17 05:20 77 18 97 Facial 28 05/06/17 04:00 97.0 64 20 116/70 97 05/06/17 04:00 65 05/06/17 03:26 71 18 98 Facial 28 05/06/17 01:29 73 17 97 Facial 28 05/06/17 00:00 73 05/06/17 00:00 97.6 71 26 117/79 98 05/05/17 23:15 70 26 98 Facial 28 05/05/17 21:00 71 108/69 05/05/17 20:41 63 23 98 Facial 28 05/05/17 20:02 97.6 71 20 108/69 97 05/05/17 20:00 70 05/05/17 20:00 99 Bi-pap 28 05/05/17 20:00 69 22 99 Facial 28 05/05/17 19:55 Bi-pap 28 05/05/17 16:00 71 05/05/17 16:00 97.0 72 21 106/70 95 05/05/17 12:13 95/59 98 Bi-pap 05/05/17 12:00 96.8 64 21 91/58 98 05/05/17 12:00 68 05/05/17 09:10 86 122/61 05/05/17 08:00 96.7 86 20 122/61 97 05/05/17 08:00 86 Labs: Labs Test 05/03/17 08:30 05/04/17 04:00 05/05/17 08:59 05/05/17 09:05 Arterial Blood pH 7.285 (7.350-7.450) 7.298 (7.350-7.450) 7.226 (7.350-7.450) Arterial Blood Partial Pressure CO2 74.7 mmHg (35.0-45.0) 69.8 mmHg (35.0-45.0) 79.1 mmHg (35.0-45.0) Arterial Blood Partial Pressure O2 102.7 mmHg (75.0-100.0) 95.5 mmHg (75.0-100.0) 83.3 mmHg (75.0-100.0) Arterial Blood HCO3 34.7 mmol/L (22.0-26.0) 33.4 mmol/L (22.0-26.0) 32.1 mmol/L (22.0-26.0) Arterial Blood Oxygen Saturation 97.1 % (92.0-98.0) 96.5 % (92.0-98.0) 94.7 % (92.0-98.0) Arterial Blood Base Excess 5.7 5.1 2.2 Pineda Test Positive Positive Positive White Blood Count 7.9 K/UL (4.8-10.8) Red Blood Count 3.76 M/UL (4.70-6.10) Hemoglobin 12.4 G/DL (14.2-18.0) Hematocrit 39.4 % (42.0-52.0) Mean Corpuscular Volume 105 FL (80-99) Mean Corpuscular Hemoglobin 32.9 PG (27.0-31.0) Mean Corpuscular Hemoglobin Concent 31.4 G/DL (32.0-36.0) Red Cell Distribution Width 11.6 % (11.6-14.8) Platelet Count 170 K/UL (150-450) Mean Platelet Volume 6.2 FL (6.5-10.1) Neutrophils (%) (Auto) 79.3 % (45.0-75.0) Lymphocytes (%) (Auto) 12.5 % (20.0-45.0) Monocytes (%) (Auto) 5.4 % (1.0-10.0) Eosinophils (%) (Auto) 1.6 % (0.0-3.0) Basophils (%) (Auto) 1.1 % (0.0-2.0) Sodium Level 138 MMOL/L (136-145) Potassium Level 4.2 MMOL/L (3.5-5.1) Chloride Level 103 MMOL/L (98-107) Carbon Dioxide Level 32 MMOL/L (21-32) Anion Gap 3 mmol/L (5-15) Blood Urea Nitrogen 10 mg/dL (7-18) Creatinine 0.6 MG/DL (0.55-1.30) Estimat Glomerular Filtration Rate mL/min (>60) Glucose Level 115 MG/DL (74-106) Calcium Level 8.6 MG/DL (8.5-10.1) Magnesium Level 2.2 MG/DL (1.8-2.4) Total Bilirubin 0.5 MG/DL (0.2-1.0) Aspartate Amino Transf (AST/SGOT) 21 U/L (15-37) Alanine Aminotransferase (ALT/SGPT) 41 U/L (12-78) Alkaline Phosphatase 61 U/L (46-116) Pro-B-Type Natriuretic Peptide 122 pg/mL (0-125) Total Protein 6.9 G/DL (6.4-8.2) Albumin 3.1 G/DL (3.4-5.0) Globulin 3.8 g/dL Albumin/Globulin Ratio 0.8 (1.0-2.7) Test 05/05/17 11:15 Arterial Blood pH 7.335 (7.350-7.450) Arterial Blood Partial Pressure CO2 59.9 mmHg (35.0-45.0) Arterial Blood Partial Pressure O2 75.9 mmHg (75.0-100.0) Arterial Blood HCO3 31.0 mmol/L (22.0-26.0) Arterial Blood Oxygen Saturation 75.9 % (92.0-98.0) Arterial Blood Base Excess 3.8 Pineda Test Positive Objective: WDWN off BIPAP NAD coarse breath sounds bilaterally with minimal rhonchi without change [id number] without MRG NABS nontender no HSM no CC mild edema poor LOC; nonfocal skin noted lines noted reviewed and edited HUSSEIN MARTINEZ May 06, 2017 07:31
[2017-05-06 08:00] VITALS: BP 138/83
[2017-05-06] MEDS: Metoprolol Tartrate 50mg tab NG SCH ×2 (08:55→21:27)
[2017-05-06] MEDS: Docusate 100mg/10ml Liq NG SCH ×2 (08:55→17:37)
[2017-05-06] MEDS: Heparin 5000 units/ml inj SUBQ SCH ×2 (08:57→21:30)
[2017-05-06 10:21] LABS: ABG ALLEN TEST POSITIVE; ABG BASE EXCESS 6.5; ABG PCO2 61.9 mmHg (35.0-45.0)
[2017-05-06 12:00] VITALS: BP 126/72
--- NOTE | 2017-05-06 12:35 | Infectious Diseases Prog Note ---
Assessment/Plan Assessment/Plan antibiotics : vancomycin iv A 1. MRSA pneumonia 2. COPD 3. MRSA nasal colonization 4. CVA 5. sinusitis 6. respiratory failure resolved P 1. continue vancomycin iv 3 more days 2. will follow up cultures Subjective ROS Limited/Unobtainable: Yes Allergies: Coded Allergies: No Known Allergies (Unverified , 04/21/17) Objective Vital Signs Last 24 Hour Vital Signs Date Time Temp Pulse Resp B/P (MAP) Pulse Ox O2 Delivery O2 Flow Rate FiO2 05/06/17 08:55 93 138/83 05/06/17 08:00 98.2 93 20 138/83 96 Nasal Cannula 3.0 05/06/17 08:00 85 05/06/17 07:35 Nasal Cannula 3.0 32 05/06/17 07:34 96 Nasal Cannula 3.0 32 05/06/17 05:20 77 18 97 Facial 28 05/06/17 04:00 97.0 64 20 116/70 97 05/06/17 04:00 65 05/06/17 03:26 71 18 98 Facial 28 05/06/17 01:29 73 17 97 Facial 28 05/06/17 00:00 73 05/06/17 00:00 97.6 71 26 117/79 98 05/05/17 23:15 70 26 98 Facial 28 05/05/17 21:00 71 108/69 05/05/17 20:41 63 23 98 Facial 28 05/05/17 20:02 97.6 71 20 108/69 97 05/05/17 20:00 70 05/05/17 20:00 99 Bi-pap 28 05/05/17 20:00 69 22 99 Facial 28 05/05/17 19:55 Bi-pap 28 05/05/17 16:00 71 05/05/17 16:00 97.0 72 21 106/70 95 Height (Feet): 5 Height (Inches): 5.00 Weight (Pounds): 133 Respiratory/Chest: lungs clear Cardiovascular: normal rate, regular rhythm, no gallop/murmur Abdomen: other - GT Extremities: no edema Laboratory Tests Test 05/06/17 10:05 Arterial Blood pH 7.350 (7.350-7.450) Arterial Blood Partial Pressure CO2 61.9 mmHg (35.0-45.0) *H Arterial Blood Partial Pressure O2 112.2 mmHg (75.0-100.0) H Arterial Blood HCO3 33.7 mmol/L (22.0-26.0) H Arterial Blood Oxygen Saturation 97.7 % (92.0-98.0) Arterial Blood Base Excess 6.5 Pineda Test Positive JENNY CHAN May 06, 2017 12:35
--- NOTE | 2017-05-06 15:54 | General Progress Note ---
Assessment/Plan Problem List: (1) Altered level of consciousness ICD Codes: R40.4 - Transient alteration of awareness SNOMED: 0227955 (2) COPD exacerbation ICD Codes: J44.1 - Chronic obstructive pulmonary disease with (acute) exacerbation SNOMED: 816890755671344 (3) Hypercapnia ICD Codes: R06.89 - Other abnormalities of breathing SNOMED: 68587891 (4) PNA (pneumonia) ICD Codes: J18.9 - Pneumonia, unspecified organism SNOMED: 704187448 (5) Respiratory failure ICD Codes: J96.90 - Respiratory failure, unspecified, unspecified whether with hypoxia or hypercapnia SNOMED: 883948976 Status: stable, progressing Assessment/Plan resp rx on bipap last night- better today o2 monitor abg iv abx dvt/stress ulcer prophylaxis ngt feeds abx monitor cxr family ok with gt when stable gt placement when cleared by pulm may need bipap at night Subjective ROS Limited/Unobtainable: No Constitutional: Reports: malaise, weakness HEENT: Reports: no symptoms Cardiovascular: Reports: no symptoms Respiratory: Reports: cough, shortness of breath, sputum Gastrointestinal/Abdominal: Reports: difficulty swallowing Genitourinary: Reports: no symptoms Neurologic/Psychiatric: Reports: no symptoms Endocrine: Reports: no symptoms Hematologic/Lymphatic: Reports: no symptoms Allergies: Coded Allergies: No Known Allergies (Unverified , 04/21/17) All Systems: reviewed and negative except above Subjective off bipap. on nasal cannula. somnolent but arousable. no fevers. Objective Last 24 Hour Vital Signs Date Time Temp Pulse Resp B/P (MAP) Pulse Ox O2 Delivery O2 Flow Rate FiO2 05/06/17 12:00 65 05/06/17 12:00 97.2 70 21 126/72 94 05/06/17 12:00 21 94 Nasal Cannula 1.0 05/06/17 08:55 93 138/83 05/06/17 08:00 98.2 93 20 138/83 96 Nasal Cannula 3.0 05/06/17 08:00 85 05/06/17 07:35 Nasal Cannula 3.0 32 05/06/17 07:34 96 Nasal Cannula 3.0 32 05/06/17 05:20 77 18 97 Facial 28 05/06/17 04:00 97.0 64 20 116/70 97 05/06/17 04:00 65 05/06/17 03:26 71 18 98 Facial 28 05/06/17 01:29 73 17 97 Facial 28 05/06/17 00:00 73 05/06/17 00:00 97.6 71 26 117/79 98 05/05/17 23:15 70 26 98 Facial 28 05/05/17 21:00 71 108/69 05/05/17 20:41 63 23 98 Facial 28 05/05/17 20:02 97.6 71 20 108/69 97 05/05/17 20:00 70 05/05/17 20:00 99 Bi-pap 28 05/05/17 20:00 69 22 99 Facial 28 05/05/17 19:55 Bi-pap 28 05/05/17 16:00 71 05/05/17 16:00 97.0 72 21 106/70 95 Intake and Output 05/06/17 05/07/17 19:00 07:00 Intake Total 1298.708 ml Output Total 320 ml Balance 978.708 ml Intake Free Water 160 ml IV Total 708.708 ml Tube Feeding 430 ml Output Urine Total 320 ml Laboratory Tests 05/06/17 10:05: Arterial Blood pH 7.350, Arterial Blood Partial Pressure CO2 61.9*H, Arterial Blood Partial Pressure O2 112.2H, Arterial Blood HCO3 33.7H, Arterial Blood Oxygen Saturation 97.7, Arterial Blood Base Excess 6.5, Pineda Test Positive Height (Feet): 5 Height (Inches): 5.00 Weight (Pounds): 133 Objective General Appearance: lethargic, confused. on NC Neck: supple Cardiovascular: normal rate Respiratory/Chest: lungs clear, normal breath sounds, no respiratory distress Abdomen: normal bowel sounds, non tender, soft, no organomegaly Edema: no edema noted Arm (L), no edema noted Arm (R), no edema noted Leg (L), no edema noted Leg (R), no edema noted Pedal (L), no edema noted Pedal (R), no edema noted Generalized Neurologic: disoriented MARTIN HERNÁNDEZ May 06, 2017 15:54
[2017-05-06 16:00] VITALS: BP 125/76
--- NOTE | 2017-05-06 16:12 | Diagnostic Imaging Report ---
Indication: COUGH, shortness of breath Technique: One view of the chest Comparison: 05/05/2017 Findings: No definite acute infiltrates or effusions. There is decreased opacity in the right midlung. There is a small amount of pleural fluid again demonstrated, unchanged. Old healed right rib fracture deformities are again demonstrated. Impression: Improved right midlung infiltrate, over one day Other stable findings as described
[2017-05-06 20:38] VITALS: BP 112/73
[2017-05-06] MEDS: Sennosides 8.6mg NG SCH (21:26)
[2017-05-06] MEDS: Tamsulosin 0.4mg cap ORAL SCH (21:26)
--- NOTE | 2017-05-06 22:17 | General Progress Note ---
Assessment/Plan Assessment/Plan Assessment - resp failure / COPD - acidosis - CO2 retention - s/p EGD, PEG - AMS/ CVA Recommendations - Continue TF - GT care - Abx - BIPAP PRN - BID H2B - f/u path and Rx HP if (+) - OK for ASA for h/o CVA Subjective Allergies: Coded Allergies: No Known Allergies (Unverified , 04/21/17) Subjective above noted no events overnight tolerating TF Objective Last 24 Hour Vital Signs Date Time Temp Pulse Resp B/P (MAP) Pulse Ox O2 Delivery O2 Flow Rate FiO2 05/06/17 21:27 77 112/73 05/06/17 20:38 98.2 76 18 112/73 95 Nasal Cannula 05/06/17 20:37 Nasal Cannula 1.0 25 05/06/17 20:36 94 Nasal Cannula 1.0 25 05/06/17 16:00 76 05/06/17 16:00 97.2 72 20 125/76 95 05/06/17 12:00 65 05/06/17 12:00 97.2 70 21 126/72 94 05/06/17 12:00 21 94 Nasal Cannula 1.0 05/06/17 08:55 93 138/83 05/06/17 08:00 98.2 93 20 138/83 96 Nasal Cannula 3.0 05/06/17 08:00 85 05/06/17 07:35 Nasal Cannula 3.0 32 05/06/17 07:34 96 Nasal Cannula 3.0 32 05/06/17 05:20 77 18 97 Facial 28 05/06/17 04:00 97.0 64 20 116/70 97 05/06/17 04:00 65 05/06/17 03:26 71 18 98 Facial 28 05/06/17 01:29 73 17 97 Facial 28 05/06/17 00:00 73 05/06/17 00:00 97.6 71 26 117/79 98 05/05/17 23:15 70 26 98 Facial 28 Intake and Output 05/06/17 05/07/17 19:00 07:00 Intake Total 2070.000 ml Output Total 470 ml Balance 1600.000 ml Intake Free Water 320 ml IV Total 1100.000 ml Tube Feeding 650 ml Output Urine Total 470 ml # Voids 8 Laboratory Tests 05/06/17 10:05: Arterial Blood pH 7.350, Arterial Blood Partial Pressure CO2 61.9*H, Arterial Blood Partial Pressure O2 112.2H, Arterial Blood HCO3 33.7H, Arterial Blood Oxygen Saturation 97.7, Arterial Blood Base Excess 6.5, Pineda Test Positive Height (Feet): 5 Height (Inches): 5.00 Weight (Pounds): 133 Objective Thin man NCAT supple Chest coarse BS RR soft ND NT no edema confused MADDIE JEFFERSON May 06, 2017 22:17
[2017-05-07 00:34] VITALS: BP 114/73
--- NOTE | 2017-05-07 01:45 | Progress Note ---
DATE: 05/06/2017 NOTE: INCOMPLETE DICTATION CARDIOLOGY PROGRESS NOTE SUBJECTIVE: The patient is somnolent, but arousable. He is off BiPAP. He is on nasal cannula. OBJECTIVE: VITAL SIGNS: Blood pressure is 126/72, pulse 70, respirations 21, and afebrile. Monitored sinus. LUNGS: Bilateral breath sounds diminished at bases. No wheezing. CARDIAC: Regular rhythm and rate. Normal S1 and S2. ABDOMEN: Soft. G-tube site intact. EXTREMITIES: No edema. LABORATORY DATA: . Shayne Sams M.D. DR: Milagro JOB#: [id number] CC:
[2017-05-07] MEDS: NS w/KCl 20mEq 1,000 ML IV SCH ×2 (02:58→16:05)
[2017-05-07] MEDS: Vancomycin 1 GM in D5W 275 ML IVPB SCH ×2 (02:59→14:46)
[2017-05-07 04:25] VITALS: BP 124/74
[2017-05-07] MEDS: Artificial Tears 1.4% Op Soln BOTH EYES SCH ×3 (06:15→22:35)
--- NOTE | 2017-05-07 07:49 | Critical Care Progress Note ---
Assessment/Plan Assessment/Plan IMPRESSION respiratory failure COPD Pneumonia acute respiratory acidosis thrombocytopenia history of CVA history of TIA hypertension per history encephalopathy PLAN IV antibiotics per ID check BNP respiratory care and suction titrate oxygen SNF meds monitor airway nutrition and monitor residuals BIPAP QHS and PRN repeat imaging and ABG improved seems improved medications/laboratory data/nursing notes reviewed in detail note reviewed and edited care discussed with RN and RT Critical Care - Subjective Interval Events: improved off BIPAP on oxygen ROS Limited/Unobtainable: Yes Condition: improving EKG Rhythm: Sinus Rhythm Critical Care - Objective CXR: improved ET-Tube: 8.0 ET Position: 22 Last 24 Hour Vital Signs Date Time Temp Pulse Resp B/P (MAP) Pulse Ox O2 Delivery O2 Flow Rate FiO2 05/07/17 07:23 Nasal Cannula 1.0 25 05/07/17 07:23 96 Nasal Cannula 1.0 25 05/07/17 04:25 96.5 79 18 124/74 98 Nasal Cannula 05/07/17 04:00 78 05/07/17 00:34 97.5 71 18 114/73 95 Nasal Cannula 05/07/17 00:00 68 05/06/17 21:27 77 112/73 05/06/17 20:38 98.2 76 18 112/73 95 Nasal Cannula 05/06/17 20:37 Nasal Cannula 1.0 25 05/06/17 20:36 94 Nasal Cannula 1.0 25 05/06/17 20:00 74 05/06/17 16:00 76 05/06/17 16:00 97.2 72 20 125/76 95 05/06/17 12:00 65 05/06/17 12:00 97.2 70 21 126/72 94 05/06/17 12:00 21 94 Nasal Cannula 1.0 05/06/17 08:55 93 138/83 05/06/17 08:00 98.2 93 20 138/83 96 Nasal Cannula 3.0 05/06/17 08:00 85 Labs: Labs Test 05/05/17 08:59 05/05/17 09:05 05/05/17 11:15 05/06/17 10:05 Arterial Blood pH 7.226 (7.350-7.450) 7.335 (7.350-7.450) 7.350 (7.350-7.450) Arterial Blood Partial Pressure CO2 79.1 mmHg (35.0-45.0) 59.9 mmHg (35.0-45.0) 61.9 mmHg (35.0-45.0) Arterial Blood Partial Pressure O2 83.3 mmHg (75.0-100.0) 75.9 mmHg (75.0-100.0) 112.2 mmHg (75.0-100.0) Arterial Blood HCO3 32.1 mmol/L (22.0-26.0) 31.0 mmol/L (22.0-26.0) 33.7 mmol/L (22.0-26.0) Arterial Blood Oxygen Saturation 94.7 % (92.0-98.0) 75.9 % (92.0-98.0) 97.7 % (92.0-98.0) Arterial Blood Base Excess 2.2 3.8 6.5 Pineda Test Positive Positive Positive White Blood Count 7.9 K/UL (4.8-10.8) Red Blood Count 3.76 M/UL (4.70-6.10) Hemoglobin 12.4 G/DL (14.2-18.0) Hematocrit 39.4 % (42.0-52.0) Mean Corpuscular Volume 105 FL (80-99) Mean Corpuscular Hemoglobin 32.9 PG (27.0-31.0) Mean Corpuscular Hemoglobin Concent 31.4 G/DL (32.0-36.0) Red Cell Distribution Width 11.6 % (11.6-14.8) Platelet Count 170 K/UL (150-450) Mean Platelet Volume 6.2 FL (6.5-10.1) Neutrophils (%) (Auto) 79.3 % (45.0-75.0) Lymphocytes (%) (Auto) 12.5 % (20.0-45.0) Monocytes (%) (Auto) 5.4 % (1.0-10.0) Eosinophils (%) (Auto) 1.6 % (0.0-3.0) Basophils (%) (Auto) 1.1 % (0.0-2.0) Sodium Level 138 MMOL/L (136-145) Potassium Level 4.2 MMOL/L (3.5-5.1) Chloride Level 103 MMOL/L (98-107) Carbon Dioxide Level 32 MMOL/L (21-32) Anion Gap 3 mmol/L (5-15) Blood Urea Nitrogen 10 mg/dL (7-18) Creatinine 0.6 MG/DL (0.55-1.30) Estimat Glomerular Filtration Rate mL/min (>60) Glucose Level 115 MG/DL (74-106) Calcium Level 8.6 MG/DL (8.5-10.1) Magnesium Level 2.2 MG/DL (1.8-2.4) Total Bilirubin 0.5 MG/DL (0.2-1.0) Aspartate Amino Transf (AST/SGOT) 21 U/L (15-37) Alanine Aminotransferase (ALT/SGPT) 41 U/L (12-78) Alkaline Phosphatase 61 U/L (46-116) Pro-B-Type Natriuretic Peptide 122 pg/mL (0-125) Total Protein 6.9 G/DL (6.4-8.2) Albumin 3.1 G/DL (3.4-5.0) Globulin 3.8 g/dL Albumin/Globulin Ratio 0.8 (1.0-2.7) Test 05/07/17 00:35 Vancomycin Level Trough 16.9 ug/mL (5.0-12.0) Objective: WDWN off BIPAP at present NAD coarse breath sounds bilaterally with minimal rhonchi without change [id number] without MRG NABS nontender no HSM no CC mild edema poor LOC; nonfocal skin noted lines noted reviewed and edited HUSSEIN MARTINEZ May 07, 2017 07:49
[2017-05-07 08:00] VITALS: BP 120/70
[2017-05-07 08:06] LABS: BASOPHILS % (AUTO) 1.2 % (0.0-2.0); EOSINOPHILS % (AUTO) 2.3 % (0.0-3.0); LYMPHOCYTES % (AUTO) 15.5 % (20.0-45.0); MEAN CORPUSCULAR HEMOGLOBIN 33.9 PG (27.0-31.0); MEAN CORPUSCULAR HGB CONC 32.7 G/DL (32.0-36.0); MEAN CORPUSCULAR VOLUME 104 FL (80-99); MEAN PLATELET VOLUME 7.3 FL (6.5-10.1); PLATELET COUNT 160 K/UL (150-450); RED BLOOD COUNT 3.77 M/UL (4.70-6.10); RED CELL DISTRIBUTION WIDTH 11.7 % (11.6-14.8); WHITE BLOOD COUNT 5.8 K/UL (4.8-10.8)
[2017-05-07 08:28] LABS: ALANINE AMINOTRANSFERASE 35 U/L (12-78); ALBUMIN/GLOBULIN RATIO 0.8 (1.0-2.7); ANION GAP 3 mmol/L (5-15); ASPARTATE AMINO TRANSFERASE 15 U/L (15-37); CALCIUM 8.8 MG/DL (8.5-10.1); CARBON DIOXIDE 32 MMOL/L (21-32); CHLORIDE 103 MMOL/L (98-107); CREATININE 0.6 MG/DL (0.55-1.30); MAGNESIUM 2.1 MG/DL (1.8-2.4); POTASSIUM 4.1 MMOL/L (3.5-5.1); SODIUM 138 MMOL/L (136-145); TOTAL PROTEIN 6.8 G/DL (6.4-8.2)
--- NOTE | 2017-05-07 08:48 | General Progress Note ---
Assessment/Plan Assessment/Plan Assessment - resp failure / COPD - acidosis - CO2 retention - s/p EGD, PEG - AMS/ CVA Recommendations - Continue TF - GT care - Abx - BIPAP PRN - BID H2B - f/u path and Rx HP if (+) - OK for ASA for h/o CVA Subjective Allergies: Coded Allergies: No Known Allergies (Unverified , 04/21/17) Subjective above noted no events overnight tolerating TF Calm / NAD Objective Last 24 Hour Vital Signs Date Time Temp Pulse Resp B/P (MAP) Pulse Ox O2 Delivery O2 Flow Rate FiO2 05/07/17 07:23 Nasal Cannula 1.0 25 05/07/17 07:23 96 Nasal Cannula 1.0 25 05/07/17 04:25 96.5 79 18 124/74 98 Nasal Cannula 05/07/17 04:00 78 05/07/17 00:34 97.5 71 18 114/73 95 Nasal Cannula 05/07/17 00:00 68 05/06/17 21:27 77 112/73 05/06/17 20:38 98.2 76 18 112/73 95 Nasal Cannula 05/06/17 20:37 Nasal Cannula 1.0 25 05/06/17 20:36 94 Nasal Cannula 1.0 25 05/06/17 20:00 74 05/06/17 16:00 76 05/06/17 16:00 97.2 72 20 125/76 95 05/06/17 12:00 65 05/06/17 12:00 97.2 70 21 126/72 94 05/06/17 12:00 21 94 Nasal Cannula 1.0 05/06/17 08:55 93 138/83 Laboratory Tests 05/06/17 10:05: Arterial Blood pH 7.350, Arterial Blood Partial Pressure CO2 61.9*H, Arterial Blood Partial Pressure O2 112.2H, Arterial Blood HCO3 33.7H, Arterial Blood Oxygen Saturation 97.7, Arterial Blood Base Excess 6.5, Pineda Test Positive 05/07/17 00:35: Vancomycin Level Trough 16.9H 05/07/17 07:05: White Blood Count 5.8, Red Blood Count 3.77L, Hemoglobin 12.8L, Hematocrit 39.1L , Mean Corpuscular Volume 104H, Mean Corpuscular Hemoglobin 33.9H, Mean Corpuscular Hemoglobin Concent 32.7, Red Cell Distribution Width 11.7, Platelet Count 160, Mean Platelet Volume 7.3, Neutrophils (%) (Auto) 73.0, Lymphocytes (% ) (Auto) 15.5L, Monocytes (%) (Auto) 8.0, Eosinophils (%) (Auto) 2.3, Basophils (%) (Auto) 1.2, Sodium Level 138, Potassium Level 4.1, Chloride Level 103, Carbon Dioxide Level 32, Anion Gap 3L, Blood Urea Nitrogen 10, Creatinine 0.6, Estimat Glomerular Filtration Rate , Glucose Level 109H, Calcium Level 8.8, Magnesium Level 2.1, Total Bilirubin 0.4, Aspartate Amino Transf (AST/SGOT) 15, Alanine Aminotransferase (ALT/SGPT) 35, Alkaline Phosphatase 65, Total Protein 6.8, Albumin 3.1L, Globulin 3.7, Albumin/Globulin Ratio 0.8L Height (Feet): 5 Height (Inches): 5.00 Weight (Pounds): 143 Objective Thin man NCAT supple Chest coarse BS RR soft ND NT no edema confused MADDIE JEFFERSON May 07, 2017 08:48
[2017-05-07 09:02] LABS: ABG BASE EXCESS 4.4; ABG PCO2 51.9 mmHg (35.0-45.0)
[2017-05-07 09:03] LABS: ABG ALLEN TEST POSITIVE
[2017-05-07] MEDS: Docusate 100mg/10ml Liq NG SCH ×2 (09:03→17:22)
[2017-05-07] MEDS: Metoprolol Tartrate 50mg tab NG SCH ×2 (09:04→20:36)
[2017-05-07] MEDS: Heparin 5000 units/ml inj SUBQ SCH ×2 (09:06→20:38)
--- NOTE | 2017-05-07 09:47 | Infectious Diseases Prog Note ---
Assessment/Plan Assessment/Plan A: 1 pneumonia with MRSA 2. COPD 3. MRSA nasal colonization 4. CVA 5. sinusitis 6. dysphagia s/p GT placement P 1. continue IV vancomycin x1 day Subjective ROS Limited/Unobtainable: Yes Constitutional: Reports: no symptoms Allergies: Coded Allergies: No Known Allergies (Unverified , 04/21/17) Objective Vital Signs Last 24 Hour Vital Signs Date Time Temp Pulse Resp B/P (MAP) Pulse Ox O2 Delivery O2 Flow Rate FiO2 05/07/17 09:04 79 124/74 05/07/17 08:00 96.8 79 18 120/70 Nasal Cannula 3.0 05/07/17 07:23 Nasal Cannula 1.0 25 05/07/17 07:23 96 Nasal Cannula 1.0 25 05/07/17 04:25 96.5 79 18 124/74 98 Nasal Cannula 05/07/17 04:00 78 05/07/17 00:34 97.5 71 18 114/73 95 Nasal Cannula 05/07/17 00:00 68 05/06/17 21:27 77 112/73 05/06/17 20:38 98.2 76 18 112/73 95 Nasal Cannula 05/06/17 20:37 Nasal Cannula 1.0 25 05/06/17 20:36 94 Nasal Cannula 1.0 25 05/06/17 20:00 74 05/06/17 16:00 76 05/06/17 16:00 97.2 72 20 125/76 95 05/06/17 12:00 65 05/06/17 12:00 97.2 70 21 126/72 94 05/06/17 12:00 21 94 Nasal Cannula 1.0 Height (Feet): 5 Height (Inches): 5.00 Weight (Pounds): 143 General Appearance: no acute distress HEENT: mucous membranes moist Respiratory/Chest: lungs clear Cardiovascular: normal rate Abdomen: soft, non tender, other - GT in place Extremities: no edema Neurologic/Psychiatric: alert, responsive, other - R hemiplegia Laboratory Tests Test 05/06/17 10:05 05/07/17 00:35 05/07/17 07:05 05/07/17 08:55 Arterial Blood pH 7.350 (7.350-7.450) 7.387 (7.350-7.450) Arterial Blood Partial Pressure CO2 61.9 mmHg (35.0-45.0) *H 51.9 mmHg (35.0-45.0) H Arterial Blood Partial Pressure O2 112.2 mmHg (75.0-100.0) H 72.7 mmHg (75.0-100.0) L Arterial Blood HCO3 33.7 mmol/L (22.0-26.0) H 30.5 mmol/L (22.0-26.0) H Arterial Blood Oxygen Saturation 97.7 % (92.0-98.0) 93.7 % (92.0-98.0) Arterial Blood Base Excess 6.5 4.4 Pineda Test Positive Positive Vancomycin Level Trough 16.9 ug/mL (5.0-12.0) H White Blood Count 5.8 K/UL (4.8-10.8) Red Blood Count 3.77 M/UL (4.70-6.10) L Hemoglobin 12.8 G/DL (14.2-18.0) L Hematocrit 39.1 % (42.0-52.0) L Mean Corpuscular Volume 104 FL (80-99) H Mean Corpuscular Hemoglobin 33.9 PG (27.0-31.0) H Mean Corpuscular Hemoglobin Concent 32.7 G/DL (32.0-36.0) Red Cell Distribution Width 11.7 % (11.6-14.8) Platelet Count 160 K/UL (150-450) Mean Platelet Volume 7.3 FL (6.5-10.1) Neutrophils (%) (Auto) 73.0 % (45.0-75.0) Lymphocytes (%) (Auto) 15.5 % (20.0-45.0) L Monocytes (%) (Auto) 8.0 % (1.0-10.0) Eosinophils (%) (Auto) 2.3 % (0.0-3.0) Basophils (%) (Auto) 1.2 % (0.0-2.0) Sodium Level 138 MMOL/L (136-145) Potassium Level 4.1 MMOL/L (3.5-5.1) Chloride Level 103 MMOL/L (98-107) Carbon Dioxide Level 32 MMOL/L (21-32) Anion Gap 3 mmol/L (5-15) L Blood Urea Nitrogen 10 mg/dL (7-18) Creatinine 0.6 MG/DL (0.55-1.30) Estimat Glomerular Filtration Rate mL/min (>60) Glucose Level 109 MG/DL (74-106) H Calcium Level 8.8 MG/DL (8.5-10.1) Magnesium Level 2.1 MG/DL (1.8-2.4) Total Bilirubin 0.4 MG/DL (0.2-1.0) Aspartate Amino Transf (AST/SGOT) 15 U/L (15-37) Alanine Aminotransferase (ALT/SGPT) 35 U/L (12-78) Alkaline Phosphatase 65 U/L (46-116) Total Protein 6.8 G/DL (6.4-8.2) Albumin 3.1 G/DL (3.4-5.0) L Globulin 3.7 g/dL Albumin/Globulin Ratio 0.8 (1.0-2.7) L Current Medications Medications (Trade) Dose Ordered Sig/Regino Route PRN Reason Start Time Stop Time Status Last Admin Dose Admin Acetaminophen (Tylenol) 650 mg Q6H PRN ORAL Mild Pain/Temp > 100.5 04/27/17 18:00 05/22/17 17:59 Acetazolamide (Diamox) 250 mg EVERY 12 HOURS NG 05/01/17 21:00 05/31/17 20:59 05/07/17 09:04 Artificial Tears (Akwa-Tears) 2 drop Q8HR BOTH EYES 04/27/17 22:00 05/25/17 13:59 05/07/17 06:15 Atorvastatin Calcium (Lipitor) 10 mg BEDTIME NG 05/01/17 21:00 05/31/17 20:59 05/06/17 21:26 Docusate Sodium (Colace) 100 mg BID NG 05/01/17 18:00 05/31/17 17:59 05/07/17 09:03 Heparin Sodium (Porcine) (Heparin 5000 units/ml) 5,000 units EVERY 12 HOURS SUBQ 04/27/17 21:00 05/22/17 10:59 05/07/17 09:06 Metoprolol Tartrate (Lopressor) 50 mg Q12HR NG 05/01/17 21:00 05/31/17 20:59 05/07/17 09:04 Polyethylene Glycol (Miralax) 17 gm DAILYPRN PRN NG Constipation 05/01/17 11:30 05/31/17 11:29 Ranitidine HCl (Zantac) 150 mg TWICE A DAY NG 05/01/17 18:00 05/31/17 17:59 05/07/17 09:04 Sennosides (Senokot) 8.6 mg BEDTIME NG 05/01/17 21:00 05/31/17 20:59 05/06/17 21:26 Sodium Chloride 1,000 ml @ 75 mls/hr [id number] IV 04/29/17 21:15 05/29/17 21:14 05/07/17 02:58 Tamsulosin HCl (Flomax) 0.4 mg BEDTIME ORAL 05/01/17 21:00 05/31/17 20:59 05/06/17 21:26 Vancomycin HCl (Vanco rx to dose) 1 ea DAILY PRN MISC Per rx protocol 04/27/17 18:00 05/27/17 17:59 Vancomycin HCl 1 gm/Dextrose 275 ml @ 183.708 mls/hr Q12H IVPB 05/05/17 14:00 05/10/17 13:59 05/07/17 02:59 KELI SALAS May 07, 2017 09:47
--- NOTE | 2017-05-07 10:31 | General Progress Note ---
Assessment/Plan Problem List: (1) Altered level of consciousness ICD Codes: R40.4 - Transient alteration of awareness SNOMED: 5341193 (2) COPD exacerbation ICD Codes: J44.1 - Chronic obstructive pulmonary disease with (acute) exacerbation SNOMED: 172264616506882 (3) Hypercapnia ICD Codes: R06.89 - Other abnormalities of breathing SNOMED: 98867090 (4) PNA (pneumonia) ICD Codes: J18.9 - Pneumonia, unspecified organism SNOMED: 371171082 (5) Respiratory failure ICD Codes: J96.90 - Respiratory failure, unspecified, unspecified whether with hypoxia or hypercapnia SNOMED: 628265125 Status: stable, progressing Assessment/Plan resp rx bipap prn o2 monitor abg iv abx dvt/stress ulcer prophylaxis ngt feeds abx monitor cxr family ok with gt when stable gt placement when cleared by pulm may need bipap at night Subjective ROS Limited/Unobtainable: Yes Constitutional: Reports: malaise, weakness HEENT: Reports: no symptoms Cardiovascular: Reports: no symptoms Respiratory: Reports: cough, shortness of breath, sputum Gastrointestinal/Abdominal: Reports: difficulty swallowing Genitourinary: Reports: no symptoms Neurologic/Psychiatric: Reports: pre-existing deficit Endocrine: Reports: no symptoms Hematologic/Lymphatic: Reports: no symptoms Allergies: Coded Allergies: No Known Allergies (Unverified , 04/21/17) All Systems: reviewed and negative except above Subjective off bipap. on nasal cannula. somnolent but arousable. no fevers. labs noted. on iv abx. Objective Last 24 Hour Vital Signs Date Time Temp Pulse Resp B/P (MAP) Pulse Ox O2 Delivery O2 Flow Rate FiO2 05/07/17 09:04 79 124/74 05/07/17 08:00 96.8 79 18 120/70 Nasal Cannula 3.0 05/07/17 07:23 Nasal Cannula 1.0 25 05/07/17 07:23 96 Nasal Cannula 1.0 25 05/07/17 04:25 96.5 79 18 124/74 98 Nasal Cannula 05/07/17 04:00 78 05/07/17 00:34 97.5 71 18 114/73 95 Nasal Cannula 05/07/17 00:00 68 05/06/17 21:27 77 112/73 05/06/17 20:38 98.2 76 18 112/73 95 Nasal Cannula 05/06/17 20:37 Nasal Cannula 1.0 25 05/06/17 20:36 94 Nasal Cannula 1.0 25 05/06/17 20:00 74 05/06/17 16:00 76 05/06/17 16:00 97.2 72 20 125/76 95 05/06/17 12:00 65 05/06/17 12:00 97.2 70 21 126/72 94 05/06/17 12:00 21 94 Nasal Cannula 1.0 Laboratory Tests 05/07/17 00:35: Vancomycin Level Trough 16.9H 05/07/17 07:05: White Blood Count 5.8, Red Blood Count 3.77L, Hemoglobin 12.8L, Hematocrit 39.1L , Mean Corpuscular Volume 104H, Mean Corpuscular Hemoglobin 33.9H, Mean Corpuscular Hemoglobin Concent 32.7, Red Cell Distribution Width 11.7, Platelet Count 160, Mean Platelet Volume 7.3, Neutrophils (%) (Auto) 73.0, Lymphocytes (% ) (Auto) 15.5L, Monocytes (%) (Auto) 8.0, Eosinophils (%) (Auto) 2.3, Basophils (%) (Auto) 1.2, Sodium Level 138, Potassium Level 4.1, Chloride Level 103, Carbon Dioxide Level 32, Anion Gap 3L, Blood Urea Nitrogen 10, Creatinine 0.6, Estimat Glomerular Filtration Rate , Glucose Level 109H, Calcium Level 8.8, Magnesium Level 2.1, Total Bilirubin 0.4, Aspartate Amino Transf (AST/SGOT) 15, Alanine Aminotransferase (ALT/SGPT) 35, Alkaline Phosphatase 65, Total Protein 6.8, Albumin 3.1L, Globulin 3.7, Albumin/Globulin Ratio 0.8L 05/07/17 08:55: Arterial Blood pH 7.387, Arterial Blood Partial Pressure CO2 51.9H, Arterial Blood Partial Pressure O2 72.7L, Arterial Blood HCO3 30.5H, Arterial Blood Oxygen Saturation 93.7, Arterial Blood Base Excess 4.4, Pineda Test Positive Height (Feet): 5 Height (Inches): 5.00 Weight (Pounds): 143 Objective General Appearance: lethargic, confused. on NC Neck: supple Cardiovascular: normal rate Respiratory/Chest: lungs clear, normal breath sounds, no respiratory distress Abdomen: normal bowel sounds, non tender, soft, no organomegaly Edema: no edema noted Arm (L), no edema noted Arm (R), no edema noted Leg (L), no edema noted Leg (R), no edema noted Pedal (L), no edema noted Pedal (R), no edema noted Generalized Neurologic: disoriented MARTIN HERNÁNDEZ May 07, 2017 10:31
[2017-05-07 12:00] VITALS: BP 131/84
[2017-05-07 16:00] VITALS: BP 122/75
--- NOTE | 2017-05-07 19:45 | Progress Note ---
DATE: 05/07/2017 CARDIOLOGY PROGRESS NOTE SUBJECTIVE: The patient is tolerating G-tube feedings. No nausea or vomiting. Monitored rhythm sinus with rare atrial ectopy. OBJECTIVE: VITAL SIGNS: Blood pressure 124/74, pulse 79, respiratory rate 18, and afebrile. NECK: Supple. LUNGS: With good breath sounds. Few rhonchi. HEART: Regular rhythm and rate. Normal S1, S2. ABDOMEN: Soft. G-tube intact. EXTREMITIES: No edema. LABORATORY STUDIES: Sodium 138, potassium 4.1, bicarbonate 32, BUN 10, and creatinine 0.6. Albumin 3.1. ABG, pH 7.39, pCO2 52, and pO2 73. White count 5.8 and hemoglobin 12.8. IMPRESSION: 1. Chronic obstructive pulmonary disease exacerbation, improved. 2. Acute on chronic respiratory acidosis, resolved. 3. Chronic respiratory acidosis, compensated. 4. [id number] protein-calorie malnutrition, improved. 5. Dysphagia, status post gastrostomy tube. PLAN: 1. Discontinue IV fluids. 2. Continue nutrition by feeding tube. 3. Maintain anti-lipid drugs. 4. Add anti-platelet therapy. 5. Continue beta-aly. 6. Discharge planning. Shayne Sams M.D. DR: SANTIAGO JOB#: [id number] CC:
[2017-05-07 20:00] VITALS: BP 130/83
[2017-05-07] MEDS: Tamsulosin 0.4mg cap ORAL SCH (20:35)
[2017-05-07] MEDS: Sennosides 8.6mg NG SCH (20:36)
[2017-05-08] VITALS (7 sets, daily range): BP systolic 103–138; BP diastolic 63–77
[2017-05-08] MEDS: Vancomycin 1 GM in D5W 275 ML IVPB SCH ×2 (02:08→13:35)
[2017-05-08] MEDS: Artificial Tears 1.4% Op Soln BOTH EYES SCH ×3 (06:45→21:55)
--- NOTE | 2017-05-08 08:30 | Critical Care Progress Note ---
Assessment/Plan Assessment/Plan IMPRESSION respiratory failure COPD Pneumonia acute respiratory acidosis thrombocytopenia history of CVA history of TIA hypertension per history encephalopathy PLAN IV antibiotics per ID monitor fluid status respiratory care and suction titrate oxygen SNF meds monitor airway nutrition and monitor residuals BIPAP QHS and PRN repeat imaging and ABG noted seems improved and will follow avoid sedation medications/laboratory data/nursing notes reviewed in detail note reviewed and edited care discussed with RN and RT Critical Care - Subjective Interval Events: stable overnight on NC o2 no distress ROS Limited/Unobtainable: Yes Condition: improving EKG Rhythm: Sinus Rhythm Residuals: minimal Tube Feeding Tolerated: yes Critical Care - Objective ET-Tube: 8.0 ET Position: 22 Last 24 Hour Vital Signs Date Time Temp Pulse Resp B/P (MAP) Pulse Ox O2 Delivery O2 Flow Rate FiO2 05/08/17 07:58 94 Nasal Cannula 2.0 28 05/08/17 07:58 Nasal Cannula 2.0 28 05/08/17 04:00 97.3 69 20 112/67 97 Nasal Cannula 05/08/17 04:00 62 05/08/17 00:00 62 05/08/17 00:00 97.0 60 18 107/63 98 05/07/17 20:36 66 122/75 05/07/17 20:00 97 Nasal Cannula 1.0 24 05/07/17 20:00 97.5 74 20 130/83 95 05/07/17 20:00 75 05/07/17 20:00 Nasal Cannula 1.0 24 05/07/17 16:00 97.3 19 122/75 Room Air 2.0 05/07/17 16:00 66 05/07/17 12:00 68 05/07/17 12:00 97.0 64 20 131/84 98 05/07/17 09:04 79 124/74 Labs: Laboratory Tests Test 05/07/17 08:55 Arterial Blood pH 7.387 (7.350-7.450) Arterial Blood Partial Pressure CO2 51.9 mmHg (35.0-45.0) H Arterial Blood Partial Pressure O2 72.7 mmHg (75.0-100.0) L Arterial Blood HCO3 30.5 mmol/L (22.0-26.0) H Arterial Blood Oxygen Saturation 93.7 % (92.0-98.0) Arterial Blood Base Excess 4.4 Pineda Test Positive Objective: WDWN off BIPAP at present NAD coarse breath sounds bilaterally with minimal rhonchi without change [id number] without MRG NABS nontender no HSM no CC mild edema poor LOC; nonfocal skin noted lines noted reviewed and edited HUSSEIN MARTINEZ May 08, 2017 08:30
[2017-05-08] MEDS ORDERED: RANITIDINE HCL150 MG NG (08:37)
--- NOTE | 2017-05-08 08:45 | General Progress Note ---
Assessment/Plan Problem List: (1) Altered level of consciousness ICD Codes: R40.4 - Transient alteration of awareness SNOMED: 9470384 (2) COPD exacerbation ICD Codes: J44.1 - Chronic obstructive pulmonary disease with (acute) exacerbation SNOMED: 663247847224500 (3) Hypercapnia ICD Codes: R06.89 - Other abnormalities of breathing SNOMED: 74230858 (4) PNA (pneumonia) ICD Codes: J18.9 - Pneumonia, unspecified organism SNOMED: 481849643 (5) Respiratory failure ICD Codes: J96.90 - Respiratory failure, unspecified, unspecified whether with hypoxia or hypercapnia SNOMED: 362553443 Assessment/Plan resp rx bipap prn o2 monitor abg iv abx gt feeds dvt/stress ulcer prophylaxis ngt feeds abx monitor cxr family ok with gt when stable Subjective ROS Limited/Unobtainable: Yes Constitutional: Reports: malaise, weakness HEENT: Reports: no symptoms Cardiovascular: Reports: no symptoms Respiratory: Reports: no symptoms Gastrointestinal/Abdominal: Reports: abdomen distended Genitourinary: Reports: no symptoms Neurologic/Psychiatric: Reports: no symptoms Endocrine: Reports: no symptoms Hematologic/Lymphatic: Reports: no symptoms Allergies: Coded Allergies: No Known Allergies (Unverified , 04/21/17) All Systems: reviewed and negative except above Subjective off bipap. on nasal cannula. somnolent but arousable. no fevers. labs noted. on iv abx. s/p peg Objective Last 24 Hour Vital Signs Date Time Temp Pulse Resp B/P (MAP) Pulse Ox O2 Delivery O2 Flow Rate FiO2 05/08/17 07:58 94 Nasal Cannula 2.0 28 05/08/17 07:58 Nasal Cannula 2.0 28 05/08/17 04:00 97.3 69 20 112/67 97 Nasal Cannula 05/08/17 04:00 62 05/08/17 00:00 62 05/08/17 00:00 97.0 60 18 107/63 98 05/07/17 20:36 66 122/75 05/07/17 20:00 97 Nasal Cannula 1.0 24 05/07/17 20:00 97.5 74 20 130/83 95 05/07/17 20:00 75 05/07/17 20:00 Nasal Cannula 1.0 24 05/07/17 16:00 97.3 19 122/75 Room Air 2.0 05/07/17 16:00 66 05/07/17 12:00 68 05/07/17 12:00 97.0 64 20 131/84 98 05/07/17 09:04 79 124/74 Laboratory Tests 05/07/17 08:55: Arterial Blood pH 7.387, Arterial Blood Partial Pressure CO2 51.9H, Arterial Blood Partial Pressure O2 72.7L, Arterial Blood HCO3 30.5H, Arterial Blood Oxygen Saturation 93.7, Arterial Blood Base Excess 4.4, Pineda Test Positive Height (Feet): 5 Height (Inches): 5.00 Weight (Pounds): 132 Objective General Appearance: lethargic, confused. on NC Neck: supple Cardiovascular: normal rate Respiratory/Chest: lungs clear, normal breath sounds, no respiratory distress Abdomen: normal bowel sounds, non tender, soft, no organomegaly Edema: no edema noted Arm (L), no edema noted Arm (R), no edema noted Leg (L), no edema noted Leg (R), no edema noted Pedal (L), no edema noted Pedal (R), no edema noted Generalized Neurologic: disoriented MARTIN HERNÁNDEZ May 08, 2017 08:45
[2017-05-08] MEDS: Docusate 100mg/10ml Liq NG SCH ×2 (09:11→17:35)
[2017-05-08] MEDS: Metoprolol Tartrate 50mg tab NG SCH ×2 (09:13→21:51)
[2017-05-08] MEDS: Aspirin Baby 81mg GT SCH (09:14)
--- NOTE | 2017-05-08 09:15 | Diagnostic Imaging Report ---
Indication: Weakness Technique: XRAY CHEST 1 V Comparison: 04/29/17 Findings: Interval removal of nasogastric tube. Heart size and mediastinal contours are stable. No acute osseous abnormalities seen. There is interval decrease in left-sided pleural effusion with improved aeration of the left base. There is also nail previously seen interstitial opacities. There is no pneumothorax. Impression: Interval decrease in left pleural effusion and improved aeration of the left lower lung compared to the prior exam. Interval decrease in previously seen interstitial opacity/edema.
[2017-05-08] MEDS: Heparin 5000 units/ml inj SUBQ SCH ×2 (09:16→21:55)
[2017-05-08 10:09] LABS: ABG ALLEN TEST POSITIVE; ABG BASE EXCESS 3.9; ABG PCO2 60.7 mmHg (35.0-45.0)
--- NOTE | 2017-05-08 12:18 | Infectious Diseases Prog Note ---
Assessment/Plan Assessment/Plan antibiotics : vancomycin iv A 1. MRSA pneumonia 2. COPD 3. MRSA nasal colonization 4. CVA 5. sinusitis 6. respiratory failure P 1. continue vancomycin iv 2. will follow up cultures Subjective ROS Limited/Unobtainable: Yes Allergies: Coded Allergies: No Known Allergies (Unverified , 04/21/17) Objective Vital Signs Last 24 Hour Vital Signs Date Time Temp Pulse Resp B/P (MAP) Pulse Ox O2 Delivery O2 Flow Rate FiO2 05/08/17 11:43 74 22 98 Facial 28 05/08/17 09:13 79 119/70 05/08/17 08:00 97.6 79 18 119/70 Nasal Cannula 3.0 05/08/17 08:00 66 05/08/17 07:58 94 Nasal Cannula 2.0 28 05/08/17 07:58 Nasal Cannula 2.0 28 05/08/17 04:00 97.3 69 20 112/67 97 Nasal Cannula 05/08/17 04:00 62 05/08/17 00:00 62 05/08/17 00:00 97.0 60 18 107/63 98 05/07/17 20:36 66 122/75 05/07/17 20:00 97 Nasal Cannula 1.0 24 05/07/17 20:00 97.5 74 20 130/83 95 05/07/17 20:00 75 05/07/17 20:00 Nasal Cannula 1.0 24 05/07/17 16:00 97.3 19 122/75 Room Air 2.0 05/07/17 16:00 66 Height (Feet): 5 Height (Inches): 5.00 Weight (Pounds): 132 HEENT: other - on bipap Respiratory/Chest: lungs clear Cardiovascular: normal rate, regular rhythm, no gallop/murmur Abdomen: soft, non tender, other - GT Extremities: no edema Laboratory Tests Test 05/08/17 09:55 Arterial Blood pH 7.332 (7.350-7.450) Arterial Blood Partial Pressure CO2 60.7 mmHg (35.0-45.0) *H Arterial Blood Partial Pressure O2 43.7 mmHg (75.0-100.0) Arterial Blood HCO3 31.4 mmol/L (22.0-26.0) H Arterial Blood Oxygen Saturation 74.9 % (92.0-98.0) L Arterial Blood Base Excess 3.9 Pineda Test Positive JENNY HCAN May 08, 2017 12:18
--- NOTE | 2017-05-08 14:53 | General Progress Note ---
Assessment/Plan Assessment/Plan Assessment - resp failure / COPD - acidosis - CO2 retention - s/p EGD, PEG - AMS/ CVA Recommendations - Continue TF - GT care - Abx - BIPAP PRN - BID H2B - path reviewed --> HP (-) Subjective Allergies: Coded Allergies: No Known Allergies (Unverified , 04/21/17) Subjective above noted no events overnight tolerating TF refusing BIPAP Objective Last 24 Hour Vital Signs Date Time Temp Pulse Resp B/P (MAP) Pulse Ox O2 Delivery O2 Flow Rate FiO2 05/08/17 12:55 64 25 94 Facial 28 05/08/17 11:43 74 22 98 Facial 28 05/08/17 09:13 79 119/70 05/08/17 08:00 97.6 79 18 119/70 Nasal Cannula 3.0 05/08/17 08:00 66 05/08/17 07:58 94 Nasal Cannula 2.0 28 05/08/17 07:58 Nasal Cannula 2.0 28 05/08/17 04:00 97.3 69 20 112/67 97 Nasal Cannula 05/08/17 04:00 62 05/08/17 00:00 62 05/08/17 00:00 97.0 60 18 107/63 98 05/07/17 20:36 66 122/75 05/07/17 20:00 97 Nasal Cannula 1.0 24 05/07/17 20:00 97.5 74 20 130/83 95 05/07/17 20:00 75 05/07/17 20:00 Nasal Cannula 1.0 24 05/07/17 16:00 97.3 19 122/75 Room Air 2.0 05/07/17 16:00 66 Laboratory Tests 05/08/17 09:55: Arterial Blood pH 7.332L, Arterial Blood Partial Pressure CO2 60.7*H, Arterial Blood Partial Pressure O2 43.7*L, Arterial Blood HCO3 31.4H, Arterial Blood Oxygen Saturation 74.9L, Arterial Blood Base Excess 3.9, Pineda Test Positive Height (Feet): 5 Height (Inches): 5.00 Weight (Pounds): 132 Objective Thin man NCAT supple Chest coarse BS RR soft ND NT no edema confused MADDIE JEFFERSON May 08, 2017 14:53
[2017-05-08] MEDS: Tamsulosin 0.4mg cap ORAL SCH (21:51)
[2017-05-08] MEDS: Sennosides 8.6mg NG SCH (21:51)
[2017-05-09] VITALS: BP 116/76
[2017-05-09] MEDS: Vancomycin 1 GM in D5W 275 ML IVPB SCH ×2 (01:43→01:44)
[2017-05-09 04:00] VITALS: BP 121/72
[2017-05-09] MEDS: Artificial Tears 1.4% Op Soln BOTH EYES SCH ×3 (05:30→22:38)
--- NOTE | 2017-05-09 07:17 | General Progress Note ---
Assessment/Plan Assessment/Plan Assessment - resp failure / COPD - acidosis - CO2 retention - s/p EGD, PEG - AMS/ CVA Recommendations - Continue TF - GT care - Abx - BIPAP PRN - BID H2B - path reviewed --> HP (-) Subjective ROS Limited/Unobtainable: Yes Allergies: Coded Allergies: No Known Allergies (Unverified , 04/21/17) Subjective aggitated on BIPAP Objective Last 24 Hour Vital Signs Date Time Temp Pulse Resp B/P (MAP) Pulse Ox O2 Delivery O2 Flow Rate FiO2 05/09/17 05:12 84 18 100 Facial 28 05/09/17 05:04 69 05/09/17 04:00 97.8 74 19 121/72 97 Bi-pap 28 05/09/17 03:33 73 18 96 Facial 28 05/09/17 01:15 75 22 95 Facial 2.0 28 05/09/17 00:00 97.9 91 18 116/76 Bi-pap 28 05/09/17 00:00 67 05/08/17 23:09 77 22 94 Facial 2.0 21 05/08/17 21:51 71 114/73 05/08/17 21:14 77 22 94 2.0 21 05/08/17 20:34 92 Room Air 21 05/08/17 20:00 84 05/08/17 20:00 98.0 71 24 114/73 Bi-pap 28 05/08/17 19:20 Bi-pap 28 05/08/17 19:08 74 22 96 Facial 28 05/08/17 17:00 70 20 96 Facial 28 05/08/17 16:00 97.5 73 18 112/70 Bi-pap 05/08/17 16:00 69 05/08/17 15:30 64 19 98 Facial 28 05/08/17 14:00 97.6 73 18 138/77 Bi-pap 05/08/17 12:55 64 25 94 Facial 28 05/08/17 12:00 97.8 100 19 103/63 Nasal Cannula 2.0 05/08/17 12:00 67 05/08/17 11:43 74 22 98 Facial 28 05/08/17 09:13 79 119/70 05/08/17 08:00 97.6 79 18 119/70 Nasal Cannula 3.0 05/08/17 08:00 66 05/08/17 07:58 94 Nasal Cannula 2.0 28 05/08/17 07:58 Nasal Cannula 2.0 28 Laboratory Tests 05/08/17 09:55: Arterial Blood pH 7.332L, Arterial Blood Partial Pressure CO2 60.7*H, Arterial Blood Partial Pressure O2 43.7*L, Arterial Blood HCO3 31.4H, Arterial Blood Oxygen Saturation 74.9L, Arterial Blood Base Excess 3.9, Pineda Test Positive Height (Feet): 5 Height (Inches): 5.00 Weight (Pounds): 136 General Appearance: agitated EENT: normal ENT inspection Neck: supple Cardiovascular: normal rate Respiratory/Chest: decreased breath sounds Abdomen: normal bowel sounds, non tender, soft Extremities: non-tender HUSEYIN SAHU May 09, 2017 07:16
[2017-05-09 08:00] VITALS: BP 113/73
[2017-05-09 09:09] LABS: ABG ALLEN TEST POSITIVE; ABG BASE EXCESS 6.7; ABG PCO2 48.7 mmHg (35.0-45.0)
--- NOTE | 2017-05-09 09:36 | Critical Care Progress Note ---
Assessment/Plan Assessment/Plan IMPRESSION respiratory failure COPD Pneumonia acute respiratory acidosis thrombocytopenia history of CVA history of TIA hypertension per history encephalopathy PLAN stable for discharge doing well acid base stabilized monitor ABG avoid sedation medications/laboratory data/nursing notes reviewed in detail note reviewed and edited care discussed with RN and RT Critical Care - Subjective Interval Events: care noted overall without distress dc held yesterday EKG Rhythm: Sinus Rhythm I&O: Intake and Output 05/09/17 05/10/17 19:00 07:00 Output Total 425 ml Balance -425 ml Output Urine Total 425 ml Critical Care - Objective ET-Tube: 8.0 ET Position: 22 Last 24 Hour Vital Signs Date Time Temp Pulse Resp B/P (MAP) Pulse Ox O2 Delivery O2 Flow Rate FiO2 05/09/17 08:45 90 23 97 Facial 28 05/09/17 08:00 97.2 84 17 113/73 96 05/09/17 07:27 92 22 97 Facial 28 05/09/17 07:26 Bi-pap 28 05/09/17 07:25 97 Bi-pap 28 05/09/17 05:12 84 18 100 Facial 28 05/09/17 05:04 69 05/09/17 04:00 97.8 74 19 121/72 97 Bi-pap 28 05/09/17 03:33 73 18 96 Facial 28 05/09/17 01:15 75 22 95 Facial 2.0 28 05/09/17 00:00 97.9 91 18 116/76 Bi-pap 28 05/09/17 00:00 67 05/08/17 23:09 77 22 94 Facial 2.0 21 05/08/17 21:51 71 114/73 05/08/17 21:14 77 22 94 2.0 21 05/08/17 20:34 92 Room Air 21 05/08/17 20:00 84 05/08/17 20:00 98.0 71 24 114/73 Bi-pap 28 05/08/17 19:20 Bi-pap 28 05/08/17 19:08 74 22 96 Facial 28 05/08/17 17:00 70 20 96 Facial 28 05/08/17 16:00 97.5 73 18 112/70 Bi-pap 05/08/17 16:00 69 05/08/17 15:30 64 19 98 Facial 28 05/08/17 14:00 97.6 73 18 138/77 Bi-pap 05/08/17 12:55 64 25 94 Facial 28 05/08/17 12:00 97.8 100 19 103/63 Nasal Cannula 2.0 05/08/17 12:00 67 05/08/17 11:43 74 22 98 Facial 28 Labs: Labs Test 05/06/17 10:05 05/07/17 00:35 05/07/17 07:05 05/07/17 08:55 Arterial Blood pH 7.350 (7.350-7.450) 7.387 (7.350-7.450) Arterial Blood Partial Pressure CO2 61.9 mmHg (35.0-45.0) 51.9 mmHg (35.0-45.0) Arterial Blood Partial Pressure O2 112.2 mmHg (75.0-100.0) 72.7 mmHg (75.0-100.0) Arterial Blood HCO3 33.7 mmol/L (22.0-26.0) 30.5 mmol/L (22.0-26.0) Arterial Blood Oxygen Saturation 97.7 % (92.0-98.0) 93.7 % (92.0-98.0) Arterial Blood Base Excess 6.5 4.4 Pineda Test Positive Positive Vancomycin Level Trough 16.9 ug/mL (5.0-12.0) White Blood Count 5.8 K/UL (4.8-10.8) Red Blood Count 3.77 M/UL (4.70-6.10) Hemoglobin 12.8 G/DL (14.2-18.0) Hematocrit 39.1 % (42.0-52.0) Mean Corpuscular Volume 104 FL (80-99) Mean Corpuscular Hemoglobin 33.9 PG (27.0-31.0) Mean Corpuscular Hemoglobin Concent 32.7 G/DL (32.0-36.0) Red Cell Distribution Width 11.7 % (11.6-14.8) Platelet Count 160 K/UL (150-450) Mean Platelet Volume 7.3 FL (6.5-10.1) Neutrophils (%) (Auto) 73.0 % (45.0-75.0) Lymphocytes (%) (Auto) 15.5 % (20.0-45.0) Monocytes (%) (Auto) 8.0 % (1.0-10.0) Eosinophils (%) (Auto) 2.3 % (0.0-3.0) Basophils (%) (Auto) 1.2 % (0.0-2.0) Sodium Level 138 MMOL/L (136-145) Potassium Level 4.1 MMOL/L (3.5-5.1) Chloride Level 103 MMOL/L (98-107) Carbon Dioxide Level 32 MMOL/L (21-32) Anion Gap 3 mmol/L (5-15) Blood Urea Nitrogen 10 mg/dL (7-18) Creatinine 0.6 MG/DL (0.55-1.30) Estimat Glomerular Filtration Rate mL/min (>60) Glucose Level 109 MG/DL (74-106) Calcium Level 8.8 MG/DL (8.5-10.1) Magnesium Level 2.1 MG/DL (1.8-2.4) Total Bilirubin 0.4 MG/DL (0.2-1.0) Aspartate Amino Transf (AST/SGOT) 15 U/L (15-37) Alanine Aminotransferase (ALT/SGPT) 35 U/L (12-78) Alkaline Phosphatase 65 U/L (46-116) Total Protein 6.8 G/DL (6.4-8.2) Albumin 3.1 G/DL (3.4-5.0) Globulin 3.7 g/dL Albumin/Globulin Ratio 0.8 (1.0-2.7) Test 05/08/17 09:55 05/09/17 08:55 Arterial Blood pH 7.332 (7.350-7.450) 7.430 (7.350-7.450) Arterial Blood Partial Pressure CO2 60.7 mmHg (35.0-45.0) 48.7 mmHg (35.0-45.0) Arterial Blood Partial Pressure O2 43.7 mmHg (75.0-100.0) 80.5 mmHg (75.0-100.0) Arterial Blood HCO3 31.4 mmol/L (22.0-26.0) 32.0 mmol/L (22.0-26.0) Arterial Blood Oxygen Saturation 74.9 % (92.0-98.0) 94.9 % (92.0-98.0) Arterial Blood Base Excess 3.9 6.7 Pineda Test Positive Positive Objective: WDWN off BIPAP at present NAD moderate breath sounds [id number] without MRG NABS nontender no HSM no CC mild edema poor LOC; nonfocal skin noted lines noted reviewed and edited HUSSEIN MARTINEZ May 09, 2017 09:36
[2017-05-09] MEDS: Metoprolol Tartrate 50mg tab NG SCH ×2 (09:46→20:44)
[2017-05-09] MEDS: Docusate 100mg/10ml Liq NG SCH ×2 (09:46→17:34)
[2017-05-09] MEDS: Aspirin Baby 81mg GT SCH (09:46)
[2017-05-09] MEDS: Heparin 5000 units/ml inj SUBQ SCH ×2 (09:54→20:45)
--- NOTE | 2017-05-09 10:50 | Infectious Diseases Prog Note ---
Assessment/Plan Assessment/Plan antibiotics : vancomycin iv A 1. MRSA pneumonia s/p rx 2. COPD 3. MRSA nasal colonization 4. CVA 5. sinusitis 6. respiratory failure resolved P 1. d.c vancomycin iv 2. observe off antibiotics Subjective ROS Limited/Unobtainable: Yes Allergies: Coded Allergies: No Known Allergies (Unverified , 04/21/17) Objective Vital Signs Last 24 Hour Vital Signs Date Time Temp Pulse Resp B/P (MAP) Pulse Ox O2 Delivery O2 Flow Rate FiO2 05/09/17 09:46 90 113/73 05/09/17 08:45 90 23 97 Facial 28 05/09/17 08:00 97.2 84 17 113/73 96 05/09/17 08:00 77 05/09/17 07:27 92 22 97 Facial 28 05/09/17 07:26 Bi-pap 28 05/09/17 07:25 97 Bi-pap 28 05/09/17 05:12 84 18 100 Facial 28 05/09/17 05:04 69 05/09/17 04:00 97.8 74 19 121/72 97 Bi-pap 28 05/09/17 03:33 73 18 96 Facial 28 05/09/17 01:15 75 22 95 Facial 2.0 28 05/09/17 00:00 97.9 91 18 116/76 Bi-pap 28 05/09/17 00:00 67 05/08/17 23:09 77 22 94 Facial 2.0 21 05/08/17 21:51 71 114/73 05/08/17 21:14 77 22 94 2.0 21 05/08/17 20:34 92 Room Air 21 05/08/17 20:00 84 05/08/17 20:00 98.0 71 24 114/73 Bi-pap 28 05/08/17 19:20 Bi-pap 28 05/08/17 19:08 74 22 96 Facial 28 05/08/17 17:00 70 20 96 Facial 28 05/08/17 16:00 97.5 73 18 112/70 Bi-pap 05/08/17 16:00 69 05/08/17 15:30 64 19 98 Facial 28 05/08/17 14:00 97.6 73 18 138/77 Bi-pap 05/08/17 12:55 64 25 94 Facial 28 05/08/17 12:00 97.8 100 19 103/63 Nasal Cannula 2.0 05/08/17 12:00 67 05/08/17 11:43 74 22 98 Facial 28 Height (Feet): 5 Height (Inches): 5.00 Weight (Pounds): 136 Respiratory/Chest: lungs clear Cardiovascular: normal rate, regular rhythm, no gallop/murmur Abdomen: soft, non tender, other - GT Extremities: no edema Laboratory Tests Test 05/09/17 08:55 Arterial Blood pH 7.430 (7.350-7.450) Arterial Blood Partial Pressure CO2 48.7 mmHg (35.0-45.0) H Arterial Blood Partial Pressure O2 80.5 mmHg (75.0-100.0) Arterial Blood HCO3 32.0 mmol/L (22.0-26.0) H Arterial Blood Oxygen Saturation 94.9 % (92.0-98.0) Arterial Blood Base Excess 6.7 Pineda Test Positive JENNY CHAN May 09, 2017 10:50
--- NOTE | 2017-05-09 11:57 | General Progress Note ---
Assessment/Plan Problem List: (1) Altered level of consciousness ICD Codes: R40.4 - Transient alteration of awareness SNOMED: 1991501 (2) COPD exacerbation ICD Codes: J44.1 - Chronic obstructive pulmonary disease with (acute) exacerbation SNOMED: 833029176017358 (3) Hypercapnia ICD Codes: R06.89 - Other abnormalities of breathing SNOMED: 01964814 (4) PNA (pneumonia) ICD Codes: J18.9 - Pneumonia, unspecified organism SNOMED: 555141606 (5) Respiratory failure ICD Codes: J96.90 - Respiratory failure, unspecified, unspecified whether with hypoxia or hypercapnia SNOMED: 682124718 Status: stable, progressing Assessment/Plan resp rx bipap prn/qhs o2 monitor abg iv abx gt feeds dvt/stress ulcer prophylaxis ngt feeds abx monitor cxr dc planning when cleared by pulm Subjective ROS Limited/Unobtainable: Yes Constitutional: Reports: malaise, weakness HEENT: Reports: no symptoms Cardiovascular: Reports: no symptoms Respiratory: Reports: cough, shortness of breath Gastrointestinal/Abdominal: Reports: difficulty swallowing Genitourinary: Reports: no symptoms Neurologic/Psychiatric: Reports: no symptoms Endocrine: Reports: no symptoms Hematologic/Lymphatic: Reports: anemia Allergies: Coded Allergies: No Known Allergies (Unverified , 04/21/17) All Systems: reviewed and negative except above Subjective on bipap. on nasal cannula. somnolent but arousable. no fevers. labs noted. on iv abx. s/p peg. abg better Objective Last 24 Hour Vital Signs Date Time Temp Pulse Resp B/P (MAP) Pulse Ox O2 Delivery O2 Flow Rate FiO2 05/09/17 09:46 90 113/73 05/09/17 08:45 90 23 97 Facial 28 05/09/17 08:00 97.2 84 17 113/73 96 05/09/17 08:00 77 05/09/17 07:27 92 22 97 Facial 28 05/09/17 07:26 Bi-pap 28 05/09/17 07:25 97 Bi-pap 28 05/09/17 05:12 84 18 100 Facial 28 05/09/17 05:04 69 05/09/17 04:00 97.8 74 19 121/72 97 Bi-pap 28 05/09/17 03:33 73 18 96 Facial 28 05/09/17 01:15 75 22 95 Facial 2.0 28 05/09/17 00:00 97.9 91 18 116/76 Bi-pap 28 05/09/17 00:00 67 05/08/17 23:09 77 22 94 Facial 2.0 21 05/08/17 21:51 71 114/73 05/08/17 21:14 77 22 94 2.0 21 05/08/17 20:34 92 Room Air 21 05/08/17 20:00 84 05/08/17 20:00 98.0 71 24 114/73 Bi-pap 28 05/08/17 19:20 Bi-pap 28 05/08/17 19:08 74 22 96 Facial 28 05/08/17 17:00 70 20 96 Facial 28 05/08/17 16:00 97.5 73 18 112/70 Bi-pap 05/08/17 16:00 69 05/08/17 15:30 64 19 98 Facial 28 05/08/17 14:00 97.6 73 18 138/77 Bi-pap 05/08/17 12:55 64 25 94 Facial 28 05/08/17 12:00 97.8 100 19 103/63 Nasal Cannula 2.0 05/08/17 12:00 67 Intake and Output 05/09/17 05/10/17 19:00 07:00 Intake Total 250 ml Output Total 425 ml Balance -175 ml Intake Free Water 30 ml Tube Feeding 220 ml Output Urine Total 425 ml Laboratory Tests 05/09/17 08:55: Arterial Blood pH 7.430, Arterial Blood Partial Pressure CO2 48.7H, Arterial Blood Partial Pressure O2 80.5, Arterial Blood HCO3 32.0H, Arterial Blood Oxygen Saturation 94.9, Arterial Blood Base Excess 6.7, Pineda Test Positive Height (Feet): 5 Height (Inches): 5.00 Weight (Pounds): 136 Objective General Appearance: lethargic, confused. on NC Neck: supple Cardiovascular: normal rate Respiratory/Chest: lungs clear, normal breath sounds, no respiratory distress Abdomen: normal bowel sounds, non tender, soft, no organomegaly Edema: no edema noted Arm (L), no edema noted Arm (R), no edema noted Leg (L), no edema noted Leg (R), no edema noted Pedal (L), no edema noted Pedal (R), no edema noted Generalized Neurologic: disoriented MARTIN HERNÁNDEZ May 09, 2017 11:57
[2017-05-09 12:00] VITALS: BP 99/64
[2017-05-09 15:41] LABS: EOSINOPHILS % (AUTO) 2.6 % (0.0-3.0); LYMPHOCYTES % (AUTO) 22.9 % (20.0-45.0); MEAN CORPUSCULAR HEMOGLOBIN 33.1 PG (27.0-31.0); MEAN CORPUSCULAR VOLUME 100 FL (80-99); MEAN PLATELET VOLUME 6.6 FL (6.5-10.1); MONOCYTES % (AUTO) 8.4 % (1.0-10.0); NEUTROPHILS % (AUTO) 65.2 % (45.0-75.0); PLATELET COUNT 146 K/UL (150-450); RED BLOOD COUNT 3.74 M/UL (4.70-6.10); RED CELL DISTRIBUTION WIDTH 11.4 % (11.6-14.8); WHITE BLOOD COUNT 6.6 K/UL (4.8-10.8)
[2017-05-09 15:44] LABS: ALANINE AMINOTRANSFERASE 41 U/L (12-78); ANION GAP 3 mmol/L (5-15); ASPARTATE AMINO TRANSFERASE 20 U/L (15-37); CALCIUM 9.6 MG/DL (8.5-10.1); CARBON DIOXIDE 34 MMOL/L (21-32); CHLORIDE 104 MMOL/L (98-107); CREATININE 0.7 MG/DL (0.55-1.30); POTASSIUM 4.3 MMOL/L (3.5-5.1); SODIUM 141 MMOL/L (136-145); TOTAL PROTEIN 6.9 G/DL (6.4-8.2)
[2017-05-09 16:00] VITALS: BP 100/65
[2017-05-09 20:18] VITALS: BP 111/72
[2017-05-09] MEDS: Tamsulosin 0.4mg cap ORAL SCH (20:44)
[2017-05-09] MEDS: Sennosides 8.6mg NG SCH (20:44)
[2017-05-10] VITALS (7 sets, daily range): BP systolic 102–145; BP diastolic 59–75
--- NOTE | 2017-05-10 02:15 | Progress Note ---
DATE: 05/09/2017 CARDIOLOGY PROGRESS NOTE SUBJECTIVE: The patient is intermittently on BiPAP support. Overall acid-base parameters improved today as did hypoxia. He is more alert and tolerating tube feedings. OBJECTIVE: VITAL SIGNS: Blood pressure 115/72, pulse 90, respiratory rate 23, and afebrile. LUNGS: Good breath sounds. No wheezing. HEART: Regular rhythm and rate. Normal S1 and S2 with a fourth heart sound. ABDOMEN: Soft. G-tube intact. EXTREMITIES: No edema. IMPRESSION: 1. Respiratory failure. 2. Acute on chronic respiratory acidosis. 3. Chronic obstructive pulmonary disease. 4. No active bronchospasm. 5. Chronic diastolic congestive heart failure. 6. Dysphagia, status post gastrostomy tube. 7. [id number] protein-calorie malnutrition. PLAN: 1. Continue Diamox to stimulate respiratory drive. 2. Cautious use of beta-aly. 3. BiPAP as needed. 4. Continue anti-lipid and anti-platelet drugs. 5. Nutrition by feeding tube. 6. No role for diuresis at this time. Shayne Sams M.D. DR: Milagro JOB#: [id number] CC:
[2017-05-10] MEDS: Artificial Tears 1.4% Op Soln BOTH EYES SCH ×3 (05:51→21:46)
--- NOTE | 2017-05-10 07:49 | General Progress Note ---
Assessment/Plan Assessment/Plan Assessment - resp failure / COPD - acidosis - CO2 retention - s/p EGD, PEG - AMS/ CVA Recommendations - Continue TF - GT care - Abx - BIPAP PRN - BID H2B - path reviewed --> HP (-) Subjective ROS Limited/Unobtainable: Yes Allergies: Coded Allergies: No Known Allergies (Unverified , 04/21/17) Subjective off BIPAP GTF tolerated Objective Last 24 Hour Vital Signs Date Time Temp Pulse Resp B/P (MAP) Pulse Ox O2 Delivery O2 Flow Rate FiO2 05/10/17 04:18 96.7 62 18 109/59 94 Nasal Cannula 05/10/17 04:00 70 05/10/17 04:00 97.2 73 19 106/73 98 05/10/17 04:00 Nasal Cannula 2.0 05/10/17 00:30 96.6 64 18 102/60 96 Nasal Cannula 05/10/17 00:00 74 05/10/17 00:00 Nasal Cannula 2.0 05/09/17 23:28 Nasal Cannula 2.0 28 05/09/17 23:28 98 Nasal Cannula 2.0 28 05/09/17 20:44 76 111/72 05/09/17 20:18 97.5 76 18 111/72 94 Nasal Cannula 05/09/17 20:00 73 05/09/17 20:00 Nasal Cannula 2.0 05/09/17 16:00 97.7 79 18 100/65 97 05/09/17 16:00 82 05/09/17 12:00 97.5 72 17 99/64 97 05/09/17 12:00 72 05/09/17 12:00 17 97 Nasal Cannula 2.0 05/09/17 09:46 90 113/73 05/09/17 08:45 90 23 97 Facial 28 05/09/17 08:00 97.2 84 17 113/73 96 05/09/17 08:00 77 Laboratory Tests 05/09/17 08:55: Arterial Blood pH 7.430, Arterial Blood Partial Pressure CO2 48.7H, Arterial Blood Partial Pressure O2 80.5, Arterial Blood HCO3 32.0H, Arterial Blood Oxygen Saturation 94.9, Arterial Blood Base Excess 6.7, Pineda Test Positive 05/09/17 15:00: White Blood Count 6.6, Red Blood Count 3.74L, Hemoglobin 12.4L, Hematocrit 37.5L , Mean Corpuscular Volume 100H, Mean Corpuscular Hemoglobin 33.1H, Mean Corpuscular Hemoglobin Concent 33.0, Red Cell Distribution Width 11.4L, Platelet Count 146L, Mean Platelet Volume 6.6, Neutrophils (%) (Auto) 65.2, Lymphocytes (%) (Auto) 22.9, Monocytes (%) (Auto) 8.4, Eosinophils (%) (Auto) 2.6, Basophils (%) (Auto) 1.0, Sodium Level 141, Potassium Level 4.3, Chloride Level 104, Carbon Dioxide Level 34H, Anion Gap 3L, Blood Urea Nitrogen 19H, Creatinine 0.7, Estimat Glomerular Filtration Rate , Glucose Level 134H, Calcium Level 9.6, Total Bilirubin 0.4, Aspartate Amino Transf (AST/SGOT) 20, Alanine Aminotransferase (ALT/SGPT) 41, Alkaline Phosphatase 75, Total Protein 6.9, Albumin 3.4, Globulin 3.5, Albumin/Globulin Ratio 1.0 Height (Feet): 5 Height (Inches): 5.00 Weight (Pounds): 136 General Appearance: no apparent distress EENT: normal ENT inspection Neck: supple Cardiovascular: normal rate Respiratory/Chest: decreased breath sounds Abdomen: normal bowel sounds, non tender, soft Extremities: non-tender HUSEYIN SAHU May 10, 2017 07:49
[2017-05-10] MEDS: Docusate 100mg/10ml Liq NG SCH ×2 (08:32→17:30)
[2017-05-10] MEDS: Aspirin Baby 81mg GT SCH (08:32)
[2017-05-10] MEDS: Heparin 5000 units/ml inj SUBQ SCH ×2 (08:33→21:48)
[2017-05-10] MEDS: Metoprolol Tartrate 50mg tab NG SCH ×2 (08:35→21:46)
--- NOTE | 2017-05-10 09:04 | Infectious Diseases Prog Note ---
Assessment/Plan Assessment/Plan A: 1 pneumonia with MRSA treated 2. COPD 3. MRSA nasal colonization 4. CVA 5. sinusitis 6. dysphagia s/p GT placement P 1. observe off antibiotic Subjective ROS Limited/Unobtainable: Yes Constitutional: Reports: no symptoms Psychiatric: Reports: other - looks happy Allergies: Coded Allergies: No Known Allergies (Unverified , 04/21/17) Objective Vital Signs Last 24 Hour Vital Signs Date Time Temp Pulse Resp B/P (MAP) Pulse Ox O2 Delivery O2 Flow Rate FiO2 05/10/17 08:35 77 145/63 05/10/17 08:00 77 05/10/17 08:00 97.8 89 21 145/63 97 Nasal Cannula 2.0 05/10/17 04:18 96.7 62 18 109/59 94 Nasal Cannula 05/10/17 04:00 70 05/10/17 04:00 97.2 73 19 106/73 98 05/10/17 04:00 Nasal Cannula 2.0 05/10/17 00:30 96.6 64 18 102/60 96 Nasal Cannula 05/10/17 00:00 74 05/10/17 00:00 Nasal Cannula 2.0 05/09/17 23:28 Nasal Cannula 2.0 28 05/09/17 23:28 98 Nasal Cannula 2.0 28 05/09/17 20:44 76 111/72 05/09/17 20:18 97.5 76 18 111/72 94 Nasal Cannula 05/09/17 20:00 73 05/09/17 20:00 Nasal Cannula 2.0 05/09/17 16:00 97.7 79 18 100/65 97 05/09/17 16:00 82 05/09/17 12:00 97.5 72 17 99/64 97 05/09/17 12:00 72 05/09/17 12:00 17 97 Nasal Cannula 2.0 05/09/17 09:46 90 113/73 Height (Feet): 5 Height (Inches): 5.00 Weight (Pounds): 136 General Appearance: no acute distress HEENT: mucous membranes moist Respiratory/Chest: lungs clear Cardiovascular: normal rate Abdomen: soft, non tender, other - GT feeding Neurologic/Psychiatric: alert, responsive Laboratory Tests Test 05/09/17 15:00 White Blood Count 6.6 K/UL (4.8-10.8) Red Blood Count 3.74 M/UL (4.70-6.10) L Hemoglobin 12.4 G/DL (14.2-18.0) L Hematocrit 37.5 % (42.0-52.0) L Mean Corpuscular Volume 100 FL (80-99) H Mean Corpuscular Hemoglobin 33.1 PG (27.0-31.0) H Mean Corpuscular Hemoglobin Concent 33.0 G/DL (32.0-36.0) Red Cell Distribution Width 11.4 % (11.6-14.8) L Platelet Count 146 K/UL (150-450) L Mean Platelet Volume 6.6 FL (6.5-10.1) Neutrophils (%) (Auto) 65.2 % (45.0-75.0) Lymphocytes (%) (Auto) 22.9 % (20.0-45.0) Monocytes (%) (Auto) 8.4 % (1.0-10.0) Eosinophils (%) (Auto) 2.6 % (0.0-3.0) Basophils (%) (Auto) 1.0 % (0.0-2.0) Sodium Level 141 MMOL/L (136-145) Potassium Level 4.3 MMOL/L (3.5-5.1) Chloride Level 104 MMOL/L (98-107) Carbon Dioxide Level 34 MMOL/L (21-32) H Anion Gap 3 mmol/L (5-15) L Blood Urea Nitrogen 19 mg/dL (7-18) H Creatinine 0.7 MG/DL (0.55-1.30) Estimat Glomerular Filtration Rate mL/min (>60) Glucose Level 134 MG/DL (74-106) H Calcium Level 9.6 MG/DL (8.5-10.1) Total Bilirubin 0.4 MG/DL (0.2-1.0) Aspartate Amino Transf (AST/SGOT) 20 U/L (15-37) Alanine Aminotransferase (ALT/SGPT) 41 U/L (12-78) Alkaline Phosphatase 75 U/L (46-116) Total Protein 6.9 G/DL (6.4-8.2) Albumin 3.4 G/DL (3.4-5.0) Globulin 3.5 g/dL Albumin/Globulin Ratio 1.0 (1.0-2.7) Current Medications Medications (Trade) Dose Ordered Sig/Regino Route PRN Reason Start Time Stop Time Status Last Admin Dose Admin Acetaminophen (Tylenol) 650 mg Q6H PRN ORAL Mild Pain/Temp > 100.5 04/27/17 18:00 05/22/17 17:59 Acetazolamide (Diamox) 250 mg EVERY 12 HOURS NG 05/01/17 21:00 05/31/17 20:59 05/10/17 08:32 Artificial Tears (Akwa-Tears) 2 drop Q8HR BOTH EYES 04/27/17 22:00 05/25/17 13:59 05/10/17 05:51 Aspirin (ASA) 81 mg DAILY GT 05/08/17 09:00 06/07/17 08:59 05/10/17 08:32 Atorvastatin Calcium (Lipitor) 10 mg BEDTIME NG 05/01/17 21:00 05/31/17 20:59 05/09/17 20:44 Docusate Sodium (Colace) 100 mg BID NG 05/01/17 18:00 05/31/17 17:59 05/10/17 08:32 Heparin Sodium (Porcine) (Heparin 5000 units/ml) 5,000 units EVERY 12 HOURS SUBQ 04/27/17 21:00 05/22/17 10:59 05/10/17 08:33 Metoprolol Tartrate (Lopressor) 50 mg Q12HR NG 05/01/17 21:00 05/31/17 20:59 05/10/17 08:35 Polyethylene Glycol (Miralax) 17 gm DAILYPRN PRN NG Constipation 05/01/17 11:30 05/31/17 11:29 Ranitidine HCl (Zantac) 150 mg TWICE A DAY NG 05/01/17 18:00 05/31/17 17:59 05/10/17 08:32 Sennosides (Senokot) 8.6 mg BEDTIME NG 05/01/17 21:00 05/31/17 20:59 05/09/17 20:44 Tamsulosin HCl (Flomax) 0.4 mg BEDTIME ORAL 05/01/17 21:00 05/31/17 20:59 05/09/17 20:44 KELI SALAS May 10, 2017 09:04
[2017-05-10 09:19] LABS: ABG BASE EXCESS 6.9; ABG PCO2 57.7 mmHg (35.0-45.0)
[2017-05-10 09:20] LABS: ABG ALLEN TEST POSITIVE
--- NOTE | 2017-05-10 10:13 | Critical Care Progress Note ---
Assessment/Plan Assessment/Plan IMPRESSION respiratory failure COPD Pneumonia acute respiratory acidosis thrombocytopenia history of CVA history of TIA hypertension per history encephalopathy GT aspiration PLAN stable for discharge doing well acid base stabilized monitor for worsening CO2 retention avoid sedation medications/laboratory data/nursing notes reviewed in detail note reviewed and edited care discussed with RN and RT Critical Care - Subjective Interval Events: REPEAT ABG NOTED Condition: stable EKG Rhythm: Sinus Rhythm I&O: Intake and Output 05/10/17 05/11/17 19:00 07:00 Intake Total 85 ml Balance 85 ml Intake Free Water 30 ml Tube Feeding 55 ml Critical Care - Objective ET-Tube: 8.0 ET Position: 22 Last 24 Hour Vital Signs Date Time Temp Pulse Resp B/P (MAP) Pulse Ox O2 Delivery O2 Flow Rate FiO2 05/10/17 08:35 77 145/63 05/10/17 08:00 77 05/10/17 08:00 97.8 89 21 145/63 97 Nasal Cannula 2.0 05/10/17 04:18 96.7 62 18 109/59 94 Nasal Cannula 05/10/17 04:00 70 05/10/17 04:00 97.2 73 19 106/73 98 05/10/17 04:00 Nasal Cannula 2.0 05/10/17 00:30 96.6 64 18 102/60 96 Nasal Cannula 05/10/17 00:00 74 05/10/17 00:00 Nasal Cannula 2.0 05/09/17 23:28 Nasal Cannula 2.0 28 05/09/17 23:28 98 Nasal Cannula 2.0 28 05/09/17 20:44 76 111/72 05/09/17 20:18 97.5 76 18 111/72 94 Nasal Cannula 05/09/17 20:00 73 05/09/17 20:00 Nasal Cannula 2.0 05/09/17 16:00 97.7 79 18 100/65 97 05/09/17 16:00 82 05/09/17 12:00 97.5 72 17 99/64 97 05/09/17 12:00 72 05/09/17 12:00 17 97 Nasal Cannula 2.0 Labs: Labs Test 05/08/17 09:55 05/09/17 08:55 05/09/17 15:00 05/10/17 09:15 Arterial Blood pH 7.332 (7.350-7.450) 7.430 (7.350-7.450) 7.384 (7.350-7.450) Arterial Blood Partial Pressure CO2 60.7 mmHg (35.0-45.0) 48.7 mmHg (35.0-45.0) 57.7 mmHg (35.0-45.0) Arterial Blood Partial Pressure O2 43.7 mmHg (75.0-100.0) 80.5 mmHg (75.0-100.0) 90.1 mmHg (75.0-100.0) Arterial Blood HCO3 31.4 mmol/L (22.0-26.0) 32.0 mmol/L (22.0-26.0) 33.7 mmol/L (22.0-26.0) Arterial Blood Oxygen Saturation 74.9 % (92.0-98.0) 94.9 % (92.0-98.0) 96.1 % (92.0-98.0) Arterial Blood Base Excess 3.9 6.7 6.9 Pineda Test Positive Positive Positive White Blood Count 6.6 K/UL (4.8-10.8) Red Blood Count 3.74 M/UL (4.70-6.10) Hemoglobin 12.4 G/DL (14.2-18.0) Hematocrit 37.5 % (42.0-52.0) Mean Corpuscular Volume 100 FL (80-99) Mean Corpuscular Hemoglobin 33.1 PG (27.0-31.0) Mean Corpuscular Hemoglobin Concent 33.0 G/DL (32.0-36.0) Red Cell Distribution Width 11.4 % (11.6-14.8) Platelet Count 146 K/UL (150-450) Mean Platelet Volume 6.6 FL (6.5-10.1) Neutrophils (%) (Auto) 65.2 % (45.0-75.0) Lymphocytes (%) (Auto) 22.9 % (20.0-45.0) Monocytes (%) (Auto) 8.4 % (1.0-10.0) Eosinophils (%) (Auto) 2.6 % (0.0-3.0) Basophils (%) (Auto) 1.0 % (0.0-2.0) Sodium Level 141 MMOL/L (136-145) Potassium Level 4.3 MMOL/L (3.5-5.1) Chloride Level 104 MMOL/L (98-107) Carbon Dioxide Level 34 MMOL/L (21-32) Anion Gap 3 mmol/L (5-15) Blood Urea Nitrogen 19 mg/dL (7-18) Creatinine 0.7 MG/DL (0.55-1.30) Estimat Glomerular Filtration Rate mL/min (>60) Glucose Level 134 MG/DL (74-106) Calcium Level 9.6 MG/DL (8.5-10.1) Total Bilirubin 0.4 MG/DL (0.2-1.0) Aspartate Amino Transf (AST/SGOT) 20 U/L (15-37) Alanine Aminotransferase (ALT/SGPT) 41 U/L (12-78) Alkaline Phosphatase 75 U/L (46-116) Total Protein 6.9 G/DL (6.4-8.2) Albumin 3.4 G/DL (3.4-5.0) Globulin 3.5 g/dL Albumin/Globulin Ratio 1.0 (1.0-2.7) Objective: WDWN off BIPAP at present NAD moderate breath sounds without rhonchi or wheeze [id number] without MRG NABS nontender no HSM no CC mild edema poor LOC; nonfocal skin noted lines noted reviewed and edited HUSSEIN MARTINEZ May 10, 2017 10:13
--- NOTE | 2017-05-10 12:06 | General Progress Note ---
Assessment/Plan Problem List: (1) Altered level of consciousness ICD Codes: R40.4 - Transient alteration of awareness SNOMED: 9269597 (2) COPD exacerbation ICD Codes: J44.1 - Chronic obstructive pulmonary disease with (acute) exacerbation SNOMED: 785210080675044 (3) Hypercapnia ICD Codes: R06.89 - Other abnormalities of breathing SNOMED: 24705459 (4) PNA (pneumonia) ICD Codes: J18.9 - Pneumonia, unspecified organism SNOMED: 796211568 (5) Respiratory failure ICD Codes: J96.90 - Respiratory failure, unspecified, unspecified whether with hypoxia or hypercapnia SNOMED: 009338199 Assessment/Plan resp rx bipap prn/qhs o2 monitor abg iv abx gt feeds dvt/stress ulcer prophylaxis ngt feeds abx monitor cxr dc planning when cleared by pulm Subjective ROS Limited/Unobtainable: Yes Constitutional: Reports: malaise, weakness HEENT: Reports: no symptoms Cardiovascular: Reports: no symptoms Respiratory: Reports: cough, SOB at rest Gastrointestinal/Abdominal: Reports: difficulty swallowing Genitourinary: Reports: no symptoms Neurologic/Psychiatric: Reports: pre-existing deficit Endocrine: Reports: no symptoms Hematologic/Lymphatic: Reports: anemia Allergies: Coded Allergies: No Known Allergies (Unverified , 04/21/17) All Systems: reviewed and negative except above Subjective off bipap all night. on nasal cannula. somnolent but arousable. no fevers. labs noted. on iv abx. s/p peg. abg noted. Objective Last 24 Hour Vital Signs Date Time Temp Pulse Resp B/P (MAP) Pulse Ox O2 Delivery O2 Flow Rate FiO2 05/10/17 11:58 97.2 73 19 106/71 95 05/10/17 08:35 77 145/63 05/10/17 08:00 77 05/10/17 08:00 97.8 89 21 145/63 97 Nasal Cannula 2.0 05/10/17 04:18 96.7 62 18 109/59 94 Nasal Cannula 05/10/17 04:00 70 05/10/17 04:00 97.2 73 19 106/73 98 05/10/17 04:00 Nasal Cannula 2.0 05/10/17 00:30 96.6 64 18 102/60 96 Nasal Cannula 05/10/17 00:00 74 05/10/17 00:00 Nasal Cannula 2.0 05/09/17 23:28 Nasal Cannula 2.0 28 05/09/17 23:28 98 Nasal Cannula 2.0 28 05/09/17 20:44 76 111/72 05/09/17 20:18 97.5 76 18 111/72 94 Nasal Cannula 05/09/17 20:00 73 05/09/17 20:00 Nasal Cannula 2.0 05/09/17 16:00 97.7 79 18 100/65 97 05/09/17 16:00 82 Intake and Output 05/10/17 05/11/17 19:00 07:00 Intake Total 365 ml Balance 365 ml Intake Free Water 90 ml Tube Feeding 275 ml Laboratory Tests 05/09/17 15:00: White Blood Count 6.6, Red Blood Count 3.74L, Hemoglobin 12.4L, Hematocrit 37.5L , Mean Corpuscular Volume 100H, Mean Corpuscular Hemoglobin 33.1H, Mean Corpuscular Hemoglobin Concent 33.0, Red Cell Distribution Width 11.4L, Platelet Count 146L, Mean Platelet Volume 6.6, Neutrophils (%) (Auto) 65.2, Lymphocytes (%) (Auto) 22.9, Monocytes (%) (Auto) 8.4, Eosinophils (%) (Auto) 2.6, Basophils (%) (Auto) 1.0, Sodium Level 141, Potassium Level 4.3, Chloride Level 104, Carbon Dioxide Level 34H, Anion Gap 3L, Blood Urea Nitrogen 19H, Creatinine 0.7, Estimat Glomerular Filtration Rate , Glucose Level 134H, Calcium Level 9.6, Total Bilirubin 0.4, Aspartate Amino Transf (AST/SGOT) 20, Alanine Aminotransferase (ALT/SGPT) 41, Alkaline Phosphatase 75, Total Protein 6.9, Albumin 3.4, Globulin 3.5, Albumin/Globulin Ratio 1.0 05/10/17 09:15: Arterial Blood pH 7.384, Arterial Blood Partial Pressure CO2 57.7*H, Arterial Blood Partial Pressure O2 90.1, Arterial Blood HCO3 33.7H, Arterial Blood Oxygen Saturation 96.1, Arterial Blood Base Excess 6.9, Pineda Test Positive Height (Feet): 5 Height (Inches): 5.00 Weight (Pounds): 136 Objective General Appearance: lethargic, confused. on NC Neck: supple Cardiovascular: normal rate Respiratory/Chest: lungs clear, normal breath sounds, no respiratory distress Abdomen: normal bowel sounds, non tender, soft, no organomegaly Edema: no edema noted Arm (L), no edema noted Arm (R), no edema noted Leg (L), no edema noted Leg (R), no edema noted Pedal (L), no edema noted Pedal (R), no edema noted Generalized Neurologic: disoriented MARTIN HERNÁNDEZ May 10, 2017 12:06
[2017-05-10] MEDS ORDERED: Sterile Water Irrig 1000ml IRRIG ONE (16:22)
[2017-05-10] MEDS ORDERED: Tubing IV Secondary IV ONE (16:22)
[2017-05-10] MEDS ORDERED: NS 500ML ONE (16:22)
[2017-05-10] MEDS: Sennosides 8.6mg NG SCH (21:46)
[2017-05-10] MEDS: Tamsulosin 0.4mg cap ORAL SCH (21:46)
--- NOTE | 2017-05-10 22:16 | Progress Note ---
DATE: 05/08/2017 CARDIOLOGY PROGRESS NOTE Late entry 05/08/2017. SUBJECTIVE: The patient is awake, alert. He is off BiPAP. He is arousable, but withdrawn at times. ABG today revealed with pH 7.23, pCO2 61, and pO2 only 44. OBJECTIVE: LUNGS: Diminished breath sounds. No wheezing. HEART: Regular rhythm and rate. Normal S1, S2. ABDOMEN: G-tube intact. Soft. No edema. IMPRESSION: 1. Acute on chronic respiratory acidosis. 2. Hypoxia. 3. Acute respiratory failure. 4. Chronic obstructive pulmonary disease. 5. Dementia. 6. Chronic diastolic congestive heart failure. 7. Dysphagia, status post G-tube. PLAN: 1. G-tube feedings. 2. Anti-platelet and anti-lipid drugs. 3. Beta-blockade. 4. Respiratory hygiene. Shayne Sams M.D. DR: RDAHA JOB#: [id number] CC:
--- NOTE | 2017-05-10 23:31 | Progress Note ---
DATE: 05/10/2017 CARDIOLOGY PROGRESS NOTE SUBJECTIVE: The patient was off BiPAP last night and he remains on nasal cannula. OBJECTIVE: GENERAL: Withdrawn, alert. VITAL SIGNS: Blood pressure is 145/63, pulse 77, and respiratory rate 19. LUNGS: Bilateral breath sounds. No wheezing. HEART: Regular rhythm and rate. Normal S1 and S2. ABDOMEN: Soft. No edema. LABORATORY AND DIAGNOSTIC DATA: ABG today, 7.38, 58, and 90. IMPRESSION: 1. Improved respiratory parameters. 2. Tenuous overall pulmonary parameters. 3. No signs of congestive heart failure. 4. Stable cardiac rhythm. PLAN: 1. Continue respiratory hygiene. 2. Reassess acetazolamide therapy. 3. Recheck laboratory studies. 4. Discharge planning. Shayne Sams M.D. DR: CHANDRAKANT JOB#: [id number] CC:
[2017-05-11] VITALS: BP 108/70
[2017-05-11 04:00] VITALS: BP 99/63
[2017-05-11] MEDS: Artificial Tears 1.4% Op Soln BOTH EYES SCH (06:17)
[2017-05-11 07:27] LABS: BASOPHILS % (AUTO) 1.1 % (0.0-2.0); EOSINOPHILS % (AUTO) 4.4 % (0.0-3.0); LYMPHOCYTES % (AUTO) 26.9 % (20.0-45.0); MEAN CORPUSCULAR HGB CONC 33.4 G/DL (32.0-36.0); MEAN CORPUSCULAR VOLUME 105 FL (80-99); MEAN PLATELET VOLUME 8.2 FL (6.5-10.1); MONOCYTES % (AUTO) 8.7 % (1.0-10.0); NEUTROPHILS % (AUTO) 58.9 % (45.0-75.0); PLATELET COUNT 140 K/UL (150-450); RED BLOOD COUNT 3.91 M/UL (4.70-6.10); RED CELL DISTRIBUTION WIDTH 12.1 % (11.6-14.8); WHITE BLOOD COUNT 4.6 K/UL (4.8-10.8)
[2017-05-11 07:56] LABS: ALANINE AMINOTRANSFERASE 39 U/L (12-78); ALBUMIN/GLOBULIN RATIO 0.8 (1.0-2.7); ANION GAP 3 mmol/L (5-15); ASPARTATE AMINO TRANSFERASE 24 U/L (15-37); CALCIUM 9.6 MG/DL (8.5-10.1); CARBON DIOXIDE 34 MMOL/L (21-32); CHLORIDE 105 MMOL/L (98-107); CREATININE 0.8 MG/DL (0.55-1.30); MAGNESIUM 2.4 MG/DL (1.8-2.4); POTASSIUM 4.7 MMOL/L (3.5-5.1); SODIUM 142 MMOL/L (136-145); TOTAL PROTEIN 7.5 G/DL (6.4-8.2)
[2017-05-11 08:00] VITALS: BP 107/70
--- NOTE | 2017-05-11 08:39 | Critical Care Progress Note ---
Assessment/Plan Assessment/Plan IMPRESSION respiratory failure COPD Pneumonia acute respiratory acidosis thrombocytopenia history of CVA history of TIA hypertension per history encephalopathy GT aspiration PLAN stable for discharge with current setting doing well acid base stabilized monitor for worsening CO2 retention avoid sedation GT feeds medications/laboratory data/nursing notes reviewed in detail note reviewed and edited care discussed with RN and RT Critical Care - Subjective Interval Events: very alert NAD off BIPAP Condition: improving EKG Rhythm: Sinus Rhythm Residuals: minimal Tube Feeding Tolerated: yes Critical Care - Objective ET-Tube: 8.0 ET Position: 22 Last 24 Hour Vital Signs Date Time Temp Pulse Resp B/P (MAP) Pulse Ox O2 Delivery O2 Flow Rate FiO2 05/11/17 07:52 Nasal Cannula 1.0 24 05/11/17 07:51 99 Nasal Cannula 1.0 24 05/11/17 04:00 81 05/11/17 04:00 97.9 88 21 99/63 96 Nasal Cannula 05/11/17 00:00 97.5 77 19 108/70 98 Nasal Cannula 05/11/17 00:00 82 05/11/17 00:00 Nasal Cannula 2.0 05/10/17 21:46 81 118/75 05/10/17 20:10 97 Nasal Cannula 2.0 28 05/10/17 20:10 Nasal Cannula 2.0 28 05/10/17 20:00 97.3 81 18 118/75 96 Nasal Cannula 05/10/17 20:00 77 05/10/17 20:00 Nasal Cannula 2.0 05/10/17 16:00 97.0 77 20 130/71 95 05/10/17 16:00 75 05/10/17 12:00 69 05/10/17 11:58 97.2 73 19 106/71 95 Labs: Labs Test 05/08/17 09:55 05/09/17 08:55 05/09/17 15:00 05/10/17 09:15 Arterial Blood pH 7.332 (7.350-7.450) 7.430 (7.350-7.450) 7.384 (7.350-7.450) Arterial Blood Partial Pressure CO2 60.7 mmHg (35.0-45.0) 48.7 mmHg (35.0-45.0) 57.7 mmHg (35.0-45.0) Arterial Blood Partial Pressure O2 43.7 mmHg (75.0-100.0) 80.5 mmHg (75.0-100.0) 90.1 mmHg (75.0-100.0) Arterial Blood HCO3 31.4 mmol/L (22.0-26.0) 32.0 mmol/L (22.0-26.0) 33.7 mmol/L (22.0-26.0) Arterial Blood Oxygen Saturation 74.9 % (92.0-98.0) 94.9 % (92.0-98.0) 96.1 % (92.0-98.0) Arterial Blood Base Excess 3.9 6.7 6.9 Pineda Test Positive Positive Positive White Blood Count 6.6 K/UL (4.8-10.8) Red Blood Count 3.74 M/UL (4.70-6.10) Hemoglobin 12.4 G/DL (14.2-18.0) Hematocrit 37.5 % (42.0-52.0) Mean Corpuscular Volume 100 FL (80-99) Mean Corpuscular Hemoglobin 33.1 PG (27.0-31.0) Mean Corpuscular Hemoglobin Concent 33.0 G/DL (32.0-36.0) Red Cell Distribution Width 11.4 % (11.6-14.8) Platelet Count 146 K/UL (150-450) Mean Platelet Volume 6.6 FL (6.5-10.1) Neutrophils (%) (Auto) 65.2 % (45.0-75.0) Lymphocytes (%) (Auto) 22.9 % (20.0-45.0) Monocytes (%) (Auto) 8.4 % (1.0-10.0) Eosinophils (%) (Auto) 2.6 % (0.0-3.0) Basophils (%) (Auto) 1.0 % (0.0-2.0) Sodium Level 141 MMOL/L (136-145) Potassium Level 4.3 MMOL/L (3.5-5.1) Chloride Level 104 MMOL/L (98-107) Carbon Dioxide Level 34 MMOL/L (21-32) Anion Gap 3 mmol/L (5-15) Blood Urea Nitrogen 19 mg/dL (7-18) Creatinine 0.7 MG/DL (0.55-1.30) Estimat Glomerular Filtration Rate mL/min (>60) Glucose Level 134 MG/DL (74-106) Calcium Level 9.6 MG/DL (8.5-10.1) Total Bilirubin 0.4 MG/DL (0.2-1.0) Aspartate Amino Transf (AST/SGOT) 20 U/L (15-37) Alanine Aminotransferase (ALT/SGPT) 41 U/L (12-78) Alkaline Phosphatase 75 U/L (46-116) Total Protein 6.9 G/DL (6.4-8.2) Albumin 3.4 G/DL (3.4-5.0) Globulin 3.5 g/dL Albumin/Globulin Ratio 1.0 (1.0-2.7) Test 05/11/17 06:25 White Blood Count 4.6 K/UL (4.8-10.8) Red Blood Count 3.91 M/UL (4.70-6.10) Hemoglobin 13.7 G/DL (14.2-18.0) Hematocrit 40.9 % (42.0-52.0) Mean Corpuscular Volume 105 FL (80-99) Mean Corpuscular Hemoglobin 35.0 PG (27.0-31.0) Mean Corpuscular Hemoglobin Concent 33.4 G/DL (32.0-36.0) Red Cell Distribution Width 12.1 % (11.6-14.8) Platelet Count 140 K/UL (150-450) Mean Platelet Volume 8.2 FL (6.5-10.1) Neutrophils (%) (Auto) 58.9 % (45.0-75.0) Lymphocytes (%) (Auto) 26.9 % (20.0-45.0) Monocytes (%) (Auto) 8.7 % (1.0-10.0) Eosinophils (%) (Auto) 4.4 % (0.0-3.0) Basophils (%) (Auto) 1.1 % (0.0-2.0) Sodium Level 142 MMOL/L (136-145) Potassium Level 4.7 MMOL/L (3.5-5.1) Chloride Level 105 MMOL/L (98-107) Carbon Dioxide Level 34 MMOL/L (21-32) Anion Gap 3 mmol/L (5-15) Blood Urea Nitrogen 23 mg/dL (7-18) Creatinine 0.8 MG/DL (0.55-1.30) Estimat Glomerular Filtration Rate mL/min (>60) Glucose Level 120 MG/DL (74-106) Calcium Level 9.6 MG/DL (8.5-10.1) Magnesium Level 2.4 MG/DL (1.8-2.4) Total Bilirubin 0.3 MG/DL (0.2-1.0) Aspartate Amino Transf (AST/SGOT) 24 U/L (15-37) Alanine Aminotransferase (ALT/SGPT) 39 U/L (12-78) Alkaline Phosphatase 73 U/L (46-116) Total Protein 7.5 G/DL (6.4-8.2) Albumin 3.4 G/DL (3.4-5.0) Globulin 4.1 g/dL Albumin/Globulin Ratio 0.8 (1.0-2.7) Objective: WDWN off BIPAP at present NAD moderate breath sounds without rhonchi or wheeze [id number] without MRG NABS nontender no HSM no CC mild edema very alert nonfocal skin noted lines noted reviewed and edited HUSSEIN MARTINEZ May 11, 2017 08:39
[2017-05-11] MEDS: Heparin 5000 units/ml inj SUBQ SCH (09:00)
[2017-05-11] MEDS: Docusate 100mg/10ml Liq NG SCH (09:12)
[2017-05-11] MEDS: Aspirin Baby 81mg GT SCH (09:14)
[2017-05-11] MEDS: Metoprolol Tartrate 50mg tab NG SCH (09:14)
[2017-05-11 10:34] LABS: ABG ALLEN TEST POSITIVE; ABG BASE EXCESS 8.1; ABG PCO2 58.9 mmHg (35.0-45.0)
[2017-05-11] MEDS ORDERED: Albuterol/Ipratropium 3ml neb HHN PRN (11:30)
[2017-05-11 12:00] VITALS: BP 108/70
--- NOTE | 2017-05-11 14:54 | Wound Nurse Progress Note ---
Wound RN Progress Note Wound Consult upon reassessment #1 Sacrococcygeal pressure ulcer stage 3 with full thickness scar tissue to surrounding site 3.0cmx 1.5cm is intact , scattered scabs to right sacral with redness. noted small area to sacrococcygeal site with maceration but no further deterioration or pressure ulcer was present. ALYSIA FLORES May 11, 2017 14:54
--- NOTE | 2017-05-11 15:45 | Progress Note ---
DATE: 05/11/2017 SUBJECTIVE: The patient has been off BiPAP. No respiratory distress. ABGs appear stable. OBJECTIVE: LUNGS: Good breath sounds. No wheezing. HEART: Regular rhythm and rate. Normal S1 and S2. ABDOMEN: Soft. G-tube intact. No edema. VITAL SIGNS: Blood pressure was 107/70, pulse 79, respiratory 19, and oxygen saturation on 1 liters 96%. LABORATORY AND DIAGNOSTIC DATA: White count 4.6 and hemoglobin 13.7. Potassium 4.7, BUN 23 and creatinine 0.8. ABG, pH 7.39, 59 and 100. IMPRESSION: 1. Respiratory failure. 2. Acute on chronic respiratory acidosis, resolved. 3. Sinus bradycardia, recovered. 4. Secondary sinus tachycardia, recovered. 5. Chronic diastolic congestive heart failure. 6. Dysphagia status post gastrostomy tube. 7. Cerebrovascular disease with dementia. PLAN: Continue current therapy. No need for oxygen supplementation presently. No change in cardiovascular regimen. Discharge planning to nursing home facility. Shayne Sams M.D. DR: CHANDRAKANT JOB#: [id number] CC:
--- NOTE | 2017-05-11 22:25 | General Progress Note ---
Assessment/Plan Assessment/Plan Assessment - resp failure / COPD - acidosis - CO2 retention - s/p EGD, PEG - AMS/ CVA Recommendations - Continue TF - GT care - Abx - BIPAP PRN - BID H2B - path reviewed --> HP (-) - d/c planning Subjective Allergies: Coded Allergies: No Known Allergies (Unverified , 04/21/17) Subjective above noted no events overnight tolerating TF off of BIPAP Objective Last 24 Hour Vital Signs Date Time Temp Pulse Resp B/P (MAP) Pulse Ox O2 Delivery O2 Flow Rate FiO2 05/11/17 12:00 65 05/11/17 12:00 97.5 68 19 108/70 96 05/11/17 09:14 79 107/70 05/11/17 08:00 97.2 79 19 107/70 96 05/11/17 08:00 87 05/11/17 07:52 Nasal Cannula 1.0 24 05/11/17 07:51 99 Nasal Cannula 1.0 24 05/11/17 04:00 81 05/11/17 04:00 97.9 88 21 99/63 96 Nasal Cannula 05/11/17 00:00 97.5 77 19 108/70 98 Nasal Cannula 05/11/17 00:00 82 05/11/17 00:00 Nasal Cannula 2.0 Laboratory Tests 05/11/17 06:25: White Blood Count 4.6L, Red Blood Count 3.91L, Hemoglobin 13.7L, Hematocrit 40.9L, Mean Corpuscular Volume 105H, Mean Corpuscular Hemoglobin 35.0H, Mean Corpuscular Hemoglobin Concent 33.4, Red Cell Distribution Width 12.1, Platelet Count 140L, Mean Platelet Volume 8.2, Neutrophils (%) (Auto) 58.9, Lymphocytes ( %) (Auto) 26.9, Monocytes (%) (Auto) 8.7, Eosinophils (%) (Auto) 4.4H, Basophils (%) (Auto) 1.1, Sodium Level 142, Potassium Level 4.7, Chloride Level 105, Carbon Dioxide Level 34H, Anion Gap 3L, Blood Urea Nitrogen 23H, Creatinine 0.8, Estimat Glomerular Filtration Rate , Glucose Level 120H, Calcium Level 9.6, Magnesium Level 2.4, Total Bilirubin 0.3, Aspartate Amino Transf (AST/SGOT) 24, Alanine Aminotransferase (ALT/SGPT) 39, Alkaline Phosphatase 73, Total Protein 7.5, Albumin 3.4, Globulin 4.1, Albumin/Globulin Ratio 0.8L 05/11/17 10:20: Arterial Blood pH 7.393, Arterial Blood Partial Pressure CO2 58.9*H, Arterial Blood Partial Pressure O2 100.2H, Arterial Blood HCO3 34.9H, Arterial Blood Oxygen Saturation 97.0, Arterial Blood Base Excess 8.1, Pineda Test Positive Height (Feet): 5 Height (Inches): 5.00 Weight (Pounds): 136 Objective Thin man NCAT supple Chest coarse BS RR soft ND NT no edema confused MADDIE JEFFERSON May 11, 2017 22:25
--- NOTE | 2017-05-12 09:30 | Discharge Summary ---
DATE OF ADMISSION: 04/21/2017 DATE OF DISCHARGE: 05/11/2017 ADMITTING DIAGNOSES: 1. Pneumonia. 2. Respiratory failure. 3. Sepsis. 4. Encephalopathy. 5. History of stroke. 6. Dysphagia. DISCHARGE DIAGNOSES: 1. Pneumonia. 2. Respiratory failure. 3. Sepsis. 4. Encephalopathy. 5. History of stroke. 6. Dysphagia. 7. Status post gastrostomy tube placement. HISTORY AND HOSPITAL COURSE: The patient is an unfortunate 72-year-old male, admitted with complaints of sepsis, secondary to pneumonia, who was initially in the intensive care unit. He was intubated because of respiratory failure, extubated and then required re-intubation because of respiratory failure again. He failed a swallow evaluation. After discussion with family members, they were in agreement with placement of a G-tube and with uncomplicated placement of G-tube, his hospital course was prolonged by recurrent bouts of CO2 retention and respiratory acidosis. On discharge, the patient was well. The patient will be discharged back to the senior care facility. He will require nightly BiPAP and close monitoring there. DISCHARGE MEDICATIONS: Please see discharge medications list for discharge medications. DIET: G-tube feeding. ACTIVITY: Ad-benja. Onofre Smith M.D. DR: Desmond JOB#: [id number] CC:
== END 2017-05-11 13:15 | DRG 871 ==
LOC: EDBD 18:05 → EMR 20:54 → EDBEDREQSVC 20:56 → EDBEDREQ 20:56 → ICU 20:57 → EDBEDREQ 21:20 → 2E 04-27 16:00
PROC: 5A1945Z Respiratory Ventilation, 24-96 Consecutive Hours (ICD-10-PCS; principal; 2017-04-21)
PROC: 0BH17EZ Insertion of Endotracheal Airway into Trachea, Via Natural or Artificial Opening (ICD-10-PCS; principal; 2017-04-21)
PROC: 5A1945Z Respiratory Ventilation, 24-96 Consecutive Hours (ICD-10-PCS; 2017-04-24)
PROC: 0BH17EZ Insertion of Endotracheal Airway into Trachea, Via Natural or Artificial Opening (ICD-10-PCS; 2017-04-24)
PROC: 0DB68ZX Excision of Stomach, Via Natural or Artificial Opening Endoscopic, Diagnostic (ICD-10-PCS; 2017-05-04)
PROC: 0DH63UZ Insertion of Feeding Device into Stomach, Percutaneous Approach (ICD-10-PCS; 2017-05-04)
DX: A41.9 Sepsis, unspecified organism (principal); R65.21 Severe sepsis with septic shock; E43 Unspecified severe protein-calorie malnutrition; G93.41 Metabolic encephalopathy; J15.212 Pneumonia due to Methicillin resistant Staphylococcus aureus; J96.00 Acute respiratory failure, unspecified whether with hypoxia or hypercapnia; J96.02 Acute respiratory failure with hypercapnia; I11.0 Hypertensive heart disease with heart failure; E87.2 Acidosis; R13.10 Dysphagia, unspecified; E87.3 Alkalosis; L89.153 Pressure ulcer of sacral region, stage 3; I50.32 Chronic diastolic (congestive) heart failure; J96.01 Acute respiratory failure with hypoxia; J44.1 Chronic obstructive pulmonary disease with (acute) exacerbation; Z68.1 Body mass index [BMI] 19.9 or less, adult; J44.0 Chronic obstructive pulmonary disease with (acute) lower respiratory infection; E87.6 Hypokalemia; E11.9 Type 2 diabetes mellitus without complications; D69.6 Thrombocytopenia, unspecified; E86.1 Hypovolemia; J32.9 Chronic sinusitis, unspecified; K29.70 Gastritis, unspecified, without bleeding; K29.80 Duodenitis without bleeding; Z68.22 Body mass index [BMI] 22.0-22.9, adult; D64.9 Anemia, unspecified; F03.90 Unspecified dementia, unspecified severity, without behavioral disturbance, psychotic disturbance, mood disturbance, and anxiety; E83.42 Hypomagnesemia
CPT/HCPCS: 31500; 36415; 36600; 70450; 71010; 74000; 74230; 80053; 80202; 81003; 82550; 82553; 82607; 82746; 82803; 83605; 83735; 83880; 84443; 84484; 85007; 85025; 85610; 86850; 86900; 86901; 87040; 87070; 87081; 87181; 87205; 93005; 93970; 94002; 94003; 94150; 94640; 94660; 94664; 94760; J7620